=== PATIENT | female | born 1975 | race Caucasian/White ===

== ENCOUNTER 2020-06-02 14:32 | Outpatient (REF) | payer BC, SELFPAY ==
[2020-06-06 16:47] LABS: HPV mRNA E6/E7 rflx Not Detected (Not Detected)
== END 2020-06-02 14:33 | disposition home or self-care (01) ==
LOC: HO.LAB 14:32
PROVIDERS: PCP Internal Medicine; Visit Provider Obstetrics & Gynecology
DX: Z01.419 Encounter for gynecological examination (general) (routine) without abnormal findings (principal); Z11.51 Encounter for screening for human papillomavirus (HPV)
CPT/HCPCS: 36415; 87624; 88142

== ENCOUNTER → 2020-08-15 12:50 | Outpatient (BNVA) | payer BC, SELFPAY | PROVIDERS: PCP Internal Medicine; Referring Provider Internal Medicine; Visit Provider Physician Assistant ==

== ENCOUNTER 2020-10-25 08:10 | Outpatient (REF) | payer BC, SELFPAY ==
--- NOTE | ~2020-10-25 | MM_ITS ---
EXAMINATION: MM SCREENING DIGITAL BREAST TOMOSYNTHESIS, BILATERAL CLINICAL INFORMATION: Screening. Asymptomatic. The lifetime risk of breast cancer based on the Tyrer-Cuzick Model is 10%. COMPARISON: Mammography: 10/20/2019, 10/12/2018, 10/08/2017, 04/23/2016 TECHNIQUE: Digital breast tomosynthesis is performed in both the craniocaudal and mediolateral oblique views along with computer-aided detection (CAD). Synthesized 2D images are generated from the tomosynthesis. FINDINGS: There are scattered areas of fibroglandular density (ACR BI-RADS breast composition Category b). Parenchymal pattern is similar to prior studies. There are scattered stable asymmetries. No developing density. No abnormal calcifications. The axilla and skin contours are unremarkable. No significant changes from prior studies. MM/MM tomosynthesis screening BI IMPRESSION: No mammographic evidence of malignancy. ASSESSMENT: BI-RADS 2: Benign RECOMMENDATION: Routine annual mammography screening. This patient's information was entered into a reminder system with a target due date for their next mammogram.
== END 2020-10-25 08:11 | disposition home or self-care (01) ==
LOC: HO.MAMMO 08:10
PROVIDERS: Visit Provider Internal Medicine
DX: Z12.31 Encounter for screening mammogram for malignant neoplasm of breast (principal)
CPT/HCPCS: 77063; 77067

== ENCOUNTER 2020-10-26 08:45 | Outpatient (REF) | payer BC, SELFPAY ==
[2020-10-26 09:42] LABS: MANUAL DIFF FLAG NO
[2020-10-26 09:49] LABS: Basophils Percent Auto 0.6 % (0-2); Eosinophils Absolute Auto 0.1 X10*3/uL (0.0-0.4); Eosinophils Percent Auto 1.8 % (0-4); Hematocrit 38.3 % (37-47); Hemoglobin 12.6 g/dl (12.0-16.0); Imm Gran Abs Auto 0.03 X10*3/uL (0.00-0.03); Imm Gran Pct Auto 0.4 % (0.0-0.4); Lymphocytes Absolute Auto 1.8 X10*3/uL (1.2-4.9); Lymphocytes Percent Auto 26.6 % (20-40); Mean Corpuscular HGB Conc 32.9 g/dl (31.0-35.0); Mean Corpuscular Hemoglobin 33.2 pg (27.0-33.0); Mean Corpuscular Volume 101.1 fL (80-98); Mean Platelet Volume 9.6 fL (9.4-12.3); Monocytes Absolute Auto 0.5 X10*3/uL (0.1-1.2); Monocytes Percent Auto 7.2 % (2-11); Neutrophils Absolute Auto 4.3 X10*3/uL (2.0-8.3); Neutrophils Percent Auto 63.4 % (45-73); Platelet Count 309 X10*3/uL (160-400); Red Blood Count 3.79 X10*6/uL (4.20-5.50); Red Cell Distribution Width 11.7 % (11.0-16.0); White Blood Count 6.8 X10*3/uL (4.8-10.8)
[2020-10-26 10:15] LABS: Alanine Aminotransferase 33 U/L (0-31); Albumin Level 4.2 g/dL (3.5-5.0); Alkaline Phosphatase 57 U/L (39-117); Anion Gap 15 (12-20); Aspartate Amino Transferase 37 U/L (5-31); Bilirubin Total 0.3 mg/dL (0.0-1.0); Blood Urea Nitrogen 12 mg/dL (9-16); Calcium 8.8 mg/dL (8.4-10.2); Carbon Dioxide 25 mmol/L (22-29); Chloride 106 mmol/L (96-108); Estimated Glomerular Filt Rate > 60; Glucose Random 76 mg/dL (60-115); Potassium 4.7 mmol/L (3.3-5.1); Sodium 141 mmol/L (135-145); Total Protein 7.1 g/dL (6.5-8.0)
[2020-10-26 10:50] LABS: Erythrocyte Sedimentation Rate 5 MM/HR (0-20)
[2020-10-30 16:22] LABS: Transglutaminase IgA 1 U/mL
[2020-10-31 10:56] LABS: Endomysial IgA Antibody Negative (Negative)
== END 2020-10-26 08:46 | disposition home or self-care (01) ==
LOC: HO.LAB 08:45
PROVIDERS: Absent Provider Internal Medicine; PCP Internal Medicine; Visit Provider Physician Assistant
DX: R74.01 Elevation of levels of liver transaminase levels (principal); R10.11 Right upper quadrant pain; R19.7 Diarrhea, unspecified; K59.09 Other constipation
CPT/HCPCS: 36415; 80053; 83516; 84443; 85025; 85652; 86255; 86256

== ENCOUNTER 2020-10-27 10:59 | Day surgery (SDC) | payer BC, SELFPAY ==
--- NOTE | 2020-10-26 10:10 | HO.ANESPROP2 ---
Documented by User: Sharri Dubois NP 10/26/20 10:11 HPI - Anesthesia Eval Consult details Narrative: 45yo F for Colonoscopy PMFSH Active Problems Active Problems: All Active Problems (Updated 08/15/20 @ 13:35 by Laura Quevedo PA-C) Loose stools (Acute) Encounter for screening colonoscopy (Acute) Dyslipidemia (Acute) Depression with anxiety (Acute) Past Medical History Medical History Depression with anxiety Dyslipidemia Genital herpes Loose stools Family History Family History Father History of quadruple bypass Mother High cholesterol Diverticulitis IBS (irritable bowel syndrome) Maternal Grandmother Lung cancer Maternal Grandfather Stroke Maternal Aunt Diabetes Cancer Maternal Uncle Bladder cancer Surgical History Surgical History H/O LEEP Social History Social History Household Members: Spouse Household Members Other:: , no kids Alcohol intake: current Alcohol intake frequency: a few times a week Patient Tobacco Use Status: Never used Tobacco Use of substances other than those prescribed or required for medical reasons: Yes Substance Use Frequency: Daily Are you DNR?: No Advance Directives: No Advance Directives Information Provided: Yes Current occupational status: employed Current occupation: [employer] Gender identity: Female Meds Allergies Allergy/AdvReac Type Severity Reaction Status Date / Time No Known Allergies Allergy Verified 10/20/20 13:57 Exam Exam Date and Time: October 26, 2020 1010 Pertinent Lab Results Pertinent Lab Results: Laboratory Tests 10/26/20 09:05 WBC 6.8 Hgb 12.6 Hct 38.3 Plt Count 309 Laboratory Tests 10/26/20 09:05 Sodium Pending Potassium Pending Chloride Pending Carbon Dioxide Pending BUN Pending Creatinine Pending Random Glucose Pending Calcium Pending Total Bilirubin Pending AST Pending ALT Pending Alkaline Phosphatase Pending Total Protein Pending Albumin Pending TSH Pending Assessment and Plan Assessment Anesthesia Assessment: Chart Reviewed Documented by User: Valentina Camara MD 10/27/20 12:17 PMFSH Past Medical History Medical History Depression with anxiety Dyslipidemia Genital herpes Loose stools Family History Family History Father History of quadruple bypass Mother High cholesterol Diverticulitis IBS (irritable bowel syndrome) Maternal Grandmother Lung cancer Maternal Grandfather Stroke Maternal Aunt Diabetes Cancer Maternal Uncle Bladder cancer Surgical History Surgical History H/O LEEP History of Problems with Anesthesia: No Social History Social History Household Members: Spouse Household Members Other:: , no kids Alcohol intake: current Alcohol intake frequency: a few times a week Patient Tobacco Use Status: Never used Tobacco Use of substances other than those prescribed or required for medical reasons: Yes Substance Use Frequency: Daily Are you DNR?: No Advance Directives: No Advance Directives Information Provided: Yes Current occupational status: employed Current occupation: [employer] Gender identity: Female Meds Allergies Allergy/AdvReac Type Severity Reaction Status Date / Time No Known Allergies Allergy Verified 10/20/20 13:57 Exam Airway Mallampati Class: II TM Dist: >3cm Neck ROM: Full Loose/Missing/Broken Teeth: No Heart: RRR Lungs: CTA Assessment and Plan Assessment Anesthesia Assessment: Anesthesia Plan Discussed Final Anesthetic Review History of Problems with Anesthesia: No NPO: Yes ASA Class: II Final Preanesthetic Review: Meds/Allgs Chart Reviewed, Consent Obtained/Reviewed and Anes Risks/Benef Reviewed Patient Risk: Low Procedure Risk: Low Anesthetic Plan Anesthetic Plan: MAC: Disposition: Standard PACU
--- NOTE | 2020-10-27 11:17 | MHC.SHP ---
Pre-Procedural Eval Section A Date of Service: 10/27/20 The patient is an INPATIENT: No The History & Physical has been completed within 30 days and I have reviewed it.: No Section B Chief Complaint: Screening Details of Present Illness: Colon cancer screening, chronic diarrhea and bloating Relevant Family History (Specify if Yes): No Relevant Social History: None Present Medications: see Short Stay Collaborative assessment Medical History: Significant History (Depression with anxiety Dyslipidemia Genital herpes Loose stools) History of Previous Operations: Relevant previous surgery/procedure and date(s) (H/O LEEP) Allergies: Allergies Allergy/AdvReac Type Severity Reaction Status Date / Time No Known Allergies Allergy Verified 10/20/20 13:57 Review of Systems Sugical H&P ROS: Negative: Constitution, Cardiovascular and Respiratory and Yes, Specify: Gastrointestinal (Chronic diarrhea and bloating) Exam Surgical H&P Exam: Normal: Heart, Normal: Lungs and Normal: Extremities Plan Diagnosis/Plan: Unchanged I have reviewed the history and physical and performed a pertinent physical examination on my patient. No changes have occurred unless specified.
[2020-10-27 11:49] VITALS: BP 137/97; PULSE 70; RESP 16; TEMP 36.5; O2SAT 97
[2020-10-27] MEDS: Lactated Ringers 1,000 ML 100 ML IVCONT (12:01)
[2020-10-27 12:02] LABS: UPreg QC Valid YES; Urine Pregnancy NEGATIVE (NEGATIVE)
--- NOTE | 2020-10-27 12:56 | PM.OP ---
Brief Operative Note Date of Service: 10/27/20 Pre-op diagnosis: Colon cancer screening, chronic diarrhea, abdominal bloating Post-op diagnosis: other (Diverticulosis) Procedure: COLONOSCOPY TILL CECUM WITH BIOPSIES Consent: Indications for the procedure and potential complications of bleeding, perforation, reaction to medications and missed diagnosis were discussed with the patient and informed consent was obtained. Instrument: Olympus PCF H 190 L variable stiffness pediatric colonoscope Monitoring: Vital signs and clinical assessment, intermittent blood pressure monitoring, continuous EKG monitoring, Pulse oximetry and Carbon Dioxide monitoring were done throughout the procedure. Colon withdrawl time was 15 minutes. Procedure: The patient was placed in the left lateral decubitis position and pre-procedure medications were administered. After a digital rectal examination of the ano-rectum, the video colonoscope was inserted into the rectum and advanced through the colon to the cecum. The colonoscope was slowly withdrawn in a retrograde panoramic fashion and the colon mucosa was carefully examined including a retroflexed view of the rectum. Findings and interventions are described below. Procedure Difficulty: Without difficulty Findings: Terminal Ileum: Distal 10 cms was examined and 2-3 m benign appearing nodules were biopsied - likely normal lymphoid tissue Cecum: Normal Ascending Colon: Scattered mild diverticulosis Transverse Colon: Scattered mild diverticulosis Descending Colon: Moderate diverticulosis Sigmoid Colon: Moderate diverticulosis Rectum: Normal Ano-rectum: Normal Colon preparation: Excellent Impression and Post Procedure Diagnosis: Colonoscopy Findings: No polyps were detected Random biopsies were obtained from the right colon, left colon and TI Mild to moderate diverticulosis seen in the entire colon Plan: Await pathology results Patient has an appointment on 11/14/20 in the [facility] with JANICE Oneil. Repeat Colonoscopy in 10 years if colon biopsies are normal. Above findings were reviewed with the patient and diverticulosis handouts were given in the discharge area Surgeon: Chery Gar MD Anesthesia: MAC (Dr Camara) Was an Human Resources Operations Specialist used for this Procedure?: Yes Human Resources Operations Specialist: Rosalie Jerry Estimated blood loss (mL): 0 Pathology: other (A- TERMINAL ILEUM BIOPSIES R/O CROHNS B- RANDOM RIGHT COLON BIOPSIES R/O MICROSCOPIC COLITIS C- RANDOM LEFT COLON BIOPSIES- R/O MICROSCOPIC COLITIS) Condition: stable Disposition: PACU
[2020-10-27 13:30] VITALS: BP 123/71; PULSE 62; RESP 18; TEMP 36.6; O2SAT 99
[2020-10-27 13:45] VITALS: BP 143/96; PULSE 60; RESP 16; TEMP 36.7; O2SAT 98
--- NOTE | 2020-10-27 17:33 | P.OP_ITS ---
Operative Note Operative Note Date of Service: 10/27/20 Narrative: Pre-op diagnosis:?Colon cancer screening, chronic diarrhea, abdominal bloating Post-op diagnosis:?other (Diverticulosis) Procedure:? COLONOSCOPY TILL CECUM WITH BIOPSIES Consent: Indications for the procedure and potential complications of bleeding, perforation, reaction to medications and missed diagnosis were discussed with the patient and informed consent was obtained. Instrument: Olympus PCF H 190 L variable stiffness pediatric colonoscope Monitoring: Vital signs and clinical assessment, intermittent blood pressure monitoring, continuous EKG monitoring, Pulse oximetry and Carbon Dioxide monitoring were done throughout the procedure. Colon withdrawl time was 15 minutes. Procedure: The patient was placed in the left lateral decubitis position and pre-procedure medications were administered. After a digital rectal examination of the ano-rectum, the video colonoscope was inserted into the rectum and advanced through the colon to the cecum. The colonoscope was slowly withdrawn in a retrograde panoramic fashion and the colon mucosa was carefully examined including a retroflexed view of the rectum. Findings and interventions are described below. Procedure Difficulty: Without difficulty Findings: Terminal Ileum: Distal 10 cms was examined and 2-3 m benign appearing nodules were biopsied - likely normal lymphoid tissue Cecum:? Normal Ascending Colon:? Scattered mild diverticulosis Transverse Colon: ? Scattered mild diverticulosis Descending Colon:? Moderate diverticulosis Sigmoid Colon:? Moderate diverticulosis Rectum:? Normal Ano-rectum:? Normal Colon preparation: Excellent ? Impression and Post Procedure Diagnosis: Colonoscopy Findings: No polyps were detected Random biopsies were obtained from the right colon, left colon and TI Mild to moderate diverticulosis seen in the entire colon Plan: Await pathology results Patient has an appointment on 11/14/20 in the GI Clinic with JANICE Oneil. Repeat Colonoscopy in 10 years if colon biopsies are normal. Above findings were reviewed with the patient and diverticulosis handouts were given in the discharge area Surgeon:?Chery Gar MD Anesthesia:?MAC (Dr Camara) Was an Retail Visual Merchandiser used for this Procedure?:?Yes Retail Visual Merchandiser:?Rosalie Jerry Estimated blood loss (mL):?0 Pathology:?other (A- TERMINAL ILEUM BIOPSIES R/O CROHNS? B- RANDOM? RIGHT COLON BIOPSIES? R/O MICROSCOPIC COLITIS? C- RANDOM LEFT COLON BIOPSIES- R/O MICROSCOPIC COLITIS) Condition:?stable Disposition:?PACU
== END 2020-10-27 14:13 ==
LOC: HO.SSS 10:59
PROVIDERS: Nurse Practitioner; PCP Internal Medicine; Visit Provider Internal Medicine Gastroenterology
PROC: 0DJD8ZZ Inspection of Lower Intestinal Tract, Via Natural or Artificial Opening Endoscopic (ICD-10-PCS; CPT 45378; principal; 2020-10-27 12:10)
DX: Z12.11 Encounter for screening for malignant neoplasm of colon (principal); K57.30 Diverticulosis of large intestine without perforation or abscess without bleeding; R19.7 Diarrhea, unspecified; A60.00 Herpesviral infection of urogenital system, unspecified; F32.9 Major depressive disorder, single episode, unspecified; E78.5 Hyperlipidemia, unspecified
CPT/HCPCS: 45380; 81025; 88305; J2250

== ENCOUNTER → 2020-11-14 11:23 | Outpatient (BNVA) | payer BC, SELFPAY | PROVIDERS: PCP Internal Medicine; Referring Provider Internal Medicine; Visit Provider Physician Assistant ==

== ENCOUNTER 2021-06-29 10:20 | Outpatient (REF) | payer BC, SELFPAY ==
[2021-06-29 16:32] LABS: CT PCR NOT DETECTED (Not Detect.); NG PCR NOT DETECTED (Not Detect.)
[2021-06-30 14:43] LABS: BV Int Neg Control Negative (Negative); BV Int Pos Control Positive (Positive)
== END 2021-06-29 10:21 | disposition home or self-care (01) ==
LOC: HO.LAB 10:20
PROVIDERS: PCP Internal Medicine; Visit Provider Advanced Practice Midwife
DX: Z01.411 Encounter for gynecological examination (general) (routine) with abnormal findings (principal); Z20.2 Contact with and (suspected) exposure to infections with a predominantly sexual mode of transmission; N93.9 Abnormal uterine and vaginal bleeding, unspecified; N84.1 Polyp of cervix uteri
CPT/HCPCS: 87480; 87491; 87510; 87591; 87660

== ENCOUNTER 2021-07-19 11:19 | Outpatient (REF) | payer BC, SELFPAY ==
--- NOTE | ~2021-07-19 | US_ITS ---
EXAMINATION: US PELVIS CLINICAL INFORMATION: Abnormal uterine and vaginal bleeding COMPARISON: Previous pelvic ultrasound September 2015 TECHNIQUE: Ultrasound of the pelvis is performed using both transabdominal and transvaginal transducers along with Doppler. Transvaginal imaging is performed due to inadequate visualization transabdominally. FINDINGS: The uterus is anteverted and measures 8 x 3.8 x 5.2 cm in dimension. No focal uterine lesion is seen. Endometrial thickness is normal measuring 1.1 cm. The endometrium is slightly heterogeneous. Previously suggested endometrial polyp September 2015 is not appreciated. There are nabothian cysts in the cervix. The right ovary measures 2.7 x 2.5 x 1.8 cm. There is a small echogenic density in the right ovary with acoustic shadowing questionable for a small calcification. This measures 2 mm. The left ovary is normal-appearing and measures 2.1 x 1.9 x 1.4 cm. There is no fluid in the pelvis. US/US pelvic and transvaginal IMPRESSION: Slightly heterogeneous-appearing endometrium. Endometrial thickness is normal measuring 1.1 cm.
== END 2021-07-19 11:20 | disposition home or self-care (01) ==
LOC: HO.US 11:19
PROVIDERS: Visit Provider Advanced Practice Midwife
DX: N93.9 Abnormal uterine and vaginal bleeding, unspecified (principal); N84.1 Polyp of cervix uteri
CPT/HCPCS: 76830; 76856

== ENCOUNTER 2021-09-21 10:54 | Outpatient (REF) | payer BC, SELFPAY ==
[2021-09-27 12:26] LABS: HPV mRNA E6/E7 rflx Not Detected (Not Detected)
== END 2021-09-21 10:55 | disposition home or self-care (01) ==
LOC: HO.LAB 10:54
PROVIDERS: PCP Internal Medicine; Visit Provider Advanced Practice Midwife
DX: N84.1 Polyp of cervix uteri (principal); N93.9 Abnormal uterine and vaginal bleeding, unspecified; Z71.2 Person consulting for explanation of examination or test findings
CPT/HCPCS: 57500; 57505; 58100; 58558; 87624; 88142; 88305

== ENCOUNTER 2021-09-24 11:28 | Outpatient (REF) | payer BC, SELFPAY ==
[2021-09-24 15:15] LABS: CT PCR NOT DETECTED (Not Detect.); NG PCR NOT DETECTED (Not Detect.)
[2021-09-25 09:43] LABS: BV Int Neg Control Negative (Negative); BV Int Pos Control Positive (Positive)
== END 2021-09-24 11:29 | disposition home or self-care (01) ==
LOC: HO.LAB 11:28
PROVIDERS: Visit Provider Advanced Practice Midwife
DX: Z11.3 Encounter for screening for infections with a predominantly sexual mode of transmission (principal); R10.2 Pelvic and perineal pain
CPT/HCPCS: 81003; 87480; 87491; 87510; 87591; 87660

== ENCOUNTER 2021-09-26 05:41 | Emergency (ER) | payer BC, SELFPAY ==
--- NOTE | ~2021-09-26 | CT_ITS ---
EXAMINATION: CT ABDOMEN AND PELVIS WITH CONTRAST CLINICAL INFORMATION: Pain status post endometrial biopsy COMPARISON: Ultrasound 07/19/2021 TECHNIQUE: Multidetector volumetric images were obtained from the superior aspect of the liver through the pubic symphysis following administration 85 mL of Omnipaque 350 intravenous contrast. Sagittal and coronal reformatted images were obtained on the technologist's workstation. Oral contrast: No This CT examination was performed using dose optimization techniques as appropriate, variously including the following: *Automated exposure control *Adjustment of mA and/or kV according to patient size (this includes techniques or standardized protocols for targeted exams where dose is matched to indication/reason for exam; i.e. extremities or head) *Use of iterative reconstruction technique DLP: 702 mGy-cm FINDINGS: LUNG BASES: The visualized lung bases are unremarkable. LIVER, GALLBLADDER, AND BILIARY TREE: The liver is normal in size, shape, and attenuation. No focal hepatic lesion or biliary ductal dilatation is present. The gallbladder is unremarkable with no evidence of radiopaque gallstones, gallbladder wall thickening, or obvious pericholecystic inflammatory changes. PANCREAS: Unremarkable. SPLEEN: Unremarkable. ADRENAL GLANDS: Unremarkable. KIDNEYS AND URETERS: The kidneys are normal in size, shape, and attenuation. No hydronephrosis, hydroureter, or calculi seen. No perinephric stranding. BLADDER: Unremarkable. GASTROINTESTINAL TRACT: Stomach and small bowel are nondilated. Normal appendix. There is a suggestion of possible subtle wall thickening of the right colon, for example image 42/93. There may be very subtle pericolonic fat stranding, coronal image 48. Elsewhere in the colon, there is diverticulosis but no evidence of colitis or diverticulitis. ABDOMINAL WALL: No significant hernia is appreciated. LYMPH NODES: Normal. VASCULAR: Unremarkable. PELVIC VISCERA: Normal CT appearance of the uterus. No adnexal mass. Trace pelvic free fluid is present, presumably physiologic. OSSEOUS STRUCTURES: Unremarkable. CT/CT abdomen pelvis w con IMPRESSION: There is a suggestion of possible subtle wall thickening of the right colon with trace pericolonic fat stranding. Colitis could give this appearance. Recommend correlation with the patient's symptoms, i.e. a right-sided? Associated GI symptoms? Physiologic free fluid in the pelvis. Fleischner guidelines were followed.
[2021-09-26 06:23] VITALS: BP 185/99; PULSE 62; RESP 16; TEMP 36.3; O2SAT 96
--- NOTE | 2021-09-26 11:32 | ED_ITS ---
HPI - Abdominal Pain General Chief Complaint: Abdominal Pain Stated Complaint: abd pain post procedure Time Seen by Provider: 09/26/21 09:43 Source: patient Mode of arrival: ambulatory Limitations: no limitations History of Present Illness HPI narrative: 46 yo female with hx of HLD, anxiety, DUB s/p endometrial biopsy at [facility] [place] and cervical polypectomy on 09/21. She has had pain ever since. Went back to office on Friday - had swabs done for G+C, BV, trichomonas they were all negative, pathology for biopsy was negative - no hyperplasia noted. She was started on levofloxacin and flagyl at that time. She took her antibiotics this AM but states she can't take the pain anymore. It hurts to walk and the bumps in the car hurt as well. 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) Related Data Previous Rx's Medication Instructions Recorded escitalopram oxalate 10 mg tablet 10 mg PO DAILY 90 days #90 tabs 04/03/21 buspirone 10 mg tablet 10 mg PO BID 90 days #180 tabs 06/07/21 levofloxacin 500 mg tablet 500 mg PO DAILY 7 days #7 tabs 09/24/21 metronidazole 500 mg tablet 500 mg PO Q12H 7 days #14 tabs 09/24/21 Allergies Allergy/AdvReac Type Severity Reaction Status Date / Time No Known Allergies Allergy Verified 09/24/21 11:12 Review of Systems Review of Systems Constitutional : No Weight loss, No Fever, pos Chills ENT/Mouth : No sore throat, No Rhinorrhea Eyes: No Swelling, No Redness Cardiovascular : No Chest Pain, No SOB, NoEdema Respiratory : No Cough, No Sputum, No Wheezing Gastrointestinal : Positive Nausea, no Vomiting, no Diarrhea, positive abdominal Pain, No Hematochezia, No Melena Genitourinary : No Dysuria, No Urinary Frequency, No Hematuria, No Urgency Musculoskeletal : No joint pain, No Myalgias, No Joint Swelling Skin : No Skin Lesions, No rash Neuro : No Weakness, No Numbness, No Dizziness, No Headache Psych : No Anxiety/Panic, No Depression Heme/Lymph: No Bruising, No Lymphadenopathy Endocrine : No Polyuria, No Polydipsia All other systems reviewed and are negative. [facility] Past Medical History Attestation statement: The following information was validated with the patient. Medical History Depression with anxiety Dyslipidemia Genital herpes Loose stools Physical exam Surgical History H/O LEEP Family History Family History Father History of quadruple bypass Mother High cholesterol Diverticulitis IBS (irritable bowel syndrome) Maternal Grandmother Lung cancer Maternal Grandfather Stroke Maternal Aunt Diabetes Cancer Maternal Uncle Bladder cancer Social History Social History Household Members: Spouse Household Members Other:: , no kids Housing: House Alcohol intake: current Alcohol intake frequency: 0-2 drinks per day Alcohol type: beer Patient Tobacco Use Status: Never used Tobacco e-Cigarette/Vaping Use: Never Used Second Hand Smoke Exposure: No Substance Use Type: Marijuana Substance Use Frequency: Daily Last Used Substance: Days (ago) Advance Directives: No Advance Directives Information Provided: Yes service: No Current occupational status: employed Current occupation: [employer] Current occupational exposures/hazards: No Gender identity: Female Physical Exam ED Vital Signs: Vital Signs - 24 hr 09/26/21 06:23 09/26/21 14:14 Temperature 97.4 F 98.2 F Pulse Rate 62 57 Respiratory Rate 16 16 Blood Pressure 185/99 H 147/83 H Pulse Oximetry 96 99 Oxygen Delivery Method Room Air Room Air BMI result Body Mass Index 30.0 Appearance: Alert. Oriented X3. in pain mild acute distress. hunched over wal radha Eyes: Pupils equal, round and reactive to light. ENT: Pharynx normal. Neck: Normal inspection. Neck supple. CVS: Normal heart rate and rhythm. Pulses normal. Respiratory: No respiratory distress. Breath sounds normal. Abdomen: Soft and moderate ttp in upper abdomen and periumbilical area Skin: Skin warm and dry. Normal skin color. Normal skin turgor. Extremities: No lower extremity edema. No calf ttp Neuro: Oriented X 3. No motor deficit. No sensory deficit. Course Course Course Narrative: OB notified 1157am. CT scan negative Dr. Mckeon to come see patient - doubt endometritis told Dr. Mckeon she started abx Friday and the patient had diarrhea over the weekend possible colitis - diarrhea prior to abx will continue antibiotics at this time and DC home with strict precautions MDM - Abdominal Pain MDM Narrative Medical decision making narrative: 46 yo female with hx of HLD, anxiety, DUB s/p endometrial biopsy at [facility] [place] and cervical polypectomy on 09/21 presents with pain which is longer than expected post procedure and in upper abdomen. At this time labs, cultures, IV ceftriaxone and doxy to cover possible post endometritis. CT scan to look for perforation as well. IVF ordered along with IV morphine for pain. Lab Data Result diagrams: 09/26/21 11:32 09/26/21 11:32 Labs: Lab Results 09/26/21 09/26/21 09/26/21 Range/Units 11:32 11:32 11:32 WBC 12.0 H (4.8-10.8) X10*3/uL RBC 4.09 L (4.20-5.50) X10*6/uL Hgb 13.6 (12.0-16.0) g/dl Hct 40.5 (37.0-47.0) % MCV 99.0 H (80.0-98.0) fL MCH 33.3 H (27.0-33.0) pg MCHC 33.6 (31.0-35.0) g/dl RDW 11.5 (11.0-16.0) % Plt Count 322 (160-400) X10*3/uL MPV 9.3 L (9.4-12.3) fL Immature Gran % (Auto) 0.5 H (0.0-0.4) % Neut % (Auto) 76.6 H (45-73) % Lymph % (Auto) 16.4 L (20-40) % [place] % (Auto) 5.4 (2-11) % Eos % (Auto) 0.9 (0-4) % Baso % (Auto) 0.2 (0-2) % Lymph # (Auto) 2.0 (1.2-4.9) X10*3/uL [place] # (Auto) 0.7 (0.1-1.2) X10*3/uL Eos # (Auto) 0.1 (0.0-0.4) X10*3/uL Baso # (Auto) 0.0 (0.0-0.2) X10*3/uL Abs Immat Gran (auto) 0.06 H (0.00-0.03) X10*3/uL Absolute Neuts (auto) 9.2 H (2.0-8.3) x10*3/uL Absolute Nucleated RBC 0.000 (0.0-0.012) X10*3/uL Nucleated RBC % (auto) 0.0 (0.0-0.2) /100WBC PT (10.0-13.1) SEC INR (0.9-1.1) Sodium 140 (135-145) mmol/L Potassium 3.7 D (3.3-5.1) mmol/L Chloride 104 (96-108) mmol/L Carbon Dioxide 28 (22-29) mmol/L Anion Gap 12 (12-20) BUN 9 (9-16) mg/dL Creatinine 0.80 (0.5-1.4) mg/dL Estim Creat Clear Calc 87.6 Estimated GFR > 60 Random Glucose 109 (60-115) mg/dL Lactic Acid 0.8 (0.5-2.0) mmol/L Calcium 9.4 D (8.4-10.2) mg/dL Magnesium (1.6-2.6) mg/dL Lipase (8-78) U/L Urine Color Urine Appearance Urine pH (5.0-8.0) Ur Specific [place] (1.005-1.025) Urine Protein (NEG-TRACE) MG/DL Urine Glucose (UA) (NEG) MG/DL Urine Ketones (NEG) MG/DL Urine Blood (NEG) Urine Nitrite (NEG) Ur Leukocyte Esterase (NEG) COVID-19 ([facility]) (Negative) COVID-19 Clin Com Blood Type Antibody Screen 09/26/21 09/26/21 09/26/21 Range/Units 11:32 11:32 11:32 WBC (4.8-10.8) X10*3/uL RBC (4.20-5.50) X10*6/uL Hgb (12.0-16.0) g/dl Hct (37.0-47.0) % MCV (80.0-98.0) fL MCH (27.0-33.0) pg MCHC (31.0-35.0) g/dl RDW (11.0-16.0) % Plt Count (160-400) X10*3/uL MPV (9.4-12.3) fL Immature Gran % (Auto) (0.0-0.4) % Neut % (Auto) (45-73) % Lymph % (Auto) (20-40) % [place] % (Auto) (2-11) % Eos % (Auto) (0-4) % Baso % (Auto) (0-2) % Lymph # (Auto) (1.2-4.9) X10*3/uL [place] # (Auto) (0.1-1.2) X10*3/uL Eos # (Auto) (0.0-0.4) X10*3/uL Baso # (Auto) (0.0-0.2) X10*3/uL Abs Immat Gran (auto) (0.00-0.03) X10*3/uL Absolute Neuts (auto) (2.0-8.3) x10*3/uL Absolute Nucleated RBC (0.0-0.012) X10*3/uL Nucleated RBC % (auto) (0.0-0.2) /100WBC PT 10.7 (10.0-13.1) SEC INR 0.9 (0.9-1.1) Sodium (135-145) mmol/L Potassium (3.3-5.1) mmol/L Chloride (96-108) mmol/L Carbon Dioxide (22-29) mmol/L Anion Gap (12-20) BUN (9-16) mg/dL Creatinine (0.5-1.4) mg/dL Estim Creat Clear Calc Estimated GFR Random Glucose (60-115) mg/dL Lactic Acid (0.5-2.0) mmol/L Calcium (8.4-10.2) mg/dL Magnesium 1.6 (1.6-2.6) mg/dL Lipase 50 (8-78) U/L Urine Color Urine Appearance Urine pH (5.0-8.0) Ur Specific Winston (1.005-1.025) Urine Protein (NEG-TRACE) MG/DL Urine Glucose (UA) (NEG) MG/DL Urine Ketones (NEG) MG/DL Urine Blood (NEG) Urine Nitrite (NEG) Ur Leukocyte Esterase (NEG) COVID-19 ([facility]) Negative (Negative) COVID-19 Clin Com See Note Blood Type Antibody Screen 09/26/21 09/26/21 Range/Units 11:45 12:00 WBC (4.8-10.8) X10*3/uL RBC (4.20-5.50) X10*6/uL Hgb (12.0-16.0) g/dl Hct (37.0-47.0) % MCV (80.0-98.0) fL MCH (27.0-33.0) pg MCHC (31.0-35.0) g/dl RDW (11.0-16.0) % Plt Count (160-400) X10*3/uL MPV (9.4-12.3) fL Immature Gran % (Auto) (0.0-0.4) % Neut % (Auto) (45-73) % Lymph % (Auto) (20-40) % [place] % (Auto) (2-11) % Eos % (Auto) (0-4) % Baso % (Auto) (0-2) % Lymph # (Auto) (1.2-4.9) X10*3/uL [place] # (Auto) (0.1-1.2) X10*3/uL Eos # (Auto) (0.0-0.4) X10*3/uL Baso # (Auto) (0.0-0.2) X10*3/uL Abs Immat Gran (auto) (0.00-0.03) X10*3/uL Absolute Neuts (auto) (2.0-8.3) x10*3/uL Absolute Nucleated RBC (0.0-0.012) X10*3/uL Nucleated RBC % (auto) (0.0-0.2) /100WBC PT (10.0-13.1) SEC INR (0.9-1.1) Sodium (135-145) mmol/L Potassium (3.3-5.1) mmol/L Chloride (96-108) mmol/L Carbon Dioxide (22-29) mmol/L Anion Gap (12-20) BUN (9-16) mg/dL Creatinine (0.5-1.4) mg/dL Estim Creat Clear Calc Estimated GFR Random Glucose (60-115) mg/dL Lactic Acid (0.5-2.0) mmol/L Calcium (8.4-10.2) mg/dL Magnesium (1.6-2.6) mg/dL Lipase (8-78) U/L Urine Color YELLOW Urine Appearance CLEAR Urine pH 6.0 (5.0-8.0) Ur Specific [place] 1.020 (1.005-1.025) Urine Protein NEG (NEG-TRACE) MG/DL Urine Glucose (UA) NEG (NEG) MG/DL Urine Ketones NEG (NEG) MG/DL Urine Blood NEG (NEG) Urine Nitrite NEG (NEG) Ur Leukocyte Esterase NEG (NEG) COVID-19 ([facility]) (Negative) COVID-19 Clin Com Blood Type O Negative Antibody Screen NEGATIVE Discharge Plan Discharge Clinical Impression: Colitis, Abdominal pain Patient Disposition: Home, Self-Care Instructions: Abdominal Pain (ED), Colitis (ED) Additional Instructions: return to ED for any worsening symptoms or concerns continue antibiotics be aware that levofloxacin can cause tendon rupture if diarrhea returns and worsens you need a c diff study with your doctor CT/CT abdomen pelvis w con IMPRESSION: There is a suggestion of possible subtle wall thickening of the right colon with trace pericolonic fat stranding. Colitis could give this appearance. Recommend correlation with the patient's symptoms, i.e. a right-sided? Associated GI symptoms? ? Physiologic free fluid in the pelvis. ? Fleischner guidelines were followed. Prescriptions: No Action escitalopram oxalate 10 mg tablet 10 mg PO DAILY 90 Days Qty: 90 2RF buspirone 10 mg tablet 10 mg PO BID 90 Days Qty: 180 1RF metronidazole 500 mg tablet 500 mg PO Q12H 7 Days Qty: 14 0RF levofloxacin 500 mg tablet 500 mg PO DAILY 7 Days Qty: 7 0RF Stand Alone Forms: Work/School Release
[2021-09-26 11:40] LABS: MANUAL DIFF FLAG NO
[2021-09-26 11:44] LABS: Basophils Percent Auto 0.2 % (0-2); Eosinophils Absolute Auto 0.1 X10*3/uL (0.0-0.4); Eosinophils Percent Auto 0.9 % (0-4); Hematocrit 40.5 % (37.0-47.0); Hemoglobin 13.6 g/dl (12.0-16.0); Imm Gran Abs Auto 0.06 X10*3/uL (0.00-0.03); Imm Gran Pct Auto 0.5 % (0.0-0.4); Lymphocytes Percent Auto 16.4 % (20-40); Mean Corpuscular HGB Conc 33.6 g/dl (31.0-35.0); Mean Corpuscular Hemoglobin 33.3 pg (27.0-33.0); Mean Platelet Volume 9.3 fL (9.4-12.3); Monocytes Absolute Auto 0.7 X10*3/uL (0.1-1.2); Monocytes Percent Auto 5.4 % (2-11); Neutrophils Absolute Auto 9.2 x10*3/uL (2.0-8.3); Neutrophils Percent Auto 76.6 % (45-73); Platelet Count 322 X10*3/uL (160-400); Red Blood Count 4.09 X10*6/uL (4.20-5.50); Red Cell Distribution Width 11.5 % (11.0-16.0)
[2021-09-26 11:52] LABS: INTERNATIONAL NORM RATIO 0.9 (0.9-1.1); Prothrombin Time 10.7 SEC (10.0-13.1)
[2021-09-26 11:53] LABS: Lactic Acid 0.8 mmol/L (0.5-2.0)
[2021-09-26] MEDS: Morphine Sulfate 4 MG/ML CARTRIDGE IVPUSH (11:55)
[2021-09-26] MEDS: ondansetron HCL 4 MG/2 ML VIAL IVPUSH (11:55)
[2021-09-26 11:56] LABS: Appearance Urine CLEAR; Color Urine YELLOW; Glucose Urine UA NEG (NEG); Leukocyte Esterase Urine NEG (NEG); Nitrite Urine NEG (NEG); Urine Blood NEG (NEG); Urine Ketones NEG (NEG); Urine Protein NEG (NEG-TRACE)
[2021-09-26] MEDS: cefTRIAXone sodium 1 GM in 0.9 % Sodium Chloride 50 ML IV (11:56)
[2021-09-26 11:58] LABS: Anion Gap 12 (12-20); Blood Urea Nitrogen 9 mg/dL (9-16); Calcium 9.4 mg/dL (8.4-10.2); Carbon Dioxide 28 mmol/L (22-29); Chloride 104 mmol/L (96-108); Creatinine Clr Calc Pharmacy 87.6; Estimated Glomerular Filt Rate > 60; Glucose Random 109 mg/dL (60-115); Potassium 3.7 mmol/L (3.3-5.1); Sodium 140 mmol/L (135-145)
[2021-09-26 11:59] LABS: Lipase 50 U/L (8-78); Magnesium 1.6 mg/dL (1.6-2.6)
[2021-09-26 12:10] LABS: COVID-19 Test Negative (Negative)
[2021-09-26] MEDS: Doxycycline Hyclate 100 MG in 0.9 % Sodium Chloride 250 ML 166.67 MG IV (12:26)
[2021-09-26] MEDS: iohexoL 350 MG/ML 100 ML INFUS..BTL IV (12:49)
[2021-09-26 14:14] VITALS: BP 147/83; PULSE 57; RESP 16; TEMP 36.8; O2SAT 99
[2021-09-26] MEDS: Lactated Ringers 1,000 ML 999 ML IV (14:18)
--- NOTE | 2021-09-26 15:36 | PM.GYNCN ---
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 The patient started having abdominal pain same day of the office procedure and it got worse over the weekend, associated with upper abdominal pain, watery diarrhea, and mild nausea, no vomiting, no fever or chills. The patient went back to office on Friday was seen by Annabelle Wilde CNM, GC and chlamydia were taken, BV, trichomonas were done and they were all negative, all pathology was negative - with evidence of endometrial tissues, endocervical tissues and polyp with no malignancy and/ or hyperplasia noted. Although abdominal and pelvic exam were nontender, the patient was started on levofloxacin and flagyl . Since then, the pain did not improve and got worse, in addition to the diarrhea. The workup done in the emergency room include the following CBC within normal with white count of 12 K, chemistry within normal, and UA negative. CT scan showed the following: There is a suggestion of possible subtle wall thickening of the right colon with trace pericolonic fat stranding. Colitis could give this appearance. Recommend correlation with the patient's symptoms, i.e. a right-sided? Associated GI symptoms? ?Physiologic free fluid in the pelvis. cc:: CC: LAPELER - Review of Systems Review of Systems ROS Unobtainable: All systems reviewed & are unremarkable except as noted in HPI and below Cardiovascular: Denies Palpatations, Loss of consciousness or Chest pain Respiratory: Denies Cough, Wheezing or Shortness of breath Musculoskeletal: Denies Low back pain Gastrointestinal: Denies Heartburn, Constipation, Diarrhea, Nausea or Vomiting Genitourinary: Denies Pain with urination, Burning with urination or Urinary frequency Neurological: Denies Migranes Psychological: Denies Depression OB [facility] Past Medical History Medical History Depression with anxiety Dyslipidemia Genital herpes Loose stools Physical exam Family History Family History Father History of quadruple bypass Mother High cholesterol Diverticulitis IBS (irritable bowel syndrome) Maternal Grandmother Lung cancer Maternal Grandfather Stroke Maternal Aunt Diabetes Cancer Maternal Uncle Bladder cancer Surgical History Surgical History H/O LEEP Social History Social History Household Members: Spouse Household Members Other:: , no kids Housing: House Alcohol intake: current Alcohol intake frequency: 0-2 drinks per day Alcohol type: beer Patient Tobacco Use Status: Never used Tobacco e-Cigarette/Vaping Use: Never Used Second Hand Smoke Exposure: No Substance Use Type: Marijuana Substance Use Frequency: Daily Last Used Substance: Days (ago) Advance Directives: No Advance Directives Information Provided: Yes service: No Current occupational status: employed Current occupation: [employer] Current occupational exposures/hazards: No Gender identity: Female Meds Allergies Allergy/AdvReac Type Severity Reaction Status Date / Time No Known Allergies Allergy Verified 09/24/21 11:12 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 Physical Exam Vitals Vital signs: Temp Pulse Resp BP Pulse Ox O2 Del Method 98.2 F 57 16 147/83 H 99 09/26/21 14:14 09/26/21 14:14 09/26/21 14:14 09/26/21 14:14 09/26/21 14:14 09/26/21 14:14 BMI result Body Mass Index 30.0 Constitutional General Appearance: Healthy appearing, Well-nourished and Well-developed Psychiatric Mood and Affect: active and alert, normal mood and normal affect Skin Appearance: No rashes and No lesions Lungs Respiratory Effort: No intercostal retractions Auscultation: Clear to auscultation Cardiovascular Auscultation: RRR Abdomen Auscultation/Inspection/Palpation: Normal bowel sounds, Soft, Non-distended and No tenderness Female Genitalia (Pelvic) Bladder/Urethra: Normal meatus Vulva: No lesions Vagina: Nontender, No erythema and Normal discharge Cervix: Grossly normal and No cervical motion tenderness Uterus: Normal size Adnexa/Parametria: Adnexal Tenderness: None, Adnexal Mass: None, Parametrial Tenderness: None and Parametrial Mass: None 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 - Results Labs CBC & Chem 7: 09/26/21 11:32 09/26/21 11:32 Labs: Short CBC 09/26/21 Range/Units 11:32 WBC 12.0 H (4.8-10.8) X10*3/uL Hgb 13.6 (12.0-16.0) g/dl Hct 40.5 (37.0-47.0) % Plt Count 322 (160-400) X10*3/uL BMP 09/26/21 11:32 Sodium 140 Potassium 3.7 D Chloride 104 Carbon Dioxide 28 BUN 9 Creatinine 0.80 Calcium 9.4 D Urine 09/26/21 Range/Units 11:45 Urine Color YELLOW Urine Appearance CLEAR Urine pH 6.0 (5.0-8.0) Ur Specific [place] 1.020 (1.005-1.025) Urine Protein NEG (NEG-TRACE) MG/DL Urine Glucose (UA) NEG (NEG) MG/DL Antibody Screen Antibody Screen NEGATIVE 09/26/21 12:[address] scan - abdomen: Radiologist's impression: ITS Impressions Abdomen/Pelvis CT 09/26/21 12:46 IMPRESSION: There is a suggestion of possible subtle wall thickening of the right colon with trace pericolonic fat stranding. Colitis could give this appearance. Recommend correlation with the patient's symptoms, i.e. a right-sided? Associated GI symptoms? Physiologic free fluid in the pelvis. Fleischner guidelines were followed. Assessment and Plan (1) Colitis: Status: Acute Plan Given the findings on physical exam, nontender abdomen, no cervical motion tenderness, uterine and or adnexal tenderness, mild leukocytosis, with no abnormalities on CT scan in the pelvis with no evidence of hematoma and/ or uterine perforation, endometritis unlikely. With patient's history of watery diarrhea, upper abdominal pain with Colitis evident on CT scan , possible colitis, I will defer the treatment for colitis today our team. Regarding the possibility of endometritis , I recommend to keep the patient on Levaquin/Flagyl and send stool for C diff toxin and follow-up in the office. Instructions to be given to patient to come back to emergency room in case of nausea and/or vomiting , worsening of the pain and/or fever above 100.4. Discussed the case and my recommendation with Dr. Noriega, emergency room physician.
== END 2021-09-26 16:01 | disposition home or self-care (01) ==
PROVIDERS: Emergency Provider Emergency Medicine; PCP Internal Medicine
DX: K52.9 Noninfective gastroenteritis and colitis, unspecified (principal); R10.12 Left upper quadrant pain; Z20.822 Contact with and (suspected) exposure to COVID-19; Z79.899 Other long term (current) drug therapy
CPT/HCPCS: 36415; 74177; 80048; 81003; 83605; 83690; 83735; 85025; 85610; 86850; 86900; 86901; 87040; 87635; 96365; 96375; 99284; J0696; J2270; J2405; Q9967

== ENCOUNTER 2021-10-26 08:40 | Outpatient (REF) | payer BC, SELFPAY ==
--- NOTE | ~2021-10-26 | MM_ITS ---
EXAMINATION: MM SCREENING DIGITAL BREAST TOMOSYNTHESIS, BILATERAL CLINICAL INFORMATION: Screening. Asymptomatic. The lifetime risk of breast cancer based on the Tyrer-Cuzick Model is 9.7%. COMPARISON: Mammography: October 25, 2020 and studies dating back to May 31, 2013 TECHNIQUE: Digital breast tomosynthesis is performed in both the craniocaudal and mediolateral oblique views along with computer-aided detection (CAD). Synthesized 2D images are generated from the tomosynthesis. FINDINGS: There are scattered areas of fibroglandular density (ACR BI-RADS breast composition Category b). There are no significant masses, abnormal calcifications, or other abnormalities. MM/MM tomosynthesis screening BI IMPRESSION: No mammographic evidence of malignancy. ASSESSMENT: BI-RADS 1: Negative RECOMMENDATION: Routine annual mammography screening. This patient's information was entered into a reminder system with a target due date for their next mammogram.
== END 2021-10-26 08:41 | disposition home or self-care (01) ==
LOC: HO.MAMMO 08:40
PROVIDERS: PCP Internal Medicine; Visit Provider Internal Medicine
DX: Z12.31 Encounter for screening mammogram for malignant neoplasm of breast (principal)
CPT/HCPCS: 77063; 77067

== ENCOUNTER 2021-11-28 06:57 | Outpatient (REF) | payer BC, SELFPAY ==
[2021-11-28 07:11] LABS: MANUAL DIFF FLAG NO
[2021-11-28 07:40] LABS: Basophils Absolute Auto 0.1 X10*3/uL (0.0-0.2); Basophils Percent Auto 0.6 % (0-2); Eosinophils Absolute Auto 0.1 X10*3/uL (0.0-0.4); Eosinophils Percent Auto 0.7 % (0-4); Hematocrit 39.6 % (37.0-47.0); Hemoglobin 13.2 g/dl (12.0-16.0); Imm Gran Abs Auto 0.04 X10*3/uL (0.00-0.03); Imm Gran Pct Auto 0.5 % (0.0-0.4); Lymphocytes Absolute Auto 1.6 X10*3/uL (1.2-4.9); Lymphocytes Percent Auto 19.5 % (20-40); Mean Corpuscular HGB Conc 33.3 g/dl (31.0-35.0); Mean Corpuscular Hemoglobin 33.2 pg (27.0-33.0); Mean Corpuscular Volume 99.5 fL (80.0-98.0); Mean Platelet Volume 9.4 fL (9.4-12.3); Monocytes Absolute Auto 0.5 X10*3/uL (0.1-1.2); Monocytes Percent Auto 5.5 % (2-11); Neutrophils Absolute Auto 6.1 x10*3/uL (2.0-8.3); Neutrophils Percent Auto 73.2 % (45-73); Platelet Count 305 X10*3/uL (160-400); Red Blood Count 3.98 X10*6/uL (4.20-5.50); Red Cell Distribution Width 11.5 % (11.0-16.0); White Blood Count 8.4 X10*3/uL (4.8-10.8)
[2021-11-28 08:01] LABS: Alanine Aminotransferase 35 U/L (0-31); Albumin Level 4.3 g/dL (3.5-5.0); Alkaline Phosphatase 59 U/L (39-117); Anion Gap 16 (12-20); Aspartate Amino Transferase 29 U/L (5-31); Bilirubin Total 0.5 mg/dL (0.0-1.0); Blood Urea Nitrogen 10 mg/dL (9-16); Calcium 9.5 mg/dL (8.4-10.2); Carbon Dioxide 26 mmol/L (22-29); Chloride 102 mmol/L (96-108); Cholesterol 267 mg/dL; Estimated Glomerular Filt Rate > 60; Glucose Fasting 89 mg/dL (60-99); HDL Cholesterol 104 mg/dL; LDL Cholesterol Calculated 153 mg/dl; Potassium 4.4 mmol/L (3.3-5.1); Sodium 140 mmol/L (135-145); Total Protein 7.1 g/dL (6.5-8.0); Triglycerides 53 mg/dL
== END 2021-11-28 06:58 | disposition home or self-care (01) ==
LOC: HO.LAB 06:57
PROVIDERS: Absent Provider Physician Assistant; PCP Internal Medicine; Visit Provider Internal Medicine
DX: Z00.00 Encounter for general adult medical examination without abnormal findings (principal); K52.9 Noninfective gastroenteritis and colitis, unspecified; E78.5 Hyperlipidemia, unspecified
CPT/HCPCS: 36415; 80053; 80061; 85025

== ENCOUNTER 2022-01-02 08:45 | Outpatient (REF) | payer BC, SELFPAY ==
[2022-01-04 03:36] LABS: HPV mRNA E6/E7 rflx Not Detected (Not Detected)
== END 2022-01-02 08:46 | disposition home or self-care (01) ==
LOC: HO.LNP 08:45
PROVIDERS: Visit Provider Advanced Practice Midwife
DX: R87.615 Unsatisfactory cytologic smear of cervix (principal)
CPT/HCPCS: 87624; 88142

== ENCOUNTER → 2022-07-03 07:58 | Outpatient (BNVA) | payer BC, SELFPAY | PROVIDERS: PCP Internal Medicine; Visit Provider Advanced Practice Midwife | DX: Z12.31 Encounter for screening mammogram for malignant neoplasm of breast (principal) ==

== ENCOUNTER 2022-09-11 08:44 | Outpatient (REF) | payer BC, SELFPAY | END 2022-09-11 08:45 | disposition home or self-care (01) | LOC: HO.NEURO 08:44 | PROVIDERS: Visit Provider Nurse Practitioner Family | DX: R20.8 Other disturbances of skin sensation (principal) | CPT/HCPCS: 95885; 95913 ==

== ENCOUNTER 2022-11-12 08:42 | Outpatient (REF) | payer BC, SELFPAY ==
--- NOTE | ~2022-11-12 | MM_ITS ---
EXAMINATION: MM SCREENING DIGITAL BREAST TOMOSYNTHESIS, BILATERAL CLINICAL INFORMATION: Screening. Asymptomatic. COMPARISON: Mammography: 10/26/2021, 10/25/2020, 10/20/2019, and dating back to 2014. TECHNIQUE: Digital breast tomosynthesis is performed in both the craniocaudal and mediolateral oblique views along with computer-aided detection (CAD). Synthesized 2D images are generated from the tomosynthesis. FINDINGS: There are scattered areas of fibroglandular density (ACR BI-RADS breast composition Category b). There are no suspicious masses, suspicious grouped calcifications, or areas of architectural distortion. The parenchymal pattern is stable from prior exams. MM/MM tomosynthesis screening BI IMPRESSION: No mammographic evidence of malignancy. ASSESSMENT: BI-RADS BI-RADS 1 - Negative RECOMMENDATION: Routine annual mammography screening. 1 year F/U This examination should not preclude the clinical evaluation of a suspicious palpable abnormality. This patient's information was entered into a reminder system with a target due date for their next mammogram.
== END 2022-11-12 08:43 | disposition home or self-care (01) ==
LOC: HO.MAMMO 08:42
PROVIDERS: PCP Internal Medicine; Visit Provider Internal Medicine
DX: Z12.31 Encounter for screening mammogram for malignant neoplasm of breast (principal)
CPT/HCPCS: 77063; 77067

== ENCOUNTER → 2022-11-12 08:45 | Outpatient (BNV) | payer BC, SELFPAY | PROVIDERS: PCP Internal Medicine; Visit Provider Radiology Diagnostic Radiology | DX: Z12.31 Encounter for screening mammogram for malignant neoplasm of breast (principal) | CPT/HCPCS: 77063; 77067 ==

== ENCOUNTER 2023-06-23 09:02 | Outpatient (AMB) | payer BC, SELFPAY ==
[2023-06-23 10:06] VITALS: BP 140/90; PULSE 65; TEMP 36.5; O2SAT 97; BMI 31.4
--- NOTE | 2023-06-23 10:06 | MHC.OFFWIV ---
Intake Vital Signs 06/23/23 10:06 Height 5 ft 4 in Weight 183 lb BMI 31.4 BP 140/90 H Blood Pressure Location Lt brachial Position Sitting Pulse 65 Pulse Source Pulse Oximeter Temp 97.7 F Temp Source Temporal Artery Scan Pulse Oximetry (%) 97 Oxygen Delivery Method Room Air Intake Visit Reasons: EP red eyes 1wk BP high [id number] Intake Note: pt is here today for red eyes and high BP started 1 week ago Patient Tobacco Use Status: Never used Tobacco Allergies No Known Allergies Allergy (Verified 06/23/23 10:08) Do you need a note to return to daycare/school/sports/work: No HPI HPI Comments History of Present Illness Details 48 y/o female who presents to [facility] with c/o bilateral red eyes associated with itching x 1 week. Denies vision changes. Pt is contact lens wearer. PFSH Medical History Depression with anxiety Dyslipidemia Genital herpes Loose stools Obesity (BMI 30-39.9) Surgical History H/O LEEP Family History Father History of quadruple bypass Mother High cholesterol Diverticulitis IBS (irritable bowel syndrome) Maternal Grandmother Lung cancer Maternal Grandfather Stroke Maternal Aunt Diabetes Cancer Maternal Uncle Bladder cancer Social History Household Members: Spouse Household Members Other:: , no kids Housing: House Alcohol intake: current Alcohol intake frequency: 0-2 drinks per day Alcohol type: beer Patient Tobacco Use Status: Never used Tobacco e-Cigarette/Vaping Use: Never Used Second Hand Smoke Exposure: No Substance Use Type: Marijuana service: No Current occupational status: employed Current occupation: [employer] Current occupational exposures/hazards: No Sexual orientation: Straight/Heterosexual Gender identity: Female Cognitive needs: No Hearing needs: No Vision needs: No Female Reproductive History Menstrual Age of Menarche: 14 Review of Systems Const All systems reviewed & are unremarkable except as noted in HPI and below Physical Exam Vital Signs: Last Vital Signs Temp 97.7 F 06/23/23 10:06 Pulse 65 06/23/23 10:06 BP 140/90 H 06/23/23 10:06 Pulse Ox 97 06/23/23 10:06 Oxygen Delivery Method Room Air 06/23/23 10:06 BMI result Body Mass Index 31.4 HEENT Head: Yes normocephalic Ears: external ears normal and TM's normal bilaterally General nose exam: Abnormal mucous membranes and turbinates present pale Face and sinus: Yes sinuses nontender Mouth: moist mucous membranes Eyes Eyelids: Yes eyelids normal Conjunctivae: conjunctival abnormal bilateral and diffuse Pupils: Equal, round and reactive pupils present EOM: EOMs intact bilaterally Direct Ophthalmoscopy: normal light reflex Neuro Cranial nerves: Yes Equal, round and reactive pupils present Assessment & Plan Assessment & Plan (1) Allergic conjunctivitis and rhinitis: Code(s): H10.10 - Acute atopic conjunctivitis, unspecified eye; J30.9 - Allergic rhinitis, unspecified Qualifiers: Laterality: bilateral Qualified Code(s): H10.13 - Acute atopic conjunctivitis, bilateral; J30.9 - Allergic rhinitis, unspecified Plan: - Zaditor - F/u with your eye doctor. - Stop wearing contact Lens. Medications: New ketotifen fumarate 0.025%(0.035%) (Zaditor) administer at least 8 hours apart 1 drp ophthalmic (eye) BID 5 mL 0RF Dry and itchy H10.13 - Acute atopic conjunctivitis, bilateral, J30.9 - Allergic rhinitis, unspecified Coding Level of Care Code Est Pt Level 3 (16708) Diagnoses Allergic conjunctivitis of both eyes and rhinitis H10.13; J30.9 Laterality: bilateral Time Spent (min) 15
== END 2023-06-23 10:45 | disposition home or self-care (01) ==
PROVIDERS: PCP Internal Medicine; Visit Provider Nurse Practitioner Family
DX: H10.13 Acute atopic conjunctivitis, bilateral (principal); J30.9 Allergic rhinitis, unspecified
CPT/HCPCS: 99213

== ENCOUNTER 2023-07-09 07:57 | Outpatient (AMB) | payer BC, SELFPAY ==
--- NOTE | 2023-07-09 07:58 | A.OFFVIS_ITS ---
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 She is doing well with no concerns. Attempting to eat a healthy diet with calcium and vitamin D and stays active with exercise. Regular menses. Currently sexually active. Denies any irritation. STI testing offered; she declines. Last pap smear; 2021. Last mammogram; 2022. Colonoscopy is UTD. Denies any family history of breast, ovarian or colon cancer. [facility] Medical History Obesity (BMI 30-39.9) Loose stools Genital herpes Dyslipidemia Depression with anxiety Surgical History H/O LEEP Family History (Updated 07/09/23 @ 08:19 by Annabelle Wilde CNM) Father History of quadruple bypass Mother High cholesterol Diverticulitis IBS (irritable bowel syndrome) HTN (hypertension) Maternal Grandmother Lung cancer Maternal Grandfather Stroke Maternal Aunt Diabetes Cancer Maternal Uncle Bladder cancer Social History Household Members: Spouse Household Members Other:: , no kids Housing: House Alcohol intake: current Alcohol intake frequency: 0-2 drinks per day Alcohol type: beer Patient Tobacco Use Status: Never used Tobacco e-Cigarette/Vaping Use: Never Used Second Hand Smoke Exposure: No Substance Use Type: Marijuana service: No Current occupational status: employed Current occupation: [employer] Current occupational exposures/hazards: No Sexual orientation: Straight/Heterosexual Gender identity: Female Cognitive needs: No Hearing needs: No Vision needs: No Female Reproductive History Menstrual Age of Menarche: 14 Date of last menstrual period: 07/05/23 control method: other (vasectomy) Total pregnancies: 0 Date of last pap smear: 01/02/22 (neg pap and hpv) History of abnormal pap smear: Yes (Leep 2000 NEEMA 3 2/ lgsil 05/13 colpo neema 1) Date of Mammogram: 12/02/22 (Birad 1) Review of Systems Const All systems reviewed & are unremarkable except as noted in HPI and below Reports as per HPI Eyes Reports no additional complaints ENT Reports no additional complaints Card Reports no additional complaints Resp Reports no additional complaints GI Reports as per HPI and Reports no additional complaints Reports as per HPI Musc Reports no additional complaints Skin/Breast Reports as per HPI Neuro Reports no additional complaints Psych Reports no additional complaints Endo Reports no additional complaints Mynor/Lymph Reports no additional complaints Aller/Immun Reports no additional complaints Physical Exam Vital Signs: Last Vital Signs BP 140/90 H 07/09/23 08:11 BMI result Body Mass Index 30.6 Const General: cooperative, healthy appearing, no acute distress, well developed and alert Orientation/consciousness: patient oriented x3 HEENT Head: Yes normal to inspection Eyes General: appearance normal, both eyes and all related structures Neck Neck: Yes normal visual inspection Thyroid: Thyroid normal Chest Chest palpation & inspection: normal inspection of the chest and other (no puckering, dimpling, peau de orange, retraction, discharge, masses) Breast/axilla inspection: normal inspection of the breasts Breast/axilla palpation: normal palpation of the breasts Resp Effort & Inspection: normal respiratory effort GI Inspection: Yes normal to inspection Palpation (GI): Soft to palpation Rectal Exam - Female: deferred General: Yes bladder normal to palpation External Female Exam: normal external appearance and normal appearance of the urethra Speculum Exam - Vagina: normal appearance of the vagina, normal palpation and normal vaginal discharge Speculum Exam - Cervix: normal appearance of the cervix and normal palpation Bimanual exam- vagina & uterus: normal bimanual exam, normal palpation, uterine size normal, bladder normal to palpation, normal palpation and non-tender Bimanual Exam- Adnexa, other: no masses Skin General skin exam: no rashes or lesions noted Rashes: no rashes Neuro General: patient oriented x3 Cognition (Neuro): normal cognition Extrem General: Yes normal to inspection Psych Attitude: cooperative Thought process: Normal thought process present Assessment & Plan Assessment & Plan (1) Encounter for well woman exam with routine gynecological exam: Code(s): Z01.419 - Encounter for gynecological examination (general) (routine) without abnormal findings Plan Discussed: Current recommendations for pap smears per ASCCP guidelines. Breast awareness, periodic self breast exams and yearly mammogram. Maintain a healthy lifestyle, well balanced diet including Calcium 1,200 mg and Vitamin D 600 IU daily, and routine exercise. Monitor menses report any abnormal uterine bleeding. Patient verbalizes understanding and agrees to the plan of care. She was given opportunity to ask questions and all questions were answered to the best of my ability. RTO in 1 year for annual wastewater engineer exam. This note is constructed using voice recognition software. While every effort has been made to ensure accuracy, knowledge management advisor errors may have been included. Coding Level of Care Code Est Pt Prev Care 40-64y(19898) Diagnoses Encounter for well woman exam with routine gynecological exam Z01.419
[2023-07-09 08:11] VITALS: BP 140/90; BMI 30.6
== END 2023-07-09 08:27 | disposition home or self-care (01) ==
PROVIDERS: Visit Provider Advanced Practice Midwife
DX: Z01.419 Encounter for gynecological examination (general) (routine) without abnormal findings (principal)
CPT/HCPCS: 99396

== ENCOUNTER → 2023-07-09 07:57 | Outpatient (BNVA) | payer BC, SELFPAY | PROVIDERS: Visit Provider Advanced Practice Midwife ==

== ENCOUNTER 2023-07-23 09:03 | Outpatient (AMB) | payer BC, SELFPAY ==
--- NOTE | 2023-07-23 09:03 | A.OFFPC_ITS ---
Vital Signs 07/23/23 09:04 Height 5 ft 4 in Weight 175 lb BMI 30.0 BP 138/86 Blood Pressure Location Lt brachial Position Sitting Pulse 68 Pulse Source Pulse Oximeter Pulse Oximetry (%) 97 Oxygen Delivery Method Room Air Intake Visit Reasons: Annual Exam Intake Note: Patient is here today for a physical. 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 Allergies No Known Allergies Allergy (Verified 07/23/23 09:50) Medication List - Last Reconciled 07/23/23 by Andi Fry MD buspirone 10 mg PO BID 90 days ketotifen fumarate 0.025%(0.035%) (Zaditor) 1 drp ophthalmic (eye) BID Tobacco use date assessed: 07/23/23 Dental Screening Dental Screen Date: 07/23/23 Did you have a dental visit in the last 12 months?: No Did you have a dental problem in the last 6 months where you did not have access to dental care?: No HPI Annual Exam HPI Details Patient comes in today for her annual physical examination States that she feels okay She denies any headaches or dizziness Denies any chest pains, no SOB No nausea/vomiting, no abdominal pain No change in bowel habits noted She denies any acute urinary symptoms States that her anxiety is doing well/controlled on her current Rx - will need her Buspirone Rx refilled She had a normal screening colonoscopy done with Dr. Gar in 2020 and will be due for her next colonoscopy in 10 years (2030) She just had her annual gynecology exam and pap smear done a couple of weeks ago and had her annual mammogram done in November 2022 (is scheduled for her repeat mammogram in November 2023) [facility] Medical History (Updated 07/23/23 @ 10:02 by Andi Fry MD) Anxiety Allergic rhinitis Pure hypercholesterolemia Obesity (BMI 30-39.9) Loose stools Genital herpes Dyslipidemia Depression with anxiety Surgical History H/O LEEP Family History Father History of quadruple bypass Mother High cholesterol Diverticulitis IBS (irritable bowel syndrome) HTN (hypertension) Maternal Grandmother Lung cancer Maternal Grandfather Stroke Maternal Aunt Diabetes Cancer Maternal Uncle Bladder cancer Social History Household Members: Spouse Household Members Other:: , no kids Housing: House Alcohol intake: current Alcohol intake frequency: 0-2 drinks per day Alcohol type: beer Patient Tobacco Use Status: Never used Tobacco e-Cigarette/Vaping Use: Never Used Second Hand Smoke Exposure: No Substance Use Type: Marijuana service: No Current occupational status: employed Current occupation: [employer] Current occupational exposures/hazards: No Sexual orientation: Straight/Heterosexual Gender identity: Female Cognitive needs: No Hearing needs: No Vision needs: No Female Reproductive History Menstrual Age of Menarche: 14 Questionnaire PHQ-9 Over the last 2 weeks, how often have you been bothered by any of the following problems? 1. Little interest or pleasure in doing things: not at all 2. Feeling down, depressed, or hopeless: not at all 3. Trouble falling or staying asleep, or sleeping too much: not at all 4. Feeling tired or having little energy: not at all 5. Poor appetite or overeating: not at all 6. Feeling bad about yourself - or that you are a failure or have let yourself or your family down: not at all 7. Trouble concentrating on things, such as reading the newspaper or watching television: not at all 8. Moving or speaking so slowly that other people could have noticed. Or the opposite - being so fidgety or restless that you have been moving around a lot more than usual: not at all 9. Thoughts that you would be better off or of hurting yourself in some way: not at all Total score: 0 Depression Screening Interpretation: Negative Depression Screening Done: Yes 34020 - PHQ-9 Billing: Yes Source: Developed by Drs. Royer Lai, Tana Hitchcock, Chiki Cullen and colleagues, with an educational tracy from [employer]. Thrive Questionnaire Date Thrive assessed: 07/23/23 I am a: Patient What is your living situation today?: I have a steady place to live Within the past 12 months, did the food you bought not last and you didn't have the money to get more?: Never true Within the past 12 months, did you worry whether your food would run out before you got money to buy more?: Never true Do you have trouble paying for medicines?: No Do you have trouble getting transportation to medical appointments?: No Do you have trouble paying your heating and electricity bill?: No Do you have trouble taking care of your child, family member or friend?: No Do you have trouble with day-to-day activities such as bathing, preparing meals, shopping, managing finances, etc.?: No Are you currently unemployed and looking for a job?: No Are you interested in more education?: No Please select the resources that you would like help with: None Currently or been in a relationship where the following occur: no concerns reported THRIVE Score: 0 AUDIT C Alcohol Use Questionnaire (AUDIT-C) 1. How often do you have a drink containing alcohol?: 2-3 times a week 2. How many drinks containing alcohol do you have on a typical day when you are drinking?: 1 or 2 3. How often do you have six or more drinks on one occasion?: Never Total Score: 3 Score Reviewed/Action Taken: Yes ONOFRE-7 AMB Questionnaire ONOFRE-7 Date ONOFRE - 7 assessed: 07/23/23 Feeling nervous, anxious, or on edge: 0 = Not at all Not being able to stop or control worryin = Not at all Worrying too much about different things: 0 = Not at all Trouble relaxin = Not at all Being so restless that it is hard to sit still: 0 = Not at all Becoming easily annoyed or irritable: 0 = Not at all Feeling afraid as if something awful might happen: 0 = Not at all Total ONOFRE-7 score (0-4 normal; 5-9 mild; 10-14 moderate; 15-21 severe): 0 Source: Developed by Drs. Royer Lai, Tana Hitchcock, Chiki Cullen and colleagues, with an educational tracy from [employer]. ONOFRE-7 Assessment Billing ONOFRE-7 Assessment Tool: ONOFRE-7 Assessment 70864 Review of Systems Const Denies chills, Denies fatigue, Denies fever(s), Denies headache(s) and Denies malaise Eyes Denies blurry vision, Denies change in vision, Denies irritation and Denies itchy eyes ENT Denies dysphagia, Denies dizziness, Denies otalgia, Denies headache(s), Denies nasal congestion, Denies neck pain, Denies odynophagia, Denies sinus pain and Denies sore throat Card Denies chest pain, Denies rapid heart rate, Denies irregular heart rhythm, Denies palpitations and Denies dyspnea Resp Denies chest congestion, Denies cough, Denies dyspnea and Denies wheezing GI Denies abdominal pain, Denies bloating, Denies constipation, Denies dysphagia, Denies heartburn, Denies diarrhea, Denies nausea, Denies odynophagia and Denies vomiting Denies hematuria, Denies urinary frequency, Denies dysuria, Denies urinary incontinence and Denies urinary urgency Musc Denies back pain, Denies arthralgias, Denies joint swelling, Denies muscle weakness and Denies neck pain Skin/Breast Denies breast pain, Denies breast mass, Denies change in pigmentation, Denies lesions, Denies rash and Denies unusual bruising Neuro Denies dizziness, Denies headache(s) and Denies paresthesias Psych Denies anxiety and Denies depression Endo Denies fatigue and Denies palpitations Mynor/Lymph Denies easy bruising Aller/Immun Denies itchy eyes and Denies wheezing Physical exam (Primary Care) Vital Signs: Last Vital Signs Pulse 68 07/23/23 09:04 BP 138/86 07/23/23 09:04 Pulse Ox 97 07/23/23 09:04 Oxygen Delivery Method Room Air 07/23/23 09:04 BMI result Body Mass Index 30.0 Tobacco/Smoking Status: Tobacco use Status Tobacco use date assessed 07/23/23 07/23/23 09:06 Patient Tobacco Use Status Never used Tobacco 07/23/23 09:06 e-Cigarette/Vaping Use Never Used 07/23/23 09:06 PHQ-9: PHQ-9 Score PHQ-9: Total score 0 07/23/23 09:12 Depression Screening Interpretation: Negative Thrive Assessment: Date of Thrive Assessment Date Thrive assessed 07/23/23 07/23/23 09:06 Currently or been in a relationship where the following occur: no concerns reported Const General: no acute distress, alert and awake Orientation/consciousness: patient oriented x3 HENMT Head: Yes normocephalic and Yes atraumatic Ears: external ears normal, TM's normal bilaterally and EAC's normal General nose exam: No nasal discharge present Face and sinus: Yes normal facial exam and Yes sinuses nontender Teeth and gingiva: dentition normal Throat: Yes posterior oropharynx normal and Yes tonsils normal (no TP congestion) Eyes Eyelids: Yes eyelids normal Conjunctivae: conjunctivae normal Pupils: Equal, round and reactive pupils present EOM: EOMs intact bilaterally Neck Neck: Yes no lymphadenopathy and Yes supple Thyroid: Thyroid normal Resp Auscultation: clear to auscultation bilaterally, no rales and no wheezes Cardio Rate: regular rate Rhythm: regular rhythm Heart sounds: no murmurs GI Palpation (GI): Soft to palpation, nontender and No hepatosplenomegaly present Auscultation: normal bowel sounds General: Yes no CVA tenderness Back/Spine/Pelvis Back: no CVA tenderness Thoracic/Lumbar Spine: thoracic and lumbar spine normal to inspection Skin Lesions: no lesions Rashes: no rashes Neuro General: patient oriented x3, moves all extremities, no focal motor deficits and CN's II-XI intact bilaterally Cranial nerves: Yes Equal, round and reactive pupils present Cognition (Neuro): normal cognition Gait exam (Neuro): Normal gait present Extrem General: Yes no clubbing, cyanosis or edema Assessment and Plan Assessment & Plan (1) Annual physical exam: Code(s): Z00.00 - Encounter for general adult medical examination without abnormal findings Plan: Check labs She is up-to-date with all of her cancer screenings, including her colonoscopy, mammogram and pap smear (2) Pure hypercholesterolemia: Code(s): E78.00 - Pure hypercholesterolemia, unspecified Plan: Reinforced low cholesterol diet She is reminded that her total and LDL cholesterol were elevated when they were last checked in 2021 (total was at 267 mg/dl and LDL cholesterol was at 153 mg/dl) although her HDL was also very high at 104 mg/dl then Will have her recheck her fasting lipids for follow up (3) Elevated blood pressure reading in office without diagnosis of hypertension: Code(s): R03.0 - Elevated blood-pressure reading, without diagnosis of hypertension Plan: Reinforced low sodium diet - she is advised that her blood pressure is slightly higher than recommended and she is currently more in the prehypertensive range Goal is systolic BP of 120 mm or less Patient is advised to monitor her blood pressure regularly (4) Allergic rhinitis: Code(s): J30.9 - Allergic rhinitis, unspecified Qualifiers: Allergic rhinitis trigger: unspecified Allergic rhinitis seasonality: unspecified Qualified Code(s): J30.9 - Allergic rhinitis, unspecified Plan: Continue Ketotifen 0.025% eye drops BID PRN Patient also takes OTC antihistamines PRN for symptomatic relief of her allergies (5) Anxiety: Code(s): F41.9 - Anxiety disorder, unspecified Plan: Continue Buspirone 10 mg BID - Rx refilled States that she has been doing very well on her current Rx, with regards to her anxiety/mood disorder (6) Obesity (BMI 30-39.9): Code(s): E66.9 - Obesity, unspecified Plan: Reinforced diet/exercise as tolerated/lose weight - she has been able to lose a few pounds over the past few months Plan Follow up in 6 months Orders: Orders Comprehensive [place]. Panel Fast Today E78.00 - Pure hypercholesterolemia, unspecified, Z00.00 - Encounter for general adult medical examination without abnormal findings TSH reflex Free T4 Today E78.00 - Pure hypercholesterolemia, unspecified, Z00.00 - Encounter for general adult medical examination without abnormal findings UA CC w/rflx Micro + Cult Today R30.0 - Dysuria, Z00.00 - Encounter for general adult medical examination without abnormal findings Vitamin D 25-OH Total Today E55.9 - Vitamin D deficiency, unspecified, Z00.00 - Encounter for general adult medical examination without abnormal findings Vitamin B12 and Folate Today E53.8 - Deficiency of other specified B group vitamins, Z00.00 - Encounter for general adult medical examination without abnormal findings Complete Blood Count Auto Diff Today D64.9 - Anemia, unspecified, Z00.00 - Encounter for general adult medical examination without abnormal findings Lipid Panel Today E78.00 - Pure hypercholesterolemia, unspecified, Z00.00 - Encounter for general adult medical examination without abnormal findings Medications: Refilled buspirone 10 mg PO BID 90 days 180 tabs 1RF Coding Level of Care Code Est Pt Prev Care 40-64y([id number]) Diagnoses Annual physical exam Z00.00 Pure hypercholesterolemia E78.00 Elevated blood pressure reading in office without diagnosis of hypertension R03.0 Allergic rhinitis, unspecified seasonality, unspecified trigger J30.9 Allergic rhinitis trigger: unspecified Allergic rhinitis seasonality: unspecified Anxiety F41.9 Obesity (BMI 30-39.9) E66.9 Additional Codes ONOFRE-7 Assessment Billing - ONOFRE-7 Assessment Tool: ONOFRE-7 Assessment 23247 ([id number])
[2023-07-23 09:04] VITALS: BP 138/86; PULSE 68; O2SAT 97
== END 2023-07-23 09:55 | disposition home or self-care (01) ==
PROVIDERS: Visit Provider Internal Medicine
DX: Z00.00 Encounter for general adult medical examination without abnormal findings (principal); E78.00 Pure hypercholesterolemia, unspecified; E66.9 Obesity, unspecified; Z68.30 Body mass index [BMI] 30.0-30.9, adult; R03.0 Elevated blood-pressure reading, without diagnosis of hypertension; J30.9 Allergic rhinitis, unspecified; F41.9 Anxiety disorder, unspecified
CPT/HCPCS: 99396

== ENCOUNTER 2023-12-01 05:47 | Inpatient (IN) | payer BC, SELFPAY ==
[2023-12-01] VITALS (7 sets, daily range): BP systolic 132–158; BP diastolic 77–97; PULSE 68–86; RESP 16–20; TEMP 36.5–38.2; O2SAT 94–97; BMI 28.5; BMI 29.7
--- NOTE | ~2023-12-01 | US_ITS ---
EXAMINATION: US PELVIS CLINICAL INFORMATION: Abnormal CT left adnexal region, last menstrual period 11/27/2023. COMPARISON: Pelvic ultrasound of July 19, 2021, TECHNIQUE: Ultrasound of the pelvis is performed using both transabdominal and transvaginal transducers along with Doppler. Transvaginal imaging is performed due to inadequate visualization transabdominally. Limited visualization due to bowel gas. FINDINGS: Uterus is anteverted and measures 6.9 x 3.7 x 4.1 cm. Endometrial thickness is 7 mm. Trace amount of fluid within the endometrial cavity. No significant free fluid. Right ovary measures 2.4 x 1.6 x 1.6 cm, volume 4.4 mL. Right ovary previously measured 2.7 x 2.5 x 1.8 cm. Visualization of the right ovary is limited due to small size and bowel gas as well as adjacent pulsatile blood vesicles, making it difficult to evaluate quality of Doppler vascular flow within the right ovary. The left ovary measures 4.8 x 4.3 x 4.1 cm, volume 44.3 mL. The left ovary is asymmetrically enlarged in size, increased in size since ultrasound of July 19, 2021, and appears diffusely heterogeneous, and abnormal in echotexture with a small 1.5 cm complex cystic area, although visualization of left ovary is substantially limited due to bowel gas. US/US pelvic and transvaginal IMPRESSION: 1. The left ovary is asymmetrically enlarged in size, increased in size since ultrasound of July 19, 2021, and appears diffusely heterogeneous, and abnormal in echotexture with a small 1.5 cm complex cystic area, although visualization of left ovary is substantially limited due to bowel gas.. Correlation with clinical exam and gynecologic consultation recommended to determine further management. 2. Endometrial thickness is 7 mm. Trace amount of fluid within the endometrial cavity. 3. Visualization of the right ovary is limited due to small size and bowel gas as well as adjacent pulsatile blood vesicles, making it difficult to evaluate quality of Doppler vascular flow within the right ovary. Correlation with clinical exam and gynecologic consultation recommended to determine further management. This study was presented today December 01, 2023 for interpretation. Stat results provided at this time as requested by referring provider. Electronically signed by: Ann Rubalcava MD 12/01/2023 02:10 PM EDT
--- NOTE | ~2023-12-01 | US_ITS ---
EXAMINATION: US PELVIS CLINICAL INFORMATION: Abnormal CT left adnexal region, last menstrual period 11/27/2023. COMPARISON: Pelvic ultrasound of July 19, 2021, TECHNIQUE: Ultrasound of the pelvis is performed using both transabdominal and transvaginal transducers along with Doppler. Transvaginal imaging is performed due to inadequate visualization transabdominally. Limited visualization due to bowel gas. FINDINGS: Uterus is anteverted and measures 6.9 x 3.7 x 4.1 cm. Endometrial thickness is 7 mm. Trace amount of fluid within the endometrial cavity. No significant free fluid. Right ovary measures 2.4 x 1.6 x 1.6 cm, volume 4.4 mL. Right ovary previously measured 2.7 x 2.5 x 1.8 cm. Visualization of the right ovary is limited due to small size and bowel gas as well as adjacent pulsatile blood vesicles, making it difficult to evaluate quality of Doppler vascular flow within the right ovary. The left ovary measures 4.8 x 4.3 x 4.1 cm, volume 44.3 mL. The left ovary is asymmetrically enlarged in size, increased in size since ultrasound of July 19, 2021, and appears diffusely heterogeneous, and abnormal in echotexture with a small 1.5 cm complex cystic area, although visualization of left ovary is substantially limited due to bowel gas. US/US pelvic ovarian doppler IMPRESSION: 1. The left ovary is asymmetrically enlarged in size, increased in size since ultrasound of July 19, 2021, and appears diffusely heterogeneous, and abnormal in echotexture with a small 1.5 cm complex cystic area, although visualization of left ovary is substantially limited due to bowel gas.. Correlation with clinical exam and gynecologic consultation recommended to determine further management. 2. Endometrial thickness is 7 mm. Trace amount of fluid within the endometrial cavity. 3. Visualization of the right ovary is limited due to small size and bowel gas as well as adjacent pulsatile blood vesicles, making it difficult to evaluate quality of Doppler vascular flow within the right ovary. Correlation with clinical exam and gynecologic consultation recommended to determine further management. This study was presented today December 01, 2023 for interpretation. Stat results provided at this time as requested by referring provider. Electronically signed by: Ann Rubalcava MD 12/01/2023 02:10 PM EDT
--- NOTE | ~2023-12-01 | CT_ITS ---
EXAMINATION: CT ABDOMEN AND PELVIS WITH CONTRAST CLINICAL INFORMATION: Left lower quadrant pain. COMPARISON: September 26, 2021 TECHNIQUE: Multidetector volumetric images were obtained from the superior aspect of the liver through the pubic symphysis following administration 85 mL of Omnipaque 350 intravenous contrast. Sagittal and coronal reformatted images were obtained on the technologist's workstation. Oral contrast: No This CT examination was performed using dose optimization techniques as appropriate, variously including the following: *Automated exposure control *Adjustment of mA and/or kV according to patient size (this includes techniques or standardized protocols for targeted exams where dose is matched to indication/reason for exam; i.e. extremities or head) *Use of iterative reconstruction technique DLP: 582 mGy-cm FINDINGS: LUNG BASES: No pleural or pericardial effusion. LIVER, GALLBLADDER, AND BILIARY TREE: The liver is normal in size and contour. No focal hepatic lesion or biliary ductal dilatation is present. The gallbladder is unremarkable with no evidence of radiopaque gallstones, gallbladder wall thickening, or obvious pericholecystic inflammatory changes. PANCREAS: No ductal dilatation. SPLEEN: Not enlarged. ADRENAL GLANDS: No adrenal mass. KIDNEYS AND URETERS: The kidneys are symmetric in size and enhancement. No hydronephrosis. No perinephric stranding. BLADDER: Underdistended. GASTROINTESTINAL TRACT: Marked wall thickening of the rectosigmoid colon with pericolonic inflammatory change. There is evidence of extensive underlying diverticular disease. There is a hyperemic rim-enhancing multiloculated solid and cystic lesion in the left adnexa measuring at least 4.0 x 3.7 x 4.3 cm. There is diverticular disease of the entire colon. No small bowel obstruction. ABDOMINAL WALL: No significant hernia is appreciated. LYMPH NODES: No bulky lymphadenopathy. VASCULAR: Normal caliber abdominal aorta. PELVIC VISCERA: Small free fluid in the pelvis. OSSEOUS STRUCTURES: No destructive bone lesions. CT/CT abdomen pelvis w IV con IMPRESSION: Wall thickening of the rectosigmoid colon with pericolonic inflammatory changes and small fluid in the pelvis. Findings most likely represent colitis. Inflammatory and infectious etiologies should be considered including acute diverticulitis given the presence of extensive underlying diverticular disease. There is a hyperemic rim enhancing multiloculated solid and cystic lesion in the left adnexa measuring 4.0 x 3.7 x 4.3 cm which may represent acute oophoritis or ovarian abscess formation related to acute inflammatory changes of the colon. Additional diagnostic consideration of intramural abscess. Follow-up imaging after treatment is advised. Electronically signed by: Tony Sesay MD 12/01/2023 09:39 AM EDT
[2023-12-01 06:13] LABS: Hematocrit 37.5 % (37.0-47.0); Hemoglobin 12.9 g/dl (12.0-16.0); Mean Corpuscular HGB Conc 34.4 g/dl (31.0-35.0); Mean Corpuscular Hemoglobin 32.2 pg (27.0-33.0); Mean Corpuscular Volume 93.5 fL (80.0-98.0); Platelet Count 523 X10*3/uL (160-400); Red Blood Count 4.01 X10*6/uL (4.20-5.50); Red Cell Distribution Width 11.2 % (11.0-16.0); White Blood Count 16.3 X10*3/uL (4.8-10.8)
[2023-12-01 06:26] LABS: Alanine Aminotransferase 10 U/L (0-31); Albumin Level 3.7 g/dL (3.5-5.0); Alkaline Phosphatase 84 U/L (39-117); Anion Gap 12 (12-20); Aspartate Amino Transferase 13 U/L (5-31); Bilirubin Total 0.3 mg/dL (0.0-1.0); Blood Urea Nitrogen 7 mg/dL (9-16); Calcium 9.4 mg/dL (8.4-10.2); Carbon Dioxide 26 mmol/L (22-29); Chloride 106 mmol/L (96-108); Creatinine Clr Calc Pharmacy 92.8; Estimated Glomerular Filt Rate > 60; Glucose Random 105 mg/dL (60-115); Lipase 40 U/L (8-78); Potassium 3.9 mmol/L (3.3-5.1); Sodium 140 mmol/L (135-145); Total Protein 7.6 g/dL (6.5-8.0)
--- NOTE | 2023-12-01 07:00 | ED_ITS ---
HPI - Abdominal Pain General Chief Complaint: Abdominal Pain Stated Complaint: gastric pain surgery 10/20 Time Seen by Provider: 12/01/23 06:55 Source: patient Mode of arrival: ambulatory Limitations: no limitations History of Present Illness ED Provider: Dr. Simon Nuno HPI narrative: 48-year-old female who presents emergency department for evaluation of intermittent, left lower quadrant abdominal pain since 10/24/2023. The patient broke her left lower extremity and had an operative repair at [facility] on 10/21/2023. She states that she was given oxycodone for pain and she believes that this upset her stomach. She states that she stopped taking the medicine after 3 days secondary to her abdominal pain. She states that she was having left lower quadrant pain and was treated empirically with levofloxacin for 7 days. She states that her pain did improve somewhat after completing this course of antibiotics but she intermittent, left lower quadrant, pain which she describes as a dull ache which at times can be severe. She states that yesterday during the day she felt fine but last night she was unable to sleep secondary to the severity the pain. She denied fever, chills, nausea, vomiting, diarrhea, black stools, bloody stools, frequency, urgency or dysuria. She states that she did have a colonoscopy in the past and knew that she had diverticulosis and she had 1 episode of diverticulitis about 1 year prior. Related Data Home Medications ?Medication ?Instructions ?Recorded ?Confirmed aspirin 325 mg tablet 325 mg PO DAILY 12/01/23 12/01/23 Previous Rx's ?Medication ?Instructions ?Recorded buspirone 10 mg tablet 10 mg PO BID 90 days #180 tabs 07/23/23 Allergies Allergy/AdvReac Type Severity Reaction Status Date / Time No Known Allergies Allergy Verified 12/01/23 06:01 Review of Systems Review of Systems Yes all other systems are reviewed and are negative [facility] Past Medical History [facility] Narrative: Social history: She denies tobacco use. She drinks alcohol 2 to 3 times a week and when she drinks she will drink 3-4 alcoholic beverages. She denies drug use. Medical History Anxiety Allergic rhinitis Pure hypercholesterolemia Obesity (BMI 30-39.9) Loose stools Genital herpes Dyslipidemia Depression with anxiety Surgical History H/O LEEP Family History Family History Father History of quadruple bypass Mother High cholesterol Diverticulitis IBS (irritable bowel syndrome) HTN (hypertension) Maternal Grandmother Lung cancer Maternal Grandfather Stroke Maternal Aunt Diabetes Cancer Maternal Uncle Bladder cancer Social History Social History Household Members: Spouse Household Members Other:: , no kids Housing: House Alcohol intake: current Alcohol intake frequency: 0-2 drinks per day Alcohol type: beer Patient Tobacco Use Status: Never used Tobacco e-Cigarette/Vaping Use: Never Used Second Hand Smoke Exposure: No Substance Use Type: Marijuana service: No Current occupational status: employed Current occupation: [employer] Current occupational exposures/hazards: No Sexual orientation: Straight/Heterosexual Gender identity: Female Cognitive needs: No Hearing needs: No Vision needs: No Physical Exam ED Vital Signs: Vital Signs - 24 hr 12/01/23 05:58 12/01/23 06:07 12/01/23 11:33 Temperature 98.2 F 98.3 F 97.7 F Pulse Rate 86 76 68 Respiratory Rate 18 17 16 Blood Pressure 142/84 H 136/95 H 144/97 H Pulse Oximetry 95 94 97 Oxygen Delivery Method Room Air Room Air Room Air BMI result Body Mass Index 28.5 Vital signs revealed an elevated blood pressure of 142/84 otherwise unremarkable Exam: General: Awake, alert in no distress Head: Normocephalic, atraumatic EENT: PERRL, Lids normal, sclera normal, conjunctiva normal, nose normal , ears normal, throat without erythema or exudates Neck: Supple, no adenopathy Lung: breath sounds symmetric, no wheezing, rales or rhonchi Chest: symmetric movement, nontender Heart: regular rate and rhythm, normal S1, S2 no murmurs or rubs Abdomen: soft, moderate left lower quadrant tenderness, no rebound, no voluntary or involuntary guarding normal bowel sounds Back: no vertebral tenderness, no CVAT Extremities: no deformities, moves all extremities symmetrically Neuro: Awake, alert, oriented, normal speech, cranial nerves intact, moves all extremities symmetrically Psych: Pleasant, cooperative Medical Decision Making Medical Decision Making MDM Narrative: 48-year-old female with a history of colitis, diverticulosis/diverticulitis, dyslipidemia, left lower extremity fracture status post ORIF on 10/21/2023 at [facility], depression and anxiety who presents emergency who presents emergency department for evaluation of left lower quadrant intermittent pain since 10/24/2023 which she initially attributed his you oxycodone that she was taking for her left fracture . The patient did complete a 7 day course of levofloxacin on 10/31/2023 with some improvement of her symptoms however over the last 24 hours the patient's pain has become constant and severe. Vital signs revealed an elevated blood pressure otherwise unremarkable. Physical examination did reveal left lower quadrant tenderness. Differential diagnosis: ?Includes but is not limited to diverticulitis, diverticular abscess, pancreatitis Patient was initially treated with the following: Toradol 15 mg IV, normal saline x1 L Course: 07:48 My interpretation patient's laboratory evaluation is as follows: WBC elevated 16,300. Platelet count elevated 523,000. H&H was normal 12 and 37.5. LFTs were normal. Lipase was normal. Quantitative beta-hCG was below detectable limits. Lactic acid was normal at 0.8. 10:26 CT abdomen pelvis IV contrast revealed significant wall thickening of rectosigmoid colon with pericolonic inflammation and small fluid in the pelvis with question of colitis versus diverticulitis. Patient also had hyperemic rim enhancing multi lobular solid and cystic lesions in the left adnexa which was concerning for acute who for rhinitis or ovarian abscess formation. The patient does feel better after the above treatment but still has left lower quadrant tenderness. Given this finding I ordered blood cultures x2, lactic acid, Zosyn 4.5 g IV. I will discuss the patient's findings with the covering southeast regional sales manager and general surgeon. 11:57 Patient was seen by our southeast regional sales manager Dr. Mckeon and he did do a pelvic exam. Please see his note on the patient. He states the patient had minimal cervical motion tenderness. At this time he believes that the findings on the CT scan are probably more consistent with inflammatory changes however he recommended that the patient be treated for possible tubal ovarian abscess with ceftriaxone 1 g IV Q 24 hours, doxycycline 100 mg b.i.d. and Flagyl 500 mg t.i.d.. Patient's ultrasound findings are still pending and I will discuss admission with the covering surgeon once I have this result. 13:19 Patient was seen by Dr. Ha and the patient will be admitted to the surgical service for further management. Duplex ultrasound result is still pending Admission/Observation Consideration of admission/observation: Escalation of care including admission/observation considered Consult Healthcare Provider Management of the patient was discussed with: [employer] General surgery and physician gynecologist Lab Data MDM Lab Attestation statement: I reviewed the patient's lab results. 12/01/23 06:09 12/01/23 06:09 Labs: Lab Results 12/01/23 12/01/23 12/01/23 Range/Units 06:09 09:10 11:44 WBC 16.3 H (4.8-10.8) X10*3/uL RBC 4.01 L (4.20-5.50) X10*6/uL Hgb 12.9 (12.0-16.0) g/dl Hct 37.5 (37.0-47.0) % MCV 93.5 (80.0-98.0) fL MCH 32.2 (27.0-33.0) pg MCHC 34.4 (31.0-35.0) g/dl RDW 11.2 (11.0-16.0) % Plt Count 523 H D (160-400) X10*3/uL MPV 9.0 L (9.4-12.3) fL Absolute Nucleated RBC 0.000 (0.0-0.012) X10*3/uL Nucleated RBC % (auto) 0.0 (0.0-0.2) /100WBC Sodium 140 (135-145) mmol/L Potassium 3.9 (3.3-5.1) mmol/L Chloride 106 (96-108) mmol/L Carbon Dioxide 26 (22-29) mmol/L Anion Gap 12 (12-20) BUN 7 L (9-16) mg/dL Creatinine 0.72 (0.5-1.4) mg/dL Estim Creat Clear Calc 92.8 Estimated GFR > 60 Random Glucose 105 (60-115) mg/dL Lactic Acid 0.8 (0.5-2.0) mmol/L Calcium 9.4 (8.4-10.2) mg/dL Total Bilirubin 0.3 (0.0-1.0) mg/dL AST 13 (5-31) U/L ALT 10 (0-31) U/L Alkaline Phosphatase 84 (39-117) U/L Total Protein 7.6 (6.5-8.0) g/dL Albumin 3.7 (3.5-5.0) g/dL Lipase 40 (8-78) U/L Beta HCG, Quant < 2 mIU/mL Urine Color Yellow Urine Appearance Clear Urine pH 6.5 (5.0-9.0) Ur Specific [place] >= 1.030 H (1.005-1.025) Urine Protein Negative (Neg-Trace) mg/dL Urine Glucose (UA) Negative (Negative) mg/dL Urine Ketones Negative (Negative) mg/dL Urine Blood Negative (Negative) Urine Nitrite Negative (Negative) Ur Leukocyte Esterase Small (1+) H (Negative) Urine RBC 0-2 (0-2) /HPF Urine WBC 0-5 (0-5) /HPF Ur Squamous Epith Cells 3-5 (0-2) /HPF Urine Bacteria Trace (None Seen) Hyaline Casts 0-2 (0-2) /LPF Radiology Impression Discussion of test interpretation with radiology: I have reviewed the radiologist's reading. Radiologist Impression: EXAMINATION: CT ABDOMEN AND PELVIS WITH CONTRAST CLINICAL INFORMATION: Left lower quadrant pain. COMPARISON: September 26, 2021 FINDINGS: LUNG BASES: No pleural or pericardial effusion. LIVER, GALLBLADDER, AND BILIARY TREE: The liver is normal in size and contour. No focal hepatic lesion or biliary ductal dilatation is present. The gallbladder is unremarkable with no evidence of radiopaque gallstones, gallbladder wall thickening, or obvious pericholecystic inflammatory changes. PANCREAS: No ductal dilatation. SPLEEN: Not enlarged. ADRENAL GLANDS: No adrenal mass. KIDNEYS AND URETERS: The kidneys are symmetric in size and enhancement. No hydronephrosis. No perinephric stranding. BLADDER: Underdistended. GASTROINTESTINAL TRACT: Marked wall thickening of the rectosigmoid colon with pericolonic inflammatory change. There is evidence of extensive underlying diverticular disease. There is a hyperemic rim-enhancing multiloculated solid and cystic lesion in the left adnexa measuring at least 4.0 x 3.7 x 4.3 cm. There is diverticular disease of the entire colon. No small bowel obstruction. ABDOMINAL WALL: No significant hernia is appreciated. LYMPH NODES: No bulky lymphadenopathy. VASCULAR: Normal caliber abdominal aorta. PELVIC VISCERA: Small free fluid in the pelvis. OSSEOUS STRUCTURES: No destructive bone lesions. IMPRESSION: Wall thickening of the rectosigmoid colon with pericolonic inflammatory changes and small fluid in the pelvis. Findings most likely represent colitis. Inflammatory and infectious etiologies should be considered including acute diverticulitis given the presence of extensive underlying diverticular disease. There is a hyperemic rim enhancing multiloculated solid and cystic lesion in the left adnexa measuring 4.0 x 3.7 x 4.3 cm which may represent acute oophoritis or ovarian abscess formation related to acute inflammatory changes of the colon. Additional diagnostic consideration of intramural abscess. Follow-up imaging after treatment is advised. Dictated By: Liset Sesay MD Signed By: <Electronically signed by Liset Sesay MD in OV> 12/01/23 0939 US pelvic and transvaginal IMPRESSION: 1. The left ovary is asymmetrically enlarged in size, increased in size since ultrasound of July 19, 2021, and appears diffusely heterogeneous, and abnormal in echotexture with a small 1.5 cm complex cystic area, although visualization of left ovary is substantially limited due to bowel gas.. Correlation with clinical exam and gynecologic consultation recommended to determine further management. 2. Endometrial thickness is 7 mm. Trace amount of fluid within the endometrial cavity. 3. Visualization of the right ovary is limited due to small size and bowel gas as well as adjacent pulsatile blood vesicles, making it difficult to evaluate quality of Doppler vascular flow within the right ovary. Correlation with clinical exam and gynecologic consultation recommended to determine further management. Dictated By: Ann Rubalcava MD Independent Historian Clinical information obtained from an independent historian. History obtained from or confirmed by: Spouse Chronic Conditions Patient?s care impacted by: Other (Diverticulosis, hyperlipidemia) Medications Administered Generic Name Dose Route Start Last Admin Trade Name Freq PRN Reason Stop Dose Admin Lactated Ringer's 1,000 mls @ 80 mls/hr 12/01/23 13:00 12/01/23 15:12 Lr IVCONT 80 mls/hr .[id number] GABRIEL Administration Metronidazole 500 mg in 100 mls @ 100 mls/hr 12/01/23 13:00 12/01/23 13:00 Flagyl IV Not Given Q8H GABRIEL Morphine Sulfate 4 mg 12/01/23 12:50 12/01/23 13:54 Morphine Sulfate 4 Mg/Ml Cartridge IVPUSH 4 mg Q4H PRN Administration Pain, Severe (Pain Scale 7-10) Protocol Discontinued Medications Generic Name Dose Route Start Last Admin Trade Name Dagmar PRN Reason Stop Dose Admin Sodium Chloride 1,000 mls @ 999 mls/hr 12/01/23 07:32 12/01/23 10:03 Ns IV 12/01/23 08:32 Infused .Q1H1M STA Infusion Ceftriaxone Sodium 1 gm/ 50 mls @ 100 mls/hr 12/01/23 11:59 12/01/23 12:50 Sodium Chloride IV 12/01/23 12:28 Infused ONCE ONE Infusion Metronidazole 500 mg in 100 mls @ 100 mls/hr 12/01/23 11:59 12/01/23 13:52 Flagyl IV 12/01/23 12:58 Infused ONCE ONE Infusion Doxycycline Hyclate 100 mg/ 250 mls @ 166.67 mls/hr 12/01/23 11:59 12/01/23 15:25 Sodium Chloride IV 12/01/23 13:28 Infused ONCE ONE Infusion Iohexol 85 ml 12/01/23 08:18 12/01/23 08:18 Iohexol 350 Mg/Ml 75 Ml Infus..Btl IV 12/01/23 08:19 85 ml ONCE ONE Administration Ketorolac Tromethamine 15 mg 12/01/23 07:32 12/01/23 07:59 Ketorolac Tromethamine 15 Mg/Ml Vial IVPUSH 12/01/23 07:33 15 mg ONCE STA Administration Discharge Plan Discharge Clinical Impression: Acute colitis, Tubal ovarian abscess Patient Disposition: Admitted As Inpatient
[2023-12-01] MEDS: 0.9 % Sodium Chloride 1,000 ML 999 ML IV (07:59)
[2023-12-01] MEDS: Ketorolac Tromethamine 15 MG/ML VIAL IVPUSH (07:59)
--- NOTE | 2023-12-01 08:13 | PC.NURSE ---
Pt reports LLQ ABD pain X5 weeks, worsening. Has hx of similar episodes in the past, reports she was told she has diverticulosis. Denies fevers, vomiting, diarrhea, or blood in stool. Alert and oriented, breathing even and unlabored, skin warm and dry.
[2023-12-01] MEDS: iohexoL 350 MG/ML 75 ML INFUS..BTL 85 ML IV (08:18)
[2023-12-01 09:17] LABS: Appearance Urine Clear; Color Urine Yellow; Glucose Urine UA Negative (Negative); Leukocyte Esterase Urine Small (1+) (Negative); Nitrite Urine Negative (Negative); PH 6.5 (5.0-9.0); Specific Gravity - Urine >= 1.030 (1.005-1.025); UMIC TRIGGER UACC YES; Urine Blood Negative (Negative); Urine Ketones Negative (Negative); Urine Protein Negative (Neg-Trace)
[2023-12-01 09:26] LABS: Bacteria Urine Trace (None Seen); Hyaline Casts Urine 0-2 /LPF (0-2); RBC Urine 0-2 /HPF (0-2); UACC Culture Trigger YES; WBC Urine 0-5 /HPF (0-5)
--- NOTE | 2023-12-01 10:47 | PC.NURSE ---
Pt taken to US, unable to do BCs or ABX at this time
--- NOTE | 2023-12-01 10:51 | PM.GYNCN ---
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 The patient had a left lower extremity fracture and had an operative repair at [facility] on 10/21/2023. She states that she was having left lower quadrant pain and was treated empirically with levofloxacin for 7 days. She states that her pain did improve somewhat after completing this course of antibiotics but she intermittent, left lower quadrant, pain which she describes as a dull ache which at times can be severe. The patient has started having since last night worsening of her left lower quadrant pain , with no associated fever, chills, nausea, vomiting, diarrhea. No other concerns. The patient gives history of diverticulosis with 1 episode of diverticulitis about 1 year ago. The patient had a menstrual cycle after 5 months of amenorrhea that ended 5 days ago and started having vaginal discharge 2 days ago. HCG less than 2 cc:: CC: OB PMFSH Past Medical History Medical History Anxiety Allergic rhinitis Pure hypercholesterolemia Obesity (BMI 30-39.9) Loose stools Genital herpes Dyslipidemia Depression with anxiety Family History Family History Father History of quadruple bypass Mother High cholesterol Diverticulitis IBS (irritable bowel syndrome) HTN (hypertension) Maternal Grandmother Lung cancer Maternal Grandfather Stroke Maternal Aunt Diabetes Cancer Maternal Uncle Bladder cancer Surgical History Surgical History H/O LEEP Social History Social History Household Members: Spouse Household Members Other:: , no kids Housing: House Alcohol intake: current Alcohol intake frequency: 0-2 drinks per day Alcohol type: beer Patient Tobacco Use Status: Never used Tobacco e-Cigarette/Vaping Use: Never Used Second Hand Smoke Exposure: No Substance Use Type: Marijuana service: No Current occupational status: employed Current occupation: [employer] Current occupational exposures/hazards: No Sexual orientation: Straight/Heterosexual Gender identity: Female Cognitive needs: No Hearing needs: No Vision needs: No Meds Allergies Allergy/AdvReac Type Severity Reaction Status Date / Time No Known Allergies Allergy Verified 12/01/23 06:01 Active Medications: Current Medications Piperacillin Sod/Tazobactam (Sod 4.5 gm/ Sodium Chloride) 100 mls @ 200 mls/hr IV ONCE ONE Stop: 12/01/23 10:52 Home Medications ?Medication ?Instructions ?Recorded ?Confirmed ?Last Taken ?Type aspirin 325 mg tablet 325 mg PO DAILY 12/01/23 12/01/23 11/30/23 History [employer]ANCE [employer] Physical Exam Vitals Vital signs: Temp Pulse Resp BP Pulse Ox O2 Del Method 98.3 F 76 17 136/95 H 94 Room Air 12/01/23 06:07 12/01/23 06:07 12/01/23 06:07 12/01/23 06:07 12/01/23 06:07 12/01/23 06:07 BMI result Body Mass Index 28.5 Abdomen Auscultation/Inspection/Palpation: Normal bowel sounds, Soft and Tenderness (Left lower quadrant tenderness, no guarding or rebound) Female Genitalia (Pelvic) Vagina: Abnormal discharge (Whitish/yellowish) Cervix: No cervical motion tenderness Uterus: Tender Adnexa/Parametria: Adnexal Tenderness: Left, Adnexal Mass: Left and Parametrial Tenderness: Right [employer]ANCE [employer]ENTS SU[employer]OR - Results Labs 12/01/23 06:09 12/01/23 06:09 Labs: Short CBC 12/01/23 Range/Units 06:09 WBC 16.3 H (4.8-10.8) X10*3/uL Hgb 12.9 (12.0-16.0) g/dl Hct 37.5 (37.0-47.0) % Plt Count 523 H D (160-400) X10*3/uL BMP 12/01/23 06:09 Sodium 140 Potassium 3.9 Chloride 106 Carbon Dioxide 26 BUN 7 L Creatinine 0.72 Calcium 9.4 Liver Function 12/01/23 Range/Units 06:09 Total Bilirubin 0.3 (0.0-1.0) mg/dL AST 13 (5-31) U/L ALT 10 (0-31) U/L Alkaline Phosphatase 84 (39-117) U/L Albumin 3.7 (3.5-5.0) g/dL Urine 12/01/23 Range/Units 09:10 Urine Color Yellow Urine Appearance Clear Urine pH 6.5 (5.0-9.0) Ur Specific [place] >= 1.030 H (1.005-1.025) Urine Protein Negative (Neg-Trace) mg/dL Urine Glucose (UA) Negative (Negative) mg/dL Imaging CT scan - abdomen: Radiologist's impression: ITS Impressions Abdomen/Pelvis CT 12/01/23 08:09 IMPRESSION: Wall thickening of the rectosigmoid colon with pericolonic inflammatory changes and small fluid in the pelvis. Findings most likely represent colitis. Inflammatory and infectious etiologies should be considered including acute diverticulitis given the presence of extensive underlying diverticular disease. There is a hyperemic rim enhancing multiloculated solid and cystic lesion in the left adnexa measuring 4.0 x 3.7 x 4.3 cm which may represent acute oophoritis or ovarian abscess formation related to acute inflammatory changes of the colon. Additional diagnostic consideration of intramural abscess. Follow-up imaging after treatment is advised. Electronically signed by: Tony Sesay MD 12/01/2023 09:39 AM [facility] US - abdomen: Radiologist's impression: ITS Impressions Abdomen/Pelvis CT 12/01/23 08:09 IMPRESSION: Wall thickening of the rectosigmoid colon with pericolonic inflammatory changes and small fluid in the pelvis. Findings most likely represent colitis. Inflammatory and infectious etiologies should be considered including acute diverticulitis given the presence of extensive underlying diverticular disease. There is a hyperemic rim enhancing multiloculated solid and cystic lesion in the left adnexa measuring 4.0 x 3.7 x 4.3 cm which may represent acute oophoritis or ovarian abscess formation related to acute inflammatory changes of the colon. Additional diagnostic consideration of intramural abscess. Follow-up imaging after treatment is advised. Electronically signed by: Tony Sesay MD 12/01/2023 09:39 AM [facility] Pelvic/Transvag US 12/01/23 10:12 IMPRESSION: 1. The left ovary is asymmetrically enlarged in size, increased in size since ultrasound of July 19, 2021, and appears diffusely heterogeneous, and abnormal in echotexture with a small 1.5 cm complex cystic area, although visualization of left ovary is substantially limited due to bowel gas.. Correlation with clinical exam and gynecologic consultation recommended to determine further management. 2. Endometrial thickness is 7 mm. Trace amount of fluid within the endometrial cavity. 3. Visualization of the right ovary is limited due to small size and bowel gas as well as adjacent pulsatile blood vesicles, making it difficult to evaluate quality of Doppler vascular flow within the right ovary. Correlation with clinical exam and gynecologic consultation recommended to determine further management. This study was presented today December 01, 2023 for interpretation. Stat results provided at this time as requested by referring provider. Electronically signed by: Ann Rubalcava MD 12/01/2023 02:10 PM EDT RP Assessment and Plan (1) Abnormal uterine bleeding: Status: Acute Discussed with the patient the different causes of abnormal bleeding including thyroid disorders, uterine and ovarian pathology, endometrial hyperplasia, carcinoma and other potential causes. Discussed with the patient the work up including but not limited to endometrial biopsy to r/o endometrial pathology. Instructions given the patient to follow-up in outpatient office for further management/EMB. All questions answered and the patient verbalized understanding. (2) Complex cyst of left ovary: Status: Acute Imaging finding differential diagnosis includes left complex ovarian cyst. Discussed with the patient the main limitation of imaging alone as a diagnostic tool to distinguish benign from malignant masses relates to its lack of specificity and low positive predictive value for cancer. The differential diagnosis discussed with the patient includes the following but not limited to: benign and malignant gynecological and non-gynecological causes. Will follow-up with treat pelvic ultrasound an outpatient office. Instructions given the patient to schedule a follow-up ultrasound appointment. All questions were answered & the patient verbalized understanding and agreed with the plan. (3) TOA (tubo-ovarian abscess): Status: Acute Although clinical presentation is more likely as a diverticular disease/possible abscess, however, TOA is part of the differential diagnosis. GC/CT with BV panel and Trichomonas collected. Recommend coverage for TOA with IV antibiotics with Ceftriaxone 1 g Q 24, doxycycline 100 mg p.o. or IV q.12, metronidazole 500 mg IV or p.o. q.12 till clinical improvement for 48-72 hours, then discharge home on doxycycline 100 mg p.o. b.i.d. with Flagyl 500 mg p.o. b.i.d. for a total of 14 days, to be followed up as an outpatient within 2 weeks. In the event the patient does not progress or develop any of the following: Suspected sepsis , enlarging pelvic mass, new onset fever, persistent or worsening abdomino/pelvic tenderness after 48-72 hours of treatment with IV antibiotics, the patient might need minimally invasive abscess drainage through interventional radiology or surgical intervention. This note was generated with a voice recognition program. Some errors may have been overlooked during the review of this note. Sometimes these errors may affect the content or meaning of a given sentence. (4) Diverticulitis: Status: Acute
[2023-12-01 11:44] LABS: HCG Quantitative < 2 mIU/mL
--- NOTE | 2023-12-01 11:46 | PC.NURSE ---
Dr. Mckeon at bedside doing pelvic exam.
[2023-12-01 12:04] LABS: Lactic Acid 0.8 mmol/L (0.5-2.0)
[2023-12-01] MEDS: cefTRIAXone sodium 1 GM in 0.9 % Sodium Chloride 50 ML IV (12:08)
[2023-12-01] MEDS: metroNIDAZOLE/NS 500 MG/100 ML PIGGYBACK 100 MG IV ×2 (12:50→21:37)
--- NOTE | 2023-12-01 13:30 | P.HPGS_ITS ---
History of Present Illness History of Present Illness Date of Service: 12/01/23 Chief complaint: acute diverticulitis Narrative: Susan Boss is a 48 year old female with PMH of dyslipidemia, anxiety/depression who presented to the ED with c/o left lower abdominal pain. The pain has been present for over a month now. She reports she fractured her LLE and underwent operative repair on 10/21/23 at [facility]. She subsequently developed LLQ pain a few days following which she attributed to the oxycodone she was taking for pain. She stopped taking the pain med without any improvement in her pain and therefore sought evaluation. She was treated empirically with levaquin PO for 7 days with some improvement in the severity however the pain has been persistent and again began to worsen in severity last night prompting her to seek care today. Work up in the ED included CBC, BMP, LFTS which was significant for a leukocytosis of 16.3. UA negative. CT scan abd/pelvis showed marked wall thickening of the rectosigmoid colon with pericolonic inflammatory change with extensive underlying diverticular disease and multiloculated solid and cystic lesion in the left adnexa. Pelvic/transvaginal US read pending. She denies fevers, chills, nausea, vomiting, diarrhea, change in stool caliber, dysuria, pneumoturia, fecaluria. She denies vaginal discharge but reports she did get her menses a week ago after about 6 months of amenorrhea. She has tried dietary changes without improvement in her pain. She reports a weight loss of about 10-12lbs over the past month due to lack of appetite from the pain. She reports one prior episode about two years ago which was treated with PO abx. She feels like that episode was worse in severity. She had a colonoscopy in 2020 which showed diverticulosis, benign nodules. Review of Systems Constitutional: Constitutional: Denies chills and Denies fever(s) ENT: Denies dizziness Cardiovascular: Cardiovascular: Denies chest pain and Denies dyspnea Respiratory: Respiratory: Denies cough and Denies dyspnea Gastrointestinal: Gastrointestinal: Reports as per HPI, Denies melena, Denies hematochezia and Denies change in bowel habits Genitourinary: Genitourinary: Reports as per HPI Integumentary/Breasts: Skin/Breast: Denies rash and Denies jaundice Neurologic: Denies dizziness PMF Past Medical History Medical History Anxiety Allergic rhinitis Pure hypercholesterolemia Obesity (BMI 30-39.9) Loose stools Genital herpes Dyslipidemia Depression with anxiety Family History Family History Father History of quadruple bypass Mother High cholesterol Diverticulitis IBS (irritable bowel syndrome) HTN (hypertension) Maternal Grandmother Lung cancer Maternal Grandfather Stroke Maternal Aunt Diabetes Cancer Maternal Uncle Bladder cancer Surgical History Surgical History H/O LEEP Social History Social History Household Members: Spouse Household Members Other:: , no kids Housing: House Alcohol intake: current Alcohol intake frequency: 0-2 drinks per day Alcohol type: beer Patient Tobacco Use Status: Never used Tobacco e-Cigarette/Vaping Use: Never Used Second Hand Smoke Exposure: No Substance Use Type: Marijuana service: No Current occupational status: employed Current occupation: [employer] Current occupational exposures/hazards: No Sexual orientation: Straight/Heterosexual Gender identity: Female Cognitive needs: No Hearing needs: No Vision needs: No Meds Allergies Allergy/AdvReac Type Severity Reaction Status Date / Time No Known Allergies Allergy Verified 12/01/23 06:01 Active Medications: Current Medications Acetaminophen (Acetaminophen 325 Mg Tablet) 650 mg PO Q6H PRN PRN Reason: Pain, Mild (Pain Scale 1-3), fever or headache Calcium Carbonate (Calcium Carbonate 750 Mg Tab.Chew) 750 mg PO Q4H PRN PRN Reason: Heartburn Enoxaparin Sodium (Enoxaparin Sodium 40 Mg/0.4 Ml Syringe) 40 mg SUBCUT Q24H [facility] Lactated Ringer's (Lr) 1,000 mls @ 80 mls/hr IVCONT .[id number] [facility] Ceftriaxone Sodium 1 gm/ (Sodium Chloride) 50 mls @ 100 mls/hr IV Q24H [facility] Doxycycline Hyclate 100 mg/ (Sodium Chloride) 250 mls @ 166.67 mls/hr IV Q12H [facility] Metronidazole (Flagyl) 500 mg in 100 mls @ 100 mls/hr IV Q8H [facility] Last Admin: 12/01/23 13:00 Dose: Not Given Magnesium Hydroxide (Milk Of Magnesia 30 Ml Oral.Susp) 30 ml PO DAILY PRN PRN Reason: Constipation Melatonin (Melatonin 3 Mg Tablet) 6 mg PO BEDTIME PRN PRN Reason: Insomnia Morphine Sulfate (Morphine Sulfate 4 Mg/Ml Cartridge) 4 mg IVPUSH Q4H PRN; Protocol PRN Reason: Pain, Severe (Pain Scale 7-10) Ondansetron HCl (Ondansetron Hcl 4 Mg/2 Ml Vial) 4 mg IVPUSH Q8H PRN PRN Reason: Nausea and Vomiting Sodium Chloride (0.9 % Sodium Chloride Flush 3 Ml Syringe) 3 ml IVFLUSH QSHIFT COUNTS INCLUDE 234 BEDS AT THE [facility] Home Medications ?Medication ?Instructions ?Recorded ?Confirmed ?Last Taken ?Type aspirin 325 mg tablet 325 mg PO DAILY 12/01/23 Unknown History Physical Exam Vital Signs: Vital Signs: Last Vital Signs Temp 97.7 F 12/01/23 11:33 Pulse 68 12/01/23 11:33 Resp 16 12/01/23 11:33 BP 144/97 H 12/01/23 11:33 Pulse Ox 97 12/01/23 11:33 O2 Del Method Room Air 12/01/23 11:33 BMI result Body Mass Index 28.5 Const: General: comfortable, no acute distress and alert; No ill appearing Orientation/consciousness: patient oriented x3 Neck: Neck: No JVD Resp: Effort & Inspection: normal respiratory effort Cardio: Rate: regular rate GI: Inspection: Yes normal to inspection, No distended and No scar Palpation (GI): Soft to palpation, Tenderness to palpation present (GI) in the LLQ and suprapubicly; with no rebound tenderness and Guarding due to palpation present (GI) (voluntary guarding LLQ/suprapubic) Percussion: Yes normal to percussion Skin: General skin exam: no rashes or lesions noted and no jaundice Neuro: General: patient oriented x3 and moves all extremities Results Results Labs: Short CBC 12/01/23 Range/Units 06:09 WBC 16.3 H (4.8-10.8) X10*3/uL Hgb 12.9 (12.0-16.0) g/dl Hct 37.5 (37.0-47.0) % Plt Count 523 H D (160-400) X10*3/uL BMP 12/01/23 06:09 Sodium 140 Potassium 3.9 Chloride 106 Carbon Dioxide 26 BUN 7 L Creatinine 0.72 Calcium 9.4 Liver Function 12/01/23 Range/Units 06:09 Total Bilirubin 0.3 (0.0-1.0) mg/dL AST 13 (5-31) U/L ALT 10 (0-31) U/L Alkaline Phosphatase 84 (39-117) U/L Albumin 3.7 (3.5-5.0) g/dL Urine 12/01/23 Range/Units 09:10 Urine Color Yellow Urine Appearance Clear Urine pH 6.5 (5.0-9.0) Ur Specific [place] >= 1.030 H (1.005-1.025) Urine Protein Negative (Neg-Trace) mg/dL Urine Glucose (UA) Negative (Negative) mg/dL Abdomen CT scan report/results: report reviewed and image reviewed Assessment and Plan (1) Diverticulitis: Status: Acute Plan 48 year old female with PMH of dyslipidemia, anxiety/depression presenting with 5 week history of LLQ pain with leukocytosis and CT abd/pelvis showing diverticulosis, marked wall thickening of the rectosigmoid suggestive of acute diverticulitis with complex cystic lesion of the left adnexa. Will admit to the surgical service for further treatment of the acute diverticulitis. She is moderately tender on exam but is overall clinically appearing well, afebrile. CT showed complex cystic lesion of left adnexa, cannot to r/o abscess. Transvaginal/pelvic US read is pending. She was seen by Obgyn who recommended outpatient follow up regarding the likely left complex ovarian cyst but recommended treatment for tuboovarian abscess with ceftriaxone, doxycyline and flagyl and this has been ordered. Current plan is to continue nonoperative treatment of the diverticulitis, f/u US read and cultures, with further plan dependent on clinical course. Repeat labs in AM. If no improvement in the next few days, possible repeat CT scan in the next few days to reassess possible abscess and/or surgical resection. She is comfortable with the plan. Quality Stroke Does the patient have a stroke diagnosis?: No VTE Prior VTE?: No VTE Risk Level:: Surgical - high VTE Device Contraindication: N/A - Device Ordered VTE Drug Contraindication: N/A - Med Ordered Procedures Date of Service Date of Service: 12/01/23
[2023-12-01] MEDS: Doxycycline Hyclate 100 MG in 0.9 % Sodium Chloride 250 ML 166.67 MG IV ×2 (13:48→23:47)
[2023-12-01] MEDS: Morphine Sulfate 4 MG/ML CARTRIDGE IVPUSH ×2 (13:54→18:34)
--- NOTE | 2023-12-01 14:00 | PHA.MEDREC ---
Addendum entered by Hattie Linares RPh 12/01/23 14:06: reviewed by [facility]. Original Note: Pharmacy Consult ? Medication Reconciliation Pharmacy has completed the medication reconciliation. Spoke to patient to confirm med list.
[2023-12-01 14:08] LABS: Bacterial Vaginosis PCR NEGATIVE (Negative); Candida Group PCR NOT DETECTED (Not Detect); Candida glab krusei PCR NOT DETECTED (Not Detect); Trichomonas vaginalis PCR NOT DETECTED (Not Detect)
[2023-12-01 14:38] LABS: CT PCR NOT DETECTED (Not Detect.); NG PCR NOT DETECTED (Not Detect.)
[2023-12-01] MEDS: Lactated Ringers 1,000 ML 80 ML IVCONT (15:12)
--- NOTE | 2023-12-01 19:30 | PC.NURSE ---
Assumed care of pt. Pt lying on stretcher, no acute distress at this time.
[2023-12-01] MEDS: Acetaminophen 325 MG TABLET 650 MG PO (21:58)
[2023-12-01] MEDS: Flu Vacc TS2024-25(6mos up)/PF 0.5 ML SYRINGE IM (22:43)
[2023-12-02] MEDS: Morphine Sulfate 4 MG/ML CARTRIDGE IVPUSH ×2 (02:46→07:54)
[2023-12-02 02:52] VITALS: BP 134/82; PULSE 76; RESP 16; TEMP 36.8; O2SAT 97
[2023-12-02] MEDS: ondansetron HCL 4 MG/2 ML VIAL IVPUSH ×2 (05:14→19:39)
[2023-12-02] MEDS: metroNIDAZOLE/NS 500 MG/100 ML PIGGYBACK 100 MG IV ×3 (05:14→21:36)
[2023-12-02] MEDS: Lactated Ringers 1,000 ML 80 ML IVCONT (05:18)
[2023-12-02 06:39] LABS: MANUAL DIFF FLAG NO
[2023-12-02 06:52] VITALS: BP 120/68; PULSE 83; RESP 16; TEMP 36.6; O2SAT 96
[2023-12-02 07:01] LABS: Basophils Absolute Auto 0.1 X10*3/uL (0.0-0.2); Basophils Percent Auto 0.4 % (0-2); Eosinophils Absolute Auto 0.1 X10*3/uL (0.0-0.4); Eosinophils Percent Auto 0.6 % (0-4); Hematocrit 32.3 % (37.0-47.0); Hemoglobin 10.7 g/dl (12.0-16.0); Imm Gran Abs Auto 0.21 X10*3/uL (0.00-0.03); Imm Gran Pct Auto 1.2 % (0.0-0.4); Lymphocytes Absolute Auto 2.5 X10*3/uL (1.2-4.9); Lymphocytes Percent Auto 14.7 % (20-40); Mean Corpuscular HGB Conc 33.1 g/dl (31.0-35.0); Mean Corpuscular Hemoglobin 31.7 pg (27.0-33.0); Mean Corpuscular Volume 95.6 fL (80.0-98.0); Mean Platelet Volume 9.4 fL (9.4-12.3); Monocytes Absolute Auto 1.2 X10*3/uL (0.1-1.2); Neutrophils Absolute Auto 13.1 x10*3/uL (2.0-8.3); Neutrophils Percent Auto 76.1 % (45-73); Platelet Count 418 X10*3/uL (160-400); Red Blood Count 3.38 X10*6/uL (4.20-5.50); Red Cell Distribution Width 11.4 % (11.0-16.0); White Blood Count 17.3 X10*3/uL (4.8-10.8)
[2023-12-02 07:10] LABS: Anion Gap 12 (12-20); Blood Urea Nitrogen 5 mg/dL (9-16); Calcium 8.8 mg/dL (8.4-10.2); Carbon Dioxide 27 mmol/L (22-29); Chloride 104 mmol/L (96-108); Creatinine Clr Calc Pharmacy 98.9; Estimated Glomerular Filt Rate > 60; Glucose Random 89 mg/dL (60-115); Potassium 3.6 mmol/L (3.3-5.1); Sodium 139 mmol/L (135-145)
[2023-12-02] MEDS: cefTRIAXone sodium 2 GM in 0.9 % Sodium Chloride 50 ML IV (07:55)
[2023-12-02] MEDS: busPIRone HCl 10 MG TABLET PO (08:05)
--- NOTE | 2023-12-02 08:35 | PM.PNGS ---
Subjective Subjective Date of Service: 12/02/23 Interval history: No improvement in pain. Feels like it is now radiating to right side. Tearful this morning. Physical Exam Vital Signs: Vital Signs: Last Vital Signs Temp 98 F 12/02/23 06:52 Pulse 83 12/02/23 06:52 Resp 16 12/02/23 06:52 BP 120/68 12/02/23 06:52 Pulse Ox 96 12/02/23 06:52 O2 Del Method Room Air 12/02/23 06:52 BMI result Body Mass Index 29.7 Const: Other: tearful General: no acute distress and alert Orientation/consciousness: patient oriented x3 Resp: Effort & Inspection: normal respiratory effort GI: Inspection: No distended Palpation (GI): Soft to palpation, Tenderness to palpation present (GI) in the LLQ and suprapubicly; not in the RLQ and with no rebound tenderness and Guarding due to palpation present (GI) (voluntary guarding ) Skin: General skin exam: no rashes or lesions noted Neuro: General: patient oriented x3 and moves all extremities Objective Data Active Medications Acetaminophen (Acetaminophen 325 Mg Tablet) 650 mg PO Q6H PRN PRN Reason: Pain, Mild (Pain Scale 1-3), fever or headache Last Admin: 12/01/23 21:58 Dose: 650 mg Documented By: HARLEY Buspirone HCl (Buspirone Hcl 10 Mg Tablet) 10 mg PO BID [facility] Last Admin: 12/02/23 08:05 Dose: 10 mg Documented By: YULIYA Calcium Carbonate (Calcium Carbonate 750 Mg Tab.Chew) 750 mg PO Q4H PRN PRN Reason: Heartburn Enoxaparin Sodium (Enoxaparin Sodium 40 Mg/0.4 Ml Syringe) 40 mg SUBCUT Q24H [facility] Lactated Ringer's (Lr) 1,000 mls @ 80 mls/hr IVCONT .[id number] [facility] Last Admin: 12/02/23 05:18 Dose: 80 mls/hr Documented By: HARLEY Doxycycline Hyclate 100 mg/ (Sodium Chloride) 250 mls @ 166.67 mls/hr IV Q12H [facility] Last Infusion: 12/02/23 01:17 Dose: Infused Documented By: HARLEY Metronidazole (Flagyl) 500 mg in 100 mls @ 100 mls/hr IV Q8H [facility] Last Infusion: 12/02/23 06:14 Dose: Infused Documented By: HARLEY Ceftriaxone Sodium 2 gm/ (Sodium Chloride) 50 mls @ 100 mls/hr IV Q24H [facility] Last Admin: 12/02/23 07:55 Dose: 100 mls/hr Documented By: YULIYA Magnesium Hydroxide (Milk Of Magnesia 30 Ml Oral.Susp) 30 ml PO DAILY PRN PRN Reason: Constipation Melatonin (Melatonin 3 Mg Tablet) 6 mg PO BEDTIME PRN PRN Reason: Insomnia Morphine Sulfate (Morphine Sulfate 4 Mg/Ml Cartridge) 4 mg IVPUSH Q4H PRN; Protocol PRN Reason: Pain, Severe (Pain Scale 7-10) Last Admin: 12/02/23 07:54 Dose: 4 mg Documented By: YULIYA Ondansetron HCl (Ondansetron Hcl 4 Mg/2 Ml Vial) 4 mg IVPUSH Q8H PRN PRN Reason: Nausea and Vomiting Last Admin: 12/02/23 05:14 Dose: 4 mg Documented By: HARLEY Sodium Chloride (0.9 % Sodium Chloride Flush 3 Ml Syringe) 3 ml IVFLUSH QSHIFT [facility] Last Admin: 12/02/23 08:05 Dose: Not Given Documented By: YULIYA Non-Admin Reason: IV Running Labs 12/02/23 05:29 12/02/23 05:29 Labs: Laboratory Results - last 24 hr 12/01/23 12/01/23 12/01/23 06:09 09:10 11:44 MCV MCH MCHC RDW Plt Count MPV Immature Gran % (Auto) Neut % (Auto) Lymph % (Auto) [place] % (Auto) Eos % (Auto) Baso % (Auto) Lymph # (Auto) [place] # (Auto) Eos # (Auto) Baso # (Auto) Abs Immat Gran (auto) Absolute Neuts (auto) Absolute Nucleated RBC Nucleated RBC % (auto) Anion Gap Estim Creat Clear Calc Estimated GFR Random Glucose Lactic Acid 0.8 Calcium Beta HCG, Quant < 2 Urine Color Yellow Urine Appearance Clear Urine pH 6.5 Ur Specific [place] >= 1.030 H Urine Protein Negative Urine Glucose (UA) Negative Urine Ketones Negative Urine Blood Negative Urine Nitrite Negative Ur Leukocyte Esterase Small (1+) H Urine RBC 0-2 Urine WBC 0-5 Ur Squamous Epith Cells 3-5 Urine Bacteria Trace Hyaline Casts 0-2 Chlam trachomat DNA PCR N.gonorrhoeae DNA (PCR) T. vaginalis (PCR) Bact Vaginosis (PCR) C. krusei/glabrata (PCR) Kalyani group (PCR) 12/01/23 12/02/23 12:53 05:29 MCV 95.6 MCH 31.7 MCHC 33.1 RDW 11.4 Plt Count 418 H MPV 9.4 Immature Gran % (Auto) 1.2 H Neut % (Auto) 76.1 H Lymph % (Auto) 14.7 L [place] % (Auto) 7.0 Eos % (Auto) 0.6 Baso % (Auto) 0.4 Lymph # (Auto) 2.5 [place] # (Auto) 1.2 Eos # (Auto) 0.1 Baso # (Auto) 0.1 Abs Immat Gran (auto) 0.21 H Absolute Neuts (auto) 13.1 H Absolute Nucleated RBC 0.000 Nucleated RBC % (auto) 0.0 Anion Gap 12 Estim Creat Clear Calc 98.9 Estimated GFR > 60 Random Glucose 89 Lactic Acid Calcium 8.8 D Beta HCG, Quant Urine Color Urine Appearance Urine pH Ur Specific [place] Urine Protein Urine Glucose (UA) Urine Ketones Urine Blood Urine Nitrite Ur Leukocyte Esterase Urine RBC Urine WBC Ur Squamous Epith Cells Urine Bacteria Hyaline Casts Chlam trachomat DNA PCR NOT DETECTED N.gonorrhoeae DNA (PCR) NOT DETECTED T. vaginalis (PCR) NOT DETECTED Bact Vaginosis (PCR) NEGATIVE C. krusei/glabrata (PCR) NOT DETECTED Kalyani group (PCR) NOT DETECTED Microbiology Microbiology Results: Microbiology 12/01/23 12:53 Trichomonas Preparation - Final Vaginal Procedures Date of Service Date of Service: 12/02/23 Progress Note: A&P Assessment and plan (1) Diverticulitis: Status: Acute Plan 48 year old female admitted with 5 week hx of LLQ abd pain with CT scan demonstrating sigmoid diverticulitis. Also found to have left adnexal complex cyst although could not r/o TOA vs diverticular abscess. She feels no improvement today and WBC count is higher. Abd remains tender in the LLQ/suprapubic region. Discussed possible need to proceed with sigmoid resection during this stay. She would like to attempt one more day of IV abx. Discussed that we can attempt a very gentle bowel prep as it seems likely she may need surgery in hopes to attempt reanastomosis and avoid an ostomy. She would like to try this. Discussed to stop prep if develops worsening pain, nausea. Repeat labs in am. Cont IVF, IV abx, ceftriaxone increased to 2g IV. Time Spent With Patient Time: Total time managing care of this patient today ____ minutes. Quality Stroke Does the patient have a stroke diagnosis?: No VTE Prior VTE?: No VTE Risk Level:: Surgical - high VTE Device Contraindication: N/A - Device Ordered VTE Drug Contraindication: N/A - Med Ordered
--- NOTE | 2023-12-02 09:29 | MHC.CM.PN ---
PT LIVES WITH [facility] IS INDEPEDENT HAS OWN RIDE HOME DC PLAN HOME NO SERVIES
[2023-12-02] MEDS: PEG 3350/Na Sulf,Bicarb,Cl/KCL 4,000 ML SOLN.RECON 4000 ML PO (09:47)
[2023-12-02] MEDS: Acetaminophen 1,000 MG/100 ML PIGGYBACK 400 MG IV ×3 (09:50→21:10)
[2023-12-02] MEDS: Doxycycline Hyclate 100 MG in 0.9 % Sodium Chloride 250 ML 166.67 MG IV ×2 (11:56→23:07)
--- NOTE | 2023-12-02 12:48 | P.PNOB_ITS ---
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: Results Labs 12/02/23 05:29 12/02/23 05:29 Labs: Laboratory Results - last 24 hr 12/01/23 12/02/23 12:53 05:29 WBC 17.3 H RBC 3.38 L Hgb 10.7 L Hct 32.3 L MCV 95.6 MCH 31.7 MCHC 33.1 RDW 11.4 Plt Count 418 H MPV 9.4 Immature Gran % (Auto) 1.2 H Neut % (Auto) 76.1 H Lymph % (Auto) 14.7 L [place] % (Auto) 7.0 Eos % (Auto) 0.6 Baso % (Auto) 0.4 Lymph # (Auto) 2.5 [place] # (Auto) 1.2 Eos # (Auto) 0.1 Baso # (Auto) 0.1 Abs Immat Gran (auto) 0.21 H Absolute Neuts (auto) 13.1 H Absolute Nucleated RBC 0.000 Nucleated RBC % (auto) 0.0 Sodium 139 Potassium 3.6 Chloride 104 Carbon Dioxide 27 Anion Gap 12 BUN 5 L Creatinine 0.69 Estim Creat Clear Calc 98.9 Estimated GFR > 60 Random Glucose 89 Calcium 8.8 D Chlam trachomat DNA PCR NOT DETECTED N.gonorrhoeae DNA (PCR) NOT DETECTED T. vaginalis (PCR) NOT DETECTED Bact Vaginosis (PCR) NEGATIVE C. 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 Quality Measures - [employer]ER H&P VTE Prior VTE?: No VTE Risk Level:: Surgical - high VTE Device Contraindication: N/A - Device Ordered VTE Drug Contraindication: N/A - Med Ordered
[2023-12-02 15:10] VITALS: BP 149/90; PULSE 83; RESP 16; TEMP 36.9; O2SAT 97
[2023-12-02 19:33] VITALS: BP 152/86; PULSE 80; RESP 16; TEMP 36.7; O2SAT 97
[2023-12-02] MEDS: 0.9 % Sodium Chloride Flush 3 ML SYRINGE IVFLUSH (19:42)
[2023-12-02] MEDS: Ketorolac Tromethamine 15 MG/ML VIAL IVPUSH (19:42)
[2023-12-02] MEDS: Enoxaparin Sodium 40 MG/0.4 ML SYRINGE SUBCUT (21:36)
--- NOTE | 2023-12-03 | ECG_ITS ---
Test Reason : preop Blood Pressure : / mmHG Vent. Rate : 077 BPM Atrial Rate : 077 BPM P-R Int : 156 ms QRS Dur : 106 ms QT Int : 402 ms P-R-T Axes : 049 -10 -08 degrees QTc Int : 454 ms Normal sinus rhythm Incomplete right bundle branch block Borderline ECG No previous ECGs available Referred By: Shira Morris Electronically Signed By:TAPAN DAMON
[2023-12-03] MEDS: Lactated Ringers 1,000 ML 80 ML IVCONT (00:39)
[2023-12-03] MEDS: Acetaminophen 1,000 MG/100 ML PIGGYBACK 400 MG IV ×4 (03:02→20:44)
[2023-12-03] MEDS: ondansetron HCL 4 MG/2 ML VIAL IVPUSH ×3 (03:06→20:44)
[2023-12-03 03:10] VITALS: BP 152/87; PULSE 79; RESP 16; TEMP 36.4; O2SAT 98
[2023-12-03] MEDS: metroNIDAZOLE/NS 500 MG/100 ML PIGGYBACK 100 MG IV (04:39)
[2023-12-03 05:26] LABS: MANUAL DIFF FLAG NO
[2023-12-03 05:31] LABS: Basophils Absolute Auto 0.1 X10*3/uL (0.0-0.2); Basophils Percent Auto 0.3 % (0-2); Eosinophils Absolute Auto 0.1 X10*3/uL (0.0-0.4); Eosinophils Percent Auto 0.3 % (0-4); Hematocrit 31.7 % (37.0-47.0); Hemoglobin 10.7 g/dl (12.0-16.0); Imm Gran Abs Auto 0.24 X10*3/uL (0.00-0.03); Imm Gran Pct Auto 1.1 % (0.0-0.4); Lymphocytes Absolute Auto 1.7 X10*3/uL (1.2-4.9); Lymphocytes Percent Auto 7.8 % (20-40); Mean Corpuscular HGB Conc 33.8 g/dl (31.0-35.0); Mean Corpuscular Volume 94.9 fL (80.0-98.0); Mean Platelet Volume 9.2 fL (9.4-12.3); Monocytes Absolute Auto 1.3 X10*3/uL (0.1-1.2); Monocytes Percent Auto 5.8 % (2-11); Neutrophils Absolute Auto 18.1 x10*3/uL (2.0-8.3); Neutrophils Percent Auto 84.7 % (45-73); Platelet Count 364 X10*3/uL (160-400); Red Blood Count 3.34 X10*6/uL (4.20-5.50); Red Cell Distribution Width 11.4 % (11.0-16.0); White Blood Count 21.4 X10*3/uL (4.8-10.8)
[2023-12-03 05:42] LABS: Anion Gap 12 (12-20); Blood Urea Nitrogen 6 mg/dL (9-16); Calcium 8.7 mg/dL (8.4-10.2); Carbon Dioxide 24 mmol/L (22-29); Chloride 105 mmol/L (96-108); Creatinine Clr Calc Pharmacy 98.9; Estimated Glomerular Filt Rate > 60; Glucose Fasting 105 mg/dL (60-99); Potassium 3.2 mmol/L (3.3-5.1); Sodium 138 mmol/L (135-145)
[2023-12-03 07:30] VITALS: BP 139/82; PULSE 72; RESP 16; TEMP 36.7; O2SAT 97
--- NOTE | 2023-12-03 08:32 | PM.PNGS ---
Subjective Subjective Date of Service: 12/03/23 Interval history: Continues with lower abdominal pain without significant improvement. Physical Exam Vital Signs: Vital Signs: Last Vital Signs Temp 98.1 F 12/03/23 07:30 Pulse 72 12/03/23 07:30 Resp 16 12/03/23 07:30 BP 139/82 12/03/23 07:30 Pulse Ox 97 12/03/23 07:30 O2 Del Method Room Air 12/03/23 07:30 BMI result Body Mass Index 29.7 Const: General: comfortable, no acute distress and alert Orientation/consciousness: patient oriented x3 Resp: Effort & Inspection: normal respiratory effort GI: Inspection: No distended Palpation (GI): Soft to palpation and Tenderness to palpation present (GI) in the LLQ and suprapubicly; with no rebound tenderness Skin: General skin exam: no rashes or lesions noted Neuro: General: patient oriented x3 and moves all extremities Objective Data Active Medications Buspirone HCl (Buspirone Hcl 10 Mg Tablet) 10 mg PO BID [facility] Last Admin: 12/02/23 20:11 Dose: Not Given Documented By: GELY Non-Admin Reason: Patient Refused Calcium Carbonate (Calcium Carbonate 750 Mg Tab.Chew) 750 mg PO Q4H PRN PRN Reason: Heartburn Enoxaparin Sodium (Enoxaparin Sodium 40 Mg/0.4 Ml Syringe) 40 mg SUBCUT Q24H [facility] Last Admin: 12/02/23 21:36 Dose: 40 mg Documented By: GELY Lactated Ringer's (Lr) 1,000 mls @ 100 mls/hr IVCONT .Q10H [facility] Last Infusion: 12/03/23 05:49 Dose: 80 mls/hr Documented By: GELY Acetaminophen (Ofirmev) 1,000 mg in 100 mls @ 400 mls/hr IV Q6H [facility] Last Infusion: 12/03/23 03:17 Dose: Infused Documented By: GELY Piperacillin Sod/Tazobactam (Sod 4.5 gm/ Sodium Chloride) 100 mls @ 200 mls/hr IV Q6H [facility] Ketorolac Tromethamine (Ketorolac Tromethamine 15 Mg/Ml Vial) 15 mg IVPUSH Q6H PRN PRN Reason: Pain, Mild (Pain Scale 1-3) Last Admin: 12/02/23 19:42 Dose: 15 mg Documented By: GELY Magnesium Hydroxide (Milk Of Magnesia 30 Ml Oral.Susp) 30 ml PO DAILY PRN PRN Reason: Constipation Melatonin (Melatonin 3 Mg Tablet) 6 mg PO BEDTIME PRN PRN Reason: Insomnia Morphine Sulfate (Morphine Sulfate 4 Mg/Ml Cartridge) 4 mg IVPUSH Q4H PRN; Protocol PRN Reason: Pain, Severe (Pain Scale 7-10) Last Admin: 12/02/23 07:54 Dose: 4 mg Documented By: YULIYA Ondansetron HCl (Ondansetron Hcl 4 Mg/2 Ml Vial) 4 mg IVPUSH Q8H PRN PRN Reason: Nausea and Vomiting Last Admin: 12/03/23 03:06 Dose: 4 mg Documented By: GELY Sodium Chloride (0.9 % Sodium Chloride Flush 3 Ml Syringe) [facility] Admin: 12/02/23 19:42 Dose: 3 ml Documented By: GELY Labs 12/03/23 05:06 12/03/23 05:06 Labs: Laboratory Results - last 24 hr 12/03/23 05:06 MCV 94.9 MCH 32.0 MCHC 33.8 RDW 11.4 Plt Count 364 MPV 9.2 L Immature Gran % (Auto) 1.1 H Neut % (Auto) 84.7 H Lymph % (Auto) 7.8 L [place] % (Auto) 5.8 Eos % (Auto) 0.3 Baso % (Auto) 0.3 Lymph # (Auto) 1.7 [place] # (Auto) 1.3 H Eos # (Auto) 0.1 Baso # (Auto) 0.1 Abs Immat Gran (auto) 0.24 H Absolute Neuts (auto) 18.1 H Absolute Nucleated RBC 0.000 Nucleated RBC % (auto) 0.0 Anion Gap 12 Estim Creat Clear Calc 98.9 Estimated GFR > 60 Fasting Glucose 105 H Calcium 8.7 Microbiology Microbiology Results: Microbiology 12/01/23 11:57 Blood Culture - Preliminary Blood - Venous No growth after 24 hours. 12/01/23 11:44 Blood Culture - Preliminary Blood - Venous No growth after 24 hours. 12/01/23 Unknown Urine Culture - Final Urine clean catch - Clean Catch Midstream Procedures Date of Service Date of Service: 12/03/23 Progress Note: A&P Assessment and plan (1) Diverticulitis: Status: Acute Plan Unfortunately she has had no significant improvement symptomatically and her WBC count is worsening. She is clinically stable but given the CT scan findings and no improvement, will plan for laparotomy, sigmoid resection, possible colostomy, possible ileostomy tomorrow. Can continue clear liquids, gentle bowel prep as tolerated today. Patient comfortable with plan. NPO after midnight. Change IV abx to zosyn. Time Spent With Patient Time: Total time managing care of this patient today ____ minutes. Quality Stroke Does the patient have a stroke diagnosis?: No VTE Prior VTE?: No VTE Risk Level:: Surgical - high VTE Device Contraindication: N/A - Device Ordered VTE Drug Contraindication: N/A - Med Ordered
[2023-12-03] MEDS: Piperacillin Sodium/Tazobactam 4.5 GM in 0.9 % Sodium Chloride 100 ML IV ×3 (08:49→19:40)
--- NOTE | 2023-12-03 09:31 | MHC.SHP ---
Pre-Procedural Eval Section A - 24 Hr Update-Section A only Date of Service: 12/04/23 The patient is an INPATIENT: Yes Changes since office visit: No Cold of Flu in the past 2 weeks, No New Medical Problems, No Changes in Medication and No Patient answered all questions Section B - Complete if H&P > 30 days Chief Complaint: acute diverticulitis Details of Present Illness: Risks, benefits, alternatives of open sigmoid resection with possible anastomosis, possible diverting ileostomy, possible end colostomy were extensively reviewed with the patient and included but not limited to bleeding, infection, numbness, pain, scarring and the patient wished to proceed. All questions answered. Arrangements were made for this for 12/03 Allergies: Allergies Allergy/AdvReac Type Severity Reaction Status Date / Time No Known Allergies Allergy Verified 12/01/23 06:01 Plan I have reviewed the history and physical and performed a pertinent physical examination on my patient. No changes have occurred unless specified. Time Spent With Patient Time: Total time managing care of this patient today ____ minutes.
[2023-12-03] MEDS: KCl 20 mEq in 0.9 % Sodium ChL 20 MEQ/1,000 ML IV.SOLN 100 MEQ IVCONT ×2 (12:41→22:35)
[2023-12-03] MEDS: Ketorolac Tromethamine 15 MG/ML VIAL IVPUSH (12:50)
--- NOTE | 2023-12-03 13:31 | MHC.CM.PN ---
per surgical note pt to have surgery 12/03 cm will continue to follow
[2023-12-03] MEDS: Potassium Chloride Packet 20 MEQ PACKET 40 MEQ PO (13:37)
[2023-12-03 15:19] VITALS: BP 143/80; PULSE 75; RESP 20; TEMP 37.3; O2SAT 96
[2023-12-03 19:08] VITALS: BP 137/84; PULSE 74; RESP 20; TEMP 37.1; O2SAT 96
[2023-12-03] MEDS: 0.9 % Sodium Chloride Flush 3 ML SYRINGE IVFLUSH (20:44)
[2023-12-04] VITALS (15 sets, daily range): BP systolic 121–149; BP diastolic 64–87; PULSE 63–90; RESP 12–18; TEMP 36.1–37.4; O2SAT 84–98
[2023-12-04] MEDS: Piperacillin Sodium/Tazobactam 4.5 GM in 0.9 % Sodium Chloride 100 ML IV ×4 (02:05→19:49)
[2023-12-04] MEDS: ondansetron HCL 4 MG/2 ML VIAL IVPUSH (02:45)
[2023-12-04] MEDS: Acetaminophen 1,000 MG/100 ML PIGGYBACK 400 MG IV ×4 (02:45→20:30)
[2023-12-04 06:21] LABS: MANUAL DIFF FLAG NO
[2023-12-04 06:49] LABS: Anion Gap 13 (12-20); Blood Urea Nitrogen 8 mg/dL (9-16); Calcium 8.4 mg/dL (8.4-10.2); Carbon Dioxide 21 mmol/L (22-29); Chloride 111 mmol/L (96-108); Creatinine Clr Calc Pharmacy 93.5; Estimated Glomerular Filt Rate > 60; Glucose Fasting 97 mg/dL (60-99); Potassium 3.5 mmol/L (3.3-5.1); Sodium 141 mmol/L (135-145)
[2023-12-04 07:05] LABS: Basophils Absolute Auto 0.1 X10*3/uL (0.0-0.2); Basophils Percent Auto 0.4 % (0-2); Eosinophils Absolute Auto 0.1 X10*3/uL (0.0-0.4); Eosinophils Percent Auto 0.3 % (0-4); Hematocrit 31.6 % (37.0-47.0); Hemoglobin 10.4 g/dl (12.0-16.0); Imm Gran Abs Auto 0.24 X10*3/uL (0.00-0.03); Imm Gran Pct Auto 1.1 % (0.0-0.4); Lymphocytes Absolute Auto 1.4 X10*3/uL (1.2-4.9); Lymphocytes Percent Auto 6.5 % (20-40); Mean Corpuscular HGB Conc 32.9 g/dl (31.0-35.0); Mean Corpuscular Hemoglobin 31.4 pg (27.0-33.0); Mean Corpuscular Volume 95.5 fL (80.0-98.0); Mean Platelet Volume 9.6 fL (9.4-12.3); Monocytes Absolute Auto 1.1 X10*3/uL (0.1-1.2); Neutrophils Absolute Auto 19.3 x10*3/uL (2.0-8.3); Neutrophils Percent Auto 86.7 % (45-73); Platelet Count 410 X10*3/uL (160-400); Red Blood Count 3.31 X10*6/uL (4.20-5.50); Red Cell Distribution Width 11.6 % (11.0-16.0); White Blood Count 22.3 X10*3/uL (4.8-10.8)
[2023-12-04] MEDS: KCl 20 mEq in 0.9 % Sodium ChL 20 MEQ/1,000 ML IV.SOLN 100 MEQ IVCONT (08:07)
--- NOTE | 2023-12-04 10:16 | P.PNGS_ITS ---
Subjective Subjective Date of Service: 12/04/23 Interval history: Pain is actually somewhat improved today but difficulty with nausea and diarrhea overnight. REady for surgery. Physical Exam 2 Vital Signs: Vital Signs: Last Vital Signs Temp 99.4 F 12/04/23 09:22 Pulse 81 12/04/23 09:22 Resp 16 12/04/23 09:22 BP 130/85 12/04/23 09:22 Pulse Ox 96 12/04/23 09:22 O2 Del Method Room Air 12/04/23 09:22 BMI result Body Mass Index 29.7 Const: General: comfortable, no acute distress and alert O rientation/consciousness: patient oriented x3 Resp: Effort & Inspection: normal respiratory effort GI: Inspection: No distended Palpation (GI): Soft to palpation, Tenderness to palpation present (GI) in the LLQ and suprapubicly and no guarding Skin: General skin exam: no rashes or lesions noted Neuro: General: patient oriented x3 Objective Data Active Medications Buspirone HCl (Buspirone Hcl 10 Mg Tablet) 10 mg PO BID [facility] Last Admin: 12/04/23 08:48 Dose: Not Given Documented By: EDY Non-Admin Reason: Patient Refused Calcium Carbonate (Calcium Carbonate 750 Mg Tab.Chew) 750 mg PO Q4H PRN PRN Reason: Heartburn Enoxaparin Sodium (Enoxaparin Sodium 40 Mg/0.4 Ml Syringe) 40 mg SUBCUT Q24H [facility] Last Admin: 12/03/23 21:14 Dose: Not Given Documented By: GELY Non-Admin Reason: surgery in AM Acetaminophen (Ofirmev) 1,000 mg in 100 mls @ 400 mls/hr IV Q6H [facility] Last Infusion: 12/04/23 09:13 Dose: Infused Documented By: EDY Piperacillin Sod/Tazobactam (Sod 4.5 gm/ Sodium Chloride) 100 mls @ 200 mls/hr IV Q6H [facility] Last Infusion: 12/04/23 08:51 Dose: Infused Documented By: EDY Potassium Chloride/Sodium Chloride (Kcl 20 Meq In 0.9 % Sodium Chl) 20 meq in 1,000 mls @ 100 mls/hr IVCONT .Q10H [facility] Last Admin: 12/04/23 08:07 Dose: 100 mls/hr Documented By: EDY Ketorolac Tromethamine (Ketorolac Tromethamine 15 Mg/Ml Vial) 15 mg IVPUSH Q6H PRN PRN Reason: Pain, Mild (Pain Scale 1-3) Last Admin: 12/03/23 12:50 Dose: 15 mg Documented By: YULIYA Magnesium Hydroxide (Milk Of Magnesia 30 Ml Oral.Susp) 30 ml PO DAILY PRN PRN Reason: Constipation Melatonin (Melatonin 3 Mg Tablet) 6 mg PO BEDTIME PRN PRN Reason: Insomnia Morphine Sulfate (Morphine Sulfate 4 Mg/Ml Cartridge) 4 mg IVPUSH Q4H PRN; Protocol PRN Reason: Pain, Severe (Pain Scale 7-10) Last Admin: 12/02/23 07:54 Dose: 4 mg Documented By: YULIYA Ondansetron HCl (Ondansetron Hcl 4 Mg/2 Ml Vial) 4 mg IVPUSH Q8H PRN PRN Reason: Nausea and Vomiting Last Admin: 12/04/23 02:45 Dose: 4 mg Documented By: GELY Comments: downtime Sodium Chloride (0.9 % Sodium Chloride Flush 3 Ml Syringe) 3 ml IVFLUSH QSHIFT [facility] Last Admin: 12/04/23 07:13 Dose: Not Given Documented By: EDY Non-Admin Reason: IV Running Labs 12/04/23 05:10 12/04/23 05:10 Labs: Laboratory Results - last 24 hr 12/04/23 12/04/23 05:10 07:59 MCV 95.5 MCH 31.4 MCHC 32.9 RDW 11.6 Plt Count 410 H MPV 9.6 Immature Gran % (Auto) 1.1 H Neut % (Auto) 86.7 H Lymph % (Auto) 6.5 L [place] % (Auto) 5.0 Eos % (Auto) 0.3 Baso % (Auto) 0.4 Lymph # (Auto) 1.4 [place] # (Auto) 1.1 Eos # (Auto) 0.1 Baso # (Auto) 0.1 Abs Immat Gran (auto) 0.24 H Absolute Neuts (auto) 19.3 H Absolute Nucleated RBC 0.000 Nucleated RBC % (auto) 0.0 Anion Gap 13 Estim Creat Clear Calc 93.5 Estimated GFR > 60 Fasting Glucose 97 Calcium 8.4 Blood Type O Negative Antibody Screen NEGATIVE Microbiology Microbiology Results: Microbiology 12/01/23 11:57 Blood Culture - Preliminary Blood - Venous No growth after 48 hours. 12/01/23 11:44 Blood Culture - Preliminary Blood - Venous No growth after 48 hours. Procedures Date of Service Date of Service: 12/04/23 Progress Note: A&P Assessment and plan (1) Diverticulitis: Status: Acute Plan Continues without significant improvement symptomatically with worsening leukocytosis. Plan for laparotomy, sigmoid resection, possible colostomy, possible ileostomy today. Patient comfortable with plan. Cont IV abx, IVF. Time Spent With Patient Time: Total time managing care of this patient today ____ minutes. Quality Stroke Does the patient have a stroke diagnosis?: No VTE Prior VTE?: No VTE Risk Level:: Surgical - high VTE Device Contraindication: N/A - Device Ordered VTE Drug Contraindication: N/A - Med Ordered
--- NOTE | 2023-12-04 10:35 | HO.ANESPROP2 ---
HPI - Anesthesia Eval Consult details Narrative: 48 yo F admitted with sigmoid diverticulitis. Presenting for sigmoid resection. [facility] Active Problems Active Problems: All Active Problems Tubal ovarian abscess (Acute) Acute colitis (Acute) Diverticulitis (Acute) TOA (tubo-ovarian abscess) (Acute) Complex cyst of left ovary (Acute) Abnormal uterine bleeding (Acute) Anxiety (Acute) Allergic rhinitis (Acute) Pure hypercholesterolemia (Acute) Annual physical exam (Acute) Carpal tunnel syndrome of right wrist (Acute) Burning sensation of ulnar region of forearm (Acute) Obesity (BMI 30-39.9) (Acute) Elevated blood pressure reading in office without diagnosis of hypertension (Acute) Colitis (Acute) Cervical polyp (Acute) Physical exam (Acute) Diverticulosis of colon (Acute) Loose stools (Acute) Encounter for screening colonoscopy (Acute) Dyslipidemia (Acute) Depression with anxiety (Acute) Past Medical History Medical History Anxiety Allergic rhinitis Pure hypercholesterolemia Obesity (BMI 30-39.9) Loose stools Genital herpes Dyslipidemia Depression with anxiety Family History Family History Father History of quadruple bypass Mother High cholesterol Diverticulitis IBS (irritable bowel syndrome) HTN (hypertension) Maternal Grandmother Lung cancer Maternal Grandfather Stroke Maternal Aunt Diabetes Cancer Maternal Uncle Bladder cancer Family history of problems with anesthesia: No Surgical History Surgical History H/O LEEP History of Problems with Anesthesia: No Social History Social History Household Members: Significant Other Household Members Other:: , no kids Housing: House Do you presently have visiting nurse or other home services: No Alcohol intake: current Alcohol intake frequency: 0-2 drinks per day Alcohol type: beer Patient Tobacco Use Status: Never used Tobacco e-Cigarette/Vaping Use: Never Used Second Hand Smoke Exposure: No Substance Use Type: Marijuana Advance Directives Date on File: 12/01/23 service: No Current occupational status: employed Current occupation: [employer] Current occupational exposures/hazards: No Sexual orientation: Straight/Heterosexual Gender identity: Female Cognitive needs: No Hearing needs: No Vision needs: No Meds Allergies Allergy/AdvReac Type Severity Reaction Status Date / Time No Known Allergies Allergy Verified 12/01/23 06:01 Active Medications: Current Medications Buspirone HCl (Buspirone Hcl 10 Mg Tablet) 10 mg PO BID [facility] Last Admin: 12/04/23 08:48 Dose: Not Given Calcium Carbonate (Calcium Carbonate 750 Mg Tab.Chew) 750 mg PO Q4H PRN PRN Reason: Heartburn Enoxaparin Sodium (Enoxaparin Sodium 40 Mg/0.4 Ml Syringe) 40 mg SUBCUT Q24H [facility] Last Admin: 12/03/23 21:14 Dose: Not Given Acetaminophen (Ofirmev) 1,000 mg in 100 mls @ 400 mls/hr IV Q6H [facility] Last Infusion: 12/04/23 09:13 Dose: Infused Piperacillin Sod/Tazobactam (Sod 4.5 gm/ Sodium Chloride) 100 mls @ 200 mls/hr IV Q6H [facility] Last Infusion: 12/04/23 08:51 Dose: Infused Potassium Chloride/Sodium Chloride (Kcl 20 Meq In 0.9 % Sodium Chl) 20 meq in 1,000 mls @ 100 mls/hr IVCONT .Q10H [facility] Last Admin: 12/04/23 08:07 Dose: 100 mls/hr Ketorolac Tromethamine (Ketorolac Tromethamine 15 Mg/Ml Vial) 15 mg IVPUSH Q6H PRN PRN Reason: Pain, Mild (Pain Scale 1-3) Last Admin: 12/03/23 12:50 Dose: 15 mg Magnesium Hydroxide (Milk Of Magnesia 30 Ml Oral.Susp) 30 ml PO DAILY PRN PRN Reason: Constipation Melatonin (Melatonin 3 Mg Tablet) 6 mg PO BEDTIME PRN PRN Reason: Insomnia Morphine Sulfate (Morphine Sulfate 4 Mg/Ml Cartridge) 4 mg IVPUSH Q4H PRN; Protocol PRN Reason: Pain, Severe (Pain Scale 7-10) Last Admin: 12/02/23 07:54 Dose: 4 mg Ondansetron HCl (Ondansetron Hcl 4 Mg/2 Ml Vial) 4 mg IVPUSH Q8H PRN PRN Reason: Nausea and Vomiting Last Admin: 12/04/23 02:45 Dose: 4 mg Sodium Chloride (0.9 % Sodium Chloride Flush 3 Ml Syringe) 3 ml IVFLUSH QSHIFT [facility] Last Admin: 12/04/23 07:13 Dose: Not Given Home Medications ?Medication ?Instructions ?Recorded ?Confirmed ?Last Taken ?Type aspirin 325 mg tablet 325 mg PO DAILY 12/01/23 12/01/23 11/30/23 History Exam Exam Date and Time: 12/04/23 1020 Height,Weight and Vital Signs: Height 5 ft 4 in Weight 78.6 kg Last Vital Signs Temp 99.4 F 12/04/23 09:22 Pulse 81 12/04/23 09:22 Resp 16 12/04/23 09:22 BP 130/85 12/04/23 09:22 Pulse Ox 96 12/04/23 09:22 O2 Del Method Room Air 12/04/23 09:22 Pertinent Lab Results Pertinent Lab Results: Laboratory Tests 12/01/23 12/01/23 12/01/23 06:09 09:10 11:44 WBC 16.3 H RBC 4.01 L Hgb 12.9 Hct 37.5 MCV 93.5 MCH 32.2 MCHC 34.4 RDW 11.2 Plt Count 523 H D MPV 9.0 L Immature Gran % (Auto) Neut % (Auto) Lymph % (Auto) [place] % (Auto) Eos % (Auto) Baso % (Auto) Lymph # (Auto) [place] # (Auto) Eos # (Auto) Baso # (Auto) Abs Immat Gran (auto) Absolute Neuts (auto) Absolute Nucleated RBC 0.000 Nucleated RBC % (auto) 0.0 Sodium 140 Potassium 3.9 Chloride 106 Carbon Dioxide 26 Anion Gap 12 BUN 7 L Creatinine 0.72 Estim Creat Clear Calc 92.8 Estimated GFR > 60 Random Glucose 105 Fasting Glucose Lactic Acid 0.8 Calcium 9.4 Total Bilirubin 0.3 AST 13 ALT 10 Alkaline Phosphatase 84 Total Protein 7.6 Albumin 3.7 Lipase 40 Beta HCG, Quant < 2 Urine Color Yellow Urine Appearance Clear Urine pH 6.5 Ur Specific [place] >= 1.030 H Urine Protein Negative Urine Glucose (UA) Negative Urine Ketones Negative Urine Blood Negative Urine Nitrite Negative Ur Leukocyte Esterase Small (1+) H Urine RBC 0-2 Urine WBC 0-5 Ur Squamous Epith Cells 3-5 Urine Bacteria Trace Hyaline Casts 0-2 Chlam trachomat DNA PCR N.gonorrhoeae DNA (PCR) T. vaginalis (PCR) Bact Vaginosis (PCR) C. krusei/glabrata (PCR) Kalyani group (PCR) Blood Type Antibody Screen 12/01/23 12/02/23 12/03/23 12:53 05:29 05:06 WBC 17.3 H 21.4 H RBC 3.38 L 3.34 L Hgb 10.7 L 10.7 L Hct 32.3 L 31.7 L MCV 95.6 94.9 MCH 31.7 32.0 MCHC 33.1 33.8 RDW 11.4 11.4 Plt Count 418 H 364 MPV 9.4 9.2 L Immature Gran % (Auto) 1.2 H 1.1 H Neut % (Auto) 76.1 H 84.7 H Lymph % (Auto) 14.7 L 7.8 L [place] % (Auto) 7.0 5.8 Eos % (Auto) 0.6 0.3 Baso % (Auto) 0.4 0.3 Lymph # (Auto) 2.5 1.7 [place] # (Auto) 1.2 1.3 H Eos # (Auto) 0.1 0.1 Baso # (Auto) 0.1 0.1 Abs Immat Gran (auto) 0.21 H 0.24 H Absolute Neuts (auto) 13.1 H 18.1 H Absolute Nucleated RBC 0.000 0.000 Nucleated RBC % (auto) 0.0 0.0 Sodium 139 138 Potassium 3.6 3.2 L Chloride 104 105 Carbon Dioxide 27 24 Anion Gap 12 12 BUN 5 L 6 L Creatinine 0.69 0.69 Estim Creat Clear Calc 98.9 98.9 Estimated GFR > 60 > 60 Random Glucose 89 Fasting Glucose 105 H Lactic Acid Calcium 8.8 D 8.7 Total Bilirubin AST ALT Alkaline Phosphatase Total Protein Albumin Lipase Beta HCG, Quant Urine Color Urine Appearance Urine pH Ur Specific [place] Urine Protein Urine Glucose (UA) Urine Ketones Urine Blood Urine Nitrite Ur Leukocyte Esterase Urine RBC Urine WBC Ur Squamous Epith Cells Urine Bacteria Hyaline Casts Chlam trachomat DNA PCR NOT DETECTED N.gonorrhoeae DNA (PCR) NOT DETECTED T. vaginalis (PCR) NOT DETECTED Bact Vaginosis (PCR) NEGATIVE C. krusei/glabrata (PCR) NOT DETECTED Kalyani group (PCR) NOT DETECTED Blood Type Antibody Screen 12/04/23 12/04/23 05:10 07:59 WBC 22.3 H RBC 3.31 L Hgb 10.4 L Hct 31.6 L MCV 95.5 MCH 31.4 MCHC 32.9 RDW 11.6 Plt Count 410 H MPV 9.6 Immature Gran % (Auto) 1.1 H Neut % (Auto) 86.7 H Lymph % (Auto) 6.5 L [place] % (Auto) 5.0 Eos % (Auto) 0.3 Baso % (Auto) 0.4 Lymph # (Auto) 1.4 [place] # (Auto) 1.1 Eos # (Auto) 0.1 Baso # (Auto) 0.1 Abs Immat Gran (auto) 0.24 H Absolute Neuts (auto) 19.3 H Absolute Nucleated RBC 0.000 Nucleated RBC % (auto) 0.0 Sodium 141 Potassium 3.5 Chloride 111 H Carbon Dioxide 21 L Anion Gap 13 BUN 8 L Creatinine 0.73 Estim Creat Clear Calc 93.5 Estimated GFR > 60 Random Glucose Fasting Glucose 97 Lactic Acid Calcium 8.4 Total Bilirubin AST ALT Alkaline Phosphatase Total Protein Albumin Lipase Beta HCG, Quant Urine Color Urine Appearance Urine pH Ur Specific [place] Urine Protein Urine Glucose (UA) Urine Ketones Urine Blood Urine Nitrite Ur Leukocyte Esterase Urine RBC Urine WBC Ur Squamous Epith Cells Urine Bacteria Hyaline Casts Chlam trachomat DNA PCR N.gonorrhoeae DNA (PCR) T. vaginalis (PCR) Bact Vaginosis (PCR) C. krusei/glabrata (PCR) Kalyani group (PCR) Blood Type O Negative Antibody Screen NEGATIVE Airway Mallampati Class: I TM Dist: >3cm Neck ROM: Full Loose/Missing/Broken Teeth: No (patient denies any loose or broken teeth) Heart: S1S2 Lungs: CTAB Assessment and Plan Assessment Anesthesia Assessment: Anesthesia Plan Discussed and Chart Reviewed Final Anesthetic Review Family History of Problems with Anesthesia: No History of Problems with Anesthesia: No NPO: Yes ASA Class: II Final Preanesthetic Review: No Changes in Pt Med Stat, Meds/Allgs Chart Reviewed, Consent Obtained/Reviewed and Anes Risks/Benef Reviewed Patient Risk: Low Procedure Risk: Low Anesthetic Plan Anesthetic Plan: GA, Regional Block (bilateral transversus abdominis plane block) and Agree w/ Assess. and Plan Disposition: Standard PACU
[2023-12-04] MEDS: HYDROmorphone HCl 0.5 MG/0.5 ML SYRINGE IVPUSH ×4 (12:50→13:20)
--- NOTE | 2023-12-04 13:01 | P.OP_ITS ---
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 Sigmoid was also adhered to but was from the uterus. En block resection of the diseased sigmoid colon and left adnexa was performed. No other gross intra-abdominal pathology demonstrated. Moderately corpulent abdomen. Because of the profound inflammatory and infective changes, primary anastomosis with or without diversion was not undertaken because of anastomotic integrity concerns, and end colostomy performed. Retroperitoneum was never broached throughout dissection. Findings: [] Patient brought to the operating room, placed on operative table supine position, after adequate level of general anesthesia was induced, patient underwent tap block per anesthesia and was then positioned in lithotomy position. Abdomen and peritoneum were prepped and draped in usual sterile fashion. Using a lower midline incision, this carried down through skin, subcutaneous tissue, and linea alba. Posterior fascia and peritoneum were opened and extended along the length of the incision. Findings were as noted above. Packs and retractors were placed to enhance exposure. Initially the sigmoid colon was mobilized from the pelvic sidewall. Next the left lateral peritoneal reflection was taken down using Bovie to the sigmoid colon/left colon junction. Stapler was placed at the desired location at this junction and uneventfully fired and bowel transected.. Next the sigmoid was mobilized from its phlegmonous adherence to the uterus. En bloc resection of the adherent left adnexa , which was part of an abscess cavity with the sigmoid colon, was performed because of profound inflammatory changes adhering the latter structures to the sigmoid colon. This was accomplished using combination of electro Bovie, ligature device, and suture ligatures of 2-0 silk and 2-0 Vicryl ties. Once adequately mobilized from the uterus, mesentery was sequentially taken down of the sigmoid colon using double firing of ligature device down to the rectosigmoid junction. Firing of contour stapler was placed at the rectosigmoid junction and specimen sent to pathology. Abdominal cavity was very copiously irrigated and secured hemostasis. A Oleksandr-Benoit drain through a separate stab wound incision in the right lower quadrant was placed in the left pelvis. This was secured the skin using 2-0 nylon. Left colon was then mobilized by further taken down the lateral peritoneal reflection and a muscle-splitting left lower quadrant ostomy site was performed. The proximal colon was able to be brought out through the ostomy site without any tension or vascular compromise. Abdominal cavity was again irrigated and hemostasis secured and midline incision was closed in mass closure fascia using looped 1. Maxon suture. Skin was closed using widely spaced interrupted inverted dermal 3-0 Vicryl sutures followed by skin alena and sterile dressing. Ostomy was secured to the ostomy site using seromuscular to dermal circumferentially 3-0 Vicryl sutures. Ostomy appliance was then placed over the pink viable colostomy. Sponge, needle, and instrument counts were reported correct. Patient tolerated the procedure well and emerged from anesthesia stable condition. EBL minimal
[2023-12-04] MEDS: Ketorolac Tromethamine 15 MG/ML VIAL IVPUSH ×2 (13:29→19:55)
[2023-12-04] MEDS: HYDROmorphone HCl 1 MG/ML SYRINGE IVPUSH (13:35)
[2023-12-04] MEDS: Metoclopramide HCl 10 MG/2 ML VIAL IVPUSH (15:32)
[2023-12-04] MEDS: Morphine Sulfate 4 MG/ML CARTRIDGE IVPUSH (18:17)
[2023-12-04] MEDS: Enoxaparin Sodium 40 MG/0.4 ML SYRINGE SUBCUT (19:55)
[2023-12-05] MEDS: KCl 20 mEq in 0.9 % Sodium ChL 20 MEQ/1,000 ML IV.SOLN 100 MEQ IVCONT (00:41)
[2023-12-05] MEDS: Piperacillin Sodium/Tazobactam 4.5 GM in 0.9 % Sodium Chloride 100 ML IV ×4 (01:58→20:21)
[2023-12-05] MEDS: Acetaminophen 1,000 MG/100 ML PIGGYBACK 400 MG IV ×4 (03:10→21:04)
[2023-12-05 03:27] VITALS: BP 140/74; PULSE 73; RESP 18; TEMP 36.3; O2SAT 96
[2023-12-05 05:28] LABS: MANUAL DIFF FLAG NO
[2023-12-05 05:33] LABS: Basophils Percent Auto 0.2 % (0-2); Hematocrit 31.2 % (37.0-47.0); Hemoglobin 10.4 g/dl (12.0-16.0); Imm Gran Pct Auto 1.4 % (0.0-0.4); Lymphocytes Absolute Auto 1.8 X10*3/uL (1.2-4.9); Mean Corpuscular HGB Conc 33.3 g/dl (31.0-35.0); Mean Platelet Volume 9.4 fL (9.4-12.3); Monocytes Absolute Auto 0.9 X10*3/uL (0.1-1.2); Monocytes Percent Auto 4.3 % (2-11); Neutrophils Absolute Auto 18.8 x10*3/uL (2.0-8.3); Neutrophils Percent Auto 86.1 % (45-73); Platelet Count 498 X10*3/uL (160-400); Red Blood Count 3.25 X10*6/uL (4.20-5.50); Red Cell Distribution Width 11.6 % (11.0-16.0); White Blood Count 21.8 X10*3/uL (4.8-10.8)
[2023-12-05 05:44] LABS: Anion Gap 13 (12-20); Blood Urea Nitrogen 9 mg/dL (9-16); Calcium 8.3 mg/dL (8.4-10.2); Carbon Dioxide 19 mmol/L (22-29); Chloride 114 mmol/L (96-108); Creatinine Clr Calc Pharmacy 96.1; Estimated Glomerular Filt Rate > 60; Glucose Fasting 120 mg/dL (60-99); Potassium 4.1 mmol/L (3.3-5.1); Sodium 142 mmol/L (135-145)
[2023-12-05 07:10] VITALS: BP 152/81; PULSE 69; RESP 16; TEMP 37.1; O2SAT 97
--- NOTE | 2023-12-05 07:32 | HO.STUDPN_ITS ---
Subjective Subjective Date of Service: 12/05/23 <Naima Live - Last Filed: 12/05/23 09:27> 12/05/23 <Shira Morris PA-C - Last Filed: 12/05/23 09:37> 12/05/23 <Jean Ha MD - Last Filed: 12/05/23 09:39> Interval History: 48 yr old cisgender female status post day 1 of exploratory laparotomy, sigmoid resection, end colostomy, Rachelle's pouch, en block resection of left adnexa abscess/mass. Pt reports that she is feeling much improvement compared prior to procedure. Pt reports pt has silght nasuea right after procedure yesterday but no naseau or vomiting currently. Over night she heard her colostomy bag gurgling, she let nurse know who told her that this was normal. She report some tenderness near incision sites when laughing or movements in bed. Pt denies flatulence, belching, distension or stool in colostomy bag. Pt reports coughing up some yellow phlegm related to having an UPI. Pt has been using incentive spirometer. <Naima Live - Last Filed: 12/05/23 09:27> Pt reports that she is feeling much improvement compared prior to procedure. Pt reports pt has silght nasuea right after procedure yesterday but no nausea or vomiting currently. Over night she heard her colostomy bag gurgling, she let nurse know who told her that this was normal. She report some tenderness near incision sites when laughing or movements in bed. Pt denies flatulence, belching, distension or stool in colostomy bag. Pt reports coughing up some yellow phlegm related to having an URI. Pt has been using incentive spirometer. <Shira Morris PA-C - Last Filed: 12/05/23 09:37> Constitutional no fever, chills or fatigue <Naima Live - Last Filed: 12/05/23 09:27> Cardiovascular no palpitations <Naima Live - Last Filed: 12/05/23 09:27> Respiratory some cough with yellow phlegm ( pt reports she had an cold prior to procedure)or wheezing, no SOB <Naima Live - Last Filed: 12/05/23 09:27> Gastrointestinal No nasuea or vomitting <[facility] - Last Filed: 12/05/23 09:27> Genitourinary no buring with urination no dysuria. <[facility] Last Filed: 12/05/23 09:27> Musculoskeletal left lower leg cast <[facility] Last Filed: 12/05/23 09:27> Physical Exam 2 Vital Signs: Vital Signs: Last Vital Signs Temp 98.8 F 12/05/23 07:10 Pulse 69 12/05/23 07:10 Resp 16 12/05/23 07:10 BP 152/81 H 12/05/23 07:10 Pulse Ox 97 12/05/23 07:10 O2 Del Method Room Air 12/05/23 07:10 O2 Flow Rate 2 12/04/23 14:29 BMI result Body [facility] Index 29.7 [facility] Last Filed: 12/05/23 09:27> Const: Other: well appearing, alert, interative <Naima michael Last Filed: 12/05/23 09:27> Other: well appearing, alert, interactive <Shira Morris PA-C - Last Filed: 12/05/23 09:37> Orientation/consciousness: patient oriented x3 <Shira Morris PA-C - Last Filed: 12/05/23 09:37> Resp: Other: normal respiratory effort, no wheezing rhonic or rales [facility] Last Filed: 12/05/23 09:27> Cardio: Other: RRR, nl S1/S2 [facility] Last Filed: 12/05/23 09:27> GI: Other: soft, nondistended, nontender, no guarding, no rebound. stoma erythmetaous, red bloody fluid present in colostomy bag. [facility] Last Filed: 12/05/23 09:27> Other: soft, nondistended, mild incisional tenderness, no guarding, no rebound. stoma beefy red, sanguineous fluid present in colostomy bag MO drain serosanguineous <Shira Morris PA-C - Last Filed: 12/05/23 09:37> Inspection: Yes incision (dressing intact ) <Shira Morris PA-C - Last Filed: 12/05/23 09:37> : Other: folley catheter in place <Naima Live - Last Filed: 12/05/23 09:27> Skin: Other: no lesions or rash <Naima Live - Last Filed: 12/05/23 09:27> Neuro: General: patient oriented x3 <Shira Morris PA-C - Last Filed: 12/05/23 09:37> Objective Data Active Medications Buspirone HCl (Buspirone Hcl 10 Mg Tablet) 10 mg PO BID [facility] Last Admin: 12/04/23 20:45 Dose: Not Given Documented By: GELY Non-Admin Reason: Patient Refused Calcium Carbonate (Calcium Carbonate 750 Mg Tab.Chew) 750 mg PO Q4H PRN PRN Reason: Heartburn Enoxaparin Sodium (Enoxaparin Sodium 40 Mg/0.4 Ml Syringe) 40 mg SUBCUT Q24H [facility] Last Admin: 12/04/23 19:55 Dose: 40 mg Documented By: GELY Acetaminophen (Ofirmev) 1,000 mg in 100 mls @ 400 mls/hr IV Q6H [facility] Last Infusion: 12/05/23 03:31 Dose: Infused Documented By: RUDDY Piperacillin Sod/Tazobactam (Sod 4.5 gm/ Sodium Chloride) 100 mls @ 200 mls/hr IV Q6H [facility] Last Infusion: 12/05/23 02:30 Dose: Infused Documented By: RUDDY Lactated Ringer's (Lr) 1,000 mls @ 80 mls/hr IVCONT .[id number] [facility] Ketorolac Tromethamine (Ketorolac Tromethamine 15 Mg/Ml Vial) 15 mg IVPUSH Q6H PRN PRN Reason: Pain, Mild (Pain Scale 1-3) Last Admin: 12/04/23 19:55 Dose: 15 mg Documented By: GELY Magnesium Hydroxide (Milk Of Magnesia 30 Ml Oral.Susp) 30 ml PO DAILY PRN PRN Reason: Constipation Melatonin (Melatonin 3 Mg Tablet) 6 mg PO BEDTIME PRN PRN Reason: Insomnia Metoclopramide HCl (Metoclopramide Hcl 10 Mg/2 Ml Vial) 10 mg IVPUSH Q6H PRN PRN Reason: Nausea and Vomiting Last Admin: 12/04/23 15:32 Dose: 10 mg Documented By: EDY Morphine Sulfate (Morphine Sulfate 4 Mg/Ml Cartridge) 4 mg IVPUSH Q4H PRN; Protocol PRN Reason: Pain, Severe (Pain Scale 7-10) Last Admin: 12/04/23 18:17 Dose: 4 mg Documented By: EDY Ondansetron HCl (Ondansetron Hcl 4 Mg/2 Ml Vial) 4 mg IVPUSH Q8H PRN PRN Reason: Nausea and Vomiting Last Admin: 12/04/23 02:45 Dose: 4 mg Documented By: GELY Comments: downtime Sodium Chloride (0.9 % Sodium Chloride Flush 3 Ml Syringe) [facility] Last Admin: 12/04/23 23:35 Dose: Not Given Documented By: RUDDY Non-Admin Reason: IV Running <Naima Ahmad - Last Filed: 12/05/23 09:27> Labs CBC & Chem 7: 12/05/23 05:10 12/05/23 05:10 <Naima Ahmad - Last Filed: 12/05/23 09:27> Labs: Laboratory Results - last 24 hr 12/04/23 12/05/23 07:59 05:10 MCV 96.0 MCH 32.0 MCHC 33.3 RDW 11.6 Plt Count 498 H MPV 9.4 Immature Gran % (Auto) 1.4 H Neut % (Auto) 86.1 H Lymph % (Auto) 8.0 L [place] % (Auto) 4.3 Eos % (Auto) 0.0 Baso % (Auto) 0.2 Lymph # (Auto) 1.8 [place] # (Auto) 0.9 Eos # (Auto) 0.0 Baso # (Auto) 0.0 Abs Immat Gran (auto) 0.30 H Absolute Neuts (auto) 18.8 H Absolute Nucleated RBC 0.000 Nucleated RBC % (auto) 0.0 Anion Gap 13 Estim Creat Clear Calc 96.1 Estimated GFR > 60 Fasting Glucose 120 H Calcium 8.3 L Blood Type O Negative Antibody Screen NEGATIVE <Naima Ahmad - Last Filed: 12/05/23 09:27> Assessment and Plan (1) Diverticulitis: Status: Acute <Naima Live - Last Filed: 12/05/23 09:27> (2) Status post Rachelle's procedure: Status: Acute <Naima Live - Last Filed: 12/05/23 09:27> Assessment and Plan: Remove folley cather to encourage patietn to ampbulate. Pt does have left CAM boot and crutches. Possibily PT to help patient with ambulation. Pt is currently NPO, start oral fluids to see how patient tolerates. Continue pain managment and IV antibiotoics. <Naima Live - Last Filed: 12/05/23 09:27> Remove folley cather to encourage patietn to ampbulate. Pt does have left CAM boot and crutches. Possibily PT to help patient with ambulation. Pt is currently NPO, start oral fluids to see how patient tolerates. Continue pain managment and IV antibiotoics. Agree with above assessment and plan. Patient is POD #1 s/p exploratory laparotomy, sigmoid resection, end colostomy, Rachelle's pouch, en block resection of left adnexa abscess/ mass. Overall doing well post op. Pain well controlled. No significant ostomy output. VSS. Abd exam is benign with appropriate post op tenderness, ostomy viable appearing. Will advance to clear liquids. Cont IVF, IV abx. Dc hargrove, increase ambulation. Repeat CBC in am. Ostomy education. Await ostomy output. Patient comfortable with plan. <Shira Morris PA-C - Last Filed: 12/05/23 09:37> Remove folley cather to encourage patietn to ampbulate. Pt does have left CAM boot and crutches. Possibily PT to help patient with ambulation. Pt is currently NPO, start oral fluids to see how patient tolerates. Continue pain managment and IV antibiotoics. Agree with above assessment and plan. Patient is POD #1 s/p exploratory laparotomy, sigmoid resection, end colostomy, Rachelle's pouch, en block resection of left adnexa abscess/ mass. Overall doing well post op. Pain well controlled. No significant ostomy output. VSS. Abd exam is benign with appropriate post op tenderness, ostomy viable appearing. Will advance to clear liquids. Cont IVF, IV abx. Dc hargrove, increase ambulation. Repeat CBC in am. Ostomy education. Await ostomy output. Patient comfortable with plan. . As noted above <Jean Ha MD - Last Filed: 12/05/23 09:39> Quality Stroke Does the patient have a stroke diagnosis?: No <Naima Live - Last Filed: 12/05/23 09:27> VTE Prior VTE?: No <Naima Evansd - Last Filed: 12/05/23 09:27> VTE Risk Level:: Surgical - high <Naimasa Live - Last Filed: 12/05/23 09:27> VTE Device Contraindication: N/A - Device Ordered <Naimasa Live - Last Filed: 12/05/23 09:27> VTE Drug Contraindication: N/A - Med Ordered <Naima michael - Last Filed: 12/05/23 09:27>
[2023-12-05] MEDS: Lactated Ringers 1,000 ML 80 ML IVCONT ×2 (07:37→21:01)
[2023-12-05] MEDS: 0.9 % Sodium Chloride Flush 3 ML SYRINGE IVFLUSH (07:48)
[2023-12-05] MEDS: Ketorolac Tromethamine 15 MG/ML VIAL IVPUSH ×2 (07:58→14:45)
[2023-12-05 11:24] VITALS: BP 136/80; PULSE 84; RESP 14; TEMP 36.7; O2SAT 96
[2023-12-05] MEDS: Morphine Sulfate 4 MG/ML CARTRIDGE IVPUSH ×2 (12:03→19:24)
--- NOTE | 2023-12-05 12:50 | MHC.CM.PN ---
PT WITH NEW OSTOMY, [facility] REFERRALS MADE
--- NOTE | 2023-12-05 13:58 | HO.POSTANES ---
Post Anesthesia Evaluation Post Anesthesia Evaluation Date of Service: 12/05/23 Vital Signs: Vital Signs Temp Pulse Resp BP Pulse Ox O2 Del Method 12/05/23 11:24 98.1 F 84 14 136/80 96 Room Air 12/05/23 07:10 98.8 F 69 16 152/81 H 97 Room Air 12/05/23 03:27 97.4 F 73 18 140/74 H 96 Room Air Anesthesia: Regional (bilateral TAP block) and General Endotracheal-GETA Mental Status: Awake Pain Control: Satisfactory Nausea/Vomiting: None Hydration: Adequate Anesthesia-Related Issues: No Anes. Related Issues
--- NOTE | 2023-12-05 14:06 | PC.NURSE ---
Vogel D/C,patient tolerated it well,DTV #1 at 2000
[2023-12-05] MEDS: Calcium Carbonate 750 MG TAB.CHEW PO (15:33)
--- NOTE | 2023-12-05 15:33 | PC.NURSE ---
PT c/o heartburn,Tums administered as ordered
[2023-12-05 15:42] VITALS: BP 141/81; PULSE 78; RESP 16; TEMP 36.9; O2SAT 96
[2023-12-05] MEDS: ondansetron HCL 4 MG/2 ML VIAL IVPUSH (19:31)
[2023-12-05 19:43] VITALS: BP 133/88; PULSE 69; RESP 18; TEMP 36.7; O2SAT 97
[2023-12-05] MEDS: busPIRone HCl 10 MG TABLET PO (20:22)
[2023-12-05] MEDS: Enoxaparin Sodium 40 MG/0.4 ML SYRINGE SUBCUT (21:08)
[2023-12-05 23:22] VITALS: BP 130/70; PULSE 70; RESP 18; TEMP 36.9; O2SAT 97
[2023-12-06] MEDS: Ketorolac Tromethamine 15 MG/ML VIAL IVPUSH ×3 (02:06→19:55)
[2023-12-06] MEDS: Piperacillin Sodium/Tazobactam 4.5 GM in 0.9 % Sodium Chloride 100 ML IV ×4 (02:11→21:08)
[2023-12-06] MEDS: Acetaminophen 1,000 MG/100 ML PIGGYBACK 400 MG IV ×3 (02:48→21:45)
[2023-12-06 03:32] VITALS: BP 129/92; PULSE 70; RESP 18; TEMP 36.4; O2SAT 96
[2023-12-06 06:33] LABS: MANUAL DIFF FLAG NO
[2023-12-06 06:49] VITALS: BP 139/82; PULSE 72; RESP 17; TEMP 36.6; O2SAT 97
[2023-12-06 07:01] LABS: Basophils Absolute Auto 0.1 X10*3/uL (0.0-0.2); Basophils Percent Auto 0.3 % (0-2); Eosinophils Absolute Auto 0.1 X10*3/uL (0.0-0.4); Eosinophils Percent Auto 0.4 % (0-4); Hematocrit 29.1 % (37.0-47.0); Hemoglobin 9.4 g/dl (12.0-16.0); Imm Gran Abs Auto 0.23 X10*3/uL (0.00-0.03); Imm Gran Pct Auto 1.4 % (0.0-0.4); Lymphocytes Absolute Auto 2.6 X10*3/uL (1.2-4.9); Mean Corpuscular HGB Conc 32.3 g/dl (31.0-35.0); Mean Corpuscular Hemoglobin 31.8 pg (27.0-33.0); Mean Corpuscular Volume 98.3 fL (80.0-98.0); Mean Platelet Volume 9.5 fL (9.4-12.3); Monocytes Absolute Auto 0.8 X10*3/uL (0.1-1.2); Neutrophils Absolute Auto 12.5 x10*3/uL (2.0-8.3); Neutrophils Percent Auto 76.9 % (45-73); Platelet Count 438 X10*3/uL (160-400); Red Blood Count 2.96 X10*6/uL (4.20-5.50); Red Cell Distribution Width 11.9 % (11.0-16.0); White Blood Count 16.3 X10*3/uL (4.8-10.8)
[2023-12-06] MEDS: Morphine Sulfate 4 MG/ML CARTRIDGE IVPUSH ×2 (07:56→16:41)
[2023-12-06] MEDS: ondansetron HCL 4 MG/2 ML VIAL IVPUSH ×2 (07:56→16:41)
[2023-12-06] MEDS: 0.9 % Sodium Chloride Flush 3 ML SYRINGE IVFLUSH (08:09)
--- NOTE | 2023-12-06 08:51 | P.PNGS_ITS ---
Subjective Subjective Date of Service: 12/06/23 Interval history: Complains mainly of incisional pain otherwise feels improved. Ostomy is producing liquid stool. She was able to tolerate some clear liquids but not much of an appetite yet. Physical Exam 2 Vital Signs: Vital Signs: Last Vital Signs Temp 98 F 12/06/23 06:49 Pulse 72 12/06/23 06:49 Resp 17 12/06/23 06:49 BP 139/82 12/06/23 06:49 Pulse Ox 97 12/06/23 06:49 O2 Del Method Room Air 12/06/23 06:49 O2 Flow Rate 2 12/04/23 14:29 BMI result Body Mass Index 29.7 Const: General: no acute distress Nutritional Appearance: well nourished Orientation/consciousness: patient oriented x3 Resp: Effort & Inspection: normal respiratory effort and no audible wheezes GI: Other: Dressings changed and alena advanced. Incision is clean and terrell in-situ. Ostomy is pink and viable with a large amount of liquid stool. Skin: Other: Warm, dry, no rash Neuro: General: patient oriented x3 Extrem: Other: No edema Objective Data Active Medications Buspirone HCl (Buspirone Hcl 10 Mg Tablet) 10 mg PO BID [facility] Last Admin: 12/06/23 08:35 Dose: Not Given Documented By: SANDI Non-Admin Reason: Patient Refused Calcium Carbonate (Calcium Carbonate 750 Mg Tab.Chew) 750 mg PO Q4H PRN PRN Reason: Heartburn Last Admin: 12/05/23 15:33 Dose: 750 mg Documented By: RAQUEL Enoxaparin Sodium (Enoxaparin Sodium 40 Mg/0.4 Ml Syringe) 40 mg SUBCUT Q24H [facility] Last Admin: 12/05/23 21:08 Dose: 40 mg Documented By: KHARI Acetaminophen (Ofirmev) 1,000 mg in 100 mls @ 400 mls/hr IV Q6H [facility] Last Infusion: 12/06/23 03:04 Dose: Infused Documented By: AKHIL Piperacillin Sod/Tazobactam (Sod 4.5 gm/ Sodium Chloride) 100 mls @ 200 mls/hr IV Q6H [facility] Last Admin: 12/06/23 07:55 Dose: 200 mls/hr Documented By: SANDI Lactated Ringer's (Lr) 1,000 mls @ 80 mls/hr IVCONT .[id number] [facility] Last Infusion: 12/06/23 08:09 Dose: 0 mls/hr Documented By: SANDI Ketorolac Tromethamine (Ketorolac Tromethamine 15 Mg/Ml Vial) 15 mg IVPUSH Q6H PRN PRN Reason: Pain, Mild (Pain Scale 1-3) Last Admin: 12/06/23 02:06 Dose: 15 mg Documented By: KHARI Magnesium Hydroxide (Milk Of Magnesia 30 Ml Oral.Susp) 30 ml PO DAILY PRN PRN Reason: Constipation Melatonin (Melatonin 3 Mg Tablet) 6 mg PO BEDTIME PRN PRN Reason: Insomnia Metoclopramide HCl (Metoclopramide Hcl 10 Mg/2 Ml Vial) 10 mg IVPUSH Q6H PRN PRN Reason: Nausea and Vomiting Last Admin: 12/04/23 15:32 Dose: 10 mg Documented By: EDY Morphine Sulfate (Morphine Sulfate 4 Mg/Ml Cartridge) 4 mg IVPUSH Q4H PRN; Protocol PRN Reason: Pain, Severe (Pain Scale 7-10) Last Admin: 12/06/23 07:56 Dose: 4 mg Documented By: SANDI Ondansetron HCl (Ondansetron Hcl 4 Mg/2 Ml Vial) 4 mg IVPUSH Q8H PRN PRN Reason: Nausea and Vomiting Last Admin: 12/06/23 07:56 Dose: 4 mg Documented By: SANDI Sodium Chloride (0.9 % Sodium Chloride Flush 3 Ml Syringe) [facility] Last Admin: 12/06/23 08:09 Dose: 3 ml Documented By: SANDI Labs 12/06/23 06:18 12/05/23 05:10 Labs: Laboratory Results - last 24 hr 12/06/23 06:18 MCV 98.3 H MCH 31.8 MCHC 32.3 RDW 11.9 Plt Count 438 H MPV 9.5 Immature Gran % (Auto) 1.4 H Neut % (Auto) 76.9 H Lymph % (Auto) 16.0 L [place] % (Auto) 5.0 Eos % (Auto) 0.4 Baso % (Auto) 0.3 Lymph # (Auto) 2.6 [place] # (Auto) 0.8 Eos # (Auto) 0.1 Baso # (Auto) 0.1 Abs Immat Gran (auto) 0.23 H Absolute Neuts (auto) 12.5 H Absolute Nucleated RBC 0.000 Nucleated RBC % (auto) 0.0 Hold Yellow Top See Note Procedures Date of Service Date of Service: 12/06/23 Progress Note: A&P Assessment and plan (1) Status post Rachelle's procedure: Status: Acute Plan Pod 2 following Rachelle procedure. Patient remains hemodynamically stable. Wounds are clean, dressings changed and alena advanced. Ostomy is now functioning with liquid stool. We will keep patient on clear liquids as she has not tolerated much in the last 24 hours. Encouraged out of bed ambulation. She was able to go to the bathroom to urinate following catheter removal. Incentive spirometry also encouraged. Time Spent With Patient Time: Total time managing care of this patient today ____ minutes. Quality Stroke Does the patient have a stroke diagnosis?: No VTE Prior VTE?: No VTE Risk Level:: Surgical - high VTE Device Contraindication: N/A - Device Ordered VTE Drug Contraindication: N/A - Med Ordered
[2023-12-06] MEDS: Lactated Ringers 1,000 ML 80 ML IVCONT ×2 (09:05→21:48)
[2023-12-06 15:27] VITALS: BP 158/70; PULSE 70; RESP 16; TEMP 36.7; O2SAT 99
[2023-12-06 16:13] VITALS: PULSE 67; RESP 16; TEMP 36.7; O2SAT 97
[2023-12-06 19:18] VITALS: BP 156/92; PULSE 76; RESP 17; TEMP 36.9; O2SAT 96
[2023-12-06] MEDS: Enoxaparin Sodium 40 MG/0.4 ML SYRINGE SUBCUT (21:12)
[2023-12-06 23:40] VITALS: BP 140/88; PULSE 73; RESP 18; TEMP 36.5; O2SAT 96
[2023-12-07] MEDS: Ketorolac Tromethamine 15 MG/ML VIAL IVPUSH (02:02)
[2023-12-07] MEDS: Piperacillin Sodium/Tazobactam 4.5 GM in 0.9 % Sodium Chloride 100 ML IV ×4 (02:36→21:07)
[2023-12-07] MEDS: Acetaminophen 1,000 MG/100 ML PIGGYBACK 400 MG IV ×2 (03:08→09:32)
[2023-12-07 03:30] VITALS: BP 158/93; PULSE 65; RESP 18; TEMP 36.6; O2SAT 95
[2023-12-07 07:00] VITALS: BP 160/90; PULSE 66; RESP 17; TEMP 36.8; O2SAT 99
[2023-12-07] MEDS: 0.9 % Sodium Chloride Flush 3 ML SYRINGE IVFLUSH ×4 (08:47→21:13)
--- NOTE | 2023-12-07 09:11 | P.PNGS_ITS ---
Subjective Subjective Date of Service: 12/07/23 Interval history: Overall patient feels improved today with decreased abdominal pain. She had a good night with no nausea or vomiting. Ostomy remains functioning. She tolerated full liquid diet yesterday. Physical Exam 2 Vital Signs: Vital Signs: Last Vital Signs Temp 98.3 F 12/07/23 07:00 Pulse 66 12/07/23 07:00 Resp 17 12/07/23 07:00 BP 160/90 H 12/07/23 07:00 Pulse Ox 99 12/07/23 07:00 O2 Del Method Room Air 12/07/23 07:00 O2 Flow Rate 2 12/04/23 14:29 BMI result Body Mass Index 29.7 Const: General: no acute distress Nutritional Appearance: well nourished Orientation/consciousness: patient oriented x3 Resp: Effort & Inspection: normal respiratory effort and no audible wheezes GI: Other: Dressings changed and alena removed. Dry sterile dressings applied. Ostomy pink and viable with semi formed stool within the bag. Skin: Other: Warm, dry, no rash Neuro: General: patient oriented x3 Extrem: Other: No edema Objective Data Active Medications Buspirone HCl (Buspirone Hcl 10 Mg Tablet) 10 mg PO BID [facility] Last Admin: 12/07/23 09:10 Dose: Not Given Documented By: SANDI Non-Admin Reason: Patient Refused Calcium Carbonate (Calcium Carbonate 750 Mg Tab.Chew) 750 mg PO Q4H PRN PRN Reason: Heartburn Last Admin: 12/05/23 15:33 Dose: 750 mg Documented By: RAQUEL Enoxaparin Sodium (Enoxaparin Sodium 40 Mg/0.4 Ml Syringe) 40 mg SUBCUT Q24H [facility] Last Admin: 12/06/23 21:12 Dose: 40 mg Documented By: KHARI Acetaminophen (Ofirmev) 1,000 mg in 100 mls @ 400 mls/hr IV Q6H [facility] Last Infusion: 12/07/23 03:32 Dose: Infused Documented By: KHARI Piperacillin Sod/Tazobactam (Sod 4.5 gm/ Sodium Chloride) 100 mls @ 200 mls/hr IV Q6H [facility] Last Admin: 12/07/23 08:34 Dose: 200 mls/hr Documented By: SANDI Ketorolac Tromethamine (Ketorolac Tromethamine 15 Mg/Ml Vial) 15 mg IVPUSH Q6H PRN PRN Reason: Pain, Mild (Pain Scale 1-3) Last Admin: 12/07/23 02:02 Dose: 15 mg Documented By: AKHIL Magnesium Hydroxide (Milk Of Magnesia 30 Ml Oral.Susp) 30 ml PO DAILY PRN PRN Reason: Constipation Melatonin (Melatonin 3 Mg Tablet) 6 mg PO BEDTIME PRN PRN Reason: Insomnia Metoclopramide HCl (Metoclopramide Hcl 10 Mg/2 Ml Vial) 10 mg IVPUSH Q6H PRN PRN Reason: Nausea and Vomiting Last Admin: 12/04/23 15:32 Dose: 10 mg Documented By: EDY Morphine Sulfate (Morphine Sulfate 4 Mg/Ml Cartridge) 4 mg IVPUSH Q4H PRN; Protocol PRN Reason: Pain, Severe (Pain Scale 7-10) Last Admin: 12/06/23 16:41 Dose: 4 mg Documented By: SANDI Ondansetron HCl (Ondansetron Hcl 4 Mg/2 Ml Vial) 4 mg IVPUSH Q8H PRN PRN Reason: Nausea and Vomiting Last Admin: 12/06/23 16:41 Dose: 4 mg Documented By: SANDI Oxycodone HCl (Oxycodone Hcl Immed Release 5 Mg Tablet) 5 mg PO Q6H PRN PRN Reason: Pain, Moderate(Pain Scale 4-6) Sodium Chloride (0.9 % Sodium Chloride Flush 3 Ml Syringe) 3 ml [facility] Last Admin: 12/07/23 08:47 Dose: 3 ml Documented By: SANDI Labs 12/06/23 06:18 12/05/23 05:10 Microbiology Microbiology Results: Microbiology 12/01/23 11:57 Blood Culture - Final Blood - Venous No growth after 5 days. 12/01/23 11:44 Blood Culture - Final Blood - Venous No growth after 5 days. Procedures Date of Service Date of Service: 12/07/23 Progress Note: A&P Assessment and plan (1) Status post Rachelle's procedure: Status: Acute (2) Diverticulitis: Status: Acute Plan Pod 3 following Rachelle procedure for perforated diverticulitis with abscess. Patient continues to improve with decreased abdominal pain. She is tolerating regular diet and has been ambulatory yesterday. Wounds are clean without erythema. The remaining alena were removed and dry sterile dressings applied. Ostomy is functioning well. She tolerated the full liquid diet without difficulty feels ready for regular diet. She should continue to ambulate in use the incentive spirometry. Time Spent With Patient Time: Total time managing care of this patient today ____ minutes. Quality Stroke Does the patient have a stroke diagnosis?: No VTE Prior VTE?: No VTE Risk Level:: Surgical - high VTE Device Contraindication: N/A - Device Ordered VTE Drug Contraindication: N/A - Med Ordered
[2023-12-07] MEDS: oxyCODONE HCl Immed Release 5 MG TABLET PO ×3 (11:16→23:24)
[2023-12-07 15:34] VITALS: BP 138/98; PULSE 61; RESP 20; TEMP 36.4; O2SAT 99
[2023-12-07 19:23] VITALS: BP 143/76; PULSE 73; RESP 20; TEMP 37.1; O2SAT 97
[2023-12-07] MEDS: Enoxaparin Sodium 40 MG/0.4 ML SYRINGE SUBCUT (21:12)
[2023-12-07 23:53] VITALS: BP 148/85; PULSE 73; RESP 18; TEMP 36.8; O2SAT 95
[2023-12-08] MEDS: Piperacillin Sodium/Tazobactam 4.5 GM in 0.9 % Sodium Chloride 100 ML IV ×2 (03:01→08:15)
[2023-12-08 03:22] VITALS: BP 159/90; PULSE 76; RESP 20; TEMP 36.8; O2SAT 93
[2023-12-08] MEDS: Ketorolac Tromethamine 15 MG/ML VIAL IVPUSH ×2 (03:36→12:46)
[2023-12-08 07:13] VITALS: BP 162/89; PULSE 64; RESP 16; TEMP 36.7; O2SAT 96
--- NOTE | 2023-12-08 07:21 | PM.PNGS ---
Subjective Subjective Date of Service: 12/08/23 Interval history: Patient is doing well. Incisional pain minimal. She is attempting to ambulate/out of bed although difficult because she is using crutches and is not weight-bearing under left ankle status post surgery. Ostomy is functioning well. Patient was on regular diet. Physical Exam Vital Signs: Vital Signs: Last Vital Signs Temp 98.1 F 12/08/23 07:13 Pulse 64 12/08/23 07:13 Resp 16 12/08/23 07:13 BP 162/89 H 12/08/23 07:13 Pulse Ox 96 12/08/23 07:13 O2 Del Method Room Air 12/08/23 07:13 O2 Flow Rate 2 12/04/23 14:29 BMI result Body Mass Index 29.7 GI: Other: Abdomen is soft. Incision clean dry and intact. MO drain skin output uneventfully removed. Dressing applied. Objective Data Active Medications Buspirone HCl (Buspirone Hcl 10 Mg Tablet) 10 mg PO BID [facility] Last Admin: 12/07/23 21:11 Dose: Not Given Documented By: RAO Non-Admin Reason: patient declined Calcium Carbonate (Calcium Carbonate 750 Mg Tab.Chew) 750 mg PO Q4H PRN PRN Reason: Heartburn Last Admin: 12/05/23 15:33 Dose: 750 mg Documented By: RQAUEL Enoxaparin Sodium (Enoxaparin Sodium 40 Mg/0.4 Ml Syringe) 40 mg SUBCUT Q24H [facility] Last Admin: 12/07/23 21:12 Dose: 40 mg Documented By: RAO Piperacillin Sod/Tazobactam (Sod 4.5 gm/ Sodium Chloride) 100 mls @ 200 mls/hr IV Q6H [facility] Last Infusion: 12/08/23 03:31 Dose: Infused Documented By: RAO Ketorolac Tromethamine (Ketorolac Tromethamine 15 Mg/Ml Vial) 15 mg IVPUSH Q6H PRN PRN Reason: Pain, Mild (Pain Scale 1-3) Last Admin: 12/08/23 03:36 Dose: 15 mg Documented By: RAO Magnesium Hydroxide (Milk Of Magnesia 30 Ml Oral.Susp) 30 ml PO DAILY PRN PRN Reason: Constipation Melatonin (Melatonin 3 Mg Tablet) 6 mg PO BEDTIME PRN PRN Reason: Insomnia Metoclopramide HCl (Metoclopramide Hcl 10 Mg/2 Ml Vial) 10 mg IVPUSH Q6H PRN PRN Reason: Nausea and Vomiting Last Admin: 12/04/23 15:32 Dose: 10 mg Documented By: EDY Morphine Sulfate (Morphine Sulfate 4 Mg/Ml Cartridge) 4 mg IVPUSH Q4H PRN; Protocol PRN Reason: Pain, Severe (Pain Scale 7-10) Last Admin: 12/06/23 16:41 Dose: 4 mg Documented By: SANDI Ondansetron HCl (Ondansetron Hcl 4 Mg/2 Ml Vial) 4 mg IVPUSH Q8H PRN PRN Reason: Nausea and Vomiting Last Admin: 12/06/23 16:41 Dose: 4 mg Documented By: SANDI Oxycodone HCl (Oxycodone Hcl Immed Release 5 Mg Tablet) 5 mg PO Q6H PRN PRN Reason: Pain, Moderate(Pain Scale 4-6) Last Admin: 12/07/23 23:24 Dose: 5 mg Documented By: RAO Sodium Chloride (0.9 % Sodium Chloride Flush 3 Ml Syringe) [facility] Last Admin: 12/07/23 21:13 Dose: 3 ml Documented By: RAO Labs 12/06/23 06:18 12/05/23 05:10 Procedures Date of Service Date of Service: 12/08/23 Progress Note: A&P Assessment and plan (1) Status post Rachelle's procedure: Status: Acute (2) Tubal ovarian abscess: Status: Acute (3) Diverticulitis: Status: Acute Plan Continue current plan. Consider physical therapy consultation. Patient is to see her orthopedic surgeon later this week to see if she is cleared for weight-bearing. In the meantime, still using crutches. Time Spent With Patient Time: Total time managing care of this patient today ____ minutes. Quality Stroke Does the patient have a stroke diagnosis?: No VTE Prior VTE?: No VTE Risk Level:: Surgical - high VTE Device Contraindication: N/A - Device Ordered VTE Drug Contraindication: N/A - Med Ordered
[2023-12-08] MEDS: 0.9 % Sodium Chloride Flush 3 ML SYRINGE IVFLUSH (08:15)
[2023-12-08] MEDS: busPIRone HCl 10 MG TABLET PO (08:15)
[2023-12-08] MEDS: amLODIPine Besylate 5 MG TABLET PO (09:22)
[2023-12-08] MEDS: oxyCODONE HCl Immed Release 5 MG TABLET PO (09:22)
[2023-12-08 12:00] VITALS: BP 170/80; PULSE 86; RESP 16; TEMP 36.6; O2SAT 97
--- NOTE | 2023-12-08 12:25 | MHC.CM.PN ---
Addendum entered by Magdalene Tyler 12/08/23 14:23: PT NOW CLEARED TO DC HOME TODAY WITH [facility] WILL PROVIDE SERVICES, HOWEVER THEY ARE UNABLE TO PROVIDE SOC UNTIL THE END OF THE WEEK PT WILL ARRANGE TRANSPORT Original Note: PT NOT YET MEDICALLY CLEARED TO DC [facility] REFERRAL MADE FOR SN DUE TO NEW OSTOMY CM WILL FOLLOW FOR CHANGING DC NEEDS
--- NOTE | 2023-12-08 13:34 | HO.OSTOMY ---
Ostomy Consult: Initial Teaching 48yr old female admitted to [facility] on 12/01/23 see H&P for detailed history and admission.? Consult for new ostomy teaching. ?She had an Colostomy creation on 12/04/[address] Ha. ?Upon entry into patient's room, she is sitting in her recliner chair. She is alert and oriented x 3, she currently has no complaints. ?Introductions were completed, she is agreeable to continuing with teaching. ? We discussed her pain control at 06/17 at the current moment, she reports increasing the use of her IS and ambulating as best she can given her lef leg fracture. Currently in boot and awaitning PT eval. ?We began by discussing general knowledge about the Colostomy and questions she had. ?We discussed opening and closing the ostomy pouch. She was able to independently provide a return demonstration on an empty pouch. ?She had not yet emptied her pouch however with assessment it was due to be changed so we ambulated to bathroom and she with stanbd by assist empties her pouch with out complication. We discussed the importance of emptying pouch when 1/3 to 1/2 full, how to empty pouch, and lining water with toilet paper to prevent splash back. She was also educated on when to contact radio equipment repairer/Dr Ha's office/seek emergency medical treatment. Patient was given some ostomy pouches for transition to home. Aware that Rx written for pouches and rings will be sent by Outpt nurse to [facility] for home delivery.? Reviewed written education with patient and left at bedside for further review. ?She did watch the education videos supplied by [facility]. Permission was granted for pouch assessment and silent leak was noted from 3-9 o'clock.? Stoma is moist and necrotic areas of viable red tissue noted. We performed a pouch change into Coloplast # [id number] with addition of a barrier ring to account for the creases noted at 3 and 9 o'clock. She participated in the pouch changed. She reported having no questions at this time. ?Patient seems to have a good understanding of care and material at this time. ?She will benefit from VNA services at time of discharge. ?All questions and concerns addressed at this time. Permission granted for coloplast care delivery. We discussed the following steps: 1. Empty pouch before pouch change 2. Remove pouch using push/pull technique from top to bottom 3. Cleanse stoma and skin with tap water only - no soap or baby wipes 4. Pat dry 5. Measure stoma and cut new pouch no more than 1/8 inch larger than stoma and no smaller than stoma 6. If instructed by your ostomy nurse stretch barrier seal to the size of the stoma and press onto skin around stoma (up to the edge of the stoma but not onto the stoma) 7. Press the new pouch into place and hold for several minutes (close pouch tail) 8. Empty pouch when 1/3 to 1/2 full 9. Change pouch twice weekly on a schedule (for example, every Friday and ) and as needed for any leaking (feels like intense itch or burn at edge of stoma) 10. May order pre-cut pouches (already cut to size of stoma) once stoma measures the same size consistently. ?
--- NOTE | 2023-12-08 13:37 | P.F2F_ITS ---
Service Date Service Date: 12/08/23 Encounter Date of encounter: 12/08/23 Reasons for Services Signs and symptoms assessed: abdominal pain, oral intake, incision appearance, colostomy output and appearance Reason for intermediate: wound care and postoperative assessment and/or care Homebound: Leaving the home is medically contraindicated at this time without the asist of a device and/or another person due th the listed conditions above and below. Reason homebound: weakness related to hospital stay and unable to drive Homebound supporting statement: Ms. Boss is s/p aric procedure for diverticulitis with phlegmon. She will need [facility]NA for colostomy care. Certification: Based on the above findings, I certify that this patient is confined to the home and needs intermittent intermediate care, physical therapy and/or speech therapy, or continues to need occupational therapy. The patient is under my care, and I have initiated the establishment of the plan of care. The patient will be followed by a physician who will periodically review the plan of care. Time Spent With Patient Time: Total time managing care of this patient today ____ minutes.
--- NOTE | 2023-12-08 13:38 | PM.DS ---
DS: Providers Provider Date of Service: 12/08/23 Date of admission: 12/01/23 12:43 Date of discharge: 12/08/23 Primary care physician: Heidy Millan MD Attending physician on admission: Jean Ha Consults: 12/05/23 07:25 Consult to Ostomy Care Routine Attending physician on discharge: Jean Ha DS: Diagnosis Discharge Diagnosis (1) Status post Rachelle's procedure: Status: Acute (2) Tubal ovarian abscess: Status: Acute (3) Diverticulitis: Status: Acute DS: Summary Hospital Course Hospital Course: HPI AT ADMISSION: Susan Boss is a 48 year old female with PMH of dyslipidemia, anxiety/depression who presented to the ED with c/o left lower abdominal pain. The pain has been present for over a month now. She reports she fractured her LLE and [place] [facility] She subsequently developed LLQ pain a few days following which she attributed to the oxycodone she was taking for pain. She stopped taking the pain med without any improvement in her pain and therefore sought evaluation. She was treated empirically with levaquin PO for 7 days with some improvement in the severity however the pain has been persistent and again began to worsen in severity last night prompting her to seek care today. Work up in the ED included CBC, BMP, LFTS which was significant for a leukocytosis of 16.3. UA negative. CT scan abd/pelvis showed marked wall thickening of the rectosigmoid colon with pericolonic inflammatory change with extensive underlying diverticular disease and multiloculated solid and cystic lesion in the left adnexa. Pelvic/transvaginal US read pending. She denies fevers, chills, nausea, vomiting, diarrhea, change in stool caliber, dysuria, pneumoturia, fecaluria. She denies vaginal discharge but reports she did get her menses a week ago after about 6 months of amenorrhea. She has tried dietary changes without improvement in her pain. She reports a weight loss of about 10-12lbs over the past month due to lack of appetite from the pain. She reports one prior episode about two years ago which was treated with PO abx. She feels like that episode was worse in severity. She had a colonoscopy in 2020 which showed diverticulosis, benign nodules. HOSPITAL COURSE: She was admitted to the surgical service for further treatment of the acute diverticulitis, possible tubo-ovarian abscess, complex ovarian cyst. She was seen by Obgyn who recommended outpatient follow up regarding the likely left complex ovarian cyst but recommended treatment for tuboovarian abscess with ceftriaxone, doxycyline and flagyl and this was ordered. She was clinically appearing well with an overall benign abdominal exam and therefore initial recommendation was to continue nonoperative treatment of the diverticulitis. She however had no improvement in her symptoms and had worsening leukocytosis. It was recommended to proceed with laparotomy, sigmoid resection during her stay. She was overall stable and therefore a very gentle bowel prep was attempted in hopes to perform primary colorectal anastomosis. Her IV abx were changed to IV zosyn. On 12/04/23, exploratory laparotomy, sigmoid resection, end colostomy, Rachelle's pouch, resection of left adnexa abscess/ mass was performed by Dr. Ha without immediate complication. She was found to have profound and extensive phlegmonous sigmoid diverticulitis with a pelvic abscess involving the pelvic sidewall, left adnexa and uterus and therefore En block resection of the diseased sigmoid colon and left adnexa was performed. Because of the profound inflammatory and infective changes, primary anastomosis with or without diversion was not undertaken because of anastomotic integrity concerns, and end colostomy performed. The patient tolerated the procedure well. She had an uneventful recovery course. On POD #1, she felt overall well with good pain control and was tolerating clear liquids. Her hargrove was removed. She was ambulated. She began to have liquid stool output on POD #2. She was advanced to full liquids later that day. She was advanced to solids the next day. Her incision was clean and wound alena removed. Her MO had scant nonpurulent output and was removed. Ostomy education was performed. PT was consulted to assist with ambulation as the patient had hx of left lower extremity fracture and was still non weightbearing and using crutches. She was noted to be hypertensive with SBP ranging from 140s-160s and she was started on Norvasc 5mg PO. On the day of discharge, she was tolerating a solid diet with out nausea or vomiting, had good pain control and good colostomy output. She was ambulating with crutches without difficulty. She had a benign abd exam with clean incision. She was discharged to home on 12/08/23 in stable condition with VNA services. She was discharged on PO Augmentin. She was discharged to home on Norvasc 5mg PO daily with outpatient f/u with PCP for further BP control. Status at Discharge Functional status at discharge: independent ambulation (uses crutches) Overall status at discharge: patient is progressing back to baseline Time Attestation Discharge Coordination Time (in mins): 40 Quality: Safe Use of Opioids Does Pt have an Active Cancer Diagnosis on the Problem List?: No Quality: Stroke Does the patient have a stroke diagnosis?: No Physical Exam Vital Signs: Vital Signs: Last Vital Signs Temp 97.8 F 12/08/23 12:00 Pulse 86 12/08/23 12:00 Resp 16 12/08/23 12:00 BP 170/80 H 12/08/23 12:00 Pulse Ox 97 12/08/23 12:00 O2 Del Method Room Air 12/08/23 12:00 O2 Flow Rate 2 12/04/23 14:29 BMI result Body Mass Index 29.7 Const: General: comfortable, no acute distress and alert Orientation/consciousness: patient oriented x3 Resp: Effort & Inspection: normal respiratory effort GI: Other: ostomy viable appearing, liquid stool output Inspection: No distended and Yes incision (clean, wound alena removed) Palpation (GI): Soft to palpation, Tenderness to palpation present (GI) (very mild incisional) and no guarding Skin: General skin exam: no rashes or lesions noted Neuro: General: patient oriented x3 DS: Data Data Completed and Pending Completed studies during hospitalization [Text1]: 12/04/23 11:58 Surgical [PTH] Routine Colon, sigmoid, segmental resection: Diverticular-associated segmental colitis with marked abscess formation and adherent inflamed ovary with hemorrhagic corpus luteum and fallopian tube; negative for malignancy Discharge Plan Discharge Anticipated Discharge Date/Time: 12/08/23 13:36 Patient Disposition: Home Health Service Discharge Diagnosis: Perforated sigmoid diverticulitis with pelvic abscess Referrals: Bess GARNER [Outside] Heidy Doll MD [Primary Care Provider] - 1 Week Jean Ha MD [Physician] - 1 Week Discharge Medications: New hydrocodone-acetaminophen 5-325 mg tablet 1 tab PO Q4-6H PRN (Reason: pain) Qty: 30 0RF Rx Instructions: Partial Fill upon patient request. amoxicillin-pot clavulanate 875-125 mg tablet 1 tab PO BID Qty: 8 0RF amlodipine [Norvasc] 5 mg tablet 5 mg PO DAILY Qty: 60 0RF Continued aspirin 325 mg tablet 325 mg PO DAILY buspirone 10 mg tablet 10 mg PO BID 90 Days Qty: 180 1RF Discharge Orders: Discharge Order (Routine); Ordered 12/08/23 Ordered By: Shira Morris Diet: Advance to usual diet Activity on Discharge: No heavy lifting Stand Alone Forms: Patient Portal Discharge page Print Language: Setswana Activity Restrictions/Additional Instructions: Apply an ice pack for short intervals (20 minutes on, followed by at least 20 minutes off). Do not apply heat. Do not use creams, lotions, or topical antibiotics. These can cause infection or allergic reaction. Ok to shower. No tub bath. Keep midline incision covered while wound remains open and draining. Colostomy care- change appliance q3-4 days and as needed. Follow up in office with Dr. Ha in 1 week. ([phone]) Follow up with your PCP in 1 week. No heavy lifting (>10lbs) or strenuous activity! Call Your Doctor If: -Your temperature exceeds 101? F -You experience excessive pain or swelling -You have an unexpected reaction to medication -You have excessive bleeding -You experience continued vomiting/nausea -Your incision begins to separate -Your incision shows signs of infection such as increased redness, swelling, excessive pain, drainage (light blood or clear fluid is normal) or heat Care Plan Goals: Return to baseline health and resume normal activities following recovery period. Colostomy reversal. Health Concerns: No acute concerns Plan of Treatment: Returned to baseline Assessment: Stable Discharge Date/Time: 12/08/23 15:38
[2023-12-08] MEDS: hydrALAZINE HCl 20 MG/ML VIAL 10 MG IVPUSH (13:54)
[2023-12-08 14:18] VITALS: BP 161/83; PULSE 76
[2023-12-08 14:39] VITALS: BP 174/82
[2023-12-08 15:11] VITALS: BP 160/80; PULSE 76; RESP 18; TEMP 37; O2SAT 96
== END 2023-12-08 15:38 | disposition home health service (06) | DRG 231 ==
LOC: HO.ED 13:22 → HO.EDOVER 13:37 → HO.S3 20:23
PROVIDERS: Obstetrics & Gynecology; Surgery; Admitting Provider Physician Assistant Surgical; Emergency Provider Emergency Medicine Emergency Medical Services; PCP Internal Medicine; Visit Provider Physician Assistant Surgical
PROC: 0D1N074 Bypass Sigmoid Colon to Cutaneous with Autologous Tissue Substitute, Open Approach (ICD-10-PCS; principal; 2023-12-04 11:40)
DX: K57.20 Diverticulitis of large intestine with perforation and abscess without bleeding (principal); E87.6 Hypokalemia; N70.93 Salpingitis and oophoritis, unspecified; G89.18 Other acute postprocedural pain; Z23 Encounter for immunization; Z79.82 Long term (current) use of aspirin; Z79.899 Other long term (current) drug therapy
CPT/HCPCS: 0352U; 36415; 74177; 76830; 76856; 80048; 80053; 81001; 83605; 83690; 84702; 85025; 85027; 86850; 86900; 86901; 87040; 87086; 87491; 87591; 88307; 90656; 93005; 93975; 97161; 99285; C1758; J0131; J0360; J0696; J1100; J1170; J1650; J1836; J1885; J2250; J2270; J2405; J2543; J2704; J2765; J2795; J3010; J3480; J7120; Q9967

== ENCOUNTER → 2023-12-01 12:43 | Outpatient (BNV) | payer BC, SELFPAY | PROVIDERS: Admitting Provider Physician Assistant Surgical; Emergency Provider Emergency Medicine Emergency Medical Services; PCP Internal Medicine; Visit Provider Physician Assistant Surgical | DX: K57.92 Diverticulitis of intestine, part unspecified, without perforation or abscess without bleeding (principal); Z93.3 Colostomy status | CPT/HCPCS: 44143; 99024; 99222; 99232; G0180 ==

== ENCOUNTER → 2023-12-01 12:43 | Outpatient (BNV) | payer BC, SELFPAY | PROVIDERS: Admitting Provider Physician Assistant Surgical; Emergency Provider Emergency Medicine Emergency Medical Services; PCP Internal Medicine; Visit Provider Obstetrics & Gynecology | DX: N93.9 Abnormal uterine and vaginal bleeding, unspecified (principal); N83.292 Other ovarian cyst, left side; N70.93 Salpingitis and oophoritis, unspecified; K57.92 Diverticulitis of intestine, part unspecified, without perforation or abscess without bleeding | CPT/HCPCS: 99222; 99232 ==

== ENCOUNTER 2023-12-17 11:00 | Outpatient (AMB) | payer BC, SELFPAY ==
--- NOTE | 2023-12-17 11:10 | A.OFFVIS_ITS ---
Intake Visit Reasons: s/p Colectomy Sigmoid Resection Intake Note: Patient here s/p colectomy sigmoid resection on 12-04-2023. Reports incision healing. Ostomy working well. Patient c/o: no pain. Regular diet. Rail Bonder Required: No Accompanied by: Spouse Allergies No Known Allergies Allergy (Verified 12/17/23 11:10) HPI Comments Details: Patient presents with the . Status post sigmoid resection. She is doing quite well. She is starting a diet. Ostomy is functioning well. She is increasing her activity level. He has no wound issues. She has minimal incisional discomfort. [facility] Medical History (Updated 12/16/23 @ 00:04 by Ynes Siu) Anxiety Allergic rhinitis Pure hypercholesterolemia Obesity (BMI 30-39.9) Loose stools Genital herpes Dyslipidemia Depression with anxiety Surgical History (Updated 12/17/23 @ 11:19 by Jean Ha MD) Status post Rachelle's procedure (12/04/23) H/O LEEP Family History Father History of quadruple bypass Mother High cholesterol Diverticulitis IBS (irritable bowel syndrome) HTN (hypertension) Maternal Grandmother Lung cancer Maternal Grandfather Stroke Maternal Aunt Diabetes Cancer Maternal Uncle Bladder cancer Social History Household Members: Significant Other Household Members Other:: , no kids Housing: House Do you presently have visiting nurse or other home services: No Alcohol intake: current Alcohol intake frequency: 0-2 drinks per day Alcohol type: beer Comment: NWB left leg, assist pivot to commode Patient Tobacco Use Status: Never used Tobacco e-Cigarette/Vaping Use: Never Used Second Hand Smoke Exposure: No Substance Use Type: Marijuana Advance Directives Date on File: 12/01/23 service: No Current occupational status: employed Current occupation: [employer] Current occupational exposures/hazards: No Sexual orientation: Straight/Heterosexual Gender identity: Female Cognitive needs: No Hearing needs: No Vision needs: No Female Reproductive History Menstrual Age of Menarche: 14 Physical Exam GI Other: Abdomen is soft. Incision well healed. Ostomy functioning well. Assessment & Plan Assessment & Plan (1) Postop check: Code(s): Z09 - Encounter for follow-up examination after completed treatment for conditions other than malignant neoplasm Category: Surgical (2) Status post Rachelle's procedure: Onset Date: 12/04/23 Comment: Jean [place] Code(s): Z93.3 - Colostomy status Category: Surgical Plan Patient was encouraged to ambulate as much as possible although she has an ankle issue. She no longer requires incision dressing. Wound was healing well. Ostomy care per routine. She will see me as directed or p.r.n.. Prior to ostomy reversal, patient will need screening colonoscopy. Coding Level of Care Code Global (10343) Diagnoses Postop check Z09 Status post Rachelle's procedure Z93.3
== END 2023-12-17 11:13 | disposition home or self-care (01) ==
PROVIDERS: PCP Internal Medicine; Visit Provider Surgery
DX: Z09 Encounter for follow-up examination after completed treatment for conditions other than malignant neoplasm (principal); Z93.3 Colostomy status
CPT/HCPCS: 99024

== ENCOUNTER → 2023-12-17 11:00 | Outpatient (BNVA) | payer BC, SELFPAY | PROVIDERS: PCP Internal Medicine; Visit Provider Surgery ==

== ENCOUNTER 2023-12-18 08:33 | Outpatient (AMB) | payer BC, SELFPAY ==
--- NOTE | 2023-12-18 08:37 | A.OFFVIS_ITS ---
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 it started few months ago and is getting worse no other associated symptoms. Last co testing was in 12/29 was negative Last mammogram was BI-RADS 1 in 11/30, the patient is scheduled for next screening mammogram on 12/23/19 [facility] Medical History (Updated 12/18/23 @ 09:00 by Nitish Mckeon MD) Anxiety Allergic rhinitis Pure hypercholesterolemia Obesity (BMI 30-39.9) Loose stools Genital herpes Dyslipidemia Depression with anxiety Surgical History (Updated 12/18/23 @ 09:00 by Nitish Mckeon MD) History of endometrial ablation Status post Rachelle's procedure (12/04/23) H/O LEEP Family History Father History of quadruple bypass Mother High cholesterol Diverticulitis IBS (irritable bowel syndrome) HTN (hypertension) Maternal Grandmother Lung cancer Maternal Grandfather Stroke Maternal Aunt Diabetes Cancer Maternal Uncle Bladder cancer Social History Household Members: Significant Other Household Members Other:: , no kids Housing: House Do you presently have visiting nurse or other home services: No Alcohol intake: current Alcohol intake frequency: 0-2 drinks per day Alcohol type: beer Comment: NWB left leg, assist pivot to commode Patient Tobacco Use Status: Never used Tobacco e-Cigarette/Vaping Use: Never Used Second Hand Smoke Exposure: No Substance Use Type: Marijuana Advance Directives Date on File: 12/01/23 service: No Current occupational status: employed Current occupation: [employer] Current occupational exposures/hazards: No Sexual orientation: Straight/Heterosexual Gender identity: Female Cognitive needs: No Hearing needs: No Vision needs: No Female Reproductive History Menstrual Age of Menarche: 14 Review of Systems Const All systems reviewed & are unremarkable except as noted in HPI and below Physical Exam Vital Signs: Last Vital Signs BP 142/92 H 12/18/23 08:46 BMI result Body Mass Index 27.5 General: Yes no CVA tenderness External Female Exam: normal external appearance and normal appearance of the urethra Speculum Exam - Vagina: normal appearance of the vagina, normal palpation, no lesions and no masses Speculum Exam - Cervix: normal appearance of the cervix, normal palpation, no lesions, no masses and nontender Bimanual exam- vagina & uterus: normal bimanual exam, normal palpation, uterine size normal, normal palpation, uterine shape normal, No Cervical tenderness p resent and non-tender Bimanual Exam- Adnexa, other: normal adnexae Back/Spine/Pelvis Back: no CVA tenderness Assessment & Plan Assessment & Plan (1) Abnormal uterine bleeding: Comment: History of endometrial ablation History of left diverticular abscess status post colostomy in 12/01 Code(s): N93.9 - Abnormal uterine and vaginal bleeding, unspecified Category: Medical Plan: GC and chlamydia taken CBC, TSH, prolactin, FSH/LH, HCG, and pelvic ultrasound ordered. Discussed with the patient the different causes of abnormal bleeding including thyroid disorders, uterine and ovarian pathology, endometrial hyperplasia, carcinoma and other potential causes. Discussed with the patient the work up including CBC (to r/o anemia), TSH, prolactin, pelvic Ultrasound, endometrial biopsy to r/o endometrial pathology. All questions answered and the patient verbalized understanding. Instructed the patient to schedule an appointment for an endometrial biopsy in 2 weeks. Orders: Orders TSH reflex Free T4 Today N93.9 - Abnormal uterine and vaginal bleeding, unspecified Prolactin Today N93.9 - Abnormal uterine and vaginal bleeding, unspecified HCG Quantitative Today N93.9 - Abnormal uterine and vaginal bleeding, unspecified Lutenizing Hormone Today N93.9 - Abnormal uterine and vaginal bleeding, unspecified Follicle Stimulating Hormone Today N93.9 - Abnormal uterine and vaginal bleeding, unspecified Complete Blood Count no Diff Today N93.9 - Abnormal uterine and vaginal bleeding, unspecified US pelvic and transvaginal Today N93.9 - Abnormal uterine and vaginal bleeding, unspecified Coding Level of Care Code Est Pt Level 3 (62966) Diagnoses Abnormal uterine bleeding N93.9
[2023-12-18 08:46] VITALS: BP 142/92; BMI 27.5
== END 2023-12-18 09:02 | disposition home or self-care (01) ==
PROVIDERS: PCP Internal Medicine; Visit Provider Obstetrics & Gynecology
DX: N93.9 Abnormal uterine and vaginal bleeding, unspecified (principal)
CPT/HCPCS: 99213

== ENCOUNTER 2023-12-18 08:33 | Outpatient (REF) | payer BC, SELFPAY ==
[2023-12-18 10:03] LABS: Hematocrit 37.8 % (37.0-47.0); Mean Corpuscular HGB Conc 31.7 g/dl (31.0-35.0); Mean Corpuscular Hemoglobin 31.1 pg (27.0-33.0); Mean Corpuscular Volume 97.9 fL (80.0-98.0); Mean Platelet Volume 9.1 fL (9.4-12.3); Platelet Count 796 X10*3/uL (160-400); Red Blood Count 3.86 X10*6/uL (4.20-5.50); Red Cell Distribution Width 12.5 % (11.0-16.0); White Blood Count 13.4 X10*3/uL (4.8-10.8)
[2023-12-18 11:03] LABS: HCG Quantitative 4 mIU/mL; TSH reflex Free T4 1.57 uIU/mL (0.32-4.0)
[2023-12-20 00:49] LABS: Follicle Stimulating Hormone 110.5 mIU/mL; Lutenizing Hormone 52.7 mIU/mL; Prolactin 10.7 ng/mL
== END 2023-12-18 08:34 | disposition home or self-care (01) ==
LOC: HO.LAB 08:33
PROVIDERS: PCP Internal Medicine; Visit Provider Obstetrics & Gynecology
DX: N93.9 Abnormal uterine and vaginal bleeding, unspecified (principal)
CPT/HCPCS: 36415; 83001; 83002; 84146; 84443; 84702; 85027

== ENCOUNTER 2023-12-18 09:30 | Outpatient (REF) | payer BC, SELFPAY ==
[2023-12-18 16:18] LABS: CT PCR NOT DETECTED (Not Detect.); NG PCR NOT DETECTED (Not Detect.)
== END 2023-12-18 09:31 | disposition home or self-care (01) ==
LOC: HO.LNP 09:30
PROVIDERS: Visit Provider Obstetrics & Gynecology
DX: N93.9 Abnormal uterine and vaginal bleeding, unspecified (principal)
CPT/HCPCS: 87491; 87591

== ENCOUNTER 2023-12-23 07:19 | Outpatient (REF) | payer BC, SELFPAY ==
--- NOTE | ~2023-12-23 | MM_ITS ---
EXAMINATION: MM SCREENING DIGITAL BREAST TOMOSYNTHESIS, BILATERAL CLINICAL INFORMATION: Screening. Asymptomatic. COMPARISON: Mammography: Comparison is made with available priors TECHNIQUE: Digital breast mammography with tomosynthesis is performed in both the craniocaudal and mediolateral oblique views along with computer-aided detection (CAD). FINDINGS: There are scattered areas of fibroglandular density (ACR BI-RADS breast composition Category b). There are no significant masses, abnormal calcifications, or other abnormalities. MM/MM tomosynthesis screening BI IMPRESSION: No mammographic evidence of malignancy. ASSESSMENT: BI-RADS BI-RADS 1 - Negative RECOMMENDATION: Routine annual mammography screening. 1 year F/U This examination should not preclude the clinical evaluation of a suspicious palpable abnormality. This patient's information was entered into a reminder system with a target due date for their next mammogram. Electronically signed by: Yasmine Gray DO 01/02/2024 12:43 PM EDT
== END 2023-12-23 07:20 | disposition home or self-care (01) ==
LOC: HO.MAMMO 07:19
PROVIDERS: PCP Internal Medicine; Visit Provider Internal Medicine
DX: Z12.31 Encounter for screening mammogram for malignant neoplasm of breast (principal)
CPT/HCPCS: 77063; 77067

== ENCOUNTER → 2023-12-23 07:30 | Outpatient (BNV) | payer BC, SELFPAY | PROVIDERS: PCP Internal Medicine; Visit Provider Internal Medicine | DX: Z12.31 Encounter for screening mammogram for malignant neoplasm of breast (principal) | CPT/HCPCS: 77063; 77067 ==

== ENCOUNTER 2023-12-25 08:21 | Outpatient (AMB) | payer BC, SELFPAY ==
[2023-12-25 08:36] VITALS: BP 136/82; PULSE 63; O2SAT 99; BMI 28.3
--- NOTE | 2023-12-25 08:36 | A.OFFPC_ITS ---
Vital Signs 12/25/23 08:36 Height 5 ft 4 in Weight 165 lb BMI 28.3 BP 136/82 Blood Pressure Location Lt brachial Position Sitting Pulse 63 Pulse Source Pulse Oximeter Pulse Oximetry (%) 99 Oxygen Delivery Method Room Air Intake Visit Re[place] [facility] [place] diverticulitis/ high bp Kier Operator Required: No Accompanied by: Self / Same As Patient Allergies No Known Allergies Allergy (Verified 12/25/23 08:37) Tobacco use date assessed: 07/23/23 Dental Screening Dental Screen Date: 07/23/23 HPI HPI Comments History of Present Illness Details 48 y/o female patient who [facility]. [place] [facility] [place] due to Diverticulitis. She was discharged home 12/08/23 with VNA services. S/p Ex-lap Sigmoid resection with End colostomy. She currently has RLQ abdominal Ostomy Bag. Reports feeling well since discharged home and she has had all her F/u Appointments. No concerns today. [facility] Medical History (Updated 12/18/23 @ 09:00 by Nitish Mckeon MD) Anxiety Allergic rhinitis Pure hypercholesterolemia Obesity (BMI 30-39.9) Loose stools Genital herpes Dyslipidemia Depression with anxiety Surgical History (Updated 12/18/23 @ 09:00 by Nitish Mckeon MD) History of endometrial ablation Status post Rachelle's procedure (12/04/23) H/O LEEP Family History Father History of quadruple bypass Mother High cholesterol Diverticulitis IBS (irritable bowel syndrome) HTN (hypertension) Maternal Grandmother Lung cancer Maternal Grandfather Stroke Maternal Aunt Diabetes Cancer Maternal Uncle Bladder cancer Social History Household Members: Significant Other Household Members Other:: , no kids Housing: House Do you presently have visiting nurse or other home services: No Alcohol intake: current Alcohol intake frequency: 0-2 drinks per day Alcohol type: beer Comment: NWB left leg, assist pivot to commode Patient Tobacco Use Status: Never used Tobacco Tobacco use type: Cigarette e-Cigarette/Vaping Use: Never Used Second Hand Smoke Exposure: No Substance Use Type: Marijuana Advance Directives Date on File: 12/01/23 service: No Current occupational status: employed Current occupation: [employer] Current occupational exposures/hazards: No Sexual orientation: Straight/Heterosexual Gender identity: Female Cognitive needs: No Hearing needs: No Vision needs: No Female Reproductive History Menstrual Age of Menarche: 14 Questionnaire PHQ-9 Over the last 2 weeks, how often have you been bothered by any of the following problems? 1. Little interest or pleasure in doing things: not at all 2. Feeling down, depressed, or hopeless: not at all 3. Trouble falling or staying asleep, or sleeping too much: not at all 4. Feeling tired or having little energy: not at all 5. Poor appetite or overeating: not at all 6. Feeling bad about yourself - or that you are a failure or have let yourself or your family down: not at all 7. Trouble concentrating on things, such as reading the newspaper or watching television: not at all 8. Moving or speaking so slowly that other people could have noticed. Or the opposite - being so fidgety or restless that you have been moving around a lot more than usual: not at all 9. Thoughts that you would be better off or of hurting yourself in some way: not at all Total score: 0 Depression Screening Interpretation: Negative Depression Screening Done: Yes 23556 - PHQ-9 Billing: Yes Source: Developed by Drs. Royer Lai, Chiki Morales and colleagues, with an educational tracy from [employer]. Thrive Questionnaire Date Thrive assessed: 12/02/23 Are you currently unemployed and looking for a job?: No AUDIT C Alcohol Use Questionnaire (AUDIT-C) 1. How often do you have a drink containing alcohol?: 2-3 times a week 2. How many drinks containing alcohol do you have on a typical day when you are drinking?: 1 or 2 3. How often do you have six or more drinks on one occasion?: Less than monthly Total Score: 4 Score Reviewed/Action Taken: Yes ONOFRE-7 AMB Questionnaire ONOFRE-7 Date ONOFRE - 7 assessed: 07/23/23 Source: Developed by Drs. Royer Lai, Chiki Morales and colleagues, with an educational tracy from [employer]. Review of Systems Const All systems reviewed & are unremarkable except as noted in HPI and below Physical exam (Primary Care) Vital Signs: Last Vital Signs Pulse 63 12/25/23 08:36 BP 136/82 12/25/23 08:36 Pulse Ox 99 12/25/23 08:36 Oxygen Delivery Method Room Air 12/25/23 08:36 BMI result Body Mass Index 28.3 Tobacco/Smoking Status: Tobacco use Status Tobacco use date assessed 07/23/23 12/25/23 08:42 Patient Tobacco Use Status Never used Tobacco 12/25/23 08:42 Tobacco use type Cigarette 12/25/23 08:42 e-Cigarette/Vaping Use Never Used 12/25/23 08:42 PHQ-9: PHQ-9 Score PHQ-9: Total score 0 12/25/23 08:42 Depression Screening Interpretation: Negative Thrive Assessment: Date of Thrive Assessment Date Thrive assessed 12/02/23 12/25/23 08:42 Const General: cooperative and no acute distress Orientation/consciousness: patient oriented x3 Resp Effort & Inspection: normal respiratory effort Auscultation: clear to auscultation bilaterally Cardio Heart sounds: S1 normal heart sound present and S2 normal heart sound present GI Other: Ostomy Bag present RLQ abdomen. Large midline Surgical wound, healing well no S&S of infection. Palpation (GI): Soft to palpation, not firm, nontender, no guarding and No hepatosplenomegaly present Auscultation: normal bowel sounds Rectal Exam - Female: deferred Neuro Other: Has Ortho Boot right LE General: patient oriented x3, gait normal and moves all extremities Psych Speech and movement: Normal speech and movement present Coding Level of Care Code Est Pt Level 4 (04761) Diagnoses Status post Rachelle's procedure Z93.3 Diverticulitis K57.92 Time Spent (min) 20 Comment Spent reviewing hospital notes Assessment & Plan Assessment & Plan (1) Status post Rachelle's procedure: Onset Date: 12/04/23 Comment: Jean Toledo Code(s): Z93.3 - Colostomy status Category: Surgical Plan: Continue f/u with General surgery (2) Diverticulitis: Code(s): K57.92 - Diverticulitis of intestine, part unspecified, without perforation or abscess without bleeding Plan: Continue f/u with General surgery
== END 2023-12-25 09:51 | disposition home or self-care (01) ==
PROVIDERS: PCP Internal Medicine; Visit Provider Nurse Practitioner Family
DX: Z93.3 Colostomy status (principal); K57.92 Diverticulitis of intestine, part unspecified, without perforation or abscess without bleeding

== ENCOUNTER → 2023-12-25 08:21 | Outpatient (BNVA) | payer BC, SELFPAY | PROVIDERS: PCP Internal Medicine; Visit Provider Nurse Practitioner Family ==

== ENCOUNTER 2023-12-31 08:47 | Outpatient (REF) | payer BC, SELFPAY | END 2023-12-31 08:48 | disposition home or self-care (01) | LOC: HO.LNP 08:47 | PROVIDERS: PCP Internal Medicine; Visit Provider Obstetrics & Gynecology | DX: N93.9 Abnormal uterine and vaginal bleeding, unspecified (principal) | CPT/HCPCS: 58100; 88305 ==

== ENCOUNTER 2023-12-31 08:47 | Outpatient (AMB) | payer BC, SELFPAY ==
--- NOTE | 2023-12-31 08:49 | A.OFFVIS_ITS ---
Vital Signs 12/31/23 08:50 Height 5 ft 4 in Weight 163 lb 2.273 oz BMI 28.0 Intake Visit Reasons: EMB Sausage Meat Trimmer Required: No Information Interpreted: non-clinical & clinical Cigarette Making Examiner: Cigarette Making Examiner Present (Frances ALEXANDRA) Accompanied by: Self / Same As Patient Allergies No Known Allergies Allergy (Verified 12/31/23 09:00) Is last menstrual period known: Yes Last menstrual period: 01/06/20 Post menopausal: No Patient : No Do you need a note to return to daycare/school/sports/work: Yes (for surgery on friday) HPI Comments Details: Presenting for endometrial biopsy [facility] Medical History Anxiety Allergic rhinitis Pure hypercholesterolemia Obesity (BMI 30-39.9) Loose stools Genital herpes Dyslipidemia Depression with anxiety Surgical History History of endometrial ablation Status post Rachelle's procedure (12/04/23) H/O LEEP Family History Father History of quadruple bypass Mother High cholesterol Diverticulitis IBS (irritable bowel syndrome) HTN (hypertension) Maternal Grandmother Lung cancer Maternal Grandfather Stroke Maternal Aunt Diabetes Cancer Maternal Uncle Bladder cancer Social History Household Members: Significant Other Household Members Other:: , no kids Housing: House Do you presently have visiting nurse or other home services: No Alcohol intake: current Alcohol intake frequency: 0-2 drinks per day Alcohol type: beer Comment: NWB left leg, assist pivot to commode Patient Tobacco Use Status: Never used Tobacco Tobacco use type: Cigarette e-Cigarette/Vaping Use: Never Used Second Hand Smoke Exposure: No Substance Use Type: Marijuana Advance Directives Date on File: 12/01/23 service: No Current occupational status: employed Current occupation: [employer] Current occupational exposures/hazards: No Sexual orientation: Straight/Heterosexual Gender identity: Female Cognitive needs: No Hearing needs: No Vision needs: No Female Reproductive History Menstrual Age of Menarche: 14 Date of last menstrual period: 01/06/20 Total pregnancies: 2 Full term: 2 Review of Systems Card Reports as per HPI and Reports no additional complaints Resp Reports as per HPI and Reports no additional complaints GI Reports as per HPI and Reports no additional complaints Reports as per HPI Physical Exam Vital Signs: BMI result Body Mass Index 28.0 Const General: cooperative, healthy appearing and comfortable Chest Chest palpation & inspection: normal inspection of the chest and normal palpation of entire chest wall Breast/axilla inspection: normal inspection of the breasts and normal inspection of the axillae Breast/axilla palpation: normal palpation of the breasts, normal palpation of the axillae and no axillary lymphadenopathy Resp Effort & Inspection: normal respiratory effort Auscultation: clear to auscultation bilaterally Percussion: percussion normal Cardio Palpation: normal PMI Rate: regular rate Rhythm: regular rhythm Heart sounds: no murmurs and no rubs Peripheral pulses: Peripheral pulses 2+ throughout GI Inspection: Yes normal to inspection Palpation (GI): Soft to palpation, nontender, no guarding, not rigid and No hepatosplenomegaly present Percussion: Yes normal to percussion Auscultation: normal bowel sounds Rectal Exam - Female: deferred Office Procedures Endometrial Biopsy Details: The patient was counseled regarding the indication and benefits of endometrial sampling to rule out endometrial pathology including not limited to endometrial hyperplasia or endometrial cancer and others; The alternatives (Either do nothing vs. hysteroscopy D&C) & the risks were discussed with the patient including but not limited: pain, uterine perforation, bleeding, infection, possible injury to bladder, bowel, ureter, possible need for blood transfusion with all its possible risks. The patient verbalized understanding all questions answered and signed consent. Urine test done in the office was negative The patient was placed into the dorsal lithotomy position; a speculum was inserted in the vagina. Using aseptic technique for the procedure, the cervix was cleansed with Betadine. The anterior lip of the cervix was grasped with a single tooth tenaculum. The uterus was sounded to 7 cm with a 4 mm Pipelle was used. The patient could not tolerate the procedure, which was aborted. Minimal tissue samples were obtained and placed in formalin, in a patient labeled container and sent to the pathology department. At the end of the procedure, there was minimal bleeding noted The patient was discharged in good condition with the following instructions: Nothing in the vagina until the bleeding stops. No sex until the bleeding stops, to call if any of the following occurs: fever (>100.4), flu-like symptoms, abdominal pain, heavy bleeding, four smelling vaginal discharge. The patient was instructed to schedule a Follow up appointment in 2 weeks to discuss pathology results of the biopsy and treatment options. This note was generated with a voice recognition program. Some errors may have been overlooked during the review of this note. Sometimes these errors may affect the content or meaning of a given sentence. [id number] Biopsy Assessment & Plan Assessment & Plan (1) Abnormal uterine bleeding: Comment: History of endometrial ablation History of left diverticular abscess status post colostomy in 12/01 Code(s): N93.9 - Abnormal uterine and vaginal bleeding, unspecified Category: Medical Plan: EMB attempted, could not be tolerated by the patient, procedure aborted minimal tissue retrieved, see procedure note Instructions given the patient to schedule a follow-up appointment Discussed with the patient the procedure , all benefits and risks including but not limited to inability to complete the procedure , insufficient endometrial tissue for a complete evaluation of the endometrial cavity , bleeding, infection, possible need for blood transfusion with all its risk ( HIV,syphilis, Hepatitis, anaphylaxis shock, others..), injury to bladder, rectum, possible need for laparoscopy/laparotomy or hysterectomy. The patient verbalized understanding and signed the consent. Instructions given the patient to stay NPO after midnight the day prior to the procedure and to take only the specific medication (s) discussed the morning of the surgical procedure and to schedule a 2 week postoperative appointment Orders: Orders Surgical Today N93.9 - Abnormal uterine and vaginal bleeding, unspecified AMB Endometrial Biopsy Today N93.9 - Abnormal uterine and vaginal bleeding, unspecified Coding Level of Care Code Est Pt Level 3 (32896) Diagnoses Abnormal uterine bleeding N93.9 CPT Codes Endometrial Biopsy - CPT: 12904-[id number] Biopsy ([id number])
[2023-12-31 08:50] VITALS: BMI 28.0
== END 2023-12-31 09:21 | disposition home or self-care (01) ==
PROVIDERS: PCP Internal Medicine; Visit Provider Obstetrics & Gynecology
DX: N93.9 Abnormal uterine and vaginal bleeding, unspecified (principal)
CPT/HCPCS: 58100; 99213

== ENCOUNTER 2024-01-08 09:54 | Outpatient (AMB) | payer BC, SELFPAY ==
--- NOTE | 2024-01-08 09:51 | A.OFFVIS_ITS ---
Intake Visit Reasons: EMB results Allergies No Known Allergies Allergy (Verified 12/31/23 09:00) HPI Comments Details: The patient scheduled tele health visit for follow-up to discuss the results of her abnormal uterine bleeding workup and options of treatment. The following workup was done: H&H= 12/37.8 TSH, prolactin, hCG, GC and chlamydia were negative. FSH/LH =110/52.7 Endometrial biopsy pathology showed following: Strips of benign superficial atrophic endometrium, benign squamous epithelium and scant benign endocervical glandular epithelium; no atypia or carcinoma Co testing was done in 12/29 was negative Mammogram was BI-RADS 1. 12/01/19 Pelvic ultrasound showed the following: Uterus is anteverted and measures 6.9 x 3.7 x 4.1 cm. Endometrial thickness is 7 mm. Trace amount of fluid within the endometrial cavity. No significant free fluid. Right ovary measures 2.4 x 1.6 x 1.6 cm, volume 4.4 mL. Right ovary previously measured 2.7 x 2.5 x 1.8 cm. Visualization of the right ovary is limited due to small size and bowel gas as well as adjacent pulsatile blood vesicles, making it difficult to evaluate quality of Doppler vascular flow within the right ovary. The left ovary measures 4.8 x 4.3 x 4.1 cm, volume 44.3 mL. The left ovary is asymmetrically enlarged in size, increased in size since ultrasound of July 19, 2021, and appears diffusely heterogeneous, and abnormal in echotexture with a small 1.5 cm complex cystic area, although visualization of left ovary is substantially limited due to bowel gas. [facility] Medical History Anxiety Allergic rhinitis Pure hypercholesterolemia Obesity (BMI 30-39.9) Loose stools Genital herpes Dyslipidemia Depression with anxiety Surgical History History of endometrial ablation Status post Rachelle's procedure (12/04/23) H/O LEEP Family History Father History of quadruple bypass Mother High cholesterol Diverticulitis IBS (irritable bowel syndrome) HTN (hypertension) Maternal Grandmother Lung cancer Maternal Grandfather Stroke Maternal Aunt Diabetes Cancer Maternal Uncle Bladder cancer Social History Household Members: Significant Other Household Members Other:: , no kids Housing: House Do you presently have visiting nurse or other home services: No Alcohol intake: current Alcohol intake frequency: 0-2 drinks per day Alcohol t ype: beer Comment: NWB left leg, assist pivot to commode Patient Tobacco Use Status: Never used Tobacco Tobacco use type: Cigarette e-Cigarette/Vaping Use: Never Used Second Hand Smoke Exposure: No Substance Use Type: Marijuana Advance Directives Date on File: 12/01/23 service: No Current occupational status: employed Current occupation: [employer] Current occupational exposures/hazards: No Sexual orientation: Straight/Heterosexual Gender identity: Female Cognitive needs: No Hearing needs: No Vision needs: No Female Reproductive History Menstrual Age of Menarche: 14 Review of Systems Const All systems reviewed & are unremarkable except as noted in HPI and below Reports as per HPI and Reports no additional complaints GI Reports no additional complaints Reports no additional complaints Telehealth Telehealth Telehealth Platform: Telephone Location of provider rendering services: practice address Location of patient: address on file Patient Identification confirmed using: Name, : Yes Telehealth method: voice only Patient verbally consented to treatment: Yes Patient verbally consented to billing insurance company: Yes Patient informed of any privacy concerns related to visit: Yes Assessment & Plan Assessment & Plan (1) Abnormal uterine bleeding: Comment: FSH/LH in the menopausal range History of endometrial ablation History of left diverticular abscess status post colostomy in 12/01 Code(s): N93.9 - Abnormal uterine and vaginal bleeding, unspecified Category: Medical Plan: Discussed with the patient the results of the work up done including FSH/ LH in the menopausal range and a the pathology results of endometrial biopsy in addition to the options of treatment including expectant management . Instructions given to patient to call in case of recurrence of her bleeding or any other concerns. All questions answered, the patient verbalized understood (2) Complex ovarian cyst: Comment: Status post on bloc resection of left adnexal during Rachelle's pouch Code(s): N83.299 - Other ovarian cyst, unspecified side Category: Medical Plan: Discussed with the patient the finding on ultrasound done in 12/01 around the time of her admission with left diverticular abscess, the finding on the left adnexa specifically the left ovary could have been narrowed by the left abscess and inflammation of the diverticular abscess The patient underwent on 12/03 exploratory laparotomy, sigmoid resection, end colostomy, Rachelle's pouch, en block resection of left adnexa abscess/ mass The Pathology showed the following: Colon, sigmoid, segmental resection: Diverticular-associated segmental colitis with marked abscess formation and adherent inflamed ovary with hemorrhagic corpus luteum and fallopian tube; negative for malignancy I spent a total of 20 minutes reviewing the chart, talking to the patient via phone and documenting in the medical record. Coding Level of Care Code Est Pt Level 3 (30373) Diagnoses Abnormal uterine bleeding N93.9 Complex ovarian cyst N83.299
== END 2024-01-08 10:29 | disposition home or self-care (01) ==
LOC: HO.HWS 09:54
PROVIDERS: PCP Internal Medicine; Visit Provider Obstetrics & Gynecology
DX: N93.9 Abnormal uterine and vaginal bleeding, unspecified (principal); N83.299 Other ovarian cyst, unspecified side
CPT/HCPCS: 99213

== ENCOUNTER → 2024-01-08 09:54 | Outpatient (BNVA) | payer BC, SELFPAY | PROVIDERS: PCP Internal Medicine; Visit Provider Obstetrics & Gynecology ==

== ENCOUNTER 2024-01-23 09:34 | Outpatient (AMB) | payer BC, SELFPAY ==
[2024-01-23 09:39] VITALS: BP 126/80; PULSE 78; O2SAT 99; BMI 29.1
--- NOTE | 2024-01-23 09:39 | MHC.PC.OV ---
Vital Signs 01/23/24 09:39 Height 5 ft 4 in Weight 169 lb 8 oz BMI 29.1 BP 126/80 Blood Pressure Location Lt brachial Position Sitting Pulse 78 Pulse Source Pulse Oximeter Pulse Oximetry (%) 99 Oxygen Delivery Method Room Air Intake Visit Reasons: hyperlipidemia, anxiety Senior Administrative Assistant Required: No Accompanied by: Self / Same As Patient Allergies No Known Allergies Allergy (Verified 01/23/24 09:56) Medication List - Last Reconciled 01/23/24 by Andi Fry MD buspirone 10 mg PO BID 90 days Tobacco use date assessed: 01/23/24 Dental Screening Dental Screen Date: 01/23/24 Did you have a dental visit in the last 12 months?: No Did you have a dental problem in the last 6 months where you did not have access to dental care?: No Was dental information given to patient?: Patient has dentist HPI hyperlipidemia, anxiety HPI Details Patient comes in today for her follow up visit She apparently sustained a left lower extremity fracture that required orthopedic (NEOS) surgical intervention on 10/21/2023 She subsequently developed LLQ abdominal pain a few days after her surgery, which she initially attributed to her pain medication (Oxycodone) at the time States that the pain persisted despite her stopping her pain med, prompting her to seek medical attention and she was initially started on empiric Tx with oral Levaquin x 7 days, which provided only some improvement of her symptoms She went back to the ER due to persistence of her abdominal pain and [place] [address] then revealed (+) marked thickening of the wall of the rectosigmoid colon with inflammatory changes and extensive underlying diverticular disease and multiloculated solid and cystic lesions in the left adnexa She was initially treated with IV Abx but her symptoms failed to improve and her leucocytosis persisted, prompting surgery to proceed with laparotomy and sigmoid resection and she eventually had a diversion colostomy performed due to concerns that a primary anastomosis would not be successful at this time Patient states that she currently feels okay and that most of her GI symptoms have cleared up and that her colostomy is working well and she hopes to have this reversed soon She denies any headaches or dizziness Denies any chest pains, no SOB No nausea/vomiting, no abdominal pain States that her anxiety remains well/controlled on her current Rx She has not gotten her follow up labs done since her last visit although she did have extensive labs done over the past few months because of what she went through She was also started on Amlodipine 5 mg QD about a months ago for persistent high blood pressure and states that she just finished her Rx about 4 days ago - does not think that she needs to go back on the Rx at this time [facility] Medical History Anxiety Allergic rhinitis Pure hypercholesterolemia Obesity (BMI 30-39.9) Loose stools Genital herpes Dyslipidemia Depression with anxiety Surgical History History of endometrial ablation Status post Rachelle's procedure (12/04/23) H/O LEEP Family History Father History of quadruple bypass Mother High cholesterol Diverticulitis IBS (irritable bowel syndrome) HTN (hypertension) Maternal Grandmother Lung cancer Maternal Grandfather Stroke Maternal Aunt Diabetes Cancer Maternal Uncle Bladder cancer Social History Household Members: Significant Other Household Members Other:: , no kids Housing: House Do you presently have visiting nurse or other home services: No Alcohol intake: current Alcohol intake frequency: 0-2 drinks per day Alcohol type: beer Comment: NWB left leg, assist pivot to commode Patient Tobacco Use Status: Never used Tobacco Tobacco use type: Cigarette e-Cigarette/Vaping Use: Never Used Second Hand Smoke Exposure: No Substance Use Type: Marijuana Advance Directives Date on File: 12/01/23 service: No Current occupational status: employed Current occupation: [employer] Current occupational exposures/hazards: No Sexual orientation: Straight/Heterosexual Gender identity: Female Cognitive needs: No Hearing needs: No Vision needs: No Female Reproductive History Menstrual Age of Menarche: 14 Questionnaire PHQ-9 Over the last 2 weeks, how often have you been bothered by any of the following problems? 1. Little interest or pleasure in doing things: not at all 2. Feeling down, depressed, or hopeless: not at all 3. Trouble falling or staying asleep, or sleeping too much: not at all 4. Feeling tired or having little energy: not at all 5. Poor appetite or overeating: not at all 6. Feeling bad about yourself - or that you are a failure or have let yourself or your family down: not at all 7. Trouble concentrating on things, such as reading the newspaper or watching television: not at all 8. Moving or speaking so slowly that other people could have noticed. Or the opposite - being so fidgety or restless that you have been moving around a lot more than usual: not at all 9. Thoughts that you would be better off or of hurting yourself in some way: not at all Total score: 0 Depression Screening Interpretation: Negative Depression Screening Done: Yes 71907 - PHQ-9 Billing: Yes Source: Developed by Drs. Royer Lai, Tana Hitchcock, Chiki Cullen and colleagues, with an educational tracy from [employer]. Thrive Questionnaire Date Thrive assessed: 01/23/24 I am a: Patient What is your living situation today?: I have a steady place to live Within the past 12 months, did the food you bought not last and you didn't have the money to get more?: Never true Within the past 12 months, did you worry whether your food would run out before you got money to buy more?: Never true Do you have trouble paying for medicines?: No Do you have trouble getting transportation to medical appointments?: No Do you have trouble paying your heating and electricity bill?: No Do you have trouble taking care of your child, family member or friend?: No Do you have trouble with day-to-day activities such as bathing, preparing meals, shopping, managing finances, etc.?: No Are you currently unemployed and looking for a job?: No Are you interested in more education?: No Please select the resources that you would like help with: None Currently or been in a relationship where the following occur: No concerns reported THRIVE Score: 0 AUDIT C Alcohol Use Questionnaire (AUDIT-C) 1. How often do you have a drink containing alcohol?: 2-3 times a week 2. How many drinks containing alcohol do you have on a typical day when you are drinking?: 1 or 2 3. How often do you have six or more drinks on one occasion?: Less than monthly Total Score: 4 Score Reviewed/Action Taken: Yes ONOFRE-7 AMB Questionnaire ONOFRE-7 Date ONOFRE - 7 assessed: 01/23/24 Feeling nervous, anxious, or on edge: 0 = Not at all Not being able to stop or control worryin = Not at all Worrying too much about different things: 0 = Not at all Trouble relaxin = Not at all Being so restless that it is hard to sit still: 0 = Not at all Becoming easily annoyed or irritable: 0 = Not at all Feeling afraid as if something awful might happen: 0 = Not at all Total ONOFRE-7 score (0-4 normal; 5-9 mild; 10-14 moderate; 15-21 severe): 0 Source: Developed by Drs. Royer Lai, Tana Hitchcock, Chiki Cullen and colleagues, with an educational tracy from [employer]. Review of Systems Const Denies chills, Denies fatigue, Denies fever(s) and Denies headache(s) ENT Denies dysphagia, Denies dizziness, Denies otalgia, Denies headache(s), Denies neck pain, Denies odynophagia and Denies sore throat Card Denies chest pain, Denies irregular heart rhythm, Denies palpitations and Denies dyspnea Resp Denies chest congestion, Denies cough and Denies dyspnea GI Details: currently has a diversion colostomy Denies abdominal pain, Denies dysphagia, Denies heartburn, Denies nausea, Denies odynophagia and Denies vomiting Denies urinary frequency, Denies dysuria and Denies urinary urgency Musc Denies back pain, Denies arthralgias and Denies neck pain Skin/Breast Denies rash Neuro Denies dizziness, Denies headache(s) and Denies paresthesias Psych Denies anxiety (controlled on current Rx) and Denies depression Endo Denies fatigue and Denies palpitations Mynor/Lymph Denies easy bruising Physical exam (Primary Care) Vital Signs: Last Vital Signs Pulse 78 01/23/24 09:39 BP 126/80 01/23/24 09:39 Pulse Ox 99 01/23/24 09:39 Oxygen Delivery Method Room Air 01/23/24 09:39 BMI result Body Mass Index 29.1 Tobacco/Smoking Status: Tobacco use Status Tobacco use date assessed 01/23/24 01/23/24 09:46 Patient Tobacco Use Status Never used Tobacco 01/23/24 09:46 Tobacco use type Cigarette 01/23/24 09:46 e-Cigarette/Vaping Use Never Used 01/23/24 09:46 PHQ-9: PHQ-9 Score PHQ-9: Total score 0 01/23/24 09:48 Depression Screening Interpretation: Negative Thrive Assessment: Date of Thrive Assessment Date Thrive assessed 01/23/24 01/23/24 09:46 Currently or been in a relationship where the following occur: No concerns reported Const General: no acute distress and alert HENMT Ears: TM's normal bilaterally and EAC's normal Throat: Yes posterior oropharynx normal and Yes tonsils normal (no TP congestion) Neck Neck: Yes no lymphadenopathy and Yes supple Thyroid: Thyroid normal Resp Auscultation: clear to auscultation bilaterally, no rales and no wheezes Cardio Rate: regular rate Rhythm: regular rhythm Heart sounds: no murmurs GI Other: (+) diversion colostomy Palpation (GI): Soft to palpation and nontender Auscultation: normal bowel sounds General: Yes no CVA tenderness Back/Spine/Pelvis Back: no CVA tenderness Thoracic/Lumbar Spine: thoracic and lumbar spine normal to inspection Skin Rashes: no rashes Extrem General: Yes no clubbing, cyanosis or edema Office Procedures Flu Questionnaire Does the patient have a severe egg allergy?: No Immunizations Fluarix Triv [id number] (PF) 45 mcg (15 mcg x 3)/0.5 mL IM syringe Performing Provider: Andi Fry MD [place] [facility] Documented (not given) by: NASRIN Lockett on 01/23/24 09:48 Reason Not Given: Received Previously Coding Level of Care Code Est Pt Level 4 (78064) Diagnoses Pure hypercholesterolemia E78.00 Elevated blood pressure reading in office without diagnosis of hypertension R03.0 Abscess of sigmoid colon due to diverticulitis K57.20 Allergic rhinitis, unspecified seasonality, unspecified trigger J30.9 Allergic rhinitis trigger: unspecified Allergic rhinitis seasonality: unspecified Anxiety F41.9 Obesity (BMI 30-39.9) E66.9 Additional Codes PHQ-9 - 85708 - PHQ-9 Billing: Yes ([id number]) Assessment & Plan Assessment & Plan (1) Pure hypercholesterolemia: Code(s): E78.00 - Pure hypercholesterolemia, unspecified Category: Medical Plan: Reinforced low cholesterol diet She has not had her cholesterol levels checked since 2021 and is advised to try to get her follow up labs done TAVIA - labs are reordered today (2) Elevated blood pressure reading in office without diagnosis of hypertension: Code(s): R03.0 - Elevated blood-pressure reading, without diagnosis of hypertension Category: Medical Plan: She was started on Amlodipine 5 mg QD a few weeks ago for presumptive hypertension Patient states that she's had no problems while on the medication and took her last done about 4 days ago on 01/19/2024 States that she would like to wait and see how her blood pressure is over the next couple of weeks as she would like to not take the medication anymore if she does not have to Reinforced low sodium diet - goal is systolic BP of 120 mm or less Have advised patient to monitor her blood pressure regularly and if her blood pressure starts to increase again over the next few weeks, then it is likely that she will need to start back on Amlodipine 5 mg QD for maintenance Tx (3) Abscess of sigmoid colon due to diverticulitis: Code(s): K57.20 - Diverticulitis of large intestine with perforation and abscess without bleeding Category: Medical Plan: Patient ended up undergoing laparotomy with sigmoid colon resection and diversion colostomy, which she currently has Is hoping to have her colostomy reversed soon Follow up with surgery as scheduled (4) Allergic rhinitis: Code(s): J30.9 - Allergic rhinitis, unspecified Category: Medical Qualifiers: Allergic rhinitis trigger: unspecified Allergic rhinitis seasonality: unspecified Qualified Code(s): J30.9 - Allergic rhinitis, unspecified Plan: Can continue OTC antihistamines PRN for symptomatic relief of her allergies (5) Anxiety: Code(s): F41.9 - Anxiety disorder, unspecified Category: Medical Plan: Continue Buspirone 10 mg BID Feels that she has been doing very well on her current Rx for her anxiety and mood disorder (6) Obesity (BMI 30-39.9): Code(s): E66.9 - Obesity, unspecified Category: Medical Plan: Reinforced diet/exercise as tolerated/lose weight Plan To return in 6 months for her next annual physical examination Orders: Orders Influenza [id number] Immunization Today Z23 - Encounter for immunization TSH reflex Free T4 Today E78.00 - Pure hypercholesterolemia, unspecified Vitamin D 25-OH Total Today E55.9 - Vitamin D deficiency, unspecified Complete Blood Count Auto Diff Today D64.9 - Anemia, unspecified Comprehensive Carlock. Panel Fast Today E78.00 - Pure hypercholesterolemia, unspecified Lipid Panel Today E78.00 - Pure hypercholesterolemia, unspecified UA CC w/rflx Micro + Cult Today R30.0 - Dysuria
== END 2024-01-23 10:14 | disposition home or self-care (01) ==
PROVIDERS: PCP Internal Medicine; Visit Provider Internal Medicine
DX: E78.00 Pure hypercholesterolemia, unspecified (principal); R03.0 Elevated blood-pressure reading, without diagnosis of hypertension; E66.9 Obesity, unspecified; Z68.29 Body mass index [BMI] 29.0-29.9, adult; K57.20 Diverticulitis of large intestine with perforation and abscess without bleeding; J30.9 Allergic rhinitis, unspecified; F41.9 Anxiety disorder, unspecified

== ENCOUNTER → 2024-01-23 09:34 | Outpatient (BNVA) | payer BC, SELFPAY | PROVIDERS: PCP Internal Medicine; Visit Provider Internal Medicine | DX: E78.00 Pure hypercholesterolemia, unspecified (principal); R03.0 Elevated blood-pressure reading, without diagnosis of hypertension; K57.20 Diverticulitis of large intestine with perforation and abscess without bleeding; J30.9 Allergic rhinitis, unspecified; F41.9 Anxiety disorder, unspecified; E66.9 Obesity, unspecified; Z68.29 Body mass index [BMI] 29.0-29.9, adult; Z79.899 Other long term (current) drug therapy | CPT/HCPCS: 96127 ==

== ENCOUNTER 2024-02-11 14:58 | Outpatient (RCR) | payer BC, SELFPAY | END 2024-02-11 16:31 | disposition home or self-care (01) | LOC: HO.PT 14:58 | PROVIDERS: PCP Internal Medicine; Visit Provider Physician Assistant | DX: S82.202D Unspecified fracture of shaft of left tibia, subsequent encounter for closed fracture with routine healing (principal) | CPT/HCPCS: 97110; 97140; 97161; 97530; 97535 ==

== ENCOUNTER 2024-02-16 08:53 | Outpatient (AMB) | payer BC, SELFPAY ==
--- NOTE | 2024-02-16 08:55 | A.OFFVIS_ITS ---
Vital Signs 02/16/24 08:59 Height 5 ft 4 in Weight 177 lb BMI 30.4 BP 182/106 H Blood Pressure Location Rt brachial Position Sitting Pulse 72 Intake Visit Reasons: 2 mth follow up s/p Colectomy Sigmoid Resection Intake Note: Patient here 2m s/p sigmoid resection, colectomy. Reports incision healing well. Patient c/o: no concerns. Denies diarrhea, constipation. 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 Doing well. Tolerating diet. Having regular bowel movements through ostomy. No other GI issues or complaints. [facility] Medical History Anxiety Allergic rhinitis Pure hypercholesterolemia Obesity (BMI 30-39.9) Loose stools Genital herpes Dyslipidemia Depression with anxiety Surgical History History of endometrial ablation Status post Rachelle's procedure (12/04/23) H/O LEEP Family History Father History of quadruple bypass Mother High cholesterol Diverticulitis IBS (irritable bowel syndrome) HTN (hypertension) Maternal Grandmother Lung cancer Maternal Grandfather Stroke Maternal Aunt Diabetes Cancer Maternal Uncle Bladder cancer Social History Household Members: Significant Other Household Members Other:: , no kids Housing: House Do you presently have visiting nurse or other home services: No Alcohol intake: current Alcohol intake frequency: 0-2 drinks per day Alcohol type: beer Comment: NWB left leg, assist pivot to commode Patient Tobacco Use Status: Never used Tobacco Tobacco use type: Cigarette e-Cigarette/Vaping Use: Never Used Second Hand Smoke Exposure: No Substance Use Type: Marijuana Advance Directives Date on File: 12/01/23 service: No Current occupational status: employed Current occupation: [employer] Current occupational exposures/hazards: No Sexual orientation: Straight/Heterosexual Gender identity: Female Cognitive needs: No Hearing needs: No Vision needs: No Female Reproductive History Menstrual Age of Menarche: 14 Physical Exam Vital Signs: Last Vital Signs Pulse 72 02/16/24 08:59 BP 182/106 H 02/16/24 08:59 BMI result Body Mass Index 30.4 GI Other: Abdomen; incision well healed. Ostomy functioning well Assessment & Plan Assessment & Plan (1) Status post colostomy: Code(s): Z93.3 - Colostomy status Category: Medical Plan Current plan is to arrange for a screening colonoscopy prior to ostomy reversal. Arrangements were made for this. She will see me after the the above and then scheduled for ostomy reversal. All questions answered. Coding Level of Care Code Est Pt Level 4 (68489) Diagnoses Status post colostomy Z93.3
[2024-02-16 08:59] VITALS: BP 182/106; PULSE 72; BMI 30.4
== END 2024-02-16 09:09 | disposition home or self-care (01) ==
PROVIDERS: PCP Internal Medicine; Visit Provider Surgery
DX: Z93.3 Colostomy status (principal)
CPT/HCPCS: 99024

== ENCOUNTER 2024-05-20 10:21 | Day surgery (SDC) | payer BC, SELFPAY ==
[2024-05-20 12:35] VITALS: BP 163/92; PULSE 64; RESP 16; TEMP 36.7; O2SAT 100; BMI 28.2
--- NOTE | 2024-05-20 12:54 | P.HPSUR_ITS ---
Pre-Procedural Eval Section A - 24 Hr Update-Section A only Date of Service: 05/20/24 Section B - Complete if H&P > 30 days Chief Complaint: Diverticulitis of large intestine with perforation Details of Present Illness: Anxiety Allergic rhinitis Pure hypercholesterolemia Obesity (BMI 30-39.9) Loose stools Genital herpes Dyslipidemia Depression with anxiety Surgical History History of endometrial ablation Status post Rachelle's procedure (12/04/23) H/O LEEP Present Medications: see Short Stay Collaborative assessment Allergies: Allergies Allergy/AdvReac Type Severity Reaction Status Date / Time No Known Allergies Allergy Verified 04/14/24 15:58 Review of Systems Review of Systems Comment: Ten point ROS negative Exam Exam Comment: Gen appear: No acute distress HEENT: no icterus Chest: No overt resp distress Abd: soft, nontender, nondistended Psych: Stable affect, answering questions appropriately Neuro: A/Ox3 noted to move all extremities spontaneously Ext: no peripheral edema Plan Diagnosis/Plan: Unchanged I have reviewed the history and physical and performed a pertinent physical examination on my patient. No changes have occurred unless specified. Time Spent With Patient Time: Total time managing care of this patient today ____ minutes.
--- NOTE | 2024-05-20 13:53 | HO.ANESPROP2 ---
HPI - Anesthesia Eval Consult details Narrative: 49 yo female patient for Colonoscopy. S/p Colostomy 11/2023 [facility] Active Problems Active Problems: All Active Problems (Updated 01/23/24 @ 10:59 by Andi Fry MD) Status post colostomy (Acute) Abscess of sigmoid colon due to diverticulitis (Acute) Complex ovarian cyst (Acute) Postop check (Acute) Status post Rachelle's procedure (Acute 12/04/23) Abnormal uterine bleeding (Acute) Anxiety (Acute) Allergic rhinitis (Acute) Pure hypercholesterolemia (Acute) Annual physical exam (Acute) Carpal tunnel syndrome of right wrist (Acute) Burning sensation of ulnar region of forearm (Acute) Obesity (BMI 30-39.9) (Acute) Elevated blood pressure reading in office without diagnosis of hypertension (Acute) Colitis (Acute) Cervical polyp (Acute) Physical exam (Acute) Diverticulosis of colon (Acute) Loose stools (Acute) Encounter for screening colonoscopy (Acute) Dyslipidemia (Acute) Depression with anxiety (Acute) Past Medical History Medical History Anxiety Allergic rhinitis Pure hypercholesterolemia Obesity (BMI 30-39.9) Loose stools Genital herpes Dyslipidemia Depression with anxiety Family History Family History Father History of quadruple bypass Mother High cholesterol Diverticulitis IBS (irritable bowel syndrome) HTN (hypertension) Maternal Grandmother Lung cancer Maternal Grandfather Stroke Maternal Aunt Diabetes Cancer Maternal Uncle Bladder cancer Family history of problems with anesthesia: No Surgical History Surgical History History of endometrial ablation Status post Rachelle's procedure (12/04/23) H/O LEEP History of Problems with Anesthesia: No Social History Social History Household Members: Significant Other Household Members Other:: , no kids Housing: House Do you presently have visiting nurse or other home services: No Alcohol intake: current Alcohol intake frequency: 0-2 drinks per day Alcohol type: beer Comment: NWB left leg, assist pivot to commode Patient Tobacco Use Status: Never used Tobacco Tobacco use type: Cigarette e-Cigarette/Vaping Use: Never Used Second Hand Smoke Exposure: No Use of substances other than those prescribed or required for medical reasons: Yes Substance Use Type: Marijuana Have you been hit, kicked, punched, or otherwise hurt by someone within the past year? If so, by whom?: No Advance Directives: No Advance Directives Information Provided: Yes Advance Directives Date on File: 12/01/23 Recently lost weight without trying: No service: No Current occupational status: employed Current occupation: [employer] Current occupational exposures/hazards: No Sexual orientation: Straight/Heterosexual Gender identity: Female Cognitive needs: No Hearing needs: No Vision needs: No Meds Allergies Allergy/AdvReac Type Severity Reaction Status Date / Time No Known Allergies Allergy Verified 04/14/24 15:58 Exam Height,Weight and Vital Signs: Height 5 ft 5 in Weight 77 kg Last Vital Signs Temp 98.1 F 05/20/24 12:35 Pulse 64 05/20/24 12:35 Resp 16 05/20/24 12:35 BP 163/92 H 05/20/24 12:35 Pulse Ox 100 05/20/24 12:35 O2 Del Method Room Air 05/20/24 12:35 Airway Mallampati Class: II TM Dist: >3cm Neck ROM: Full Loose/Missing/Broken Teeth: No Heart: RRR Lungs: CTAB Assessment and Plan Assessment Anesthesia Assessment: Anesthesia Plan Discussed and Chart Reviewed Final Anesthetic Review Family History of Problems with Anesthesia: No History of Problems with Anesthesia: No NPO: Yes ASA Class: II Final Preanesthetic Review: No Changes in Pt Med Stat, Meds/Allgs Chart Reviewed, Consent Obtained/Reviewed and Anes Risks/Benef Reviewed Patient Risk: Intermediate Procedure Risk: Low Assessment/Block/Sedation in SS: Assess/Block/Sedation-SS Anesthetic Plan Anesthetic Plan: TIVA Disposition: Standard PACU
--- NOTE | 2024-05-20 15:28 | P.OPN-COLO_ITS ---
Colonoscopy Operative Note Operative Note Date of Service: 05/20/24 Narrative: Procedure: Colonoscopy Indication: Hx of perforated diverticulitis s/p colostomy Endoscopist: Camille Sarkar MD Anesthesia Provider: Eduarda Stewart CRNA Anesthesia type: MAC Instrument: Olympus [id number]-H190L Consent: Indication, risks vs benefits, and alternatives were discussed with the patient who gave written informed consent to proceed. EKG, pulse, pulse oximetry and blood pressure were monitored throughout the procedure. Please see anesth esia flowsheet. Procedure: The patient was brought to the procedure room and placed in the left lateral decubitus position. IV medications were administered by the anesthesia provider in attendance. A digital rectal exam was performed which was normal. A distal attachment cap was affixed to the tip of the colonoscope which was then inserted through the anus and advanced through the rectal stump till staple line at 25 cm. The scope was then withdrawn and inserted through the stoma through the colon till cecum at 60 cm and terminal ileum. Appendiceal orifice and il eocecal valve were identified. Mucosa was carefully examined under high definition white light as the instrument was slowly withdrawn in a retrograde panoramic fashion. Retroflexion was performed in ascending colon. The procedure was not difficult. There were no immediate obvious complications. The quality of the prep was BBPS: 3+2+3 = adequate Withdrawal time 8 minutes. Limitations: No limitations. Findings: Mucosa: The rectal stump mucosa was dotted with polyps vs lump bumpy appearance due to diversion proctitis. The colon mucosa was normal to cecum and terminal ileum. Protruding lesions: * Too numerous to count polyps ranging from size 3-7 mm in rectum (vs ?? edema from diversion proctitis). Cold snare polypectomy was performed on digital sales representative 5-7 polyps. The polyps were completely removed and retrieved. * Medium internal hemorrhoids without stigmata of recent bleeding. Excavated lesions: * Mild to moderate diverticulosis of left sided colon. Impression: 1. Normal colon mucosa 2. Too numerous to count polyps in rectum r/o hyperplastic polyposis syndrome. 3. Internal hemorrhoids Recommendations: - Follow path results. - If path confirms hyperplastic/serrated polyps would recommend genetic testing - Repeat colo interval contingent on above
[2024-05-20 15:30] VITALS: BP 137/90; PULSE 67; RESP 18; TEMP 36.6; O2SAT 100
[2024-05-20 15:45] VITALS: BP 151/94; PULSE 66; RESP 18; TEMP 36.3; O2SAT 100
== END 2024-05-20 15:53 | disposition home or self-care (01) ==
PROVIDERS: PCP Internal Medicine; Visit Provider Internal Medicine
PROC: 0DJD8ZZ Inspection of Lower Intestinal Tract, Via Natural or Artificial Opening Endoscopic (ICD-10-PCS; CPT 45378; principal; 2024-05-20 14:10)
DX: Z12.11 Encounter for screening for malignant neoplasm of colon (principal); Z87.19 Personal history of other diseases of the digestive system; K62.1 Rectal polyp; K63.5 Polyp of colon; K51.20 Ulcerative (chronic) proctitis without complications; K57.30 Diverticulosis of large intestine without perforation or abscess without bleeding; Z93.3 Colostomy status; K64.8 Other hemorrhoids; A60.00 Herpesviral infection of urogenital system, unspecified; F32.A Depression, unspecified; E78.00 Pure hypercholesterolemia, unspecified; J30.9 Allergic rhinitis, unspecified; N83.299 Other ovarian cyst, unspecified side; F41.8 Other specified anxiety disorders; E66.9 Obesity, unspecified; Z68.30 Body mass index [BMI] 30.0-30.9, adult; Z98.890 Other specified postprocedural states
CPT/HCPCS: 45385; 88305; 88341; 88342; J2003; J2704

== ENCOUNTER → 2024-05-20 10:21 | Outpatient (BNV) | payer BC, SELFPAY | PROVIDERS: PCP Internal Medicine; Visit Provider Internal Medicine | DX: K57.20 Diverticulitis of large intestine with perforation and abscess without bleeding (principal); Z93.3 Colostomy status; K62.1 Rectal polyp; K63.5 Polyp of colon | CPT/HCPCS: 45385 ==

== ENCOUNTER 2024-06-02 13:59 | Outpatient (AMB) | payer BC, SELFPAY ==
--- NOTE | 2024-06-02 14:00 | A.OFFVIS_ITS ---
Vital Signs 06/02/24 14:05 Height 5 ft 5 in Weight 178 lb 9.191 oz BMI 29.7 BP 138/89 Blood Pressure Location Lt brachial Position Sitting Pulse 78 Intake Visit Reasons: S/P [place]; Dr. 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 Now doing well. No abd pain, N, V. NO blood in ostomy. Emtpies it 1-2 times a day. Prev colo 2020 (Dr Gar) - no polyps. Diverticulosis. Bx neg for microscopic colitis. 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 The colon mucosa was normal to cecum and terminal ileum. Protruding lesions: * Too numerous to count polyps ranging from size 3-7 mm in rectum (vs ?? edema from diversion proctitis). 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 The polyps were completely removed and retrieved. * Medium internal hemorrhoids without stigmata of recent bleeding. Excavated lesions: * Mild to moderate diverticulosis of left sided colon. Path: A): Additional review and immunostains show mixed B and T cells areas with CD3 and CD5 staining T cells and CD10 and increased Ki-67 in germinal center areas. Morphology and stains support a reactive process. Electronically Signed By: Shivani Harry 05/27/24 2757 Diagnosis A. Colon, rectal polyps: Colonic mucosa with multiple prominent lymphoid aggregates otherwise no specific change; no adenomatous dysplasia seen (see comment). B. Colon, descending, polyps: Polypoid colonic mucosa with lymphoid aggregates; no adenomatous dysplasia seen. Comment: (A): A reactive process is favored. Immunostains pending; addendum to follow 06/02/24: Here for follow up. No active GI issues. Reassured that biopsies reflect reactive changes, no neopl astic process noted. Pt is looking fwd to follow up with Dr Ha to discuss reversal of ostomy. [facility] Medical History Anxiety Allergic rhinitis Pure hypercholesterolemia Obesity (BMI 30-39.9) Loose stools Genital herpes Dyslipidemia Depression with anxiety Surgical History Hx of colonoscopy History of endometrial ablation Status post Rachelle's procedure (12/04/23) H/O LEEP Family History Father History of quadruple bypass Mother High cholesterol Diverticulitis IBS (irritable bowel syndrome) HTN (hypertension) Maternal Grandmother Lung cancer Maternal Grandfather Stroke Maternal Aunt Diabetes Cancer Maternal Uncle Bladder cancer Social History Household Members: Significant Other Household Members Other:: , no kids Housing: House Do you presently have visiting nurse or other home services: No Alcohol intake: current Alcohol intake frequency: 0-2 drinks per day Alcohol type: beer Comment: NWB left leg, assist pivot to commode Patient Tobacco Use Status: Never used Tobacco Tobacco use type: Cigarette e-Cigarette/Vaping Use: Never Used Second Hand Smoke Exposure: No Substance Use Type: Marijuana Advance Directives Date on File: 12/01/23 service: No Current occupational status: employed Current occupation: [employer] Current occupational exposures/hazards: No Sexual orientation: Straight/Heterosexual Gender identity: Female Cognitive needs: No Hearing needs: No Vision needs: No Female Reproductive History Menstrual Age of Menarche: 14 Review of Systems Const All systems reviewed & are unremarkable except as noted in HPI and below Physical Exam Vital Signs: Last Vital Signs Pulse 78 06/02/24 14:05 BP 138/89 06/02/24 14:05 BMI result Body Mass Index 29.7 No apparent distress Nonicteric Abdomen soft, nondistended Alert and oriented x3, normal gait Assessment & Plan Assessment & Plan (1) Abscess of sigmoid colon due to diverticulitis: Code(s): K57.20 - Diverticulitis of large intestine with perforation and abscess without bleeding Category: Medical (2) Complex ovarian cyst: Comment: Status post on bloc resection of left adnexal during Rachelle's pouch Code(s): N83.299 - Other ovarian cyst, unspecified side Category: Medical (3) Status post colostomy: Code(s): Z93.3 - Colostomy status Category: Surgical Plan Pt with hx of complicated diverticulitis with L adnexal involvement. Colonoscopy completed earlier this month as requested by her primary surgeon. Reassuring. Repeat colo for asymptomatic colorectal ca screening in 10 years. Follow up PRN Coding Level of Care Code Est Pt Level 3 (95911) Diagnoses Abscess of sigmoid colon due to diverticulitis K57.20 Complex ovarian cyst N83.299 Status post colostomy Z93.3
[2024-06-02 14:05] VITALS: BP 138/89; PULSE 78; BMI 29.7
== END 2024-06-02 14:27 | disposition home or self-care (01) ==
LOC: HO.HGI 13:59
PROVIDERS: PCP Internal Medicine; Visit Provider Internal Medicine
DX: K57.20 Diverticulitis of large intestine with perforation and abscess without bleeding (principal); N83.299 Other ovarian cyst, unspecified side; Z93.3 Colostomy status
CPT/HCPCS: 99213

== ENCOUNTER → 2024-06-02 13:59 | Outpatient (BNVA) | payer BC, SELFPAY | PROVIDERS: PCP Internal Medicine; Visit Provider Internal Medicine ==

== ENCOUNTER 2024-06-08 09:00 | Outpatient (AMB) | payer BC, SELFPAY ==
[2024-06-08 09:09] VITALS: BP 163/93; PULSE 71; O2SAT 100; BMI 30.8
--- NOTE | 2024-06-08 09:09 | A.OFFVIS_ITS ---
Vital Signs 06/08/24 09:09 Height 5 ft 5 in Weight 185 lb 3.013 oz BMI 30.8 BP 163/93 H Blood Pressure Location Lt brachial Position Sitting Pulse 71 Pulse Source Pulse Oximeter Pulse Oximetry (%) 100 Oxygen Delivery Method Room Air Intake Visit Reasons: Colostomy reversal Intake Note: Patient here to discuss Colostomy reversal. Reports recent colonoscopy on 05-20-2024. Patient c/o: None Surgery: exploratory laparotomy, sigmoid resection, end colostomy, Rachelle's pouch, en block resection of left adnexa abscess/ mass~ 12-04-2023. Allergies No Known Allergies Allergy (Verified 06/08/24 09:11) HPI Comments Details: Patient was status post colonoscopy prior to her ostomy reversal. Findings were most noteworthy for diversion proctitis otherwise within normal limits. Patient was anxious to have her colostomy reversed. She has no new issues or complaints. [facility] Medical History Anxiety Allergic rhinitis Pure hypercholesterolemia Obesity (BMI 30-39.9) Loose stools Genital herpes Dyslipidemia Depression with anxiety Surgical History Hx of colonoscopy History of endometrial ablation Status post Rachelle's procedure (12/04/23) H/O LEEP Family History Father History of quadruple bypass Mother High cholesterol Diverticulitis IBS (irritable bowel syndrome) HTN (hypertension) Maternal Grandmother Lung cancer Maternal Grandfather Stroke Maternal Aunt Diabetes Cancer Maternal Uncle Bladder cancer Social History Household Members: Significant Other Household Members Other:: , no kids Housing: House Do you presently have visiting nurse or other home services: No Alcohol intake: current Alcohol intake frequency: 0-2 drinks per day Alcohol type: beer Comment: NWB left leg, assist pivot to commode Patient Tobacco Use Status: Never used Tobacco Tobacco use type: Cigarette e-Cigarette/Vaping Use: Never Used Second Hand Smoke Exposure: No Substance Use Type: Marijuana Advance Directives Date on File: 12/01/23 service: No Current occupational status: employed Current occupation: [employer] Current occupational exposures/hazards: No Sexual orientation: Straight/Heterosexual Gender identity: Female Cognitive needs: No Hearing needs: No Vision needs: No Female Reproductive History Menstrual Age of Menarche: 14 Physical Exam Vital Signs: Last Vital Signs Pulse 71 06/08/24 09:09 BP 163/93 H 06/08/24 09:09 Pulse Ox 100 06/08/24 09:09 Oxygen Delivery Method Room Air 06/08/24 09:09 BMI result Body Mass Index 30.8 Chest Other: Chest breath sounds bilaterally, HS 1 in 2 GI Other: Abdomen corpulent, soft. Incision clean dry intact. Ostomy functioning Assessment & Plan Assessment & Plan (1) Status post Rachelle's procedure: Onset Date: 12/04/23 Comment: Jean Tol[place] Code(s): Z93.3 - Colostomy status Category: Medical Plan Risks, benefits, alternatives of colostomy reversal were reviewed with the patient and included but not limited to bleeding, infection, numbness, pain, scarring, diverting ileostomy, and the patient wishes to proceed. She will have a full bowel prep with antibiotics day prior and an instructed to give herself a fleets enema transrectally either the night before or the morning of the procedure. All questions answered. Arrangements were made for this on a day which is convenient for her. Coding Level of Care Code Est Pt Level 5 (86387) Diagnoses Status post Rachelle's procedure Z93.3
== END 2024-06-08 09:32 | disposition home or self-care (01) ==
PROVIDERS: PCP Internal Medicine; Visit Provider Surgery
DX: Z43.3 Encounter for attention to colostomy (principal)
CPT/HCPCS: 99214

== ENCOUNTER → 2024-06-08 09:00 | Outpatient (BNVA) | payer BC, SELFPAY | PROVIDERS: PCP Internal Medicine; Visit Provider Surgery ==

== ENCOUNTER 2024-07-02 07:57 | Outpatient (REF) | payer BC, SELFPAY ==
[2024-07-02 08:29] LABS: MANUAL DIFF FLAG NO
[2024-07-02 09:10] LABS: Basophils Absolute Auto 0.1 X10*3/uL (0.0-0.2); Basophils Percent Auto 0.7 % (0-2); Eosinophils Absolute Auto 0.1 X10*3/uL (0.0-0.4); Eosinophils Percent Auto 1.4 % (0-4); Hematocrit 42.4 % (37.0-47.0); Hemoglobin 14.2 g/dl (12.0-16.0); Imm Gran Abs Auto 0.02 X10*3/uL (0.00-0.03); Imm Gran Pct Auto 0.3 % (0.0-0.4); Lymphocytes Absolute Auto 2.1 X10*3/uL (1.2-4.9); Lymphocytes Percent Auto 29.4 % (20-40); Mean Corpuscular HGB Conc 33.5 g/dl (31.0-35.0); Mean Corpuscular Hemoglobin 31.4 pg (27.0-33.0); Mean Corpuscular Volume 93.8 fL (80.0-98.0); Mean Platelet Volume 9.5 fL (9.4-12.3); Monocytes Absolute Auto 0.4 X10*3/uL (0.1-1.2); Monocytes Percent Auto 4.9 % (2-11); Neutrophils Absolute Auto 4.6 x10*3/uL (2.0-8.3); Neutrophils Percent Auto 63.3 % (45-73); Platelet Count 385 X10*3/uL (160-400); Red Blood Count 4.52 X10*6/uL (4.20-5.50); Red Cell Distribution Width 11.5 % (11.0-16.0); White Blood Count 7.3 X10*3/uL (4.8-10.8)
[2024-07-02 09:52] LABS: Appearance Urine Clear; Color Urine Yellow; Glucose Urine UA Negative (Negative); Leukocyte Esterase Urine Small (1+) (Negative); Nitrite Urine Negative (Negative); UMIC TRIGGER UACC YES; Urine Blood Negative (Negative); Urine Ketones Negative (Negative); Urine Protein Negative (Neg-Trace)
[2024-07-02 09:53] LABS: Alanine Aminotransferase 16 U/L (0-31); Albumin Level 4.4 g/dL (3.5-5.0); Alkaline Phosphatase 65 U/L (39-117); Anion Gap 12 (12-20); Aspartate Amino Transferase 20 U/L (5-31); Bilirubin Total 0.4 mg/dL (0.0-1.0); Blood Urea Nitrogen 21 mg/dL (9-16); Calcium 9.6 mg/dL (8.4-10.2); Carbon Dioxide 25 mmol/L (22-29); Chloride 107 mmol/L (96-108); Cholesterol 280 mg/dL (<200); Estimated Glomerular Filt Rate > 60; Glucose Fasting 96 mg/dL (60-99); HDL Cholesterol 83 mg/dL (>40); LDL Cholesterol Calculated 184 mg/dL (<100); Potassium 4.2 mmol/L (3.3-5.1); Sodium 140 mmol/L (135-145); Total Protein 7.7 g/dL (6.5-8.0); Triglycerides 66 mg/dL (<150)
[2024-07-02 10:10] LABS: Bacteria Urine Trace (None Seen); Hyaline Casts Urine 0-2 /LPF (0-2); RBC Urine 0-2 /HPF (0-2); UACC Culture Trigger YES; WBC Urine 0-5 /HPF (0-5)
[2024-07-02 10:11] LABS: TSH reflex Free T4 1.94 uIU/mL (0.32-4.0)
[2024-07-02 10:21] LABS: Folate 13.7 ng/mL (> or = 4.0); Vitamin B12 727 pg/mL (200-900)
== END 2024-07-02 07:58 | disposition home or self-care (01) ==
LOC: HO.LAB 07:57
PROVIDERS: PCP Internal Medicine; Visit Provider Internal Medicine
DX: Z00.00 Encounter for general adult medical examination without abnormal findings (principal); E78.00 Pure hypercholesterolemia, unspecified; D64.9 Anemia, unspecified; E55.9 Vitamin D deficiency, unspecified; E53.8 Deficiency of other specified B group vitamins; R30.0 Dysuria
CPT/HCPCS: 36415; 80053; 80061; 81001; 81003; 82306; 82607; 82746; 84443; 85025; 87086

== ENCOUNTER 2024-07-13 07:36 | Outpatient (AMB) | payer BC, SELFPAY ==
--- NOTE | 2024-07-13 07:37 | MHC.OFFVIS ---
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 She is doing well with no semiconductor wafers marker concerns. LMP 8 months ago. Has colostomy reversion booked this week. Currently sexually active. Denies any vaginal dryness or irritation. STI testing offered; she declined. Attempting to eat a healthy diet with calcium and vitamin D and stays active with exercise. Last pap smear; 2021. History of LEEP. Last mammogram; 2023. Denies any family history of breast, ovarian or colon cancer. [facility] Medical History Seasonal affective disorder HTN (hypertension) RBBB (right bundle branch block) Anxiety Allergic rhinitis Pure hypercholesterolemia Obesity (BMI 30-39.9) Loose stools Genital herpes Dyslipidemia Depression with anxiety Surgical History History of open reduction and internal fixation (ORIF) procedure Hx of colonoscopy History of endometrial ablation Status post Rachelle's procedure (12/04/23) H/O LEEP Family History Father History of quadruple bypass Mother High cholesterol Diverticulitis IBS (irritable bowel syndrome) HTN (hypertension) Maternal Grandmother Lung cancer Maternal Grandfather Stroke Maternal Aunt Diabetes Cancer Maternal Uncle Bladder cancer Social History Household Members: Significant Other Household Members Other:: , no kids Housing: House Are you a primary healthcare recruiter to a significant other at home: No Do you presently have visiting nurse or other home services: No Alcohol intake: current Alcohol intake frequency: 0-2 drinks per day Alcohol type: beer Comment: NWB left leg, assist pivot to commode Patient Tobacco Use Status: Never used Tobacco Tobacco use type: Cigarette e-Cigarette/Vaping Use: Never Used Second Hand Smoke Exposure: No Substance Use Type: Marijuana Advance Directives Date on File: 12/01/23 service: No Current occupational status: employed Current occupation: [employer] Current occupational exposures/hazards: No Sexual orientation: Straight/Heterosexual Gender identity: Female Cognitive needs: No Hearing needs: No Vision needs: No Female Reproductive History Menstrual Age of Menarche: 14 control method: permanent sterilization Permanent Sterilization: BTL and other (vasectomy) Total pregnancies: 0 Date of last pap smear: 01/02/22 (neg pap and hpv) History of abnormal pap smear: Yes (Leep 2001 stuart 3 04/15 lgsil 05/13 colpo cin1) Date of Mammogram: 12/23/23 (Birad 1) Review of Systems Const All systems reviewed & are unremarkable except as noted in HPI and below Reports as per HPI Eyes Reports no additional complaints ENT Reports no additional complaints Card Reports no additional complaints Resp Reports no additional complaints GI Reports as per HPI and Reports no additional complaints Reports as per HPI Musc Reports no additional complaints Skin/Breast Reports as per HPI Neuro Reports no additional complaints Psych Reports no additional complaints Endo Reports no additional complaints Mynor/Lymph Reports no additional complaints Aller/Immun Reports no additional complaints Physical Exam Vital Signs: Last Vital Signs BP 120/78 07/13/24 07:39 BMI result Body Mass Index 30.4 Const General: cooperative, healthy appearing, no acute distress, well developed and alert Orientation/consciousness: patient oriented x3 HEENT Head: Yes normal to inspection Eyes General: appearance normal, both eyes and all related structures Neck Neck: Yes normal visual inspection Thyroid: Thyroid normal Chest Chest palpation & inspection: normal inspection of the chest and other (no puckering, dimpling, peau de orange, retraction, discharge, masses) Breast/axilla inspection: normal inspection of the breasts Breast/axilla palpation: normal palpation of the breasts Resp Effort & Inspection: normal respiratory effort GI Other: ostomy Inspection: Yes normal to inspection Palpation (GI): Soft to palpation Rectal Exam - Female: deferred General: Yes bladder normal to palpation External Female Exam: normal external appearance and normal appearance of the urethra Speculum Exam - Vagina: normal appearance of the vagina, normal palpation, normal vaginal discharge, vagina atrophic and other (Bled slightly with Pap) Speculum Exam - Cervix: normal appearance of the cervix and normal palpation Bimanual exam- vagina & uterus: normal bimanual exam, normal palpation, uterine size normal, bladder normal to palpation, normal palpation and non-tender Bimanual Exam- Adnexa, other: no masses Skin General skin exam: no rashes or lesions noted Rashes: no rashes Neuro General: patient oriented x3 Cognition (Neuro): normal cognition Extrem General: Yes normal to inspection Psych Attitude: cooperative Thought process: Normal thought process present Assessment & Plan Assessment & Plan (1) Encounter for well woman exam with routine gynecological exam: Code(s): Z01.419 - Encounter for gynecological examination (general) (routine) without abnormal findings Category: Medical Plan Discussed: Current recommendations for pap smears per ASCCP guidelines. Pap obtained. Breast awareness, periodic self breast exams and yearly mammogram. Maintain a healthy lifestyle, well balanced diet including Calcium 1,200 mg and Vitamin D 600 IU daily, and routine exercise. Contact the office with any postmenopausal bleeding. Menopause verses perimenopause. Menopause is definitive of 1 year of no menses or 12 months in succession. Report any abnormal uterine bleeding in example prolonged episodes, or short intervals less than 24 days. Patient verbalizes understanding and agrees to the plan of care. She was given opportunity to ask questions and all questions were answered to the best of my ability. RTO in 1 year for annual semiconductor wafers marker exam. This note is constructed using voice recognition software. While every effort has been made to ensure accuracy, bus washer errors may have been included. Orders: Orders HPV High risk Today Z01.419 - Encounter for gynecological examination (general) (routine) without abnormal findings Pap Smear Today Z01.419 - Encounter for gynecological examination (general) (routine) without abnormal findings Coding Level of Care Code Est Pt Prev Care 40-64y(91800) Diagnoses Encounter for well woman exam with routine gynecological exam Z01.419
[2024-07-13 07:39] VITALS: BP 120/78; BMI 30.4
== END 2024-07-13 08:52 | disposition home or self-care (01) ==
LOC: HO.HWS 07:36
PROVIDERS: PCP Internal Medicine; Visit Provider Advanced Practice Midwife
DX: Z01.419 Encounter for gynecological examination (general) (routine) without abnormal findings (principal)
CPT/HCPCS: 99396; 99459

== ENCOUNTER 2024-07-13 07:36 | Outpatient (REF) | payer BC, SELFPAY ==
[2024-07-20 14:21] LABS: HPV Genotype 16 Negative (Negative); HPV Genotype 18 Negative (Negative); HPV High Risk Negative (Negative)
== END 2024-07-13 07:37 | disposition home or self-care (01) ==
LOC: HO.LNP 07:36
PROVIDERS: PCP Internal Medicine; Visit Provider Advanced Practice Midwife
DX: Z01.419 Encounter for gynecological examination (general) (routine) without abnormal findings (principal)
CPT/HCPCS: 87626; 88175

== ENCOUNTER 2024-07-15 07:58 | Inpatient (IN) | payer BC, SELFPAY ==
[2024-07-01 10:08] VITALS: BP 132/91; PULSE 60; RESP 20; O2SAT 97; BMI 30.1
--- NOTE | 2024-07-01 10:25 | HO.ANESPROP2 ---
Documented by User: Sharri Dubois NP 07/05/24 14:43 HPI - Anesthesia Eval Consult details Narrative: 49yo F for Colostomy Reversal, 07/15/24 s/p [place] 11/2023 with GA-ETT 7 - no issues with anesthesia No recent illness No CP/SOB with work at [employer] Active Problems Active Problems: All Active Problems Status post colostomy (Acute) Abscess of sigmoid colon due to diverticulitis (Acute) Complex ovarian cyst (Acute) Postop check (Acute) Abnormal uterine bleeding (Acute) Annual physical exam (Acute) Carpal tunnel syndrome of right wrist (Acute) Burning sensation of ulnar region of forearm (Acute) Elevated blood pressure reading in office without diagnosis of hypertension (Acute) Colitis (Acute) Cervical polyp (Acute) Physical exam (Acute) Diverticulosis of colon (Acute) Encounter for screening colonoscopy (Acute) Status post Rachelle's procedure (Acute 12/04/23) Anxiety (Acute) Allergic rhinitis (Acute) Pure hypercholesterolemia (Acute) Obesity (BMI 30-39.9) (Acute) Loose stools (Acute) Dyslipidemia (Acute) Depression with anxiety (Acute) Past Medical History Medical History Seasonal affective disorder HTN (hypertension) RBBB (right bundle branch block) Anxiety Allergic rhinitis Pure hypercholesterolemia Obesity (BMI 30-39.9) Loose stools Genital herpes Dyslipidemia Depression with anxiety Family History Family History Father History of quadruple bypass Mother High cholesterol Diverticulitis IBS (irritable bowel syndrome) HTN (hypertension) Maternal Grandmother Lung cancer Maternal Grandfather Stroke Maternal Aunt Diabetes Cancer Maternal Uncle Bladder cancer Family history of problems with anesthesia: No Surgical History Surgical History History of open reduction and internal fixation (ORIF) procedure Hx of colonoscopy History of endometrial ablation Status post Rachelle's procedure (12/04/23) H/O LEEP History of Problems with Anesthesia: No Social History Social History Household Members: Significant Other Household Members Other:: , no kids Housing: House Are you a primary resident caregiver to a significant other at home: No Do you presently have visiting nurse or other home services: No Alcohol intake: current Alcohol intake frequency: 0-2 drinks per day Alcohol type: beer Comment: NWB left leg, assist pivot to commode Patient Tobacco Use Status: Never used Tobacco Tobacco use type: Cigarette e-Cigarette/Vaping Use: Never Used Second Hand Smoke Exposure: No Substance Use Type: Marijuana Advance Directives Date on File: 12/01/23 service: No Current occupational status: employed Current occupation: [employer] Current occupational exposures/hazards: No Sexual orientation: Straight/Heterosexual Gender identity: Female Cognitive needs: No Hearing needs: No Vision needs: No Meds Allergies Allergy/AdvReac Type Severity Reaction Status Date / Time No Known Allergies Allergy Verified 07/13/24 07:39 Home Medications ?Medication ?Instructions ?Recorded ?Confirmed ?Last Taken ?Type Lactobacillus acidophilus 10 10,000 mmu cells PO DAILY 07/01/24 07/01/24 07/14/24 History billion cell capsule (Probiotic) amlodipine 5 mg tablet (Norvasc) 5 mg PO QAM 07/01/24 07/01/24 07/15/24 History multivitamin 1 tab PO DAILY 07/01/24 07/01/24 07/14/24 History omega-3 fatty acids-fish oil 684 1 cap PO DAILY 07/01/24 07/01/24 Unknown History mg-1,200 mg capsule,delayed release Exam Height,Weight and Vital Signs: Height 5 ft 5 in Weight 82.1 kg Last Vital Signs Pulse 60 07/01/24 10:08 Resp 20 07/01/24 10:08 BP 132/91 H 07/01/24 10:08 Pulse Ox 97 07/01/24 10:08 O2 Del Method Room Air 07/01/24 10:08 Pertinent Lab Results Pertinent Lab Results: Laboratory Tests 07/02/24 08:29 WBC 7.3 Hgb 14.2 Hct 42.4 Plt Count 385 D Sodium 140 Potassium 4.2 Chloride 107 Carbon Dioxide 25 BUN 21 H Creatinine 0.73 Narrative Narrative: EKG 11/2023 Vent. Rate : 077 BPM Atrial Rate : 077 BPM P-R Int : 156 ms QRS Dur : 106 ms QT Int : 402 ms P-R-T Axes : 049 -10 -08 degrees QTc Int : 454 ms Normal sinus rhythm Incomplete right bundle branch block Borderline ECG No previous ECGs available Airway Mallampati Class: II TM Dist: >3cm Neck ROM: Full Loose/Missing/Broken Teeth: No Heart: RRR Lungs: CTAB Assessment and Plan Assessment Anesthesia Assessment: Anesthesia Plan Discussed and PAT Visit Final Anesthetic Review Family History of Problems with Anesthesia: No History of Problems with Anesthesia: No Documented by User: Valentina Camara MD 07/15/24 08:11 [facility] Past Medical History Medical History Seasonal affective disorder HTN (hypertension) RBBB (right bundle branch block) Anxiety Allergic rhinitis Pure hypercholesterolemia Obesity (BMI 30-39.9) Loose stools Genital herpes Dyslipidemia Depression with anxiety Family History Family History Father History of quadruple bypass Mother High cholesterol Diverticulitis IBS (irritable bowel syndrome) HTN (hypertension) Maternal Grandmother Lung cancer Maternal Grandfather Stroke Maternal Aunt Diabetes Cancer Maternal Uncle Bladder cancer Surgical History Surgical History History of open reduction and internal fixation (ORIF) procedure Hx of colonoscopy History of endometrial ablation Status post Rachelle's procedure (12/04/23) H/O LEEP Social History Social History Household Members: Significant Other Household Members Other:: , no kids Housing: House Are you a primary resident caregiver to a significant other at home: No Do you presently have visiting nurse or other home services: No Alcohol intake: current Alcohol intake frequency: 0-2 drinks per day Alcohol type: beer Comment: NWB left leg, assist pivot to commode Patient Tobacco Use Status: Never used Tobacco Tobacco use type: Cigarette e-Cigarette/Vaping Use: Never Used Second Hand Smoke Exposure: No Substance Use Type: Marijuana Advance Directives Date on File: 12/01/23 service: No Current occupational status: employed Current occupation: [employer] Current occupational exposures/hazards: No Sexual orientation: Straight/Heterosexual Gender identity: Female Cognitive needs: No Hearing needs: No Vision needs: No Meds Allergies Allergy/AdvReac Type Severity Reaction Status Date / Time No Known Allergies Allergy Verified 07/13/24 07:39 Home Medications ?Medication ?Instructions ?Recorded ?Confirmed ?Last Taken ?Type Lactobacillus acidophilus 10 10,000 mmu cells PO DAILY 07/01/24 07/01/24 07/14/24 History billion cell capsule (Probiotic) amlodipine 5 mg tablet (Norvasc) 5 mg PO QAM 07/01/24 07/01/24 07/15/24 History multivitamin 1 tab PO DAILY 07/01/24 07/01/24 07/14/24 History omega-3 fatty acids-fish oil 684 1 cap PO DAILY 07/01/24 07/01/24 Unknown History mg-1,200 mg capsule,delayed release Assessment and Plan Final Anesthetic Review NPO: Yes ASA Class: II Final Preanesthetic Review: Meds/Allgs Chart Reviewed, Consent Obtained/Reviewed and Anes Risks/Benef Reviewed Patient Risk: Low Procedure Risk: Intermediate Anesthetic Plan Anesthetic Plan: GA Disposition: Standard PACU
[2024-07-15] VITALS (15 sets, daily range): BP systolic 118–146; BP diastolic 73–100; PULSE 62–84; RESP 16–18; TEMP 36.5–37.2; O2SAT 94–100; BMI 30.1
[2024-07-15] MEDS: Lactated Ringers 1,000 ML 100 ML IVCONT (06:20)
--- NOTE | 2024-07-15 07:24 | MHC.SHP ---
Pre-Procedural Eval Section A - 24 Hr Update-Section A only Date of Service: 07/15/24 The patient is an INPATIENT: No Changes since office visit: Yes Patient answered all questions; No Cold of Flu in the past 2 weeks, No New Medical Problems and No Changes in Medication The patient has been examined within 24 hours of the surgical procedure. The History & Physical has been completed within 30 days and I have reviewed it.: No Section B - Complete if H&P > 30 days Chief Complaint: Colostomy status Details of Present Illness: 49 year old female with a previous history of perforated sigmoid diverticulitis status post Rachelle procedure approximately 3 months ago. She recently underwent colonoscopy which revealed no evidence of tumor. Several small polyps were removed from the rectal stump. He presents today for closure of colostomy. She tolerated the prep well and feels well today. Relevant Family History (Specify if Yes): No Relevant Social History: None Present Medications: see Short Stay Collaborative assessment Medical History: No relevant PMH History of Previous Operations: Relevant previous surgery/procedure and date(s) (Rachelle procedure) Allergies: Allergies Allergy/AdvReac Type Severity Reaction Status Date / Time No Known Allergies Allergy Verified 07/13/24 07:39 Review of Systems Sugical H&P ROS: Negative: Constitution, Cardiovascular, Respiratory, Psychiatric, Hem-Onc, Allergic/Immunologic, Gastrointestinal, Genitourinary, Musculoskeletal and Integumentary Exam Surgical H&P Exam: Normal: HEENT, Normal: Heart, Normal: Lungs, Normal: Extremities, Normal: Abdomen and Normal: Skin Plan Diagnosis/Plan: Unchanged I have reviewed the history and physical and performed a pertinent physical examination on my patient. No changes have occurred unless specified. I reviewed the procedure, alternatives and risks regarding the closure of colostomy in detail. All the patient's questions were answered to her apparent satisfaction. After discussion of the risks alternatives and benefits, she consents to closure of colostomy. Time Spent With Patient Time: Total time managing care of this patient today ____ minutes.
[2024-07-15] MEDS: cefoTEtan disodium 2 GM VIAL IVPUSH (07:45)
--- NOTE | 2024-07-15 09:06 | PHA.MEDREC ---
Pharmacy Consult ? Medication Reconciliation Pharmacy has reviewed the medication reconciliation completed by pharmacy.
--- NOTE | 2024-07-15 10:59 | W.PM.OPN ---
Operative Note Operative Note Date of Service: 07/15/24 Narrative: Preoperative diagnosis: Perforated sigmoid diverticulitis, s/p Rachelle procedure Postoperative diagnosis: Same Procedure: Closure of colostomy Surgeon: Chet Mckeon MD Emergency Communications Dispatcher: Shira Morris PA-C; Tristan Bain PA-C Anesthesia: General endotracheal Indications for procedure: 49-year-old female patient with a previous history of perforated sigmoid diverticulitis status post Rachelle procedure approximately 3 months ago. She subsequently underwent colonoscopy to confirmed no other bowel lesions. She presents now for closure of colostomy. Operative findings: Dense adhesions in the pelvis from prior infection. No evidence of active infection at this time. Specimen: 1. Rectal stump, 2. Colostomy stump, and 3. EEA donuts x2 Estimated blood loss: 25 mL Complications: None Procedure details: Patient was brought to the OR and placed in a supine position. After administering general anesthesia she was placed into a lithotomy position. A Vogel catheter was inserted. The abdomen was then prepped with ChloraPrep, perineum prepped with Betadine and draped in a sterile fashion. A surgical time-out was called the consent confirmed. Patient received preoperative antibiotics and Venodyne boots were placed. Local anesthesia was infiltrated around the colostomy and midline incision. An elliptical incision was then made with a scalpel around the colostomy oriented transversely. (it should be noted that the colostomy was previously imbricated using a 0 Prolene suture prior to prepping). The incision was carried out through subcutaneous tissue and around the colostomy wall down past the anterior rectus sheath, posterior sheath and peritoneum. When this was fully mobilized attention was then directed to the midline. A lower midline incision was then reopened and carried out through subcutaneous tissue. This was continued through the linea alba and into the peritoneum. Dense adhesions were noted from the prior infection. These were gently dissected using Metzenbaum scissors. A Bookwalter was then inserted. Small-bowel adherent to the pelvis was then mobilized and retracted superiorly. An EEA Sizer was placed through the rectum to identify the location of the rectum. This was densely adherent to the uterus on the left side. The rectal stump was then mobilized circumferentially and the proximal 2 cm resected using a curved ROSE MARY stapler. This was sent as rectal stump. Once this was fully mobilized attention was then directed to the colostomy which was brought down through the old colostomy incision. This was found to have adequate length to reach the pelvis. The distal 2 cm of the colostomy were then resected using a pursestring clamp. A pursestring was then placed. EEA sizers were then used to measure the distal descending colon. A 25 mm EEA stapler was then obtained. The anvil was placed through the descending colon and the pursestring tied. The EEA stapler was then brought up through the anus and rectum. The spike was brought up through the rectal stump and the anvil connected. Several 3-0 Surgilon sutures were used to secure the bowel addition to the terrell. The EEA device was then fired and 2 complete donuts identified. A leak test was then performed and no leak could be identified. Abdomen was then thoroughly irrigated and suctioned dry. Gown and gloves were then changed and the abdomen once again re-examined for hemostasis. The bowel was found to be relaxed with no tension on the anastomosis. Colostomy incision was then closed in 3 layers using 0 Polysorb suture. Fascia was closed in the midline using a running looped PDS suture. Subcutaneous tissue was reapproximated using interrupted 3-0 Polysorb sutures. Skin was then closed using a running subcuticular 4-0 Polysorb suture. Steri-Strips, 4 x 4 gauze and Tegaderm were then applied. The patient tolerated the procedure well. Sponge, needle and instrument counts were reported as correct. The patient was transferred to PACU in stable condition.
--- NOTE | 2024-07-15 13:04 | PC.NURSE ---
Patient resting. No change from previous assessment. Dressing remains clean dry intact. Pt states she is comfortable with no discomfort. Awaiting bed/room assignment. Cont to monitor. Bed in lowest position, call goodwin within reach. Cont to monitor.
[2024-07-15] MEDS: HYDROmorphone HCl 0.5 MG/0.5 ML SYRINGE IVPUSH ×4 (13:34→22:42)
[2024-07-15 13:51] LABS: Creatinine Clr Calc Pharmacy 89.1; Estimated Glomerular Filt Rate > 60
[2024-07-15] MEDS: amLODIPine Besylate 5 MG TABLET PO (14:56)
[2024-07-15] MEDS: busPIRone HCl 10 MG TABLET PO ×2 (14:57→19:32)
[2024-07-15] MEDS: Dextrose 5 % and Lactated Ring 1,000 ML 100 ML IVCONT (14:57)
[2024-07-15] MEDS: Zolpidem Tartrate 5 MG TABLET PO (22:42)
[2024-07-15] MEDS: 0.9 % Sodium Chloride Flush 3 ML SYRINGE IVFLUSH (22:44)
[2024-07-16] VITALS (7 sets, daily range): BP systolic 99–127; BP diastolic 52–80; PULSE 67–77; RESP 16–18; TEMP 36.2–37; O2SAT 93–98
[2024-07-16] MEDS: Dextrose 5 % and Lactated Ring 1,000 ML 100 ML IVCONT (01:34)
[2024-07-16] MEDS: HYDROmorphone HCl 0.5 MG/0.5 ML SYRINGE IVPUSH ×3 (01:35→10:42)
[2024-07-16] MEDS: Acetaminophen 325 MG TABLET 650 MG PO (03:30)
[2024-07-16 05:59] LABS: MANUAL DIFF FLAG NO
[2024-07-16 06:03] LABS: Basophils Percent Auto 0.2 % (0-2); Eosinophils Percent Auto 0.2 % (0-4); Hematocrit 36.1 % (37.0-47.0); Hemoglobin 12.2 g/dl (12.0-16.0); Imm Gran Abs Auto 0.07 X10*3/uL (0.00-0.03); Imm Gran Pct Auto 0.6 % (0.0-0.4); Lymphocytes Absolute Auto 2.2 X10*3/uL (1.2-4.9); Lymphocytes Percent Auto 17.7 % (20-40); Mean Corpuscular HGB Conc 33.8 g/dl (31.0-35.0); Mean Corpuscular Hemoglobin 31.6 pg (27.0-33.0); Mean Corpuscular Volume 93.5 fL (80.0-98.0); Mean Platelet Volume 9.6 fL (9.4-12.3); Monocytes Percent Auto 7.7 % (2-11); Neutrophils Absolute Auto 9.3 x10*3/uL (2.0-8.3); Neutrophils Percent Auto 73.6 % (45-73); Platelet Count 320 X10*3/uL (160-400); Red Blood Count 3.86 X10*6/uL (4.20-5.50); Red Cell Distribution Width 11.5 % (11.0-16.0); White Blood Count 12.7 X10*3/uL (4.8-10.8)
[2024-07-16 06:22] LABS: Anion Gap 11 (12-20); Blood Urea Nitrogen 9 mg/dL (9-16); Calcium 8.5 mg/dL (8.4-10.2); Carbon Dioxide 25 mmol/L (22-29); Chloride 105 mmol/L (96-108); Estimated Glomerular Filt Rate > 60; Glucose Random 125 mg/dL (60-115); Potassium 3.8 mmol/L (3.3-5.1); Sodium 137 mmol/L (135-145)
--- NOTE | 2024-07-16 06:35 | PM.PNGS ---
Subjective Subjective Date of Service: 07/16/24 <[facility] - Last Filed: 07/16/24 07:44> 07/16/24 <Shira Morris PA-C - Last Filed: 07/16/24 08:05> 07/16/24 <Chet Mckeon MD - Last Filed: 07/16/24 08:41> Interval history: Patient reports incisional pain, currently 5/10 and feeling tired. Reports she declined oxycodone following the procedure yesterday due to history of vomiting when taking it. Reports mild bloating and hearing stomach gurgle, however no passage of flatus or stool yet. Tolerating sips of clear fluid/ice chips without difficulty. Denies N/V, fever, chills, chest pain, shortness of breath, numbness/tingling, urinary symptoms. Denies being out of bed/ambulating. <[facility] Last Filed: 07/16/24 07:44> Physical Exam Vital Signs: Vital Signs: Last Vital Signs Temp 97.4 F 07/16/24 03:31 Pulse 77 07/16/24 03:31 Resp 18 07/16/24 03:31 BP 108/61 07/16/24 03:31 Pulse Ox 95 07/16/24 03:31 O2 Del Method Room Air 07/16/24 03:31 BMI result Body Mass Index 30.1 <[facility] Last Filed: 07/16/24 07:44> Const: General: cooperative, no acute distress, alert and awake <[facility] Last Filed: 07/16/24 07:44> Orientation/consciousness: patient oriented x3 <Shira Morris PA-C - Last Filed: 07/16/24 08:05> Resp: Effort & Inspection: normal respiratory effort, able to speak in complete sentences and no cough <[facility] Last Filed: 07/16/24 07:44> Auscultation: clear to auscultation bilaterally <[facility] Last Filed: 07/16/24 07:44> Cardio: Rate: regular rate <[facility] Last Filed: 07/16/24 07:44> GI: Other: Tenderness to palpation over incision sites. <[facility] - Last Filed: 07/16/24 07:44> Other: Tenderness to palpation over incision sites. dressings clean and intact mildly distended <Shira Morris PA-C - Last Filed: 07/16/24 08:05> Palpation (GI): Soft to palpation, Tenderness to palpation present (GI), no guarding and not rigid <Natalia Babb - Last Filed: 07/16/24 07:44> : Other: Hargrove catheter clear/yellow, without blood. <Natalia Babb - Last Filed: 07/16/24 07:44> Neuro: General: patient oriented x3 and moves all extremities <Shira Morris PA-C - Last Filed: 07/16/24 08:05> Objective Data Active Medications Amlodipine Besylate (Amlodipine Besylate 5 Mg Tablet) 5 mg PO DAILY [facility]; Protocol Last Admin: 07/15/24 14:56 Dose: 5 mg Documented By: PATTIE Comments: late admin d/t surgery Buspirone HCl (Buspirone Hcl 10 Mg Tablet) 10 mg PO BID [facility] Last Admin: 07/15/24 19:32 Dose: 10 mg Documented By: PAO Calcium Carbonate (Calcium Carbonate 750 Mg Tab.Chew) 750 mg PO Q4H PRN PRN Reason: Heartburn Enoxaparin Sodium (Enoxaparin Sodium 40 Mg/0.4 Ml Syringe) 40 mg SUBCUT Q24H [facility] Hydromorphone HCl (Hydromorphone Hcl 0.5 Mg/0.5 Ml Syringe) 0.5 mg IVPUSH Q3H PRN; Protocol PRN Reason: Pain, Severe (Pain Scale 7-10) Last Admin: 07/16/24 04:30 Dose: 0.5 mg Documented By: PAO Dextrose/Lactated Ringer's (D5lr) 1,000 mls @ 100 mls/hr IVCONT .Q10H [facility] Last Admin: 07/16/24 01:34 Dose: 100 mls/hr Documented By: PAO Acetaminophen (Ofirmev) 1,000 mg in 100 mls @ 400 mls/hr IV Q6H [facility] Magnesium Hydroxide (Milk Of Magnesia 30 Ml Oral.Susp) 30 ml PO DAILY PRN PRN Reason: Constipation Ondansetron HCl (Ondansetron Hcl 4 Mg/2 Ml Vial) 4 mg IVPUSH QID PRN PRN Reason: Nausea Oxycodone HCl (Oxycodone Hcl Immed Release 5 Mg Tablet) 5 mg PO Q6H PRN PRN Reason: Pain, Moderate(Pain Scale 4-6) Sodium Chloride (0.9 % Sodium Chloride Flush 3 Ml Syringe) 3 ml IVFLUSH QSHIFT GABRIEL Last Admin: 07/15/24 22:44 Dose: 3 ml Documented By: PAO Zolpidem Tartrate (Zolpidem Tartrate 5 Mg Tablet) 5 mg PO BEDTIME PRN PRN Reason: Insomnia Last Admin: 07/15/24 22:42 Dose: 5 mg Documented By: PAO <Natalia - Last Filed: 07/16/24 07:44> Labs CBC & Chem 7: 07/16/24 05:20 07/16/24 05:20 <Natalia Last Filed: 07/16/24 07:44> Labs: Laboratory Results - last 24 hr 07/15/24 07/16/24 13:21 05:20 MCV 93.5 MCH 31.6 MCHC 33.8 RDW 11.5 Plt Count 320 MPV 9.6 Immature Gran % (Auto) 0.6 H Neut % (Auto) 73.6 H Lymph % (Auto) 17.7 L Morrill % (Auto) 7.7 Eos % (Auto) 0.2 Baso % (Auto) 0.2 Lymph # (Auto) 2.2 Morrill # (Auto) 1.0 Eos # (Auto) 0.0 Baso # (Auto) 0.0 Abs Immat Gran (auto) 0.07 H Absolute Neuts (auto) 9.3 H Absolute Nucleated RBC 0.000 Nucleated RBC % (auto) 0.0 Anion Gap 11 L Estim Creat Clear Calc 89.1 102.0 Estimated GFR > 60 > 60 Random Glucose 125 H Calcium 8.5 D <Natalia Last Filed: 07/16/24 07:44> Procedures Date of Service Date of Service: 07/16/24 <[place] [facility] - Last Filed: 07/16/24 07:44> 07/16/24 <Shira Morris PA-C - Last Filed: 07/16/24 08:05> 07/16/24 <Chet Mckeon MD - Last Filed: 07/16/24 08:41> Progress Note: A&P Assessment and plan (1) History of colostomy reversal: Status: Acute <Natalia Babb - Last Filed: 07/16/24 07:44> Assessment and Plan: 49 year old female POD1 from colostomy reversal. Patient with pain to palpation over incision sites and epigastrum. Exam otherwise benign. Initially declined oxycodone for pain management as reports history of vomitting, willing to try with co-administering ondansetron. CBC with mild leukocytosis 12.7, likely reactive from procedure. Rest of CBC and BMP reassuring. Dressing clean and dry with very small area of blood soaked through bottom of dressing. Patient tolerating ice chips/clears. Plan: -continue with pain control, patient willing to try oxycodone + ondansetron -continue with clear liquid diet as tolerated -d/c hargrove today -monitor I&O, DVT prophylaxis -monitor for return of bowel function (flatus/DM) -encourage ambulation/OOB and use of incentive spirometry <Natalia Babb - Last Filed: 07/16/24 07:44> 49 year old female POD1 from colostomy reversal. Patient with pain to palpation over incision sites and epigastrum. Exam otherwise benign. Initially declined oxycodone for pain management as reports history of vomitting, willing to try with co-administering ondansetron. CBC with mild leukocytosis 12.7, likely reactive from procedure. Rest of CBC and BMP reassuring. Dressing clean and dry with very small area of blood soaked through bottom of dressing. Patient tolerating ice chips/clears. Plan: -continue with pain control, patient willing to try oxycodone + ondansetron -continue with clear liquid diet as tolerated -d/c hargrove today -monitor I&O, DVT prophylaxis -monitor for return of bowel function (flatus/DM) -encourage ambulation/OOB and use of incentive spirometry Agree with above assessment and plan by Natalia DEL ROSARIO. Patient had difficulty with pain overnight, dilaudid wore off too quickly. Tolerated some clears but not much. Feels slightly bloated. Has not been OOB yet. VSS. Abd exam with appropriate post op tenderness, dressings clean, mildly distended. AM labs reviewed- mild leukocytosis likely reactive. UOP good. Dc beena this am, encouraged OOB/ambulation and increasing activity, IS use. Continue clear liquids for now until evidence of GI function. Analgesics adjusted for pain control. Patient comfortable with plan. <Shira Morris PA-C - Last Filed: 07/16/24 08:05> Time Spent With Patient Time: Total time managing care of this patient today ____ minutes. <Natalia - Last Filed: 07/16/24 07:44> Quality Stroke Does the patient have a stroke diagnosis?: No <hSira Morris PA-C - Last Filed: 07/16/24 08:05> VTE Prior VTE?: No <Shira Morris PA-C - Last Filed: 07/16/24 08:05> VTE Risk Level:: Surgical - moderate <Natalia Filed: 07/16/24 07:44> VTE Device Contraindication: N/A - Device Ordered < Filed: 07/16/24 07:44> VTE Drug Contraindication: N/A - Med Ordered < Filed: 07/16/24 07:44>
[2024-07-16] MEDS: Acetaminophen 1,000 MG/100 ML PIGGYBACK 400 MG IV ×4 (07:12→23:16)
[2024-07-16] MEDS: oxyCODONE HCl Immed Release 5 MG TABLET PO ×2 (07:13→20:12)
[2024-07-16] MEDS: ondansetron HCL 4 MG/2 ML VIAL IVPUSH ×2 (07:13→12:10)
--- NOTE | 2024-07-16 07:36 | HO.POSTANES ---
Post Anesthesia Evaluation Post Anesthesia Evaluation Date of Service: 07/16/24 Vital Signs: Vital Signs Temp Pulse Resp BP Pulse Ox O2 Del Method 07/16/24 03:31 97.4 F 77 18 108/61 95 Room Air 07/16/24 00:00 97.4 F 74 18 99/52 L 96 Room Air 07/15/24 19:46 98.8 F 73 18 119/76 95 Room Air Anesthesia: General Endotracheal-GETA Mental Status: Awake Pain Control: Satisfactory Nausea/Vomiting: None Hydration: Adequate Anesthesia-Related Issues: No Anes. Related Issues
[2024-07-16] MEDS: busPIRone HCl 10 MG TABLET PO ×2 (08:00→20:07)
[2024-07-16] MEDS: oxyCODONE HCl Immed Release 5 MG TABLET 10 MG PO ×3 (08:00→16:15)
[2024-07-16] MEDS: amLODIPine Besylate 5 MG TABLET PO (08:01)
--- NOTE | 2024-07-16 12:19 | MHC.CM.PN ---
PATIENT LIVES IN A HOME W/ . INDEPENDENT. DENIES USE OF SERVICES OR DME. PCP JESSIKA ESPITIA MD REPORTS SHE HAS AN HCP NAMING HER , JAMES, [facility]. DP: GOAL IS HOME SELF CARE. TO TRANSPORT. CM WILL CONTINUE TO FOLLOW.
[2024-07-16] MEDS: Enoxaparin Sodium 40 MG/0.4 ML SYRINGE SUBCUT (16:15)
[2024-07-16] MEDS: 0.9 % Sodium Chloride Flush 3 ML SYRINGE IVFLUSH (23:12)
[2024-07-17] MEDS: oxyCODONE HCl Immed Release 5 MG TABLET PO ×3 (01:53→21:22)
--- NOTE | 2024-07-17 02:21 | PC.NURSE ---
pt states shes passing gas and abdomen feels much better after she did it . zandra. clear liquid diet . abdominal CDI
[2024-07-17 03:30] VITALS: BP 106/64; PULSE 74; RESP 16; TEMP 36.6; O2SAT 95
--- NOTE | 2024-07-17 07:52 | P.PNGS_ITS ---
Subjective Subjective Date of Service: 07/17/24 Interval history: POD 2 following closure of colostomy. Patient reports passing lots of flatus last evening and today. She feels improved and now only needs 5 mg of oxycodone for pain relief. She tolerated clear liquids without nausea or vomiting. She feels ready for a advancing to a regular diet. Physical Exam 2 Vital Signs: Vital Signs: Last Vital Signs Temp 97.8 F 07/17/24 03:30 Pulse 74 07/17/24 03:30 Resp 16 07/17/24 03:30 BP 106/64 07/17/24 03:30 Pulse Ox 95 07/17/24 03:30 O2 Del Method Room Air 07/17/24 03:30 BMI result Body Mass Index 30.1 Const: General: no acute distress Nutritional Appearance: well nourished Orientation/consciousness: patient oriented x3 Resp: Effort & Inspection: normal respiratory effort GI: Other: Abdominal incisions are clean, dry and intact. No erythema is appreciated. Neuro: General: patient oriented x3 Extrem: General: Yes normal to inspection Objective Data Active Medications Amlodipine Besylate (Amlodipine Besylate 5 Mg Tablet) 5 mg PO DAILY [facility]; Protocol Last Admin: 07/16/24 08:01 Dose: 5 mg Documented By: ANA LILIA Buspirone HCl (Buspirone Hcl 10 Mg Tablet) 10 mg PO BID [facility] Last Admin: 07/16/24 20:07 Dose: 10 mg Documented By: YOLANDA Calcium Carbonate (Calcium Carbonate 750 Mg Tab.Chew) 750 mg PO Q4H PRN PRN Reason: Heartburn Enoxaparin Sodium (Enoxaparin Sodium 40 Mg/0.4 Ml Syringe) 40 mg SUBCUT Q24H [facility] Last Admin: 07/16/24 16:15 Dose: 40 mg Documented By: SALVADOR Acetaminophen (Ofirmev) 1,000 mg in 100 mls @ 400 mls/hr IV Q6H [facility] Last Admin: 07/17/24 06:08 Dose: Not Given Documented By: YOLANDA Non-Admin Reason: medication exceeded max dose Magnesium Hydroxide (Milk Of Magnesia 30 Ml Oral.Susp) 30 ml PO DAILY PRN PRN Reason: Constipation Ondansetron HCl (Ondansetron Hcl 4 Mg/2 Ml Vial) 4 mg IVPUSH QID PRN PRN Reason: Nausea Last Admin: 07/16/24 12:10 Dose: 4 mg Documented By: ANA LILIA Oxycodone HCl (Oxycodone Hcl Immed Release 5 Mg Tablet) 10 mg PO Q4H PRN PRN Reason: Pain, Severe (Pain Scale 7-10) Last Admin: 07/16/24 16:15 Dose: 10 mg Documented By: SALVADOR Oxycodone HCl (Oxycodone Hcl Immed Release 5 Mg Tablet) 5 mg PO Q4H PRN PRN Reason: Pain, Moderate(Pain Scale 4-6) Last Admin: 07/17/24 01:53 Dose: 5 mg Documented By: YOLANDA Sodium Chloride (0.9 % Sodium Chloride Flush 3 Ml Syringe) 3 ml IVFLUSH [facility] Last Admin: 07/16/24 23:12 Dose: 3 ml Documented By: YOLANDA Zolpidem Tartrate (Zolpidem Tartrate 5 Mg Tablet) 5 mg PO BEDTIME PRN PRN Reason: Insomnia Last Admin: 07/15/24 22:42 Dose: 5 mg Documented By: PAO Labs 07/16/24 05:20 07/16/24 05:20 Procedures Date of Service Date of Service: 07/17/24 Progress Note: A&P Assessment and plan (1) Status post Rachelle's procedure: Status: Acute Plan Closure of colostomy POD 2. Patient is making great progress in his now passing flatus. We will advance diet today. She was encouraged to ambulate and do deep breathing exercises. Time Spent With Patient Time: Total time managing care of this patient today ____ minutes. Quality Stroke Does the patient have a stroke diagnosis?: No VTE Prior VTE?: No VTE Risk Level:: Surgical - moderate VTE Device Contraindication: N/A - Device Ordered VTE Drug Contraindication: N/A - Med Ordered
[2024-07-17 08:00] VITALS: BP 136/87; PULSE 85; RESP 16; TEMP 36.9; O2SAT 92
[2024-07-17 08:40] VITALS: BP 136/87
[2024-07-17] MEDS: amLODIPine Besylate 5 MG TABLET PO (08:40)
[2024-07-17] MEDS: busPIRone HCl 10 MG TABLET PO ×2 (08:40→21:23)
[2024-07-17] MEDS: 0.9 % Sodium Chloride Flush 3 ML SYRINGE IVFLUSH ×3 (08:40→21:25)
[2024-07-17] MEDS: oxyCODONE HCl Immed Release 5 MG TABLET 10 MG PO (08:40)
[2024-07-17] MEDS: Acetaminophen 1,000 MG/100 ML PIGGYBACK 400 MG IV ×2 (13:18→17:55)
[2024-07-17 15:54] VITALS: BP 121/74; PULSE 81; RESP 16; TEMP 37.4; O2SAT 94
[2024-07-17] MEDS: Enoxaparin Sodium 40 MG/0.4 ML SYRINGE SUBCUT (16:24)
[2024-07-17 19:52] VITALS: BP 138/89; PULSE 76; RESP 18; TEMP 36.3; O2SAT 97
[2024-07-18] MEDS: Acetaminophen 1,000 MG/100 ML PIGGYBACK 400 MG IV ×2 (00:07→05:51)
[2024-07-18] MEDS: 0.9 % Sodium Chloride Flush 3 ML SYRINGE IVFLUSH (00:08)
[2024-07-18] MEDS: oxyCODONE HCl Immed Release 5 MG TABLET PO ×2 (02:02→05:52)
[2024-07-18 03:52] VITALS: BP 134/83; PULSE 63; RESP 18; TEMP 36; O2SAT 96
[2024-07-18 07:36] VITALS: BP 125/93; PULSE 69; RESP 16; TEMP 36.8; O2SAT 96
[2024-07-18] MEDS: amLODIPine Besylate 5 MG TABLET PO (08:20)
[2024-07-18] MEDS: busPIRone HCl 10 MG TABLET PO (08:20)
--- NOTE | 2024-07-18 08:30 | PM.PNGS ---
Subjective Subjective Date of Service: 07/18/24 Interval history: Patient reports bowel movement this morning. Continues to pass flatus. She feels much improved and has not required significant amount of pain medication. She is tolerating a regular diet without nausea or vomiting. She feels comfortable enough to go home. Physical Exam Vital Signs: Vital Signs: Last Vital Signs Temp 98.2 F 07/18/24 07:36 Pulse 69 07/18/24 07:36 Resp 16 07/18/24 07:36 BP 125/93 H 07/18/24 07:36 Pulse Ox 96 07/18/24 07:36 O2 Del Method Room Air 07/18/24 07:36 BMI result Body Mass Index 30.1 Const: General: no acute distress Nutritional Appearance: well nourished Orientation/consciousness: patient oriented x3 Resp: Effort & Inspection: normal respiratory effort GI: Other: Dressings removed. Incisions are clean, dry, and intact without redness or discharge. Steri-Strips intact. Neuro: General: patient oriented x3 Extrem: General: Yes normal to inspection Objective Data Active Medications Amlodipine Besylate (Amlodipine Besylate 5 Mg Tablet) 5 mg PO DAILY [facility]; Protocol Last Admin: 07/18/24 08:20 Dose: 5 mg Documented By: ARMANDO Buspirone HCl (Buspirone Hcl 10 Mg Tablet) 10 mg PO BID [facility] Last Admin: 07/18/24 08:20 Dose: 10 mg Documented By: ARMANDO Calcium Carbonate (Calcium Carbonate 750 Mg Tab.Chew) 750 mg PO Q4H PRN PRN Reason: Heartburn Enoxaparin Sodium (Enoxaparin Sodium 40 Mg/0.4 Ml Syringe) 40 mg SUBCUT Q24H [facility] Last Admin: 07/17/24 16:24 Dose: 40 mg Documented By: DEEPA Acetaminophen (Ofirmev) 1,000 mg in 100 mls @ 400 mls/hr IV Q6H [facility] Last Infusion: 07/18/24 07:12 Dose: Infused Documented By: ARMANDO Magnesium Hydroxide (Milk Of Magnesia 30 Ml Oral.Susp) 30 ml PO DAILY PRN PRN Reason: Constipation Ondansetron HCl (Ondansetron Hcl 4 Mg/2 Ml Vial) 4 mg IVPUSH QID PRN PRN Reason: Nausea Last Admin: 07/16/24 12:10 Dose: 4 mg Documented By: ANA LILIA Oxycodone HCl (Oxycodone Hcl Immed Release 5 Mg Tablet) 10 mg PO Q4H PRN PRN Reason: Pain, Severe (Pain Scale 7-10) Last Admin: 07/17/24 08:40 Dose: 10 mg Documented By: DEEPA Oxycodone HCl (Oxycodone Hcl Immed Release 5 Mg Tablet) 5 mg PO Q4H PRN PRN Reason: Pain, Moderate(Pain Scale 4-6) Last Admin: 07/18/24 05:52 Dose: 5 mg Documented By: PAO Sodium Chloride (0.9 % Sodium Chloride Flush 3 Ml Syringe) 3 ml IVFLUSH [facility] Last Admin: 07/18/24 00:08 Dose: 3 ml Documented By: PAO Zolpidem Tartrate (Zolpidem Tartrate 5 Mg Tablet) 5 mg PO BEDTIME PRN PRN Reason: Insomnia Last Admin: 07/15/24 22:42 Dose: 5 mg Documented By: PAO Labs 07/16/24 05:20 07/16/24 05:20 Procedures Date of Service Date of Service: 07/18/24 Progress Note: A&P Assessment and plan (1) Status post Rachelle's procedure: Status: Acute Plan Closure of colostomy POD 3. Patient continues to make great progress in his now passing her bowels. Her wounds are clean and intact without evidence of infection. She is tolerating a regular diet without nausea or vomiting. Plan is for discharge to home with follow-up in the office in approximately 1 week. She should avoid lifting greater than 10 lb and avoid driving. She may resume a normal diet. She should call the office for fever, chills, increased abdominal pain, nausea or vomiting, or other concerns. Time Spent With Patient Time: Total time managing care of this patient today ____ minutes. Quality Stroke Does the patient have a stroke diagnosis?: No VTE Prior VTE?: No VTE Risk Level:: Surgical - moderate VTE Device Contraindication: N/A - Device Ordered VTE Drug Contraindication: N/A - Med Ordered
--- NOTE | 2024-07-18 08:34 | PM.DS ---
DS: Providers Provider Date of Service: 07/18/24 Date of admission: 07/15/24 07:58 Date of discharge: 07/18/24 Primary care physician: Andi Fry MD Admitting clinician: Chet Mckeon Discharging clinician: Chet Mckeon DS: Diagnosis Discharge Diagnosis (1) Status post Aric's procedure: Status: Acute (2) History of colostomy reversal: Status: Acute DS: Summary Hospital Course Hospital Course: 48-year-old female with a past medical history of dyslipidemia, anxiety/depression presenting to the emergency department on 12/01/2023 with complaints of left lower quadrant abdominal pain which has been present for over a month. She was initially treated with Levaquin p.o. for 7 days with some improvement however began to note increased abdominal pain and subsequently presented to the emergency department where she was found to have an elevated WBC of 16.3. CT abdomen and pelvis revealed marked wall thickening of the rectosigmoid colon with pericolonic inflammatory changes and extensive diverticular disease and multiloculated solid and cystic lesion of the left adnexa. She was admitted placed on IV antibiotics however over the next 2 days had no improvement and her white blood cell count continue to increase therefore she was subsequently taken to the OR on 12/04/2023 for an exploratory laparotomy, sigmoid resection, end colostomy, Aric's pouch, en block resection of left adnexa abscess/ mass. She was subsequently discharged home on 12/08/2023. She returned on 07/15/2024, for closure of colostomy as a short-stay admit and after previously undergoing a colonoscopy which was clear. Operative findings were consistent with a prior Aric procedure with a left lower quadrant end colostomy. She tolerated the procedure well and remained hemodynamically stable. She was subsequently started on clear liquids on hospital day 0 and advanced on postoperative day 2 to a regular diet. On postoperative day 2 she began passing flatus and later in the day passed her bowels. By postoperative 3 she was tolerating regular diet without nausea or vomiting or increased pain. Her pain was well-controlled with oral pain medication and Tylenol. Wounds were examined and found to be clean and intact without evidence of infection. Patient is to be discharged to home on 07/18/2024. She will follow up in the office on 07/26/2024 for wound check. She should call sooner for fever, chills, nausea, vomiting, changes in the incision or other concerns. She expressed understanding and agrees with the plan. Time spent discussing smoking cessation with patient: 3 to 10 minutes Status at Discharge Functional status at discharge: independent ambulation Overall status at discharge: patient is not back to baseline Time Attestation Discharge Coordination Time (in mins): 15 Quality: Safe Use of Opioids Does Pt have an Active Cancer Diagnosis on the Problem List?: No Quality: Stroke Does the patient have a stroke diagnosis?: No Physical Exam Vital Signs: Vital Signs: Last Vital Signs Temp 98.2 F 07/18/24 07:36 Pulse 69 07/18/24 07:36 Resp 16 07/18/24 07:36 BP 125/93 H 07/18/24 07:36 Pulse Ox 96 07/18/24 07:36 O2 Del Method Room Air 07/18/24 07:36 BMI result Body Mass Index 30.1 Const: General: no acute distress Nutritional Appearance: well nourished Orientation/consciousness: patient oriented x3 Resp: Effort & Inspection: normal respiratory effort GI: Other: Dressings removed. Incisions are clean, dry, and intact without redness or discharge. Steri-Strips intact. Neuro: General: patient oriented x3 Extrem: General: Yes normal to inspection DS: Data Data Completed and Pending Completed studies during hospitalization [Text1]: Pending at discharge 07/15/24 10:48 Surgical [PTH] Routine Procedures Bypass Sigmoid Colon to Cutaneous with Autologous Tissue Substitute, Open Approach (12/01/23) Excision of Sigmoid Colon, Open Approach (12/01/23) Introduction of Anesthetic Agent into Peripheral Nerves and Plexi, Percutaneous Approach (12/01/23) Discharge Plan Discharge Anticipated Discharge Date/Time: 07/18/24 07:58 Patient Disposition: Home, Self-Care Discharge Diagnosis: s/p colostomy reversal Referrals: Andi Fry MD [Primary Care Provider] - 1 Week Chet Mckeon MD [Physician] - 1 Week Discharge Medications: New oxycodone 5 mg tablet 5 mg PO Q4H PRN (Reason: pain (scale score 7-10)) Qty: 26 0RF Rx Instructions: Partial Fill upon patient request. Continued multivitamin Tablet 1 tab PO DAILY omega-3 fatty acids-fish oil 684-1,200 mg Capsule,Delayed Release(Dr/Ec) 1 cap PO DAILY amlodipine [Norvasc] 5 mg tablet 5 mg PO QAM Probiotic 10 billion cell Capsule 10,000 mmu cells PO DAILY buspirone 10 mg tablet 10 mg PO BID 90 Days Qty: 180 1RF Discontinued neomycin 500 mg tablet 1 g PO .3 times 0 Days Qty: 6 0RF Rx Instructions: Take 2 500mg tablets (1000mg) at 2pm, 3pm, and 10pm on the day prior to the surgery erythromycin 500 mg tablet 1,000 mg PO .3 times 1 Days Qty: 6 0RF Rx Instructions: Take 2 500mg tablets (1000mg) at 2pm, 3pm and 10pm on the day prior to the surgery. Discharge Orders: Discharge Order (Routine); Ordered 07/18/24 Ordered By: Chet Mckeon Diet: Advance to usual diet Activity on Discharge: No heavy lifting Stand Alone Forms: Patient Portal Discharge page Print Language: Belgian Activity Restrictions/Additional Instructions: If the incision area is tender, you may apply an ice pack for short intervals (No more than 20 minutes on, followed by at least 20 minutes off). Do not apply heat. Do not use creams, lotions, or topical antibiotics. Ok to shower. You have steri strips (small white cloth strips) covering your incision- these will fall off ~1 week. No heavy lifting (>10lbs) or strenuous activity! Take Tylenol Extra-strength 1-2 tabs every 6 hours for the first day, then as needed. Oxycodone every 6-8 hours as needed for pain. Colace 100 mg every day as needed for constipation. Follow up in office with Dr. Mckeon in 1 week. ([phone]) Call Your Doctor If: -Your temperature exceeds 101.5? F -You experience excessive pain or swelling -You have an unexpected reaction to medication -You have excessive bleeding -You experience continued vomiting/nausea -Your incision begins to separate -Your incision shows signs of infection such as increased redness, swelling, excessive pain, drainage (light blood or clear fluid is normal) or heat Care Plan Goals: Return to baseline health and resume normal activities following recovery period. Health Concerns: hx of aric procedure, colostomy in place Plan of Treatment: s/p colostomy reversal F/u in office in 1 week Assessment: Doing well post op. Patient Instructions: Open Colostomy Reversal (DC) Discharge Date/Time: 07/18/24 08:32
--- NOTE | 2024-07-18 08:41 | MHC.CM.PN ---
PT WILL DC HOME TODAY WITH NO SERVICES TO TRANSPORT
== END 2024-07-18 08:32 | disposition home or self-care (01) | DRG 223 ==
LOC: HO.SSSA 07:59 → HO.S3 14:00
PROVIDERS: Admitting Provider Surgery; PCP Internal Medicine; Visit Provider Surgery
PROC: 0DSM0ZZ Reposition Descending Colon, Open Approach (ICD-10-PCS; CPT 44620; principal; 2024-07-15 07:30)
DX: Z43.3 Encounter for attention to colostomy (principal); Z79.899 Other long term (current) drug therapy
CPT/HCPCS: 36415; 80048; 82565; 85025; 88304; 88305; 88307; J0131; J0666; J1100; J1171; J1650; J1920; J2003; J2250; J2405; J2704; J2795; J3010

== ENCOUNTER → 2024-07-15 07:58 | Outpatient (BNV) | payer BC, SELFPAY | PROVIDERS: Admitting Provider Surgery; PCP Internal Medicine; Visit Provider Surgery | DX: Z93.3 Colostomy status (principal) | CPT/HCPCS: 44626 ==

== ENCOUNTER 2024-07-26 08:53 | Outpatient (AMB) | payer BC, SELFPAY ==
--- NOTE | 2024-07-26 09:00 | A.OFFPC_ITS ---
Vital Signs 07/26/24 09:01 Height 5 ft 5 in Weight 179 lb 2 oz BMI 29.8 BP 126/80 Blood Pressure Location Lt brachial Position Sitting Pulse 57 Pulse Source Pulse Oximeter Pulse Oximetry (%) 96 Oxygen Delivery Method Room Air Intake Visit Reasons: [facility] 07/18 Closure of Colostomy Credit Charge Authorizer Required: No Accompanied by: Self / Same As Patient Allergies No Known Allergies Allergy (Verified 07/26/24 12:27) Medication List - Last Reconciled 07/26/24 by EAGLE Akbar amlodipine (Norvasc) 5 mg PO QAM buspirone 10 mg PO BID 90 days Lactobacillus acidophilus (Probiotic) 10,000 mmu cells PO DAILY multivitamin 1 tab PO DAILY omega-3 fatty acids-fish oil 684-1,200 mg 1 cap PO DAILY oxycodone 5 mg PO Q4H PRN Tobacco use date assessed: 07/26/24 Dental Screening Dental Screen Date: 07/26/24 Did you have a dental visit in the last 12 months?: No Did you have a dental problem in the last 6 months where you did not have access to dental care?: No Was dental information given to patient?: Patient has dentist HPI [facility] 07/18 Closure of Colostomy HPI Details The patient is a 49-year-old female presenting for follow up post colostomy reversal She has a history of dyslipidemia, anxiety, depression On 12/01/2023 the patient went into [facility] with complaints of left lower quadrant abdominal pain CT of her abdomen and pelvis that showed wall thickening of the rectosigmoid colon with pericolonic inflammatory changes an extensive diverticular disease and multi loculated solid and cystic lesion of the left adnexa. Patient was taken to the OR on 12/03/2020 it wore for exploratory laparotomy, sigmoid resection and end colostomy, Rachelle's pouch, en block resection of left adnexa abscess/mass. Discharged home on 12/08/2023. Patient returned on 07/15/2024, for closure of colostomy has a short-stay admit. Patient was discharged home on 07/18/2024 in stable condition. Patient is following up in primary care office today with no complaints Reports that the pain is tolerable at this time and she already started eating regular food without any issues She also having regular bowel movements. Surgical site with Steri-Strips in place no signs of infection noted. Abdomen is soft, positive bowel sounds x4. The patient also has a follow up appointment with surgeon after this appointment. TCM TCM Information Date of Discharge 07/18/24 Discharged From [facility] Interactive Contact Date (Reference documentation from this date) 07/19/24 [facility]LY [facility] Medical History Seasonal affective disorder HTN (hypertension) RBBB (right bundle branch block) Anxiety Allergic rhinitis Pure hypercholesterolemia Obesity (BMI 30-39.9) Loose stools Genital herpes Dyslipidemia Depression with anxiety Surgical History History of colostomy reversal (07/15/24) History of open reduction and internal fixation (ORIF) procedure Hx of colonoscopy History of endometrial ablation Status post Rachelle's procedure (12/04/23) H/O LEEP Family History Father History of quadruple bypass Mother High cholesterol Diverticulitis IBS (irritable bowel syndrome) HTN (hypertension) Maternal Grandmother Lung cancer Maternal Grandfather Stroke Maternal Aunt Diabetes Cancer Maternal Uncle Bladder cancer Social History Household Members: Spouse Household Members Other:: , no kids Housing: House Are you a primary palliative care specialist to a significant other at home: No Do you presently have visiting nurse or other home services: No Alcohol intake: current Alcohol intake frequency: 0-2 drinks per day Alcohol type: beer Comment: NWB left leg, assist pivot to commode Patient Tobacco Use Status: Never used Tobacco Tobacco use type: Cigarette e-Cigarette/Vaping Use: Never Used Second Hand Smoke Exposure: No Substance Use Type: Marijuana Advance Directives Date on File: 12/01/23 service: No Current occupational status: employed Current occupation: [employer] Current occupational exposures/hazards: No Sexual orientation: Straight/Heterosexual Gender identity: Female Cognitive needs: No Hearing needs: No Vision needs: No Female Reproductive History Menstrual Age of Menarche: 14 Questionnaire PHQ-9 Over the last 2 weeks, how often have you been bothered by any of the following problems? 1. Little interest or pleasure in doing things: not at all 2. Feeling down, depressed, or hopeless: not at all 3. Trouble falling or staying asleep, or sleeping too much: not at all 4. Feeling tired or having little energy: not at all 5. Poor appetite or overeating: not at all 6. Feeling bad about yourself - or that you are a failure or have let yourself or your family down: not at all 7. Trouble concentrating on things, such as reading the newspaper or watching television: not at all 8. Moving or speaking so slowly that other people could have noticed. Or the opposite - being so fidgety or restless that you have been moving around a lot more than usual: not at all 9. Thoughts that you would be better off or of hurting yourself in some way: not at all Total score: 0 Depression Screening Interpretation: Negative Depression Screening Done: Yes 62928 - PHQ-9 Billing: Yes Source: Developed by Drs. Royer Lai, Tana Hitchcock, Chiki Cullen and colleagues, with an educational tracy from [employer]. Thrive Questionnaire Date Thrive assessed: 07/26/24 I am a: Patient What is your living situation today?: I have a steady place to live Within the past 12 months, did the food you bought not last and you didn't have the money to get more?: Never true Within the past 12 months, did you worry whether your food would run out before you got money to buy more?: Never true Do you have trouble paying for medicines?: No Do you have trouble getting transportation to medical appointments?: No Do you have trouble paying your heating and electricity bill?: No Do you have trouble taking care of your child, family member or friend?: No Do you have trouble with day-to-day activities such as bathing, preparing meals, shopping, managing finances, etc.?: No Are you currently unemployed and looking for a job?: No Are you interested in more education?: No Please select the resources that you would like help with: None Currently or been in a relationship where the following occur: No concerns reported THRIVE Score: 0 AUDIT C Alcohol Use Questionnaire (AUDIT-C) 1. How often do you have a drink containing alcohol?: 2-3 times a week 2. How many drinks containing alcohol do you have on a typical day when you are drinking?: 1 or 2 3. How often do you have six or more drinks on one occasion?: Less than monthly Total Score: 4 Score Reviewed/Action Taken: Yes ONOFRE-7 AMB Questionnaire ONOFRE-7 Date ONOFRE - 7 assessed: 07/26/24 Feeling nervous, anxious, or on edge: 0 = Not at all Not being able to stop or control worryin = Not at all Worrying too much about different things: 0 = Not at all Trouble relaxin = Not at all Being so restless that it is hard to sit still: 0 = Not at all Becoming easily annoyed or irritable: 0 = Not at all Feeling afraid as if something awful might happen: 0 = Not at all Total ONOFRE-7 score (0-4 normal; 5-9 mild; 10-14 moderate; 15-21 severe): 0 Source: Developed by Drs. Royer Lai, Tnaa Hitchcock, Chiki Cullen and colleagues, with an educational tracy from [employer]. ONOFRE-7 Assessment Billing ONOFRE-7 Assessment Tool: ONOFRE-7 Assessment 85364 Review of Systems Const Denies headache(s) Eyes Denies loss of vision ENT Denies vertigo, Denies dizziness, Denies headache(s) and Denies sore throat Card Denies chest pain, Denies leg edema and Denies lightheadedness Resp Denies cough, Denies hemoptysis and Denies wheezing GI Denies abdominal pain, Denies melena, Denies constipation, Denies diarrhea, Denies vomiting and Reports other (s/p abdominal surgery, colostomy reversal) Denies urinary frequency, Denies dysuria and Denies urinary urgency Neuro Denies Abnormal speech present, Denies vertigo, Denies dizziness, Denies headache(s) and Denies loss of vision Mynor/Lymph Denies easy bleeding and Denies easy bruising Aller/Immun Denies wheezing Physical exam (Primary Care) Vital Signs: Last Vital Signs Pulse 57 07/26/24 09:01 BP 126/80 07/26/24 09:01 Pulse Ox 96 07/26/24 09:01 Oxygen Delivery Method Room Air 07/26/24 09:01 BMI result Body Mass Index 29.8 Tobacco/Smoking Status: Tobacco use Status Tobacco use date assessed 07/26/24 07/26/24 09:05 Patient Tobacco Use Status Never used Tobacco 07/26/24 09:05 Tobacco use type Cigarette 07/26/24 09:05 e-Cigarette/Vaping Use Never Used 07/26/24 09:05 PHQ-9: PHQ-9 Score PHQ-9: Total score 0 07/26/24 09:22 Depression Screening Interpretation: Negative Thrive Assessment: Date of Thrive Assessment Date Thrive assessed 07/26/24 07/26/24 09:05 Currently or been in a relationship where the following occur: No concerns reported Const General: healthy appearing, no acute distress, alert and awake Nutritional Appearance: well nourished Orientation/consciousness: oriented to person, oriented to place and oriented to time HENMT Ears: TM's normal bilaterally General nose exam: Normal nasal mucous membranes and turbinates present Eyes Conjunctivae: conjunctivae normal Sclerae: sclerae normal Pupils: Equal, round and reactive pupils present Neck Neck: Yes no lymphadenopathy and Yes no JVD Thyroid: Thyroid normal Carotids: no bruits Resp Effort & Inspection: normal respiratory effort and not tachypneic Auscultation: no crackles, no rales, no rhonchi and no wheezes Cardio Rate: regular rate Rhythm: regular rhythm Heart sounds: no murmurs and normal S1 and S2 GI Palpation (GI): Soft to palpation, nontender, no hepatomegaly, no splenomegaly and Other GI palpation findings present (mild abdomin incision, steri strips intact, no s/sx of infection) Auscultation: normal bowel sounds Neuro General: oriented to person, oriented to place and oriented to time Cranial nerves: Yes Equal, round and reactive pupils present Speech: No Abnormal speech present Gait exam (Neuro): Normal gait present Motor exam (neuro): no tremor noted Extrem Right upper extremity: full ROM Left upper extremity: full ROM Right lower extremity: full ROM; no edema Left lower extremity: full ROM; no edema Coding Level of Care Code TCM Mod MDM <= 14 Days Diagnoses History of colostomy reversal Z98.890 Visit for wound check Z51.89 Additional Codes PHQ-9 - 36904 - PHQ-9 Billing: Yes ([id number]) ONOFRE-7 Assessment Billing - ONORFE-7 Assessment Tool: ONOFRE-7 Assessment 58064 ([id number]) Time Spent (min) 36 Assessment & Plan Assessment & Plan (1) History of colostomy reversal: Onset Date: 07/15/24 Comment: Chet Mckeon MD Code(s): Z98.890 - Other specified postprocedural states Category: Surgical (2) Visit for wound check: Code(s): Z51.89 - Encounter for other specified aftercare Category: Medical Plan The patient is progressing well in her postoperative recovery. Pain management remains effective, making any change in medication unnecessary. The incision site is healing without complications, with the patient experiencing no shortness of breath or chest discomfort and maintaining normal bowel func tionality. She is advised to maintain her current medication regimen and dietary adjustments. Her upcoming follow-up with the surgeon is scheduled, ensuring continued evaluation of her recovery progress. Patient was informed and verbally consented to the use of an ambient scribe for clinic note documentation during this visit. Patient Instructions: - Continue taking prescribed medications as directed. - Maintain regular dietary intake. - Monitor incision site for any signs of infection. - Report any sudden changes in symptoms, including pain or breathing difficulties.
[2024-07-26 09:01] VITALS: BP 126/80; PULSE 57; O2SAT 96; BMI 29.8
== END 2024-07-26 09:25 | disposition home or self-care (01) ==
LOC: HO.HMCH 08:54
PROVIDERS: PCP Internal Medicine
DX: K57.20 Diverticulitis of large intestine with perforation and abscess without bleeding (principal); Z93.3 Colostomy status; Z98.890 Other specified postprocedural states; Z51.89 Encounter for other specified aftercare

== ENCOUNTER → 2024-07-26 08:53 | Outpatient (BNVA) | payer BC, SELFPAY | PROVIDERS: PCP Internal Medicine | DX: Z48.815 Encounter for surgical aftercare following surgery on the digestive system (principal); Z87.19 Personal history of other diseases of the digestive system | CPT/HCPCS: 96127 ==

== ENCOUNTER 2024-07-26 09:42 | Outpatient (AMB) | payer BC, SELFPAY ==
--- NOTE | 2024-07-26 09:44 | MHC.OFFVIS ---
Vital Signs 07/26/24 09:51 Height 5 ft 5 in Weight 179 lb 8 oz BMI 29.9 BP 146/93 H Blood Pressure Location Lt brachial Position Sitting Pulse 70 Intake Visit Reasons: S/P colostomy reversal, protoscopy Intake Note: Patient is seen in office for post op assessment post closure of colostomy. 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 Patient had a history of perforated diverticulitis and underwent aric procedure in 12/01. She subsequently underwent closure of colostomy on 07/15/24. She tolerated the procedure well and was discharged to home on 07/18/24. She reports feeling fairly well today. She reports she was very tired and had abdominal pain at her incisions for the first week and rested. Last , she began to feel improved with less pain and stopped taking her oxycodone. She now only takes tylenol at night. She is tolerated solid food without nausea or vomiting and having soft, formed bowel movements daily. She has resumed her daily activities with exception of heavy lifting but does not feel ready to return to work. No other concerns. [facility] Medical History (Updated 07/26/24 @ 11:38 by Shira Morris PA-C) Seasonal affective disorder HTN (hypertension) RBBB (right bundle branch block) Anxiety Allergic rhinitis Pure hypercholesterolemia Obesity (BMI 30-39.9) Loose stools Genital herpes Dyslipidemia Depression with anxiety Surgical History (Updated 07/26/24 @ 11:38 by Shira Morris PA-C) History of colostomy reversal (07/15/24) History of open reduction and internal fixation (ORIF) procedure Hx of colonoscopy History of endometrial ablation Status post Aric's procedure (12/04/23) H/O LEEP Family History Father History of quadruple bypass Mother High cholesterol Diverticulitis IBS (irritable bowel syndrome) HTN (hypertension) Maternal Grandmother Lung cancer Maternal Grandfather Stroke Maternal Aunt Diabetes Cancer Maternal Uncle Bladder cancer Social History Household Members: Spouse Household Members Other:: , no kids Housing: House Are you a primary pharmacy care coordinator to a significant other at home: No Do you presently have visiting nurse or other home services: No Alcohol intake: current Alcohol intake frequency: 0-2 drinks per day Alcohol type: beer Comment: NWB left leg, assist pivot to commode Patient Tobacco Use Status: Never used Tobacco Tobacco use type: Cigarette e-Cigarette/Vaping Use: Never Used Second Hand Smoke Exposure: No Substance Use Type: Marijuana Advance Directives Date on File: 12/01/23 service: No Current occupational status: employed Current occupation: [employer] Current occupational exposures/hazards: No Sexual orientation: Straight/Heterosexual Gender identity: Female Cognitive needs: No Hearing needs: No Vision needs: No Female Reproductive History Menstrual Age of Menarche: 14 Review of Systems Const Denies chills and Denies fever(s) ENT Denies dizziness Card Denies dyspnea Resp Denies dyspnea GI Reports as per HPI Skin/Breast Denies rash Neuro Denies dizziness Physical Exam Vital Signs: Last Vital Signs Pulse 70 07/26/24 09:51 BP 146/93 H 07/26/24 09:51 BMI result Body Mass Index 29.9 Const General: comfortable, no acute distress and alert Resp Effort & Inspection: normal respiratory effort GI Other: old colostomy site and midline incision with steris in place (removed), healing well, no erythema, mild induration both well approximated, small separation near umbilicus of midline incision and steris placed Inspection: No distended Palpation (GI): Soft to palpation, Tenderness to palpation present (GI) (mild incisional) and no guarding Percussion: Yes normal to percussion Skin General skin exam: no rashes or lesions noted Results Reviewed Results Reviewed: A. Rectal stump (revision): Benign colonic mucosa and wall with no specific change. B. Colostomy (reversal): Intact mucocutaneous anastomosis with inflammation and fibrosis. C. Labeled EEA rings : 2 annular portions of benign colonic mucosa and wall consistent with anastomotic rings Assessment & Plan Assessment & Plan (1) History of colostomy reversal: Onset Date: 07/15/24 Comment: Chet Mckeon MD Code(s): Z98.890 - Other specified postprocedural states Category: Surgical (2) Visit for wound check: Code(s): Z51.89 - Encounter for other specified aftercare Category: Medical Plan 49 year old female with hx of perforated diverticulitis, s/p aric now 11 days s/p colostomy closure. She tolerated the procedure well and continues to do well. Her abdomen is benign with clean incisions without evidence of infection. There was a small area of separation of the skin at the superior aspect of the midline incision upon steristrip removal and and new steris were placed. She is to remove these in week. She was educated to continue no heavy lifting or strenuous activities for now. Work note was given for return to work for 08/09/24. She is to return in 1 month for follow up or sooner if develops concerns. All questions answered. Coding Level of Care Code Global (36746) Diagnoses History of colostomy reversal Z98.890 Visit for wound check Z51.89
[2024-07-26 09:51] VITALS: BP 146/93; PULSE 70; BMI 29.9
== END 2024-07-26 10:17 | disposition home or self-care (01) ==
LOC: HO.HGS 09:43
PROVIDERS: PCP Internal Medicine; Visit Provider Physician Assistant Surgical
DX: Z98.890 Other specified postprocedural states (principal); Z51.89 Encounter for other specified aftercare
CPT/HCPCS: 99024

== ENCOUNTER 2024-08-04 14:52 | Outpatient (AMB) | payer BC, SELFPAY ==
--- NOTE | 2024-08-04 15:04 | A.OFFPC_ITS ---
Vital Signs 08/04/24 15:05 08/04/24 15:45 Height 5 ft 5 in Weight 179 lb 4 oz BMI 29.8 BP 142/88 H 132/80 Blood Pressure Location Lt brachial Lt brachial Position Semi Chapman's Sitting Pulse 64 Pulse Source Pulse Oximeter Temp 97.1 F Temp Source Temporal Artery Scan Pulse Oximetry (%) 99 Oxygen Delivery Method Room Air Intake Visit Reasons: Annual Exam Family Lawyer Required: No Accompanied by: Self / Same As Patient Allergies No Known Allergies Allergy (Verified 08/04/24 15:25) Medication List - Last Reconciled 08/04/24 by EAGLE Akbar amlodipine (Norvasc) 5 mg PO QAM buspirone 10 mg PO BID 90 days Lactobacillus acidophilus (Probiotic) 10,000 mmu cells PO DAILY multivitamin 1 tab PO DAILY omega-3 fatty acids-fish oil 684-1,200 mg 1 cap PO DAILY oxycodone 5 mg PO Q4H PRN Tobacco use date assessed: 07/26/24 Dental Screening Dental Screen Date: 07/26/24 HPI Annual Exam HPI Details Dentist: no-needs to make an appt Eye:up to date Snellen: Right: Left: Corrected vision:yes-glasses STI screening: Colonoscopy: up to date Pap Smer:up to date 2 weeks ago Mammogram: appt in october PHQ-9: Flu:up to date COVID:x3 Tdap: 2022-up to date Diet:regular, eating more fiber Exercise:works out three times a week The patient is a 49-year-old female presenting with hypercholesterolemia and hypertension. She is concerned about her high cholesterol levels, which she knows from recent lab results to be elevated. She has a family history of hyper cholesterolemia and has not yet been on medication for it. She plans to manage it with lifestyle changes, including improved diet and increased exercise. The patient also reports a history of hypertension, which was managed inconsistently with a 5 mg antihypertensive medication following hospitalization in November. She noticed her blood pressure has varied, potentially influenced by physical exertion. The patient has a medical history of diverticulitis and a leg fracture, with multiple surgeries in the past year, impacting her ability to exercise regularly. She mentions vision changes, specifically difficulty reading, requiring updates to her prescription eyewear. Additionally, she experiences mild seasonal allergy symptoms, such as nasal drip, but denies other cold symptoms. HEALTH MAINTENANCE: - Colonoscopy: Up to date - Pap smear: Completed two weeks ago - Mammogram: Scheduled for October - Flu Vaccine: Received in November dur ing hospitalization - COVID-19 Vaccinations: Three or four d oses received - Tetanus: Last administered in 2022 - Eye Exam: Due for an update due to vis ion changes - Dental visit: Overdue, patient advised to schedule PFSH Medical History Seasonal affective disorder HTN (hypertension) RBBB (right bundle branch block) Anxiety Allergic rhinitis Pure hypercholesterolemia Obesity (BMI 30-39.9) Loose stools Genital herpes Dyslipidemia Depression with anxiety Surgical History History of colostomy reversal (07/15/24) History of open reduction and internal fixation (ORIF) procedure Hx of colonoscopy History of endometrial ablation Status post Rachelle's procedure (12/04/23) H/O LEEP Family History Father History of quadruple bypass Mother High cholesterol Diverticulitis IBS (irritable bowel syndrome) HTN (hypertension) Maternal Grandmother Lung cancer Maternal Grandfather Stroke Maternal Aunt Diabetes Cancer Maternal Uncle Bladder cancer Social History Household Members: Spouse Household Members Other:: , no kids Housing: House Are you a primary home day care provider to a significant other at home: No Do you presently have visiting nurse or other home services: No Alcohol intake: current Alcohol intake frequency: 0-2 drinks per day Alcohol type: beer Comment: NWB left leg, assist pivot to commode Patient Tobacco Use Status: Never used Tobacco Tobacco use type: Cigarette e-Cigarette/Vaping Use: Never Used Second Hand Smoke Exposure: No Substance Use Type: Marijuana Advance Directives Date on File: 12/01/23 service: No Current occupational status: employed Current occupation: [employer] Current occupational exposures/hazards: No Sexual orientation: Straight/Heterosexual Gender identity: Female Cognitive needs: No Hearing needs: No Vision needs: No Female Reproductive History Menstrual Age of Menarche: 14 Questionnaire PHQ-9 Over the last 2 weeks, how often have you been bothered by any of the following problems? 1. Little interest or pleasure in doing things: not at all 2. Feeling down, depressed, or hopeless: not at all 3. Trouble falling or staying asleep, or sleeping too much: not at all 4. Feeling tired or having little energy: not at all 5. Poor appetite or overeating: not at all 6. Feeling bad about yourself - or that you are a failure or have let yourself or your family down: not at all 7. Trouble concentrating on things, such as reading the newspaper or watching television: not at all 8. Moving or speaking so slowly that other people could have noticed. Or the o pposite - being so fidgety or restless that you have been moving around a lot more than usual: not at all 9. Thoughts that you would be better off or of hurting yourself in some way: not at all Total score: 0 Depression Screening Interpretation: Negative Depression Screening Done: Yes Source: Developed by Drs. Royer Lai, Tana Hitchcock, Chiki Cullen and colleagues, with an educational tracy from [employer]. Thrive Questionnaire Date Thrive assessed: 08/04/24 I am a: Patient What is your living situation today?: I have a steady place to live Within the past 12 months, did the food you bought not last and you didn't have the money to get more?: Never true Within the past 12 months, did you worry whether your food would run out before you got money to buy more?: Never true Do you have trouble paying for medicines?: No Do you have trouble getting transportation to medical appointments?: No Do you have trouble paying your heating and electricity bill?: No Do you have trouble taking care of your child, family member or friend?: No Do you have trouble with day-to-day activities such as bathing, preparing meals, shopping, managing finances, etc.?: No Are you currently unemployed and looking for a job?: No Are you interested in more education?: No Please select the resources that you would like help with: None Currently or been in a relationship where the following occur: No concerns reported THRIVE Score: 0 AUDIT C Alcohol Use Questionnaire (AUDIT-C) 1. How often do you have a drink containing alcohol?: 2-3 times a week 2. How many drinks containing alcohol do you have on a typical day when you are drinking?: 1 or 2 3. How often do you have six or more drinks on one occasion?: Less than monthly Total Score: 4 Score Reviewed/Action Taken: Yes ONOFRE-7 AMB Questionnaire ONOFRE-7 Date ONOFRE - 7 assessed: 07/26/24 Source: Developed by Drs. Royer Lai, Tana Hitchcock, Chiki Cullen and colleagues, with an educational tracy from [employer]. Review of Systems Const Denies headache(s) Eyes Reports change in vision and Denies loss of vision ENT Denies vertigo, Denies dizziness, Denies headache(s), Reports nasal discharge and Denies sore throat Card Denies chest pain, Denies leg edema and Denies lightheadedness Resp Denies cough, Denies hemoptysis and Denies wheezing GI Denies abdominal pain, Denies melena, Denies constipation, Denies diarrhea and Denies vomiting Denies urinary frequency, Denies dysuria and Denies urinary urgency Musc Denies arthralgias, Denies joint swelling, Denies numbness and Denies tingling Neuro Denies Abnormal speech present, Denies behavioral changes, Denies vertigo, Denies dizziness, Denies headache(s), Denies loss of vision, Denies memory loss, Denies numbness and Denies tingling Psych Denies anxiety, Denies behavioral changes, Denies depression, Denies memory loss and Denies panic attacks Mynor/Lymph Denies easy bleeding and Denies easy bruising Aller/Immun Denies wheezing Physical exam (Primary Care) Vital Signs: Last Vital Signs Temp 97.1 F 08/04/24 15:05 Pulse 64 08/04/24 15:05 BP 132/80 08/04/24 15:45 Pulse Ox 99 08/04/24 15:05 Oxygen Delivery Method Room Air 08/04/24 15:05 BMI result Body Mass Index 29.8 Tobacco/Smoking Status: Tobacco use Status Tobacco use date assessed 07/26/24 08/04/24 15:06 Patient Tobacco Use Status Never used Tobacco 08/04/24 15:06 Tobacco use type Cigarette 08/04/24 15:06 e-Cigarette/Vaping Use Never Used 08/04/24 15:06 PHQ-9: PHQ-9 Score PHQ-9: Total score 0 08/04/24 15:37 Depression Screening Interpretation: Negative Thrive Assessment: Date of Thrive Assessment Date Thrive assessed 08/04/24 08/04/24 15:06 Currently or been in a relationship where the following occur: No concerns reported Const General: healthy appearing, no acute distress, alert and awake Nutritional Appearance: well nourished Orientation/consciousness: oriented to person, oriented to place and oriented to time HENMT Ears: TM's normal bilaterally General nose exam: Normal nasal mucous membranes and turbinates present Eyes Conjunctivae: conjunctivae normal Sclerae: sclerae normal Pupils: Equal, round and reactive pupils present Neck Neck: Yes no lymphadenopathy and Yes no JVD Thyroid: Thyroid normal Carotids: no bruits Resp Effort & Inspection: normal respiratory effort and not tachypneic Auscultation: no crackles, no rales, no rhonchi and no wheezes Cardio Rate: regular rate Rhythm: regular rhythm Heart sounds: no murmurs and normal S1 and S2 GI Palpation (GI): Soft to palpation, nontender, no hepatomegaly and no splenomegaly Auscultation: normal bowel sounds Skin General skin exam: no rashes or lesions noted and dry skin Neuro General: oriented to person, oriented to place and oriented to time Cranial nerves: Yes Equal, round and reactive pupils present Speech: No Abnormal speech present Gait exam (Neuro): Normal gait present Motor exam (neuro): no tremor noted Deep tendon reflexes (DTR's): Right triceps reflex intensity grade: 2+, Left triceps reflex intensity grade: 2+, Rt Biceps (C5, C6): 2+, Left biceps reflex intensity grade: 2+, Right brachioradialis reflex intensity grade: 2+ and Left brachioradialis reflex intensity grade: 2+ Extrem Right upper extremity: full ROM Left upper extremity: full ROM Right lower extremity: full ROM; no edema Left lower extremity: full ROM; no edema Psych Mental Status: mental status grossly normal Speech and movement: Normal speech and movement present Affect: normal affect Attitude: cooperative Thought process: Normal thought process present Results Reviewed Results Reviewed: Laboratory Tests 07/02/24 07/02/24 07/16/24 08:29 08:30 05:20 WBC 12.7 H RBC 3.86 L Hgb 12.2 Hct 36.1 L MCV 93.5 MCH 31.6 MCHC 33.8 RDW 11.5 Plt Count 320 MPV 9.6 Sodium 137 Potassium 3.8 Chloride 105 Carbon Dioxide 25 Anion Gap 11 L BUN 9 Creatinine 0.69 Estim Creat Clear Calc 102.0 Estimated GFR > 60 Random Glucose 125 H Calcium 8.5 D Total Bilirubin 0.4 AST 20 ALT 16 Alkaline Phosphatase 65 Total Protein 7.7 Albumin 4.4 Triglycerides 66 Cholesterol 280 H LDL Cholesterol, Calc 184 H HDL Cholesterol 83 Vitamin B12 727 25-OH Vitamin D Total 45.0 Folate 13.7 TSH 1.94 Urine Color Yellow Urine Appearance Clear Urine pH 6.0 Ur Specific [place] 1.020 Urine Protein Negative Urine Glucose (UA) Negative Urine Ketones Negative Urine Blood Negative Urine Nitrite Negative Ur Leukocyte Esterase Small (1+) H Urine RBC 0-2 Urine WBC 0-5 Ur Squamous Epith Cells 3-5 Urine Bacteria Trace Hyaline Casts 0-2 Coding Level of Care Code Est Pt Prev Care 40-64y([id number]) Diagnoses Physical exam Z00.00 Allergic rhinitis, unspecified seasonality, unspecified trigger J30.9 Allergic rhinitis trigger: unspecified Allergic rhinitis seasonality: unspecified Pure hypercholesterolemia E78.00 Depression with anxiety F41.8 Diverticulosis of colon K57.30 Leukocytosis, unspecified type D72.829 Leukocytosis type: unspecified Anemia, unspecified type D64.9 Anemia type: unspecified type History of colostomy reversal Z98.890 Overweight (BMI 25.0-29.9) E66.3 Time Spent (min) 38 Assessment & Plan Assessment & Plan (1) Physical exam: Code(s): Z00.00 - Encounter for general adult medical examination without abnormal findings Category: Medical Plan: PREVENTATIVE GUIDELINES AND RECENT LABS REVIEWED WITH THE PATIENT (2) Allergic rhinitis: Code(s): J30.9 - Allergic rhinitis, unspecified Category: Medical Qualifiers: Allergic rhinitis trigger: unspecified Allergic rhinitis seasonality: unspecified Qualified Code(s): J30.9 - Allergic rhinitis, unspecified Plan: Limit exposure to allergens Air purifiers and dust filters Air conditioner in house, especially where sleeping Continue antihistamine OTC as needed (3) Pure hypercholesterolemia: Code(s): E78.00 - Pure hypercholesterolemia, unspecified Category: Medical Plan: Total cholesterol 280, LDL 184 Increased since last checked. Discussed her increased risk of stroke or heart attack. Patient is not a fan of statins and is determine to make lifestyle antoni fications. Reports that her recent multiple surgeries due to her diverticulitis set her back from her exercise goals. We will check lipids in 3 months (4) Depression with anxiety: Code(s): F41.8 - Other specified anxiety disorders Category: Medical Plan: Encouraged CBT No current medication management Denies SI/HI (5) Diverticulosis of colon: Comment: Maintain high fiber diet- diverticulosis/ diverticulitis- discussed Code(s): K57.30 - Diverticulosis of large intestine without perforation or abscess without bleeding Category: Medical Plan: Multiple surgeries that ended up with diversion colonoscopy and most recently reversion surgery. Has been doing well and tolerating a regular diet (6) Elevated WBC count: Code(s): D72.829 - Elevated white blood cell count, unspecified Category: Medical Qualifiers: Leukocytosis type: unspecified Qualified Code(s): D72.829 - Elevated white blood cell count, unspecified Plan: Slightly elevated WBC Encouraged adequate hydration We will check CBC in 3 months (7) Anemia: Code(s): D64.9 - Anemia, unspecified Category: Medical Qualifiers: Anemia type: unspecified type Qualified Code(s): D64.9 - Anemia, unspecified Plan: Mild anemia on labs Status post multiple surgeries We will continue to monitor closely (8) History of colostomy reversal: Onset Date: 07/15/24 Comment: Chet Mckeon MD Code(s): Z98.890 - Other specified postprocedural states Category: Surgical Plan: Closure of colonoscopy on 07/16/2024 without any issues (9) Overweight (BMI 25.0-29.9): Code(s): E66.3 - Overweight Category: Medical Plan: Encouraged to exercise for at least 30 minutes a day/5 days a week Healthy eating discussed. Encouraged to eat fruits/vegetables, protein-fish/baked chicken, and to avoid salty/fried foods, sweets, caffeine and carbohydrates. Encouraged to increase water intake 6-8 glasses a day Plan Patient to return in 3 months for follow up of chronic conditions Orders: Orders Complete Blood Count Auto Diff 3 Months D64.9 - Anemia, unspecified, D72.829 - Elevated white blood cell count, unspecified, E66.9 - Obesity, unspecified, E78.00 - Pure hypercholesterolemia, unspecified, F41.8 - Other specified anxiety disorders, F41.9 - Anxiety disorder, unspecified, R03.0 - Elevated blood- pressure reading, without diagnosis of hypertension Comprehensive [place]. Panel Fast 3 Months D64.9 - Anemia, unspecified, D72.829 - Elevated white blood cell count, unspecified, E66.9 - Obesity, unspecified, E78.00 - Pure hypercholesterolemia, unspecified, F41.8 - Other specified anxiety disorders, F41.9 - Anxiety disorder, unspecified, R03.0 - Elevated blood- pressure reading, without diagnosis of hypertension TSH reflex Free T4 3 Months D64.9 - Anemia, unspecified, D72.829 - Elevated white blood cell count, unspecified, E66.9 - Obesity, unspecified, E78.00 - Pure hypercholesterolemia, unspecified, F41.8 - Other specified anxiety disorders, F41.9 - Anxiety disorder, unspecified, R03.0 - Elevated blood-pressure reading, without diagnosis of hypertension Vitamin D 25-OH Total 3 Months D64.9 - Anemia, unspecified, D72.829 - Elevated white blood cell count, unspecified, E66.9 - Obesity, unspecified, E78.00 - Pure hypercholesterolemia, unspecified, F41.8 - Other specified anxiety disorders, F41.9 - Anxiety disorder, unspecified, R03.0 - Elevated blood-pressure reading, without diagnosis of hypertension Lipid Panel 3 Months D64.9 - Anemia, unspecified, D72.829 - Elevated white blood cell count, unspecified, E66.9 - Obesity, unspecified, E78.00 - Pure hypercholesterolemia, unspecified, F41.8 - Other specified anxiety disorders, F41.9 - Anxiety disorder, unspecified, R03.0 - Elevated blood-pressure reading, without diagnosis of hypertension UA CC w/rflx Micro + Cult 3 Months D64.9 - Anemia, unspecified, D72.829 - Elevated white blood cell count, unspecified, E66.9 - Obesity, unspecified, E78.00 - Pure hypercholesterolemia, unspecified, F41.8 - Other specified anxiety disorders, F41.9 - Anxiety disorder, unspecified, R03.0 - Elevated blood- pressure reading, without diagnosis of hypertension Vitamin B12 and Folate 3 Months D64.9 - Anemia, unspecified, D72.829 - Elevated white blood cell count, unspecified, E66.9 - Obesity, unspecified, E78.00 - Pure hypercholesterolemia, unspecified, F41.8 - Other specified anxiety disorders, F41.9 - Anxiety disorder, unspecified, R03.0 - Elevated blood-pressure reading, without diagnosis of hypertension Glucose Fasting 3 Months D64.9 - Anemia, unspecified, D72.829 - Elevated white blood cell count, unspecified, E66.9 - Obesity, unspecified, E78.00 - Pure hype rcholesterolemia, unspecified, F41.8 - Other specified anxiety disorders, F41.9 - Anxiety disorder, unspecified, R03.0 - Elevated blood-pressure reading, without diagnosis of hypertension Patient Instructions: - Follow a low-cholesterol diet and exercise at least five times a week. - Take prescribed blood pressure medication consistently. - Monitor blood pressure at home regularly. - Schedule an eye exam to update prescription glasses. - Manage seasonal allergies with [id number] medications if needed. - Return for follow-up in three months to review progress.
[2024-08-04 15:05] VITALS: BP 142/88; PULSE 64; TEMP 36.2; O2SAT 99; BMI 29.8
[2024-08-04 15:45] VITALS: BP 132/80
== END 2024-08-04 15:49 | disposition home or self-care (01) ==
LOC: HO.HMCH 14:53
PROVIDERS: PCP Internal Medicine
DX: Z00.00 Encounter for general adult medical examination without abnormal findings (principal); J30.9 Allergic rhinitis, unspecified; E78.00 Pure hypercholesterolemia, unspecified; F41.8 Other specified anxiety disorders; K57.30 Diverticulosis of large intestine without perforation or abscess without bleeding; D72.829 Elevated white blood cell count, unspecified; D64.9 Anemia, unspecified; Z98.890 Other specified postprocedural states; E66.3 Overweight

== ENCOUNTER → 2024-08-04 14:52 | Outpatient (BNVA) | payer BC, SELFPAY | PROVIDERS: PCP Internal Medicine ==

== ENCOUNTER 2024-08-26 11:36 | Outpatient (AMB) | payer BC, SELFPAY ==
--- NOTE | 2024-08-26 11:46 | A.OFFVIS_ITS ---
Intake Visit Reasons: 1m S/P colostomy reversal Intake Note: Patient is seen in office for one month follow up visit, post closure of colostomy. Pt c/o: denies concerns Machine Plug Shaper Required: No Accompanied by: Self / Same As Patient Allergies No Known Allergies Allergy (Verified 08/26/24 11:48) HPI Comments Details: Patient returns 1 month following closure of colostomy on 07/15/2024. She initially had some separation of the wound seen on her last evaluation however this is all sealed with no further discharge. She denies any abdominal pain, nausea or vomiting. Her bowels are regular without any bleeding. [facility] Medical History Seasonal affective disorder HTN (hypertension) RBBB (right bundle branch block) Anxiety Allergic rhinitis Pure hypercholesterolemia Obesity (BMI 30-39.9) Loose stools Genital herpes Dyslipidemia Depression with anxiety Surgical History History of colostomy reversal (07/15/24) History of open reduction and internal fixation (ORIF) procedure Hx of colonoscopy History of endometrial ablation Status post Rachelle's procedure (12/04/23) H/O LEEP Family History Father History of quadruple bypass Mother High cholesterol Diverticulitis IBS (irritable bowel syndrome) HTN (hypertension) Maternal Grandmother Lung cancer Maternal Grandfather Stroke Maternal Aunt Diabetes Cancer Maternal Uncle Bladder cancer Social History Household Members: Spouse Household Members Other:: , no kids Housing: House Are you a primary career center advisor to a significant other at home: No Do you presently have visiting nurse or other home services: No Alcohol intake: current Alcohol intake frequency: 0-2 drinks per day Alcohol type: beer Comment: NWB left leg, assist pivot to commode Patient Tobacco Use Status: Never used Tobacco Tobacco use type: Cigarette e-Cigarette/Vaping Use: Never Used Second Hand Smoke Exposure: No Substance Use Type: Marijuana Advance Directives Date on File: 12/01/23 service: No Current occupational status: employed Current occupation: [employer] Current occupational exposures/hazards: No Sexual orientation: Straight/Heterosexual Gender identity: Female Cognitive needs: No Hearing needs: No Vision needs: No Female Reproductive History Menstrual Age of Menarche: 14 Physical Exam Const General: comfortable Nutritional Appearance: well nourished Orientation/consciousness: patient oriented x3 Resp Effort & Inspection: normal respiratory effort GI Other: Midline and left lower quadrant incision is clean, dry, and intact without redness or discharge. No hernia is identified with Valsalva maneuvers. Neuro General: patient oriented x3 Extrem Other: No edema Assessment & Plan Assessment & Plan (1) History of colostomy reversal: Onset Date: 07/15/24 Comment: Chet Mckeon MD Code(s): Z98.890 - Other specified postprocedural states Category: Surgical Plan Patient returns 1 month following closure of colostomy performed on 07/15/2024. She tolerated the procedure well and her wounds are healing nicely. She may return to normal activity without restrictions. She should follow up as needed. Coding Level of Care Code Global (93921) Diagnoses History of colostomy reversal Z98.890
== END 2024-08-26 12:11 | disposition home or self-care (01) ==
LOC: HO.HGS 11:36
PROVIDERS: PCP Internal Medicine; Visit Provider Surgery
DX: Z98.890 Other specified postprocedural states (principal)
CPT/HCPCS: 99024

== ENCOUNTER 2024-12-03 06:10 | Outpatient (REF) | payer BC, SELFPAY ==
--- OUTSIDE RECORDS SUMMARY | 2024-12-03 06:14 | XMS_ITS | Clinical Summary ---
Author Organization [facility] Address [address] [address] Phone Care Team Providers Care Access Registrar Name Role Phone Unavailable Primary Care Provider Unavailabl e Social History Tobacco Use Types Packs/Day Years Used Date Smoking Tobacco: Never Assessed Education Answer Date Recorded Are you interested in more education? Not on joycelyn e 12/08/2023 Are you concerned about learning? Not on file 12/08/2023 No 12/08/2023 No 12/08/2023 Digital Access Answer Date Recorded No 12/08/2023 No 12/08/2023 Reliable internet access at home? Not on file 12/08/2023 Device with a working camera? Not on file Comments Unknown Sex and Gender Information Value Date Recorded Sex Assigned at Not on file Legal Sex Female 2:17 PM EDT Gender Identity Not on file Sexual Orientation Not on file Plan of Treatment Not on file Medical Devices Not on file Insurance [employer] [place] OUT OF STATE PPO BLUE [place]OSS OUT OF STATE PPO [place]UE [place]OSS OUT OF STATE PPO BLUE [place]OSS OUT OF STATE PPO BLUE [place]OSS OUT OF STATE PPO PPO Additional Source Comments The information contained in this document represents components of the legal health record. It is not the complete legal health record.[facility]
[2024-12-03 06:39] LABS: MANUAL DIFF FLAG NO
[2024-12-03 08:00] LABS: Appearance Urine Clear; Glucose Urine UA Negative (Negative); PH 6.5 (5.0-9.0); Specific Gravity - Urine 1.015 (1.005-1.025); UMIC TRIGGER UACC YES
[2024-12-03 08:04] LABS: Hematocrit 38.3 % (37.0-47.0); Hemoglobin 12.7 g/dl (12.0-16.0); Imm Gran Abs Auto 0.03 X10*3/uL (0.00-0.03); Imm Gran Pct Auto 0.5 % (0.0-0.4); Lymphocytes Absolute Auto 2.0 X10*3/uL (1.2-4.9); Mean Corpuscular HGB Conc 33.2 g/dl (31.0-35.0); Mean Corpuscular Hemoglobin 31.4 pg (27.0-33.0); Mean Corpuscular Volume 94.6 fL (80.0-98.0); NRBC Abs Auto 0.000 X10*3/uL (0.0-0.012); NRBC Pct Auto 0.0 /100WBC (0.0-0.2); Platelet Count 368 X10*3/uL (160-400); Red Blood Count 4.05 X10*6/uL (4.20-5.50); White Blood Count 6.1 X10*3/uL (4.8-10.8)
[2024-12-03 08:06] LABS: UACC Culture Trigger YES
[2024-12-03 08:33] LABS: Alanine Aminotransferase 25 U/L (0-31); Albumin Level 4.4 g/dL (3.5-5.0); Alkaline Phosphatase 79 U/L (39-117); Anion Gap 13 (12-20); Aspartate Amino Transferase 30 U/L (5-31); Blood Urea Nitrogen 14 mg/dL (9-16); Calcium 9.2 mg/dL (8.4-10.2); Carbon Dioxide 25 mmol/L (22-29); Chloride 107 mmol/L (96-108); Cholesterol 256 mg/dL (<200); Estimated Glomerular Filt Rate > 60; HDL Cholesterol 77 mg/dL (>40); Potassium 4.2 mmol/L (3.3-5.1); Sodium 141 mmol/L (135-145); Total Protein 7.3 g/dL (6.5-8.0); Triglycerides 74 mg/dL (<150)
[2024-12-03 08:44] LABS: Folate 14.4 ng/mL (> or = 4.0); Vitamin B12 758 pg/mL (200-900)
== END 2024-12-03 06:11 | disposition home or self-care (01) ==
LOC: HO.LAB 06:10
PROVIDERS: PCP Internal Medicine
DX: E78.00 Pure hypercholesterolemia, unspecified (principal); D64.9 Anemia, unspecified; R03.0 Elevated blood-pressure reading, without diagnosis of hypertension; E66.9 Obesity, unspecified; F41.8 Other specified anxiety disorders; D72.829 Elevated white blood cell count, unspecified; R30.0 Dysuria; Z13.21 Encounter for screening for nutritional disorder
CPT/HCPCS: 36415; 80053; 80061; 81001; 81003; 82306; 82607; 82746; 84443; 85025; 87086

== ENCOUNTER 2024-12-08 09:50 | Outpatient (AMB) | payer BC, SELFPAY ==
[2024-12-08 09:55] VITALS: BP 130/88; PULSE 84; TEMP 36.2; O2SAT 98; BMI 30.6
--- NOTE | 2024-12-08 09:55 | MHC.PC.OV ---
Vital Signs 12/08/24 09:55 Height 5 ft 5 in Weight 184 lb BMI 30.6 BP 130/88 Blood Pressure Location Lt brachial Position Sitting Pulse 84 Pulse Source Pulse Oximeter Temp 97.1 F Temp Source Temporal Artery Scan Pulse Oximetry (%) 98 Oxygen Delivery Method Room Air Intake Visit Reasons: hld/anemia/htn Allergies No Known Allergies Allergy (Verified 12/08/24 10:20) Medication List - Last Reconciled 12/08/24 by Andi Fry MD amlodipine (Norvasc) 5 mg PO QAM 90 days buspirone 10 mg PO BID 90 days Lactobacillus acidophilus (Probiotic) 10,000 mmu cells PO DAILY multivitamin 1 tab PO DAILY omega-3 fatty acids-fish oil 684-1,200 mg 1 cap PO DAILY Tobacco use date assessed: 12/08/24 Dental Screening Dental Screen Date: 12/08/24 Did you have a dental visit in the last 12 months?: Yes Did you have a dental problem in the last 6 months where you did not have access to dental care?: No Was dental information given to patient?: Patient has dentist HPI hld/anemia/htn HPI Details Patient comes in today for her follow up visit States that she feels okay She denies any headaches or dizziness Denies any chest pains, no SOB No nausea/vomiting, no abdominal pain No change in bowel habits noted She had her follow up labs done a few days ago - to discuss her results [facility] Medical History Seasonal affective disorder HTN (hypertension) RBBB (right bundle branch block) Anxiety Allergic rhinitis Pure hypercholesterolemia Obesity (BMI 30-39.9) Loose stools Genital herpes Dyslipidemia Depression with anxiety Surgical History (Updated 12/08/24 @ 10:38 by Andi Fry MD) History of colostomy reversal (07/15/24) History of open reduction and internal fixation (ORIF) procedure Hx of colonoscopy History of endometrial ablation Status post Rachelle's procedure (12/04/23) H/O LEEP Family History Father History of quadruple bypass Mother High cholesterol Diverticulitis IBS (irritable bowel syndrome) HTN (hypertension) Maternal Grandmother Lung cancer Maternal Grandfather Stroke Maternal Aunt Diabetes Cancer Maternal Uncle Bladder cancer Social History Household Members: Spouse Household Members Other:: , no kids Housing: House Are you a primary insurance healthcare representative to a significant other at home: No Do you presently have visiting nurse or other home services: No Alcohol intake: current Alcohol intake frequency: 0-2 drinks per day Alcohol type: beer Comment: NWB left leg, assist pivot to commode Patient Tobacco Use Status: Never used Tobacco Tobacco use type: Cigarette e-Cigarette/Vaping Use: Never Used Second Hand Smoke Exposure: No Substance Use Type: Marijuana Advance Directives Date on File: 12/01/23 service: No Current occupational status: employed Current occupation: [employer] Current occupational exposures/hazards: No Sexual orientation: Straight/Heterosexual Gender identity: Female Cognitive needs: No Hearing needs: No Vision needs: No Female Reproductive History Menstrual Age of Menarche: 14 Questionnaire PHQ-9 Over the last 2 weeks, how often have you been bothered by any of the following problems? 1. Little interest or pleasure in doing things: not at all 2. Feeling down, depressed, or hopeless: not at all 3. Trouble falling or staying asleep, or sleeping too much: not at all 4. Feeling tired or having little energy: not at all 5. Poor appetite or overeating: not at all 6. Feeling bad about yourself - or that you are a failure or have let yourself or your family down: not at all 7. Trouble concentrating on things, such as reading the newspaper or watching television: not at all 8. Moving or speaking so slowly that other people could have noticed. Or the opposite - being so fidgety or restless that you have been moving around a lot more than usual: not at all 9. Thoughts that you would be better off or of hurting yourself in some way: not at all Total score: 0 Depression Screening Interpretation: Negative Depression Screening Done: Yes 89599 - PHQ-9 Billing: Yes Source: Developed by Drs. Royer Lai, Tana Hitchcock, Chiki Cullen and colleagues, with an educational tracy from [employer]. Thrive Questionnaire Date Thrive assessed: 07/16/24 I am a: Patient What is your living situation today?: I have a steady place to live Within the past 12 months, did the food you bought not last and you didn't have the money to get more?: Never true Within the past 12 months, did you worry whether your food would run out before you got money to buy more?: Never true Do you have trouble paying for medicines?: No Do you have trouble getting transportation to medical appointments?: No Do you have trouble paying your heating and electricity bill?: No Do you have trouble taking care of your child, family member or friend?: No Do you have trouble with day-to-day activities such as bathing, preparing meals, shopping, managing finances, etc.?: No Are you currently unemployed and looking for a job?: No Are you interested in more education?: No Please select the resources that you would like help with: None Currently or been in a relationship where the following occur: No concerns reported THRIVE Score: 0 AUDIT C Alcohol Use Questionnaire (AUDIT-C) 1. How often do you have a drink containing alcohol?: 2-3 times a week 2. How many drinks containing alcohol do you have on a typical day when you are drinking?: 1 or 2 3. How often do you have six or more drinks on one occasion?: Less than monthly Total Score: 4 Score Reviewed/Action Taken: Yes ONOFRE-7 AMB Questionnaire ONOFRE-7 Date ONOFRE - 7 assessed: 07/26/24 Feeling nervous, anxious, or on edge: 0 = Not at all Not being able to stop or control worryin = Not at all Worrying too much about different things: 0 = Not at all Trouble relaxin = Not at all Being so restless that it is hard to sit still: 0 = Not at all Becoming easily annoyed or irritable: 0 = Not at all Feeling afraid as if something awful might happen: 0 = Not at all Total ONOFRE-7 score (0-4 normal; 5-9 mild; 10-14 moderate; 15-21 severe): 0 Source: Developed by Drs. Royer Lai, Tana Hitchcock, Chiki Cullen and colleagues, with an educational tracy from [employer]. Review of Systems Const Denies chills, Denies fatigue, Denies fever(s) and Denies headache(s) ENT Denies dysphagia, Denies dizziness, Denies otalgia, Denies headache(s), Denies neck pain, Denies odynophagia and Denies sore throat Card Denies chest pain, Denies irregular heart rhythm, Denies palpitations and Denies dyspnea Resp Denies chest congestion, Denies cough and Denies dyspnea GI Denies abdominal pain, Denies dysphagia, Denies heartburn, Denies nausea, Denies odynophagia and Denies vomiting Denies urinary frequency, Denies dysuria and Denies urinary urgency Musc Denies back pain, Denies arthralgias and Denies neck pain Skin/Breast Denies rash Neuro Denies dizziness, Denies headache(s) and Denies paresthesias Psych Denies anxiety (controlled on current Rx) and Denies depression Endo Denies fatigue and Denies palpitations Mynor/Lymph Denies easy bruising Physical exam (Primary Care) Vital Signs: Last Vital Signs Temp 97.1 F 12/08/24 09:55 Pulse 84 12/08/24 09:55 BP 130/88 12/08/24 09:55 Pulse Ox 98 12/08/24 09:55 Oxygen Delivery Method Room Air 12/08/24 09:55 BMI result Body Mass Index 30.6 Tobacco/Smoking Status: Tobacco use Status Tobacco use date assessed 12/08/24 12/08/24 09:58 Patient Tobacco Use Status Never used Tobacco 12/08/24 09:58 Tobacco use type Cigarette 12/08/24 09:58 e-Cigarette/Vaping Use Never Used 12/08/24 09:58 PHQ-9: PHQ-9 Score PHQ-9: Total score 0 12/08/24 09:58 Depression Screening Interpretation: Negative Thrive Assessment: Date of Thrive Assessment Date Thrive assessed 07/16/24 12/08/24 09:58 Currently or been in a relationship where the following occur: No concerns reported Const General: no acute distress and alert HENMT Ears: TM's normal bilaterally and EAC's normal Throat: Yes posterior oropharynx normal and Yes tonsils normal (no TP congestion) Neck Neck: Yes supple and No lymphadenopathy Thyroid: Thyroid normal Resp Auscultation: clear to auscultation bilaterally, no rales and no wheezes Cardio Rate: regular rate Rhythm: regular rhythm Heart sounds: no murmurs GI Palpation (GI): Soft to palpation and nontender Auscultation: normal bowel sounds General: Yes no CVA tenderness Back/Spine/Pelvis Back: no CVA tenderness Thoracic/Lumbar Spine: No lumbar spinal tenderness Skin Rashes: no rashes Extrem General: Yes no clubbing, cyanosis or edema Results Reviewed Results Reviewed: Laboratory Tests 12/18/23 07/02/24 12/03/24 09:34 08:29 06:32 WBC 13.4 H Hgb 12.0 D Hct 37.8 D Plt Count 796 H D Sodium Potassium Creatinine Estimated GFR Fasting Glucose Calcium AST ALT Triglycerides 66 Cholesterol 280 H LDL Cholesterol, Calc 184 H HDL Cholesterol 83 Vitamin B12 25-OH Vitamin D Total TSH Ur Specific [place] 1.015 Urine Protein Negative Urine Glucose (UA) Negative Urine Blood Negative Urine Nitrite Negative Ur Leukocyte Esterase Moderate (2+) H 12/03/24 06:37 WBC 6.1 Hgb 12.7 Hct 38.3 Plt Count 368 Sodium 141 Potassium 4.2 Creatinine 0.78 Estimated GFR > 60 Fasting Glucose 82 Calcium 9.2 D AST 30 ALT 25 Triglycerides 74 Cholesterol 256 H LDL Cholesterol, Calc 165 H HDL Cholesterol 77 Vitamin B12 758 25-OH Vitamin D Total 58.6 TSH 2.75 Ur Specific [place] Urine Protein Urine Glucose (UA) Urine Blood Urine Nitrite Ur Leukocyte Esterase Coding Level of Care Code Est Pt Level 4 (62403) Diagnoses Pure hypercholesterolemia E78.00 Elevated blood pressure reading in office without diagnosis of hypertension R03.0 Abscess of sigmoid colon due to diverticulitis K57.20 Allergic rhinitis, unspecified seasonality, unspecified trigger J30.9 Allergic rhinitis trigger: unspecified Allergic rhinitis seasonality: unspecified Anxiety F41.9 Obesity (BMI 30-39.9) E66.9 Additional Codes PHQ-9 - 01303 - PHQ-9 Billing: Yes ([id number]) Assessment & Plan Assessment & Plan (1) Pure hypercholesterolemia: Code(s): E78.00 - Pure hypercholesterolemia, unspecified Category: Medical Plan: Results of her labs done a few days ago reviewed and discussed with patient - she is advised that cholesterol levels are still elevated (total cholesterol is at 256 mg/dl and LDL cholesterol is at 165 mg/dl) but they have improved slightly from her previous numbers earlier this spring Reinforced low cholesterol diet States that she just started with a weight management program and is hoping that losing some weight will also help with her cholesterol numbers Will have her recheck her labs and fasting lipids in 6 months for follow up (2) Elevated blood pressure reading in office without diagnosis of hypertension: Code(s): R03.0 - Elevated blood-pressure reading, without diagnosis of hypertension Category: Medical Plan: Reinforced low sodium diet - goal is systolic BP of 120 mm or less Continue Amlodipine 5 mg QD Have reminded patient to continue monitoring her blood pressure regularly (3) Abscess of sigmoid colon due to diverticulitis: Code(s): K57.20 - Diverticulitis of large intestine with perforation and abscess without bleeding Category: Medical Plan: Patient ended up undergoing laparotomy with sigmoid colon resection and diversion colostomy last year and her colostomy was eventually reversed a few months later on 07/15/2024 Patient states that she's had no problems since her colostomy reversal and she is currently eating well and her bowel movements have been regular (4) Allergic rhinitis: Code(s): J30.9 - Allergic rhinitis, unspecified Category: Medical Qualifiers: Allergic rhinitis trigger: unspecified Allergic rhinitis seasonality: unspecified Qualified Code(s): J30.9 - Allergic rhinitis, unspecified Plan: Can continue OTC antihistamines PRN for symptomatic relief of her allergies (5) Anxiety: Code(s): F41.9 - Anxiety disorder, unspecified Category: Medical Plan: Continue Buspirone 10 mg BID Feels that she has been doing very well on her current Rx for her anxiety and mood disorder (6) Obesity (BMI 30-39.9): Code(s): E66.9 - Obesity, unspecified Category: Medical Plan: Reinforced diet/exercise as tolerated/lose weight States that she recently just joined a weight management program and is hoping to lose some weight and this will in turn help with her cholesterol levels Plan To return in 6 months for her next annual physical examination Orders: Orders UA CC w/rflx Micro + Cult 07/08/25 R30.0 - Dysuria, Z00.00 - Encounter for general adult medical examination without abnormal findings Lipid Panel 07/08/25 E78.00 - Pure hypercholesterolemia, unspecified, Z00.00 - Encounter for general adult medical examination without abnormal findings Complete Blood Count Auto Diff 07/08/25 D64.9 - Anemia, unspecified, Z00.00 - Encounter for general adult medical examination without abnormal findings Comprehensive [place]. Panel Fast 07/08/25 E78.00 - Pure hypercholesterolemia, unspecified, Z00.00 - Encounter for general adult medical examination without abnormal findings TSH reflex Free T4 07/08/25 E78.00 - Pure hypercholesterolemia, unspecified, Z00.00 - Encounter for general adult medical examination without abnormal findings Vitamin D 25-OH Total 07/08/25 E55.9 - Vitamin D deficiency, unspecified, Z00.00 - Encounter for general adult medical examination without abnormal findings
--- OUTSIDE RECORDS SUMMARY | 2024-12-08 10:48 | XMS_ITS | Clinical Summary ---
Author Organization [facility] Address [address] [address] Phone Care Team Providers Care Dye Weigher Helper Name Role Phone Unavailable Primary Care Provider [...] Medical Devices Not on file Insurance [employer] OUT OF STATE PPO * Guarantor: Susan Boss Account Type Relation to Patient Date of Phone Billing Address Personal/Family Self [address] [place] [address] [employer] OUT OF STATE PPO * Guarantor: Karyn Susan Account Type Relation to Patient Date of Phone Billing Address Personal/Family Self [address] [place] [address] [employer] OUT OF STATE PPO * Guarantor: Karyn Susan Account Type Relation to Patient Date of Phone Billing Address Personal/Family Self [address] [place] [address] [employer] OUT OF STATE PPO [employer] OUT OF STATE PPO PPO Additional Source Comments The information contained in this document represents components of the legal health record. It is not the complete legal health record.[facility]
== END 2024-12-08 10:53 | disposition home or self-care (01) ==
LOC: HO.HMCH 09:51
PROVIDERS: PCP Internal Medicine; Visit Provider Internal Medicine
DX: E78.00 Pure hypercholesterolemia, unspecified (principal); R03.0 Elevated blood-pressure reading, without diagnosis of hypertension; E66.9 Obesity, unspecified; Z68.30 Body mass index [BMI] 30.0-30.9, adult; K57.20 Diverticulitis of large intestine with perforation and abscess without bleeding; J30.9 Allergic rhinitis, unspecified; F41.9 Anxiety disorder, unspecified

== ENCOUNTER → 2024-12-08 09:50 | Outpatient (BNVA) | payer BC, SELFPAY | PROVIDERS: PCP Internal Medicine; Visit Provider Internal Medicine | DX: R03.0 Elevated blood-pressure reading, without diagnosis of hypertension (principal); E78.00 Pure hypercholesterolemia, unspecified; K57.20 Diverticulitis of large intestine with perforation and abscess without bleeding; J30.9 Allergic rhinitis, unspecified; F41.9 Anxiety disorder, unspecified; E66.9 Obesity, unspecified; E55.9 Vitamin D deficiency, unspecified; R30.0 Dysuria; D64.9 Anemia, unspecified; Z68.30 Body mass index [BMI] 30.0-30.9, adult | CPT/HCPCS: 96127 ==

== ENCOUNTER 2024-12-28 07:37 | Outpatient (REF) | payer BC, SELFPAY ==
--- NOTE | ~2024-12-28 | MM_ITS ---
EXAMINATION: MM SCREENING DIGITAL BREAST TOMOSYNTHESIS, BILATERAL CLINICAL INFORMATION: Screening. Asymptomatic. COMPARISON: Mammography: Comparison is made with available priors TECHNIQUE: Digital breast mammography with tomosynthesis is performed in both the craniocaudal and mediolateral oblique views along with computer-aided detection (CAD). FINDINGS: There are scattered areas of fibroglandular density. There are no significant masses, abnormal calcifications, or other abnormalities. MM/MM tomosynthesis screening BI IMPRESSION: No mammographic evidence of malignancy. ASSESSMENT: BI-RADS Category 1: Negative RECOMMENDATION: Routine annual mammography screening. 1 year F/U This examination should not preclude the clinical evaluation of a suspicious palpable abnormality. This patient's information was entered into a reminder system with a target due date for their next mammogram. Electronically signed by: Yasmine Gray DO 12/28/2024 03:47 PM EDT
--- OUTSIDE RECORDS SUMMARY | 2024-12-28 07:39 | XMS_ITS | Clinical Summary ---
Author Organization [facility] Address [address] [address] Phone Care Team Providers Care Minister Helper Name Role Phone Unavailable Primary Care [...] Medical Devices Not on file Insurance [employer] [place] OUT OF STATE PPO [employer]OSS OUT OF STATE PPO [employer] OUT OF STATE PPO [employer] OUT OF STATE PPO [employer] OUT OF STATE PPO PPO Additional Source Comments The information contained in this document represents components of the legal health record. It is not the complete legal health record.[facility]
== END 2024-12-28 07:38 | disposition home or self-care (01) ==
LOC: HO.MAMMO 07:37
PROVIDERS: PCP Internal Medicine; Visit Provider Internal Medicine
DX: Z12.31 Encounter for screening mammogram for malignant neoplasm of breast (principal)
CPT/HCPCS: 77063; 77067

== ENCOUNTER → 2024-12-28 07:45 | Outpatient (BNV) | payer BC, SELFPAY | PROVIDERS: PCP Internal Medicine; Visit Provider Internal Medicine | DX: Z12.31 Encounter for screening mammogram for malignant neoplasm of breast (principal) | CPT/HCPCS: 77063; 77067 ==